=== PATIENT | male | born 1965 | race Caucasian/White ===

== ENCOUNTER 2018-08-02 10:35 | Inpatient (IN) | payer OTHER ==
[~2018-08-02 10:35] MED LIST: ISOVUE-370 76%-LOCM 1 ML ONE
[2018-08-02] MEDS ORDERED: Dexamethasone 10 MG/ML VIAL ONE (10:53)
[2018-08-02 11:02] LABS: #Basophils 0.1 thou/uL (0.0-0.2); #Eosinphils 0.2 thou/uL (0.0-0.7); #Lymphocytes 1.5 thou/uL (1.20-3.40); #Monocytes 0.7 thou/uL (0.11-0.59); #Neutrophils 6.7 thou/uL (1.40-6.50); %Basophils 0.9 % (0.0-1.0); %Eosinophils 2.7 % (0.0-10.0); %Lymphocytes 16.4 % (21.0-51.0); %Monocytes 7.8 % (0.0-10.0); %Neutrophils 72.4 % (42.0-75.0); Hemoglobin 12.6 g/dL (14.0-18.0); Mean Corpuscular HGB CONC 32.2 g/dL (32.0-36.0); Mean Corpuscular Hemoglobin 29.3 pg (27.0-31.0); Mean Corpuscular Volume 91.1 fL (78.0-98.0); Mean Platelet Volume 8.4 fL (7.4-10.4); Platelet Count 222 thou/uL (130-400); RBC Distribution Width 12.6 % (11.5-14.5); Red Blood Cell (RBC) Count 4.31 mill/uL (4.70-6.10); White Blood Cell (WBC) Count 9.2 thou/uL (4.8-10.8)
[2018-08-02 11:22] LABS: ALT (SGPT) 31 U/L (8-55); AST (SGOT) 17 U/L (5-34); Albumin 3.1 g/dL (3.5-5.0); Alkaline Phosphatase 89 U/L (40-150); Anion Gap 9 mmol/L (10-20); BUN (Urea Nitrogen) 18 mg/dL (8.4-25.7); Bilirubin, Total 0.8 mg/dL (0.2-1.2); CK (CPK) 106 U/L (30-200); Calc. Creatinine Clearance 0 mL/min (70-130); Calcium 8.7 mg/dL (7.8-10.44); Carbon Dioxide 30 mmol/L (22-29); Chloride 99 mmol/L (98-107); Estimated GFR-MDRD 51; Globulin 3.4 g/dL (2.4-3.5); Glucose 225 mg/dL (70-105); Potassium 3.7 mmol/L (3.5-5.1); Protein, Total 6.5 g/dL (6.0-8.3); Sodium 134 mmol/L (136-145)
--- NOTE | 2018-08-02 11:24 | RAD ---
CHEST 1 VIEW: HISTORY: Shortness of breath. Dyspnea. COMPARISON: None. FINDINGS: Normal cardiac silhouette. The pulmonary vessels and hilum are normal. Right costophrenic angle is clear. Obscuration of the left hemidiaphragm likely due to pleural and parenchymal changes. No pneu mothorax or osseous abnormalities. IMPRESSION: Pleural and parenchymal changes of the left lung base. POS: H
[2018-08-02 11:27] LABS: CKMB 2.5 ng/mL (0-6.6); Troponin I 0.029 ng/mL (< 0.028)
[2018-08-02] MEDS ORDERED: cloNIDine 0.1 MG TAB ONE (11:55)
--- NOTE | 2018-08-02 14:54 | CT ---
CT ANGIOGRAM OF THE CHEST: HISTORY: Dyspnea. COMPARISON: None. TECHNIQUE: CT angiogram of the chest is performed in the axial plane. Three-dimensional reformatted images are submitted for interpretation. FINDINGS: Moderate bilateral pleural effusions. Patchy ground-glass opacities are likely due to edema. There are linear opacities in both lower lobes represent areas of atelectasis. More focal opacification of the left lower lobe may represent subsegmental atelectasis or infiltrate. Additional patchy opacity is noted in the upper lobes and middle lobe. Trachea and central bronchi are patent. Visualized upper solid organs are unremarkable. There are enlarged mediastinal and hilar lymph nodes. 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 The visualized aorta has a normal caliber. No aneurysm. N o periaortic fat stranding. Heart size is within normal limits. No significant pericardial fluid. Adequate contrast opacification of the pulmonary arterial system to the level of the segmental arteri es. No filling defect to suggest thromboembolism. No lytic or blastic lesion in the osseous structures. IMPRESSION: 1. No evidence of pulmonary artery embolism to the level of the segmental arteries. 2. Bilateral effusions with lung parenchymal changes suggesting edema and volume overload. 3. Enlarged mediastinal and subcarinal lymph nodes which may be reactive secondary to infectious inf lammatory process. The possibility of malignancy cannot be excluded. Clinical correlation is essent ial. POS: DEYSI
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
[2018-08-02] MEDS ORDERED: Furosemide 40 MG/4 ML VIAL ONE (15:33)
[2018-08-02] MEDS ORDERED: Enoxaparin Sodium 40 MG/0.4 ML SYRINGE SC SCH ×2 (15:45→21:00)
[2018-08-02 16:17] LABS: Troponin I 0.027 ng/mL (< 0.028)
[2018-08-02 17:28] VITALS: BMI 41.5
[2018-08-02] MEDS ORDERED: Dextrose 50% Abboject 50 ML SYRINGE SLOW IVP PRN (17:44)
[2018-08-02] MEDS ORDERED: HumaLOG 300 UNITS/3 ML VIAL SC PRN ×3 (17:44→21:11)
[2018-08-02] MEDS ORDERED: Dextrose 5% in Water 1,000 ML IV PRN (17:44)
--- NOTE | 2018-08-02 17:49 | PDOC.EVN ---
Event Note - Event Note Event Note: patient changed code status to full code
[2018-08-02] MEDS ORDERED: Furosemide 40 MG/4 ML VIAL SLOW IVP SCH (18:00)
[2018-08-02] MEDS: metFORMIN 500 MG TAB PO SCH (18:21)
[2018-08-02] MEDS: Carvedilol 25 MG TAB PO SCH (18:21)
[2018-08-02 18:50] LABS: Troponin I 0.016 ng/mL (< 0.028)
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
[2018-08-02] MEDS: Lisinopril 20 MG TAB PO SCH (22:01)
[2018-08-02] MEDS: Atorvastatin Calcium 40 MG TAB PO SCH (22:01)
[2018-08-02] MEDS: Enoxaparin Sodium 40 MG/0.4 ML SYRINGE SC SCH (22:03)
[2018-08-03 04:55] LABS: #Lymphocytes 0.9 thou/uL (1.20-3.40); #Monocytes 0.3 thou/uL (0.11-0.59); #Neutrophils 7.9 thou/uL (1.40-6.50); %Eosinophils 0.2 % (0.0-10.0); %Lymphocytes 9.6 % (21.0-51.0); %Monocytes 3.1 % (0.0-10.0); %Neutrophils 87.1 % (42.0-75.0); Hemoglobin 11.7 g/dL (14.0-18.0); Mean Corpuscular Hemoglobin 29.9 pg (27.0-31.0); Mean Corpuscular Volume 90.7 fL (78.0-98.0); Mean Platelet Volume 8.7 fL (7.4-10.4); Platelet Count 217 thou/uL (130-400); RBC Distribution Width 12.7 % (11.5-14.5); Red Blood Cell (RBC) Count 3.92 mill/uL (4.70-6.10); White Blood Cell (WBC) Count 9.1 thou/uL (4.8-10.8)
[2018-08-03 05:11] LABS: ALT (SGPT) 23 U/L (8-55); AST (SGOT) 10 U/L (5-34); Albumin 2.9 g/dL (3.5-5.0); Alkaline Phosphatase 73 U/L (40-150); Anion Gap 12 mmol/L (10-20); BUN (Urea Nitrogen) 27 mg/dL (8.4-25.7); Bilirubin, Total 0.6 mg/dL (0.2-1.2); Calc. Creatinine Clearance 98 mL/min (70-130); Calcium 8.7 mg/dL (7.8-10.44); Carbon Dioxide 31 mmol/L (22-29); Chloride 99 mmol/L (98-107); Estimated GFR-MDRD 44; Globulin 2.9 g/dL (2.4-3.5); Glucose 285 mg/dL (70-105); Potassium 3.7 mmol/L (3.5-5.1); Protein, Total 5.8 g/dL (6.0-8.3); Sodium 138 mmol/L (136-145)
[2018-08-03] MEDS ORDERED: Acetaminophen 500 MG TAB PO SCH (05:15)
--- NOTE | 2018-08-03 05:53 | PDOC.FM ---
- Subjective Subjective: Pt states throat is very sore this AM. Says he was diagnosed with KELLEY 4 years ago but does not wear it because of discomfort. SOB is improved this AM. States he is concerned that his right side seems to be more swollen than his left (Rt arm and leg). - Objective Vital Signs & Weight: Vital Signs (12 hours) Temp Pulse Resp BP BP Pulse Ox 08/03/18 03:54 97.8 F 68 15 160/72 H 96 08/03/18 00:12 98 08/03/18 00:09 94 L 08/02/18 23:53 97.9 F 66 18 133/63 90 L 08/02/18 22:01 137/62 08/02/18 19:57 98.3 F 62 20 119/56 L 92 L 08/02/18 19:37 94 L 08/02/18 19:34 62 16 94 L Weight Weight 133.764 kg I&O: 08/01/18 08/02/18 08/03/18 06:59 06:59 06:59 Intake Total 360 Output Total 450 Balance -90 Result Diagrams: 08/03/18 04:42 08/03/18 04:42 <Bre Cohen - Last Filed: 08/03/18 07:39> - Objective Vital Signs & Weight: Vital Signs (12 hours) Temp Pulse Resp BP BP BP Pulse Ox 08/03/18 11:57 98.1 F 60 18 135/60 100 08/03/18 09:35 142/67 H 08/03/18 09:34 60 142/67 H 08/03/18 08:19 58 L 16 97 08/03/18 07:54 97.9 F 60 22 H 142/67 H 96 08/03/18 03:54 97.8 F 68 15 160/72 H 96 Weight Weight 133.764 kg I&O: 08/02/18 08/03/18 08/04/18 06:59 06:59 06:59 Intake Total 860 Output Total 450 Balance 410 Result Diagrams: 08/03/18 04:42 08/03/18 04:42 <Leonel Beavers - Last Filed: 08/03/18 13:28> Phys Exam - Physical Examination Constitutional: NAD HEENT: moist MMs Oral pharynx mild erythema Neck: supple +LAD Fine crackles at bases bilaterally, no wheezing Cardiovascular: RRR, no significant murmur Gastrointestinal: soft, no distention, positive bowel sounds Musculoskeletal: pulses present 2+ pitting edema in legs bilat, seems to be improved somewhat from yest Neurological: moves all 4 limbs Psychiatric: normal affect, A&O x 3 <Bre Cohen - Last Filed: 08/03/18 07:39> Dx/Plan (1) Acute exacerbation of CHF (congestive heart failure) Code(s): I50.9 - HEART FAILURE, UNSPECIFIED Status: Acute (2) DM2 (diabetes mellitus, type 2) Status: Chronic (3) HTN (hypertension) Code(s): I10 - ESSENTIAL (PRIMARY) HYPERTENSION Status: Chronic (4) CHF (congestive heart failure) Code(s): I50.9 - HEART FAILURE, UNSPECIFIED Status: Chronic (5) Diverticulitis Code(s): K57.92 - DVTRCLI OF INTEST, PART UNSP, W/O PERF OR ABSCESS W/O BLEED Status: Chronic (6) History of CVA with residual deficit Code(s): I69.30 - UNSPECIFIED SEQUELAE OF CEREBRAL INFARCTION Status: Chronic (7) Asthma Code(s): J45.909 - UNSPECIFIED ASTHMA, UNCOMPLICATED Status: Chronic - Plan Plan: 53 yo M with PMH of CVAx3, HTN, CHF, and asthma presents for CHF exacerbation Acute on Chronic CHF exacerbation -Pt presents with SOB, BNP 263; diminished lung sounds at bases, 2+ pitting edema in BLE -WBC WNL -CXR: pleural and parenchymal changes of Left lung base -EKG shows QT prolongation, non-specific T wave changes -CT Angio chest shows bilateral pleural effusions -CKMB neg, elevated at 0.029, downtrending -In ED, received duonebx2, 10 mg oral decadron, 40 IV lasix, clonidine 0.1 PO -Starting Lasix IV 40 BID, continue coreg -Strict I/Os -Echo pending -Try to obtain records from Dr. Carley Hill, [facility]. -Consult Cardiology, Dr. Perez. Appreciate recommendations -Started on Augmentin Pharyngitis, most likely viral -Throat lozenges for comfort Elevated troponin likely 2/2 demand ischema -continue trending troponins -CKMB neg DM2 -Lantus 40 daily -Mod SSI -Accuchecks, hyperglycemia protocol HTN -Continue home medicines Hyponatremia -slight, Na 134. Continue to monitor Hx CVAx3 with residual deficits -dual platelet therapy, plavix and ASA -slight residual weakness on RUE and RLE, patient walks with cane -Last stroke in Nov 2016 Asthma -duonebs dawit q6 KELLEY -Noncompliant, encourage compliance DVT Ppx: lovenox Diet: CC, HH, fluid restrict to 1800 ml/day Dispo: possible discharge tomorrow Thank you for allowing us to participate in this patient's care. <Bre Cohen - Last Filed: 08/03/18 07:39> (1) Acute exacerbation of CHF (congestive heart failure) Code(s): I50.9 - HEART FAILURE, UNSPECIFIED Status: Acute (2) DM2 (diabetes mellitus, type 2) Status: Chronic (3) HTN (hypertension) Code(s): I10 - ESSENTIAL (PRIMARY) HYPERTENSION Status: Chronic (4) CHF (congestive heart failure) Code(s): I50.9 - HEART FAILURE, UNSPECIFIED Status: Chronic (5) Diverticulitis Code(s): K57.92 - DVTRCLI OF INTEST, PART UNSP, W/O PERF OR ABSCESS W/O BLEED Status: Chronic (6) History of CVA with residual deficit Code(s): I69.30 - UNSPECIFIED SEQUELAE OF CEREBRAL INFARCTION Status: Chronic (7) Asthma Code(s): J45.909 - UNSPECIFIED ASTHMA, UNCOMPLICATED Status: Chronic <Leonel Beavers - Last Filed: 08/03/18 13:28> Attending Addendum - Attending Addendum Date/Time: 08/03/18 1317 I personally evaluated the patient and discussed the management with Dr. Dayan Cohen I agree with the History, Examination, Assessment and Plan documented above with any addition or exceptions noted below. Note history of documented KELLEY for several years with noncompliance with CPAP due to discomfort with mask stressed importance of CPAP given his condition .Lower extremities still with pitting edema. Echocardiogram completed results pending, appreciate Cardiology Recommendation. Recent URTI noted with sore throat now. Rec consider contact prior treating Hand Quilter's office in [place] for further results of previous evaluation. Patient sub optimal historian for PMHX regard specific cardiac conditions. <Leonel Beavers - Last Filed: 08/03/18 13:28>
[2018-08-03] MEDS: Furosemide 40 MG/4 ML VIAL SLOW IVP SCH ×2 (06:14→14:04)
[2018-08-03] MEDS ORDERED: Furosemide 40 MG TAB PO SCH (07:30)
--- NOTE | 2018-08-03 09:23 | PDOC.CTH ---
<Paulina Norton - Last Filed: 08/03/18 09:32> Cardiology Progress Note - Subjective The pt seen and examined. No overnight events. No cardiac complaints. He stated he has been urinating well and breathing better. - Objective Vital Signs Temp Pulse Resp BP BP Pulse Ox 08/03/18 08:19 58 L 16 97 08/03/18 07:54 97.9 F 60 22 H 142/67 H 96 08/03/18 03:54 97.8 F 68 15 160/72 H 96 08/03/18 00:12 98 08/03/18 00:09 94 L 08/02/18 23:53 97.9 F 66 18 133/63 90 L 08/02/18 22:01 137/62 Weight 294 lb 14.4 oz 08/02/18 08/03/18 08/04/18 06:59 06:59 06:59 Intake Total 860 Output Total 450 Balance 410 - Physical Examination General/Neuro: alert & oriented x3 Lungs: CTA Heart: RRR Abdomen: soft Extremities: other: (2+ pitting BLE edema and non-pitting to RUL) - Telemetry Telemetry Rhythm: SR 60-70s - Labs Result Diagrams: 08/03/18 04:42 08/03/18 04:42 Troponin/CKMB CK-MB (CK-2) 2.5 ng/mL (0-6.6) 08/02/18 10:45 Troponin I 0.016 ng/mL (< 0.028) 08/02/18 18:18 - Assessment/Plan 1. Acute on chronic HF - Reps. status is improving with Lasix 40mg IV BID; on BBlocker, FRIEDA, Diuretics. Echo result is pending at this time. 2. HTN - stable with current meds 3. DM type 2 - managed by PCP 4. 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 Asthma - stable 6. sleep Apnea - He had SA study more than 5 years ago. He has not worn Cpap @ HS for more than 4-5 years due to discomfort. Education of the risk and benefit of Sleep Apnea and Cpap @ HS given to the pt. MAR reviewed Review of Systems - Review of Systems Constitutional: reports: no symptoms reported EENTM: reports: no symptoms reported Respiratory: reports: no symptoms reported Cardiac (ROS): reports: no symptoms reported ABD/GI: reports: no symptoms reported : reports: no symptoms reported Musculoskeletal: reports: no symptoms reported Skin: reports: no symptoms reported <Chago Perez - Last Filed: 08/03/18 22:35> Cardiology Progress Note - Objective Vital Signs Temp Pulse Pulse Pulse Resp BP BP 08/03/18 20:36 138/70 08/03/18 20:00 97.4 F L 62 20 08/03/18 19:18 08/03/18 19:17 08/03/18 15:53 97.7 F 62 18 08/03/18 15:24 60 67 141/68 H 08/03/18 14:59 62 18 08/03/18 11:57 98.1 F 60 18 BP BP BP Pulse Ox Pulse Ox Pulse Ox 08/03/18 20:36 08/03/18 20:00 138/70 98 08/03/18 19:18 96 08/03/18 19:17 97 08/03/18 15:53 121/60 99 08/03/18 15:24 147/65 H 95 94 L 08/03/18 14:59 98 08/03/18 11:57 135/60 100 Weight 294 lb 14.4 oz 08/02/18 08/03/18 08/04/18 06:59 06:59 06:59 Intake Total 860 604 Output Total 450 Balance 410 604 - Labs Result Diagrams: 08/03/18 04:42 08/03/18 04:42 Troponin/CKMB CK-MB (CK-2) 2.5 ng/mL (0-6.6) 08/02/18 10:45 Troponin I 0.016 ng/mL (< 0.028) 08/02/18 18:18 - Assessment/Plan Pt. seen and evaluated by me. I agree with the A/P by the ROUGH RIB GRADER. We have discussed the pt. and the plan.Chest clear RRR. EF 35-40%.Dilated LV.
[2018-08-03] MEDS: Amlodipine 10 MG TAB PO SCH (09:34)
[2018-08-03] MEDS: Carvedilol 25 MG TAB PO SCH ×2 (09:34→16:51)
[2018-08-03] MEDS: metFORMIN 500 MG TAB PO SCH ×2 (09:34→16:51)
[2018-08-03] MEDS: Amoxicillin/Potassium Clav 875 MG TAB PO SCH ×2 (09:35→20:36)
[2018-08-03] MEDS: Clopidogrel Bisulfate 75 MG TAB PO SCH (09:35)
[2018-08-03] MEDS: Insulin Glargine 40 UNITS in Pre-Filled Syringe SC SCH (09:35)
[2018-08-03] MEDS: Spironolactone 100 MG TAB PO SCH (09:35)
[2018-08-03] MEDS: Lisinopril 20 MG TAB PO SCH ×2 (09:35→20:36)
[2018-08-03] MEDS: HumaLOG 300 UNITS/3 ML VIAL SC PRN ×2 (11:46→17:03)
[2018-08-03] MEDS: Cepastat Lozenges 1 LOZ PO PRN ×3 (14:04→20:36)
[2018-08-03] MEDS: Enoxaparin Sodium 40 MG/0.4 ML SYRINGE SC SCH (20:37)
[2018-08-03] MEDS: Atorvastatin Calcium 40 MG TAB PO SCH (20:37)
[2018-08-04] MEDS: Metolazone 5 MG TAB PO SCH (04:54)
[2018-08-04 04:57] LABS: #Lymphocytes 2.2 thou/uL (1.20-3.40); #Monocytes 0.8 thou/uL (0.11-0.59); #Neutrophils 8.3 thou/uL (1.40-6.50); %Basophils 0.1 % (0.0-1.0); %Eosinophils 0.3 % (0.0-10.0); %Lymphocytes 19.5 % (21.0-51.0); %Monocytes 7.4 % (0.0-10.0); %Neutrophils 72.6 % (42.0-75.0); Mean Corpuscular HGB CONC 32.2 g/dL (32.0-36.0); Mean Corpuscular Hemoglobin 29.3 pg (27.0-31.0); Mean Corpuscular Volume 90.9 fL (78.0-98.0); Mean Platelet Volume 8.8 fL (7.4-10.4); Platelet Count 218 thou/uL (130-400); RBC Distribution Width 12.8 % (11.5-14.5); Red Blood Cell (RBC) Count 3.77 mill/uL (4.70-6.10); White Blood Cell (WBC) Count 11.4 thou/uL (4.8-10.8)
[2018-08-04 05:11] LABS: ALT (SGPT) 20 U/L (8-55); AST (SGOT) 11 U/L (5-34); Albumin 2.9 g/dL (3.5-5.0); Alkaline Phosphatase 65 U/L (40-150); Anion Gap 11 mmol/L (10-20); BUN (Urea Nitrogen) 31 mg/dL (8.4-25.7); Bilirubin, Total 0.4 mg/dL (0.2-1.2); Calc. Creatinine Clearance 103 mL/min (70-130); Calcium 8.8 mg/dL (7.8-10.44); Carbon Dioxide 31 mmol/L (22-29); Chloride 101 mmol/L (98-107); Estimated GFR-MDRD 46; Globulin 2.8 g/dL (2.4-3.5); Glucose 177 mg/dL (70-105); Potassium 3.6 mmol/L (3.5-5.1); Protein, Total 5.7 g/dL (6.0-8.3); Sodium 139 mmol/L (136-145)
--- NOTE | 2018-08-04 05:55 | PDOC.FM ---
Addendum entered and electronically signed by Ellen Benson MD 08/04/18 09:53 : Will order procal, if neg plan to stop Augmentin Original Note: - Subjective Subjective: Mr Jeffery reports right hand, and LE edema that he feels has not improved. Reports not urinating often although on IV lasix BID. Reports taking a medication this AM in addition to lasix that he feels is helping. Denies SOB. He is no longer requiring O2. Reports sore throat, requests more throat lozenges. - Objective MAR Reviewed: Yes Vital Signs & Weight: Vital Signs (12 hours) Temp Pulse Resp BP BP BP Pulse Ox 08/04/18 04:23 97.9 F 62 19 146/71 H 95 08/04/18 00:00 98.4 F 66 19 128/60 92 L 08/03/18 23:54 96 08/03/18 20:36 138/70 08/03/18 20:00 97.4 F L 62 20 138/70 98 08/03/18 19:18 96 08/03/18 19:17 97 Weight Weight 133.764 kg I&O: 08/02/18 08/03/18 08/04/18 06:59 06:59 06:59 Intake Total 860 604 Output Total 450 Balance 410 604 Result Diagrams: 08/04/18 04:20 08/04/18 04:20 <Ellen Benson - Last Filed: 08/04/18 09:52> - Objective Vital Signs & Weight: Vital Signs (12 hours) Temp Pulse Resp BP BP Pulse Ox 08/04/18 07:51 97.3 F L 56 L 18 147/71 H 95 08/04/18 07:05 93 L 08/04/18 07:02 53 L 12 08/04/18 04:23 97.9 F 62 19 146/71 H 95 08/04/18 00:00 98.4 F 66 19 128/60 92 L 08/03/18 23:54 96 Weight Weight 128.14 kg I&O: 08/03/18 08/04/18 08/05/18 06:59 06:59 06:59 Intake Total 860 964 240 Output Total 869 521 7874 Balance 410 214 -785 Result Diagrams: 08/04/18 04:20 08/04/18 04:20 <PowellSrinath Yuan Rodrigo - Last Filed: 08/04/18 11:51> Phys Exam - Physical Examination Constitutional: NAD Respiratory: no wheezing, clear to auscultation bilateral Cardiovascular: RRR Gastrointestinal: soft, non-tender, positive bowel sounds Musculoskeletal: edema present LE pitting edema to jail up shins, right hand edema Psychiatric: normal affect, A&O x 3 <Ellen Benson - Last Filed: 08/04/18 09:52> Dx/Plan (1) HFrEF (heart failure with reduced ejection fraction) Code(s): I50.20 - UNSPECIFIED SYSTOLIC (CONGESTIVE) HEART FAILURE Status: Acute (2) Acute exacerbation of CHF (congestive heart failure) Code(s): I50.9 - HEART FAILURE, UNSPECIFIED Status: Acute (3) Asthma Code(s): J45.909 - UNSPECIFIED ASTHMA, UNCOMPLICATED Status: Chronic (4) DM2 (diabetes mellitus, type 2) Status: Chronic (5) Diverticulitis Code(s): K57.92 - DVTRCLI OF INTEST, PART UNSP, W/O PERF OR ABSCESS W/O BLEED Status: Chronic (6) HTN (hypertension) Code(s): I10 - ESSENTIAL (PRIMARY) HYPERTENSION Status: Chronic (7) History of CVA with residual deficit Code(s): I69.30 - UNSPECIFIED SEQUELAE OF CEREBRAL INFARCTION Status: Chronic - Plan Plan: 53yo male with pmh HTN, HFrEF, and CVA presents for HRrEF exacerbation Acute on Chronic CHF exacerbation - CXR: pleural & parenchymal changes of Left lung base. CTA: bilateral pleural effusions - EKG: QT prolongation, non-specific T wave changes - In ED, received duonebx2, 10 mg oral decadron, 40 IV lasix, clonidine 0.1 PO - Strict I/O's, daily wts, and fluid restriction - Continuous Improvement Facilitator, Dr. Carley Hill, [facility]- records requested - Cardiology consulted, Dr. Beth, Appreciate recs - Continue Lasix IV 40 BID - Net positive yesterday, Received first dose Metolazone this AM - Continue Augmentin (Azithromycin not started due to prolonged QT) - Continue home coreg, Spironolactone - Echo: 35-40% EF, candidate for AICD placement, will follow Cardiology recs Pharyngitis - Likely viral etiology - Throat lozenges for comfort DM2 - Continue Lantus 40 daily - Continue home Metformin, Januvia - Holding home Jardiance and Novolin - Mod SSI - Accuchecks ACHS - Hypoglycemia protocol HTN -Continue home Amlodipine, Lisinopril, Spironolactone Elevated troponin, resolved - likely 2/2 demand ischema - Initially elevated at 0.029, downtrended - CKMB neg Mild Hyponatremia, resolved Hx CVAx3 with residual deficits - dual platelet therapy, plavix and ASA - slight residual weakness on RUE and RLE, patient walks with cane - Last stroke in Nov 2016 Asthma - Duonebs dawit q6 KELLEY - SA study >5yrs ago - Noncompliant with CPAP - Educated on risk and benefit of HS CPAP Code Status: FULL DVT ppx: lovenox <Ellen Benson - Last Filed: 08/04/18 09:52> Attending Addendum - Attending Addendum Date/Time: 08/04/18 1150 I personally evaluated the patient and discussed the management with Dr. Benson. I agree with the History, Examination, Assessment and Plan documented above with any addition or exceptions noted below. Patient feeling well today. Will continue to work on diuresis with addition of Metolazone to Lasix regimen. He otherwise appears optimally medically managed. Strict I/O. Check PCT as likely does not need Augmentin therapy. Further mgmt per cardiology recs. <Srinath Powell - Last Filed: 08/04/18 11:51>
[2018-08-04] MEDS: HumaLOG 300 UNITS/3 ML VIAL SC PRN (06:04)
[2018-08-04] MEDS: Furosemide 40 MG/4 ML VIAL SLOW IVP SCH ×2 (06:08→13:34)
[2018-08-04] MEDS: metFORMIN 500 MG TAB PO SCH ×2 (08:58→17:21)
[2018-08-04] MEDS: Amoxicillin/Potassium Clav 875 MG TAB PO SCH ×2 (08:58→22:55)
[2018-08-04] MEDS: Carvedilol 25 MG TAB PO SCH ×2 (08:58→17:21)
[2018-08-04] MEDS: Amlodipine 10 MG TAB PO SCH (08:58)
[2018-08-04] MEDS: Clopidogrel Bisulfate 75 MG TAB PO SCH (08:59)
[2018-08-04] MEDS: Lisinopril 20 MG TAB PO SCH ×2 (08:59→22:56)
[2018-08-04] MEDS ORDERED: EMPAGLIFLOZIN 10 MG PO SCH (09:00)
[2018-08-04] MEDS: Spironolactone 100 MG TAB PO SCH (09:00)
[2018-08-04] MEDS: Insulin Glargine 40 UNITS in Pre-Filled Syringe SC SCH (09:44)
--- NOTE | 2018-08-04 10:35 | PDOC.CTH ---
<Paulina Norton - Last Filed: 08/04/18 10:33> Cardiology Progress Note - Subjective The pt seen and examined. No overnight events. No cardiac complaints. He has voided at least 4 times after he received Metolazone this AM. - Objective Vital Signs Temp Pulse Resp BP BP Pulse Ox 08/04/18 07:51 97.3 F L 56 L 18 147/71 H 95 08/04/18 07:05 93 L 08/04/18 07:02 53 L 12 08/04/18 04:23 97.9 F 62 19 146/71 H 95 08/04/18 00:00 98.4 F 66 19 128/60 92 L 08/03/18 23:54 96 Weight 282 lb 8 oz 08/03/18 08/04/18 08/05/18 06:59 06:59 06:59 Intake Total 860 964 240 Output Total 356 872 4824 Balance 410 214 -785 - Physical Examination General/Neuro: alert & oriented x3 Neck: no JVD present Lungs: CTA (diminished at bases) Heart: RRR Abdomen: soft Extremities: other: (2-3+ pitting BLE edema) - Telemetry Telemetry Rhythm: SR - Labs Result Diagrams: 08/04/18 04:20 08/04/18 04:20 Troponin/CKMB CK-MB (CK-2) 2.5 ng/mL (0-6.6) 08/02/18 10:45 Troponin I 0.016 ng/mL (< 0.028) 08/02/18 18:18 - Assessment/Plan 1. Acute on chronic HF - Pt stated he has voided at least 4 times this AM after he received Metolazone. Cont. Lasix 40mg IV BID; on BBlocker, FRIEDA, Diuretics. EF 35-40%.Dilated LV. 2. HTN - stable with current meds 3. DM type 2 - managed by PCP 4. 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 Asthma - stable 6. sleep Apnea - He had SA study more than 5 years ago. He has not worn Cpap @ HS for more than 4-5 years due to discomfort. Education of the risk and benefit of Sleep Apnea and Cpap @ HS given to the pt. MAR reviewed Review of Systems - Review of Systems Constitutional: reports: no symptoms reported EENTM: reports: no symptoms reported Respiratory: reports: shortness of breath Cardiac (ROS): reports: no symptoms reported ABD/GI: reports: no symptoms reported : reports: no symptoms reported <Chago Perez - Last Filed: 08/04/18 18:18> Cardiology Progress Note - Objective Vital Signs Temp Pulse Pulse Pulse Resp BP BP 08/04/18 15:33 97.8 F 59 L 18 08/04/18 14:30 60 12 08/04/18 11:54 98.2 F 56 L 18 08/04/18 10:57 60 61 148/67 H 148/70 H 08/04/18 07:51 97.3 F L 56 L 18 08/04/18 07:05 08/04/18 07:02 53 L 12 BP Pulse Ox Pulse Ox Pulse Ox 08/04/18 15:33 130/61 98 08/04/18 14:30 08/04/18 11:54 122/58 L 94 L 08/04/18 10:57 95 93 L 08/04/18 07:51 147/71 H 95 08/04/18 07:05 93 L 08/04/18 07:02 Weight 282 lb 8 oz 08/03/18 08/04/18 08/05/18 06:59 06:59 06:59 Intake Total 860 964 600 Output Total 518 592 8052 Balance 410 214 -1100 - Labs Result Diagrams: 08/04/18 04:20 08/04/18 04:20 Troponin/CKMB CK-MB (CK-2) 2.5 ng/mL (0-6.6) 08/02/18 10:45 Troponin I 0.016 ng/mL (< 0.028) 08/02/18 18:18 - Assessment/Plan Pt. seen and eval. by me. I agree with the A/P by the MILK ROUTE SUPERVISOR. He is diuresing. I stress to him that he needs to take his medications. Chest clear. RRR. EF: 35-40%.Dilated LV,
[2018-08-04] MEDS: Enoxaparin Sodium 40 MG/0.4 ML SYRINGE SC SCH (22:56)
[2018-08-04] MEDS: Atorvastatin Calcium 40 MG TAB PO SCH (22:56)
[2018-08-05] MEDS: Metolazone 5 MG TAB PO SCH (04:57)
[2018-08-05 05:29] LABS: #Eosinphils 0.2 thou/uL (0.0-0.7); #Lymphocytes 2.5 thou/uL (1.20-3.40); #Monocytes 0.9 thou/uL (0.11-0.59); #Neutrophils 7.3 thou/uL (1.40-6.50); %Basophils 0.3 % (0.0-1.0); %Eosinophils 1.5 % (0.0-10.0); %Lymphocytes 22.8 % (21.0-51.0); %Neutrophils 67.4 % (42.0-75.0); Hemoglobin 11.4 g/dL (14.0-18.0); Mean Corpuscular HGB CONC 31.8 g/dL (32.0-36.0); Mean Corpuscular Hemoglobin 28.9 pg (27.0-31.0); Mean Platelet Volume 8.8 fL (7.4-10.4); Platelet Count 244 thou/uL (130-400); RBC Distribution Width 12.5 % (11.5-14.5); Red Blood Cell (RBC) Count 3.94 mill/uL (4.70-6.10); White Blood Cell (WBC) Count 10.9 thou/uL (4.8-10.8)
[2018-08-05 06:17] LABS: ALT (SGPT) 19 U/L (8-55); AST (SGOT) 16 U/L (5-34); Alkaline Phosphatase 65 U/L (40-150); Anion Gap 11 mmol/L (10-20); BUN (Urea Nitrogen) 26 mg/dL (8.4-25.7); Bilirubin, Total 0.5 mg/dL (0.2-1.2); Calc. Creatinine Clearance 113 mL/min (70-130); Carbon Dioxide 33 mmol/L (22-29); Chloride 98 mmol/L (98-107); Estimated GFR-MDRD 54; Glucose 131 mg/dL (70-105); Potassium 3.1 mmol/L (3.5-5.1); Sodium 139 mmol/L (136-145)
[2018-08-05] MEDS: Furosemide 40 MG/4 ML VIAL SLOW IVP SCH ×2 (06:40→14:58)
--- NOTE | 2018-08-05 06:55 | PDOC.FM ---
- Subjective Subjective: Pt reports feeling well. Denies SOB. Reports good urine output but still has significant edema. No questions or concerns. - Objective MAR Reviewed: Yes Vital Signs & Weight: Vital Signs (12 hours) Temp Pulse Resp BP BP BP Pulse Ox 08/05/18 04:51 97.7 F 61 13 162/77 H 93 L 08/05/18 00:57 66 14 94 L 08/04/18 23:41 98.5 F 58 L 12 150/67 H 95 08/04/18 22:56 131/60 08/04/18 19:26 97.9 F 58 L 18 136/63 98 Weight Weight 127.414 kg I&O: 08/03/18 08/04/18 08/05/18 06:59 06:59 06:59 Intake Total 860 964 840 Output Total 638 090 5462 Balance 410 214 -1060 Result Diagrams: 08/05/18 05:06 08/05/18 05:06 <Ellen Benson - Last Filed: 08/05/18 11:50> - Objective Vital Signs & Weight: Vital Signs (12 hours) Temp Pulse Resp BP BP Pulse Ox 08/05/18 11:20 98.1 F 60 20 129/62 94 L 08/05/18 07:58 51 L 14 96 08/05/18 07:40 97.6 F 51 L 20 141/67 H 92 L 08/05/18 04:51 97.7 F 61 13 162/77 H 93 L 08/05/18 00:57 66 14 94 L Weight Weight 127.414 kg I&O: 08/04/18 08/05/18 08/06/18 06:59 06:59 06:59 Intake Total 964 1560 360 Output Total 750 2850 725 Balance 214 -1290 -365 Result Diagrams: 08/05/18 05:06 08/05/18 05:06 <Srinath Powell - Last Filed: 08/05/18 12:32> Phys Exam - Physical Examination Constitutional: NAD Neck: supple Respiratory: no wheezing, clear to auscultation bilateral Cardiovascular: RRR, no significant murmur Gastrointestinal: soft, non-tender, positive bowel sounds 1+ pitting edema intermediate up shins. Edema of right hand, no erythema Psychiatric: normal affect, A&O x 3 <Ellen Benson - Last Filed: 08/05/18 11:50> Dx/Plan (1) HFrEF (heart failure with reduced ejection fraction) Code(s): I50.20 - UNSPECIFIED SYSTOLIC (CONGESTIVE) HEART FAILURE Status: Acute (2) Acute exacerbation of CHF (congestive heart failure) Code(s): I50.9 - HEART FAILURE, UNSPECIFIED Status: Acute (3) Asthma Code(s): J45.909 - UNSPECIFIED ASTHMA, UNCOMPLICATED Status: Chronic (4) DM2 (diabetes mellitus, type 2) Status: Chronic (5) Diverticulitis Code(s): K57.92 - DVTRCLI OF INTEST, PART UNSP, W/O PERF OR ABSCESS W/O BLEED Status: Chronic (6) HTN (hypertension) Code(s): I10 - ESSENTIAL (PRIMARY) HYPERTENSION Status: Chronic (7) History of CVA with residual deficit Code(s): I69.30 - UNSPECIFIED SEQUELAE OF CEREBRAL INFARCTION Status: Chronic - Plan Plan: 53yo male with pmh HTN, HFrEF, and CVA presents for HRrEF exacerbation Acute on Chronic CHF exacerbation - CXR: pleural & parenchymal changes of Left lung base. CTA: bilateral pleural effusions - Strict I/O's, daily wts, and fluid restriction - [place] Boss, Dr. Carley Hill, [facility]- records requested - Cardiology consulted, Dr. Beth, Appreciate recs - Continue Lasix IV 40 BID, Metolazone qAM 1hr prior to lasix - 1L net neg yesterday, wt is downtrending - Discontinued Augmentin, procal 0.06 - Continue home coreg, Spironolactone - Echo: 35-40% EF, candidate for AICD placement, will follow Cardiology recs Pharyngitis - Likely viral etiology - Throat lozenges for comfort DM2 - Continue Lantus 40 daily - Continue home Metformin, Januvia, Jardiance - Holding home Novolin - Mod SSI - Accuchecks ACHS - Hypoglycemia protocol - Blood sugars likely initially elevated due to dose of decadron in ED HTN -Continue home Amlodipine, Lisinopril, Spironolactone Elevated troponin, resolved - likely 2/2 demand ischema - Initially elevated at 0.029, downtrended - CKMB neg Mild Hyponatremia, resolved Hx CVAx3 with residual deficits - Dual platelet therapy, plavix and ASA - slight residual weakness on RUE and RLE, patient walks with cane - Last stroke in Nov 2016 Asthma - Duonebs dawit q6 KELLEY - SA study >5yrs ago - Noncompliant with CPAP - Educated on risk and benefit of HS CPAP Code Status: FULL DVT ppx: lovenox <Ellen Benson - Last Filed: 08/05/18 11:50> Attending Addendum - Attending Addendum Date/Time: 08/05/18 1231 I personally evaluated the patient and discussed the management with Dr. Benson. I agree with the History, Examination, Assessment and Plan documented above with any addition or exceptions noted below. Patient doing well and overall improved today. Diuresed better yesterday and metolazone continued today. Will continue diuresis and await recs from cardiology. Echo resulted. Replete potassium as needed, renal function improved today. <Srinath Powell - Last Filed: 08/05/18 12:32>
[2018-08-05] MEDS: Amlodipine 10 MG TAB PO SCH (09:22)
[2018-08-05] MEDS: metFORMIN 500 MG TAB PO SCH ×2 (09:22→16:07)
[2018-08-05] MEDS: Potassium Chloride 20 MEQ TAB PO SCH ×2 (09:22→16:07)
[2018-08-05] MEDS: Carvedilol 25 MG TAB PO SCH ×2 (09:22→16:08)
[2018-08-05] MEDS: Clopidogrel Bisulfate 75 MG TAB PO SCH (09:22)
[2018-08-05] MEDS: Spironolactone 100 MG TAB PO SCH (09:23)
[2018-08-05] MEDS: Insulin Glargine 40 UNITS in Pre-Filled Syringe SC SCH (09:23)
[2018-08-05] MEDS: Lisinopril 20 MG TAB PO SCH ×2 (09:23→21:21)
--- NOTE | 2018-08-05 13:26 | PDOC.CTH ---
Cardiology Progress Note - Subjective The pt seen and examined. No overnight events. No cardiac complaints. - Objective Vital Signs Temp Pulse Resp BP BP Pulse Ox 08/05/18 11:20 98.1 F 60 20 129/62 94 L 08/05/18 07:58 51 L 14 96 08/05/18 07:40 97.6 F 51 L 20 141/67 H 92 L 08/05/18 04:51 97.7 F 61 13 162/77 H 93 L Weight 280 lb 14.4 oz 08/04/18 08/05/18 08/06/18 06:59 06:59 06:59 Intake Total 964 1560 600 Output Total 750 2850 725 Balance 214 -1290 -125 - Physical Examination General/Neuro: alert & oriented x3 Neck: no JVD present Lungs: other: (diminished at bases) Heart: RRR Abdomen: soft Extremities: other: (2-3+ pitting BLE edema) - Labs Result Diagrams: 08/05/18 05:06 08/05/18 05:06 Troponin/CKMB CK-MB (CK-2) 2.5 ng/mL (0-6.6) 08/02/18 10:45 Troponin I 0.016 ng/mL (< 0.028) 08/02/18 18:18 - Assessment/Plan 1. Acute on chronic HF - Pt stated he has voided at least 4 times this AM after he received Metolazone. Cont. Lasix 40mg IV BID; on BBlocker, FRIEDA, Diuretics. EF 35-40%.Dilated LV. Lasix will be changed to PO from tomorrow. 2. HTN - stable with current meds 3. DM type 2 - managed by PCP 4. 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 Asthma - stable 6. sleep Apnea - He had SA study more than 5 years ago. He has not worn Cpap @ HS for more than 4-5 years due to discomfort. Education of the risk and benefit of Sleep Apnea and Cpap @ HS given to the pt. MAR reviewed Review of Systems - Review of Systems Constitutional: reports: no symptoms reported EENTM: reports: no symptoms reported Respiratory: reports: no symptoms reported Cardiac (ROS): reports: no symptoms reported ABD/GI: reports: no symptoms reported : reports: no symptoms reported Musculoskeletal: reports: no symptoms reported Skin: reports: no symptoms reported
--- NOTE | 2018-08-05 15:07 | PQF ---
CLINICAL DOCUMENTATION IMPROVEMENT CLARIFICATION FORM: ICD-10 Updated PLEASE DO AN ADDENDUM TO THE PROGRESS NOTE WITH ANY DOCUMENTATION UPDATES OR ADDITIONS AND CARRY THROUGH TO DC SUMMARY. THANK YOU. DATE: 08/05/18 ATTN: Dr. Benson/ Attending Dr. Powell Please exercise your independent, professional judgment in responding to the clarification form. Clinical indicators are provided on the bottom of this form for your review Please check appropriate box(s): [x] Acute Respiratory Failure: [x] with Hypoxia [ ] with Hypercapnia [ ] Acute On Chronic Respiratory Failure: [ ] with Hypoxia [ ] with Hypercapnia [ ] Acute Respiratory Failure due to: [ ] Other diagnosis [ ] Unable to determine In addition, please specify: Present on Admission (POA): [x] Yes [ ] No [ ] Unable to determine For continuity of documentation, please document condition throughout progress notes and discharge summary. Thank You. CLINICAL INDICATORS - SIGNS / SYMPTOMS / LABS ED RECORD 08/02: BP 186/112 PULSE 97 RESP. 17 O2 SAT 71 ON 2L O2 RESP. ASSESSMENT 08/02/18: O2 SAT 94 NASAL CANNULA O2 FLOW RATE 2L/MIN BREATH SOUNDS: RALES DIMINISHED RLL RALES LAB: CARBON DIOXIDE LEVEL 08/05: 33 RISK: H&P: ACUTE ON CHRONIC CHF EXACERBATION. DM 2; HTN; ASTHMA. TREATMENT: H&P: IN ED, RECEIVED DUONEB X2, 10 MG ORAL DECADRON, 40 IV LASIX ORDER 08/02: IV LASIX 40 MG 0600, 1400 ORDER 08/02: RESP: O2 TO KEEP SATS 92% PRN. Thank you, Nichol (This form is maintained as a part of the permanent medical record) 2015 [employer]. All Rights Reserved Nichol Sam RN, BSN [email or web address] Office: [phone] [facility]
--- NOTE | 2018-08-05 15:59 | PQF ---
CLINICAL DOCUMENTATION IMPROVEMENT CLARIFICATION FORM: ICD-10 Updated PLEASE DO AN ADDENDUM TO THE PROGRESS NOTE WITH ANY DOCUMENTATION UPDATES OR ADDITIONS AND CARRY THROUGH TO DC SUMMARY. THANK YOU. DATE: 08/05/18; 08/06/18 ATTN: Dr. Benson/ Attending Dr. Araujo Please exercise your independent, professional judgment in responding to the clarification form. Clinical indicators are provided on the bottom of this form for your review Please check appropriate box(s): [ ] CKD without ARF/ZAHEER please specify Stage of CKD (see below) [ ] Acute on Chronic Renal Failure please specify Stage of CKD (see below) [ ] Acute Renal Failure (ARF) / Acute Kidney Injury (ZAHEER) [ ] Other diagnosis [x] Unable to determine In addition, please specify: Present on Admission (POA): [x] Yes [ ] No [ ] Unable to determine For continuity of documentation, please document condition throughout progress notes and discharge summary. Thank You. CLINICAL INDICATORS - SIGNS / SYMPTOMS/ LABS are present in the medical record: 08/02 08/03 08/04 08/05 LAB: CREATININE 1.46 1.66 1.59 1.38 ESTIMATED GFR 51 44 46 54 H&P: EXTREMITIES: +3 PITTING EDEMA BILATERALLY RISK: H&P: PM Hx: CHF, DM II, CVA X3, ASTHMA. HTN ORDER 08/02: IV LASIX 40 MG 0600, 1400 PN 08/05: REPORTS GOOD URINE OUTPUT BUT STILL HAS SIGNIFICANT EDEMA. TREATMENT: ORDER FOR LAB: CMP 08/02, 08/03, 08/04, 08/05 National [employer] Guidelines for CKD Staging Stage I Kidney damage with normal or increased GFR GFR > 90 Stage II Kidney damage with mildly decreased GFR GFR 60-89 Stage III Kidney damage with moderately decreased GFR GFR 30-59 Stage IV Kidney damage with severely decreased GFR GFR 16-29 Stage V Kidney failure GFR < 15 ESRD End Stage Renal Disease On dialysis Acute Renal Failure/Acute Kidney Failure defined as: Increases in SCr by (>) 0.3 mg/dl within 48 hours OR- Increases in SCr by (>) 1.5 times baseline, known or presumed to have occurred within the prior 7 days OR- Urine volume < 0.5 ml/kg/hour for 6 hours (KDIGO supplement 2012 for RIFLE/ASPEN criteria) Thank you, Nichol (This form is maintained as a part of the permanent medical record) 2014 [employer] All Rights Reserved Nichol Sam RN, BSN [email or web address] Office: [phone] [facility]
[2018-08-05] MEDS: Atorvastatin Calcium 40 MG TAB PO SCH (21:22)
[2018-08-05] MEDS: Enoxaparin Sodium 40 MG/0.4 ML SYRINGE SC SCH (21:22)
[2018-08-06] MEDS: Metolazone 5 MG TAB PO SCH (05:11)
--- NOTE | 2018-08-06 06:24 | PDOC.FM ---
- Subjective Subjective: Reports feeling good, decreased swelling. Feels ready to go home. No other concerns. - Objective MAR Reviewed: Yes Vital Signs & Weight: Vital Signs (12 hours) Temp Pulse Resp BP BP BP Pulse Ox 08/06/18 04:00 97.9 F 65 18 127/93 H 95 08/06/18 00:27 60 18 93 L 08/05/18 21:21 137/64 08/05/18 20:00 97.9 F 54 L 18 137/64 97 08/05/18 19:09 57 L 16 97 Weight Weight 123.831 kg I&O: 08/04/18 08/05/18 08/06/18 06:59 06:59 06:59 Intake Total 964 1560 840 Output Total 750 2850 1725 Balance 214 -8930 -735 Result Diagrams: 08/06/18 05:10 08/06/18 05:10 <Ellen Benson - Last Filed: 08/06/18 08:46> - Objective Vital Signs & Weight: Vital Signs (12 hours) Temp Pulse Resp BP Pulse Ox 08/06/18 07:46 97.8 F 56 L 17 149/70 H 99 08/06/18 07:42 61 16 96 08/06/18 04:00 97.9 F 65 18 127/93 H 95 08/06/18 00:27 60 18 93 L Weight Weight 123.831 kg I&O: 08/05/18 08/06/18 08/07/18 06:59 06:59 06:59 Intake Total 1560 840 Output Total 2850 1725 Balance -1290 -885 Result Diagrams: 08/06/18 05:10 08/06/18 05:10 <Srinath Powell - Last Filed: 08/06/18 11:32> Phys Exam - Physical Examination Constitutional: NAD Neck: supple Respiratory: no wheezing, clear to auscultation bilateral Cardiovascular: RRR, no significant murmur Gastrointestinal: soft, non-tender, positive bowel sounds right hand edema improved, 1+ pitting edema 1/4 way up shins on right side. No edema on left side Psychiatric: normal affect, A&O x 3 <Ellen Benson - Last Filed: 08/06/18 08:46> Dx/Plan (1) HFrEF (heart failure with reduced ejection fraction) Code(s): I50.20 - UNSPECIFIED SYSTOLIC (CONGESTIVE) HEART FAILURE Status: Acute (2) Acute exacerbation of CHF (congestive heart failure) Code(s): I50.9 - HEART FAILURE, UNSPECIFIED Status: Acute (3) Asthma Code(s): J45.909 - UNSPECIFIED ASTHMA, UNCOMPLICATED Status: Chronic (4) DM2 (diabetes mellitus, type 2) Status: Chronic (5) Diverticulitis Code(s): K57.92 - DVTRCLI OF INTEST, PART UNSP, W/O PERF OR ABSCESS W/O BLEED Status: Chronic (6) HTN (hypertension) Code(s): I10 - ESSENTIAL (PRIMARY) HYPERTENSION Status: Chronic (7) History of CVA with residual deficit Code(s): I69.30 - UNSPECIFIED SEQUELAE OF CEREBRAL INFARCTION Status: Chronic - Plan Plan: 53yo male with pmh HTN, HFrEF, and CVA presents for HRrEF exacerbation Acute on Chronic CHF exacerbation - CXR: pleural & parenchymal changes of Left lung base. CTA: bilateral pleural effusions - Strict I/O's, daily wts, and fluid restriction - Advanced Practice Nurse Psychotherapist, Dr. Carley Hill, [facility]- records requested - Cardiology consulted, Dr. Beth, Appreciate recs - Metolazone qAM 1hr prior to lasix - Almost 1L net neg yesterday, wt is downtrending - Continue home coreg, Spironolactone - Echo: 35-40% EF, candidate for AICD placement, will follow Cardiology recs - Transitioned to PO lasix today Pharyngitis - Likely viral etiology - Throat lozenges for comfort DM2 - Continue Lantus 40 daily - Continue home Metformin, Januvia, Jardiance - Holding home Novolin - Mod SSI - Accuchecks ACHS - Hypoglycemia protocol HTN -Continue home Amlodipine, Lisinopril, Spironolactone Elevated troponin, resolved - likely 2/2 demand ischema - Initially elevated at 0.029, downtrended - CKMB neg Mild Hyponatremia, resolved Hx CVAx3 with residual deficits - Dual platelet therapy, plavix and ASA - slight residual weakness on RUE and RLE, patient walks with cane - Last stroke in Nov 2016 Asthma - Duonebs dawit q6h KELLEY - SA study >5yrs ago - Noncompliant with CPAP - Educated on risk and benefit of HS CPAP Code Status: FULL DVT ppx: lovenox <Ellen Benson - Last Filed: 08/06/18 08:46> Attending Addendum - Attending Addendum Date/Time: 08/06/18 1131 I personally evaluated the patient and discussed the management with Dr. Benson. I agree with the History, Examination, Assessment and Plan documented above with any addition or exceptions noted below. Patient doing well today and reports wanting to go home. Will clarify his diuretic regimen with cardiology and likely discharge home this afternoon. Swelling improved and not requiring supplemental O2. <Srinath Powell - Last Filed: 08/06/18 11:32>
[2018-08-06 06:35] LABS: #Basophils 0.1 thou/uL (0.0-0.2); #Eosinphils 0.2 thou/uL (0.0-0.7); #Lymphocytes 1.8 thou/uL (1.20-3.40); #Monocytes 0.9 thou/uL (0.11-0.59); #Neutrophils 8.1 thou/uL (1.40-6.50); %Basophils 0.6 % (0.0-1.0); %Eosinophils 1.7 % (0.0-10.0); %Monocytes 8.4 % (0.0-10.0); %Neutrophils 73.3 % (42.0-75.0); Hemoglobin 12.6 g/dL (14.0-18.0); Mean Corpuscular HGB CONC 32.2 g/dL (32.0-36.0); Mean Corpuscular Hemoglobin 29.1 pg (27.0-31.0); Mean Corpuscular Volume 90.6 fL (78.0-98.0); Platelet Count 246 thou/uL (130-400); RBC Distribution Width 12.7 % (11.5-14.5); Red Blood Cell (RBC) Count 4.31 mill/uL (4.70-6.10); White Blood Cell (WBC) Count 11.1 thou/uL (4.8-10.8)
[2018-08-06 06:44] LABS: ALT (SGPT) 22 U/L (8-55); AST (SGOT) 19 U/L (5-34); Albumin 3.1 g/dL (3.5-5.0); Alkaline Phosphatase 64 U/L (40-150); Anion Gap 11 mmol/L (10-20); BUN (Urea Nitrogen) 23 mg/dL (8.4-25.7); Bilirubin, Total 0.6 mg/dL (0.2-1.2); Calc. Creatinine Clearance 120 mL/min (70-130); Calcium 9.1 mg/dL (7.8-10.44); Carbon Dioxide 31 mmol/L (22-29); Chloride 96 mmol/L (98-107); Estimated GFR-MDRD 60; Globulin 3.1 g/dL (2.4-3.5); Glucose 116 mg/dL (70-105); Potassium 3.5 mmol/L (3.5-5.1); Protein, Total 6.2 g/dL (6.0-8.3); Sodium 134 mmol/L (136-145)
[2018-08-06] MEDS: Lisinopril 20 MG TAB PO SCH (08:57)
[2018-08-06] MEDS: Spironolactone 100 MG TAB PO SCH (08:57)
[2018-08-06] MEDS: metFORMIN 500 MG TAB PO SCH (08:57)
[2018-08-06] MEDS: Potassium Chloride 20 MEQ TAB PO SCH (08:57)
[2018-08-06] MEDS: Clopidogrel Bisulfate 75 MG TAB PO SCH (08:58)
[2018-08-06] MEDS: Carvedilol 25 MG TAB PO SCH (08:58)
[2018-08-06] MEDS: Amlodipine 10 MG TAB PO SCH (08:58)
[2018-08-06] MEDS ORDERED: Furosemide 40 MG TAB PO SCH (09:00)
[2018-08-06] MEDS: Insulin Glargine 40 UNITS in Pre-Filled Syringe SC SCH (11:38)
--- NOTE | 2018-08-06 12:31 | PDOC.CTH ---
Cardiology Progress Note - Subjective The pt seen and examined. No overnight events. No cardiac complaints. He felt weak this AM due to no food intake. After eating some food, he felt better. - Objective Vital Signs Temp Pulse Resp BP Pulse Ox 08/06/18 12:07 65 16 96 08/06/18 07:46 97.8 F 56 L 17 149/70 H 99 08/06/18 07:42 61 16 96 08/06/18 04:00 97.9 F 65 18 127/93 H 95 Weight 273 lb 08/05/18 08/06/18 08/07/18 06:59 06:59 06:59 Intake Total 1560 840 Output Total 2850 1725 Balance -1290 -885 - Physical Examination General/Neuro: alert & oriented x3 Neck: no JVD present Lungs: CTA Heart: RRR Abdomen: soft Extremities: other: (1-2+ pitting BLE edema) - Telemetry Telemetry Rhythm: SB 58 - Labs Result Diagrams: 08/06/18 05:10 08/06/18 05:10 Troponin/CKMB CK-MB (CK-2) 2.5 ng/mL (0-6.6) 08/02/18 10:45 Troponin I 0.016 ng/mL (< 0.028) 08/02/18 18:18 - Assessment/Plan 1. Acute on chronic HF - stable with Lasix 40mg PO BID, BBlocker, and FRIEDA. D/c home with Metolazone 5mg 2-3 times/wk prn for SOB, gain weight and swelling. 2. HTN - stable with current meds 3. DM type 2 - managed by PCP 4. 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 Asthma - stable 6. sleep Apnea - He had SA study more than 5 years ago. He has not worn Cpap @ HS for more than 4-5 years due to discomfort. Education of the risk and benefit of Sleep Apnea and Cpap @ HS given to the pt. MAR reviewed * From Cardiac standpoint, the pt is stable to d/c home with his appt with CHF clinic. D/c home with Metolazone 5mg 2-3 times/wk prn for SOB, gain weight and swelling (will be managed by CHF clinic). The pt will f/u with Dr Perez within 2-4 wks. Review of Systems - Review of Systems Constitutional: reports: no symptoms reported EENTM: reports: no symptoms reported Respiratory: reports: no symptoms reported Cardiac (ROS): reports: no symptoms reported ABD/GI: reports: no symptoms reported : reports: no symptoms reported Musculoskeletal: reports: no symptoms reported
[2018-08-06 14:24] VITALS: BP 135/66; TEMP 97.6
--- NOTE | 2018-08-07 07:51 | DIS-2 ---
DATE OF ADMISSION: 08/04/2018 DATE OF DISCHARGE: 08/06/2018 RESIDENT: Ellen Benson, PGY1. ADMITTING ATTENDING: Leonel Beavers MD DISCHARGE ATTENDING: Srinath Powell MD CONSULS: Cardiology. PROCEDURES: 1. Chest x-ray. Pleural and parenchymal changes of the left lung base. 2. Chest thorax CTA: No evidence of pulmonary artery embolism to the level of the segmental arteries. 3. Pleural effusion. Pleural effusions with lung parenchymal changes suggesting edema and volume overload. Enlarged mediastinal and subcarinal lymph nodes, which may be reactive secondary to infectious inflammatory process. The probability of the malignancy cannot be excluded. Clinical correlation is essential. 4. Echo pending. PRIMARY DIAGNOSIS: Acute on chronic heart failure with reduced ejection fraction exacerbation. SECONDARY DIAGNOSES: 1. Pharyngitis. 2. Type 2 diabetes. 3. Hypertension. 4. Elevated troponin, resolved. 5. Mild hyponatremia, resolved. 6. History of cerebrovascular accident x3 with residual deficits. 7. Asthma. 8. Obstructive sleep apnea. DISCHARGE MEDICATIONS: 1. Amlodipine 10 mg daily. 2. Aspirin 81 mg daily. 3. Atorvastatin 80 mg daily. 4. Coreg 25 mg daily. 5. Clopidogrel 75 mg daily. 6. Jardiance 10 mg daily. 7. Furosemide 40 mg b.i.d. 8. Lisinopril 40 mg b.i.d. 9. DuoNeb 3 mL nebulized q.6 hours p.r.n. 10. Novolin 70/30, 22 units subcu b.i.d. 11. Metformin 1000 mg b.i.d. 12. Metolazone 5 mg p.r.n. 13. Januvia 100 mg daily. 14. Spironolactone 100 mg daily. DISCONTINUED MEDICATIONS: None. HISTORY OF PRESENT ILLNESS AND BRIEF HOSPITAL COURSE: Mr. Jeffery is a 53-year- old male with a past medical history of hypertension, CHF, asthma, insulin- dependent diabetes, presenting with shortness of breath, ultimately found to be in acute on chronic CHF exacerbation. He was started on Lasix 40 mg IV b.i.d. This was ineffective at diuresing patient. Metolazone 5 mg 1 hour prior to Lasix was started and effective diuresis resulted in decreased edema and the patient was weaned off the 3 liters of oxygen. He is not on oxygen at home. The chest x-ray on admission was found to have pleural and parenchymal changes of the left lung base and CTA showed bilateral pleural effusions. His labs were notable for elevated BNP of 263.9. Echocardiogram showing 35% to 40% ejection fraction. He is new to this area and was set up with [facility]. He needs to follow up with cardiology. He does not currently have an AICD placed, but is a candidate for AICD placement based on EF. He was noted to have pharyngitis, sore throat at admission. Rapid flu was negative. This is likely viral in etiology. Symptoms improved with throat lozenges for comfort. His type 2 diabetes is controlled at home with metformin, Januvia, Jardiance, and NovoLog 70/30, 22 units b.i.d. He was started on Lantus 40 units daily and his home oral medications were continued. Blood sugars were stable throughout his hospitalization. Pt not able to afford Lantus outpt therefore Novolog was resumed. He was noted on admission to have elevated troponin. They were initially elevated at 0.029. Second and third troponins were downtrended. CK-MB was negative. This is likely secondary to demand ischemia. He also had a mild hyponatremia. The patient has a history of 3 prior CVAs with residual right upper extremity and left lower extremity weakness. The patient ambulates with a cane. His last stroke was in 11/2016. The patient was continued on home regimen of dual platelet therapy with Plavix and aspirin. As per patient's chronic medical conditions of hypertension and asthma, he was continued on home medications, amlodipine, lisinopril, spironolactone, and scheduled DuoNebs q.6 hours and they were stable throughout his hospital stay. The patient does have obstructive sleep apnea. He had a sleep study done greater than 5 years ago. He has been noncompliant with his CPAP. He was educated on the risks and benefits of not wearing the CPAP. DISPOSITION: Stable. DISCHARGE INSTRUCTIONS: 1. Location: Home. 2. Diet: Heart healthy, consistent carb. 3. Activity: No restrictions. 4. Follow up with PCP within 3 to 7 days. Cardiology within 2 to 3 weeks. Heart Failure Clinic. JEFFREY
== END 2018-08-06 15:03 | disposition home or self-care (01) | DRG 291 ==
LOC: ERS 10:35 → 2SW 15:12 → OBSVTOIN 08-04 08:47 → 2NO 08-05 16:38
PROVIDERS: ADMIT Family Medicine; ATTEND Family Medicine
DX: I11.0 Hypertensive heart disease with heart failure (principal); J96.01 Acute respiratory failure with hypoxia; I24.8 Other forms of acute ischemic heart disease; E87.1 Hypo-osmolality and hyponatremia; I69.351 Hemiplegia and hemiparesis following cerebral infarction affecting right dominant side; I50.23 Acute on chronic systolic (congestive) heart failure; J45.909 Unspecified asthma, uncomplicated; E11.9 Type 2 diabetes mellitus without complications; J02.9 Acute pharyngitis, unspecified; G47.33 Obstructive sleep apnea (adult) (pediatric); Z91.19 Patient's noncompliance with other medical treatment and regimen; Z79.899 Other long term (current) drug therapy; Z79.82 Long term (current) use of aspirin; I42.9 Cardiomyopathy, unspecified; E78.5 Hyperlipidemia, unspecified
CPT/HCPCS: 36415; 36416; 71045; 71275; 80053; 82550; 82553; 83880; 84145; 84484; 85025; 90471; 90686; 90732; 93005; 93306; 93798; 94640; 94760; 96374; G0008; G0009; J1100; J1650; J1940; J7620

== ENCOUNTER 2019-06-18 20:50 | Emergency (ER) | payer OTHER ==
--- NOTE | 2019-06-18 21:26 | RAD ---
Left hip 2 views HISTORY: Left hip pain. FINDINGS: Mild joint space narrowing, osteophytosis, and subchondral sclerosis. Femoral head contour is maintained. No acute fracture, dislocation, or aggressive osseous erosions. IMPRESSION: Mild osteoarthritic changes left hip.
[2019-06-18] MEDS ORDERED: Diazepam 5 MG TAB ONE (23:33)
[2019-06-18] MEDS ORDERED: Morphine 4 MG/ML VIAL ONE (23:33)
--- NOTE | 2019-06-19 08:23 | CT ---
PRELIMINARY REPORT/[facility]/EMERGENCY AFTER HOURS PROCEDURE: EXAM: CT Pelvis Without Contrast, Skeletal EXAM DATE/TIME: 06/19/2019 12:01 AM CLINICAL HISTORY: 54 years old, male; Left hip; Patient HX: 54 y/o m presents to ED C/O L hip pain. PT, who uses a walk ing cane at baseline, states he is unable to ambulate due to his pain. No recent fall or known injury . TECHNIQUE: Imaging protocol: Computed tomography images of the pelvis without contrast. Exam focused on the skel etal structures. COMPARISON: No relevant prior studies available. FINDINGS: Lymph nodes: Bilateral inguinal and iliac chain lymphadenopathy measuring up to 1.3 cm short axis. Bones/joints: No fracture. Soft tissues: Bilateral fat containing inguinal hernias. IMPRESSION: 1. Bilateral inguinal and iliac chain lymphadenopathy measuring up to 1.3 cm short axis. 2. No fracture. Thank you for allowing us to participate in the care of your patient. Dictated and Authenticated by: Luis Camarena MD 06/19/2019 12:36 AM Central Time ([place] & [place]) FINAL REPORT CT PELVIS WITHOUT CONTRAST: I agree with the preliminary report given by Dr. Luis Camarena of [facility]. POS: [facility]
== END 2019-06-19 02:05 | disposition home or self-care (01) ==
LOC: ERS 20:50
DX: M25.552 Pain in left hip (principal); E11.9 Type 2 diabetes mellitus without complications; I11.0 Hypertensive heart disease with heart failure; I50.9 Heart failure, unspecified; J45.909 Unspecified asthma, uncomplicated; Z86.73 Personal history of transient ischemic attack (TIA), and cerebral infarction without residual deficits; Z79.4 Long term (current) use of insulin; Z79.82 Long term (current) use of aspirin; Z79.02 Long term (current) use of antithrombotics/antiplatelets
CPT/HCPCS: 72192; 96372; J2270

== ENCOUNTER 2020-11-06 13:44 | Emergency (ER) | payer MEDICARE ==
[2020-11-06 14:53] LABS: #Basophils 0.1 thou/uL (0.0-0.2); #Eosinphils 0.1 thou/uL (0.0-0.7); #Lymphocytes 1.1 thou/uL (1.20-3.40); #Monocytes 0.5 thou/uL (0.11-0.59); #Neutrophils 7.2 thou/uL (1.40-6.50); %Basophils 0.7 % (0.0-1.0); %Eosinophils 1.5 % (0.0-10.0); %Lymphocytes 11.8 % (21.0-51.0); %Monocytes 5.8 % (0.0-10.0); %Neutrophils 80.3 % (42.0-75.0); Hemoglobin 9.3 g/dL (14.0-18.0); Mean Corpuscular HGB CONC 32.5 g/dL (32.0-36.0); Mean Corpuscular Hemoglobin 30.4 pg (27.0-31.0); Mean Corpuscular Volume 93.3 fL (78.0-98.0); Mean Platelet Volume 8.5 fL (7.4-10.4); Platelet Count 256 thou/uL (130-400); RBC Distribution Width 12.4 % (11.5-14.5); Red Blood Cell (RBC) Count 3.07 mill/uL (4.70-6.10)
--- NOTE | 2020-11-06 15:17 | RAD ---
PORTABLE CHEST: Date: 10-17-2020 PROVIDED CLINICAL HISTORY: Shortness of breath FINDINGS: Comparison 06-20-2020. The cardiac silhouette appears enlarged, which may be based partially on the basis of portable techni que. There is left basilar parenchymal opacity. There is no evidence for pleural fluid or pneumothora x. IMPRESSION: Left basilar parenchymal opacity. Correlate for pneumonia. POS: [facility]
[2020-11-06 15:26] LABS: ALT (SGPT) 16 U/L (8-55); AST (SGOT) 12 U/L (5-34); Albumin 3.4 g/dL (3.5-5.0); Alkaline Phosphatase 108 U/L (40-110); Anion Gap 12 mmol/L (10-20); BUN (Urea Nitrogen) 48 mg/dL (8.4-25.7); Bilirubin, Total 0.5 mg/dL (0.2-1.2); Calc. Creatinine Clearance 0 mL/min (70-130); Carbon Dioxide 29 mmol/L (22-29); Chloride 102 mmol/L (98-107); Globulin 3.8 g/dL (2.4-3.5); Glucose 153 mg/dL (70-105); Protein, Total 7.2 g/dL (6.0-8.3); Sodium 139 mmol/L (136-145)
[2020-11-06 15:47] LABS: CKMB 2.9 ng/mL (0-6.6)
[2020-11-06 23:15] LABS: SARS-CoV-2 PCR by NAA Not Detected (NotDetected)
== END 2020-11-06 16:23 | disposition home or self-care (01) ==
LOC: ERS 13:44
DX: J18.9 Pneumonia, unspecified organism (principal); E11.9 Type 2 diabetes mellitus without complications; I11.0 Hypertensive heart disease with heart failure; I50.9 Heart failure, unspecified; J45.909 Unspecified asthma, uncomplicated; Z79.4 Long term (current) use of insulin; Z86.73 Personal history of transient ischemic attack (TIA), and cerebral infarction without residual deficits; Z20.822 Contact with and (suspected) exposure to COVID-19; Z79.82 Long term (current) use of aspirin; Z79.899 Other long term (current) drug therapy
CPT/HCPCS: 71045; 80053; 82553; 83880; 84484; 85025; 93005; U0003; U0005; 87635

== ENCOUNTER 2020-11-09 15:21 | Inpatient (IN) | payer MEDICARE ==
[2020-11-09 16:29] LABS: #Basophils 0.1 thou/uL (0.0-0.2); #Eosinphils 0.1 thou/uL (0.0-0.7); #Lymphocytes 1.2 thou/uL (1.20-3.40); #Monocytes 0.6 thou/uL (0.11-0.59); #Neutrophils 7.8 thou/uL (1.40-6.50); %Basophils 0.7 % (0.0-1.0); %Eosinophils 1.4 % (0.0-10.0); %Lymphocytes 12.2 % (21.0-51.0); %Monocytes 6.3 % (0.0-10.0); %Neutrophils 79.4 % (42.0-75.0); Hemoglobin 9.1 g/dL (14.0-18.0); Mean Corpuscular HGB CONC 32.4 g/dL (32.0-36.0); Mean Corpuscular Hemoglobin 30.6 pg (27.0-31.0); Mean Corpuscular Volume 94.3 fL (78.0-98.0); Mean Platelet Volume 8.2 fL (7.4-10.4); Platelet Count 248 thou/uL (130-400); RBC Distribution Width 12.6 % (11.5-14.5); Red Blood Cell (RBC) Count 2.98 mill/uL (4.70-6.10); White Blood Cell (WBC) Count 9.9 thou/uL (4.8-10.8)
[2020-11-09 16:54] LABS: ALT (SGPT) 16 U/L (8-55); AST (SGOT) 11 U/L (5-34); Albumin 3.5 g/dL (3.5-5.0); Alkaline Phosphatase 112 U/L (40-110); Anion Gap 12 mmol/L (10-20); BUN (Urea Nitrogen) 50 mg/dL (8.4-25.7); Bilirubin, Total 0.6 mg/dL (0.2-1.2); Calc. Creatinine Clearance 0 mL/min (70-130); Calcium 8.7 mg/dL (7.8-10.44); Carbon Dioxide 31 mmol/L (22-29); Chloride 101 mmol/L (98-107); Globulin 3.4 g/dL (2.4-3.5); Glucose 175 mg/dL (70-105); Potassium 4.1 mmol/L (3.5-5.1); Protein, Total 6.9 g/dL (6.0-8.3); Sodium 140 mmol/L (136-145)
--- NOTE | 2020-11-09 17:04 | RAD ---
PORTABLE CHEST ONE VIEW: 11/09/20 at 4:48 p.m. HISTORY: Shortness of breath. Tested negative for COVID-19 a few days ago. COMPARISON: 11/06/20. FINDINGS/IMPRESSION: The heart size is prominent but stable. Mild left basilar opacity with probable small let pleural eff usion is again seen. No pneumothoraces or lobar consolidation is identified. POS: [facility]
[2020-11-09] MEDS ORDERED: Azithromycin 500 MG VIAL ONE (17:08)
[2020-11-09] MEDS ORDERED: cefTRIAXone\\ROCEPHIN 2 GM VIAL ONE (17:08)
--- NOTE | 2020-11-09 17:51 | PDOC.FPRHP ---
- History of Present Illness Chief Complaint: SOB History of Present Illness: Pt is a 55 y/o M who presents with SOB for one week. He states that he came to the ER 3 days ago with this sxs and a mild intermittent cough as well. He was prescribed doxycycline and tested negative for COVID and was sent home. He says that doxycycline has not helped and has caused him to have diarrhea. His SOB and mild intermittent cough persists. He also is been using his home inhaler about 4 times a day which has not helped. He has been having difficulty laying flat as well. ED Course: lasix hydralyzine rocephin azithro coreg - Allergies/Adverse Reactions Allergies Allergy/AdvReac Type Severity Reaction Status Date / Time No Known Allergies Allergy Verified 08/02/18 18:10 - Home Medications Medication Instructions Recorded Confirmed Type Aspirin [Elle Chewable] 81 mg PO DAILY 11/10/20 11/10/20 History Atorvastatin Calcium 40 mg PO HS 11/10/20 11/10/20 History Carvedilol [Coreg] 12.5 mg PO BID 11/10/20 11/10/20 History Furosemide [Lasix] 40 mg PO BID 11/10/20 11/10/20 History Insulin Glargine,Hum.Rec.Anlog 45 units SQ HS 11/10/20 11/10/20 History [Lantus Solostar] Insulin Lispro [Admelog] 0.12 unit SQ BID 11/10/20 11/10/20 History Isosorbide Dinitrate [Isordil] 10 mg PO BID 11/10/20 11/10/20 History Linagliptin [Tradjenta] 5 mg PO DAILY 11/10/20 11/10/20 History Magnesium 800 mg PO BID 11/10/20 11/10/20 History - History PMHx: -CHF -HTN -DM -CVA x 2 -Diverticulitis PSHx: -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 denies: congestion, exercise intolerance Cardiovascular: denies: chest pain, palpitation, edema, paroxysmal nocturnal dyspnea Gastrointestinal: denies: nausea, vomiting, diarrhea, constipation, abdominal pain Genitourinary: denies: incontinence, dysuria, polyuria, discharge Skin: denies: rashes, lesions, itching Musculoskeletal: reports: swelling. denies: pain, tenderness, stiffness Neurological: denies: weakness Psychological: reports: anxiety - Vital signs BP: 189/60, Pulse: 58, Resp: 25, Pain: 0, O2 sat: 92 on (Room Air), Time: 11/09/2020 17:11. - Physical Exam Constitutional: NAD, awake, alert and oriented, well developed HEENT: normocephalic and atraumatic, grossly normal vision, grossly normal hearing, MMM Neck: supple, other (unable to assess JVD as patient was unable to lie flat with respiratory distress) Heart: RRR, normal S1/S2, no murmurs/rubs/gallops, pulses present Lungs: CTAB, no wheezing, no retractions, other (fine crackles in bilateral bases) Abdomen: soft, non-tender, bowel sounds present, no masses/distention Musculoskeletal: normal structure, normal tone Neurological: no focal deficit, CN II-XII intact, normal sensation Skin: no rash/lesions, good turgor, other (1+ bilateral pitting edema) Heme/Lymphatic: no unusual bruising or bleeding, no purpura, no petechia Psychiatric: normal mood and affect, good judgment and insight, intact recent and remote memory FMR H&P: Results - Labs Result Diagrams: 11/10/20 06:14 11/10/20 06:14 Lab results: WBC 9.9 thou/uL (4.8-10.8) 11/09/20 16:19 Hgb 9.1 g/dL (14.0-18.0) L 11/09/20 16:19 Hct 28.2 % (42.0-52.0) L 11/09/20 16:19 MCV 94.3 fL (78.0-98.0) 11/09/20 16:19 Plt Count 248 thou/uL (130-400) 11/09/20 16:19 Neutrophils % 79.4 % (42.0-75.0) H 11/09/20 16:19 Sodium 140 mmol/L (136-145) 11/09/20 16:19 Potassium 4.1 mmol/L (3.5-5.1) 11/09/20 16:19 Chloride 101 mmol/L (98-107) 11/09/20 16:19 Carbon Dioxide 31 mmol/L (22-29) H 11/09/20 16:19 BUN 50 mg/dL (8.4-25.7) H 11/09/20 16:19 Creatinine 3.90 mg/dL (0.7-1.3) H 11/09/20 16:19 Glucose 175 mg/dL (70-105) H 11/09/20 16:19 Calcium 8.7 mg/dL (7.8-10.44) 11/09/20 16:19 Total Bilirubin 0.6 mg/dL (0.2-1.2) 11/09/20 16:19 AST 11 U/L (5-34) 11/09/20 16:19 ALT 16 U/L (8-55) 11/09/20 16:19 Alkaline Phosphatase 112 U/L (40-110) H 11/09/20 16:19 B-Natriuretic Peptide 547.0 pg/mL (0-100) H 11/09/20 16:19 Serum Total Protein 6.9 g/dL (6.0-8.3) 11/09/20 16:19 Albumin 3.5 g/dL (3.5-5.0) 11/09/20 16:19 - EKG Interpretation EKG: no ST changes QTC 503 - Radiology Interpretation Chest x-ray Status: report reviewed by me (mild left basilar opacity with suspected small L pleural effusion) FMR H&P: A/P - Plan ##Acute Hypoxic Respiratory Failure 2/2 CHF exacerbation vs. 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 Hampton for nephro, will consult in AM -monitor with AM labs ##Normocytic Anemia -Hgb 9.1, MCV 94 -based on chart review, this is chronic -iron studies in 06/2020 show that he is iron deficient -suspect that this is due to his CKD and is probably EPO deficient as well Chronic Conditions ##IDDM ##HTN ##Hx of CVA ##Asthma -continue home medications CODE: DNAR VTE: Heparin PCP: Calvin Dispo: admitted to medical. diuresis initiated. will re-evaluate after 1st dose of IV lasix given before continuing. empiric abx initiated. FMR H&P: Upper Level - Plan Date/Time: 11/09/20 4311 I, Jeremy Culp [email or web address], have evaluated this patient and agree with findings/plan as outlined by customer experience intern resident. Pertinent changes/additions are listed here. 55yo M presents for SOB. he was seen in ED 2 days ago and Dx with CAP and started on doxycycline. He tested negative for covid. Of note he was hospitalized for CHF exacerbation in June and cardiorenal syndrome then. He was diuresed and kidney function worsened and he was transferred to [facility] under the advisement of Dr. Aecvedo. Dr. Hampton is his clinical cytopathologist. On exam he has bilat lung inspiratory crackles, Heart RRR, bilat LE edema (+1 pitting), JVD unobtainable as pt is so uncomfortable leaning back or laying flat. A/P CHF exacerbation A- Stable on RA at rest but clinically in exacerbation and desat to 88% when laying flat. Last ECHO june 2020 25%. Unknown what advanced cardiac care he had in [facility]. Records requested from clinic but not there. Last admission for CHF exacerbation required transfer to this center. P- Furosemide 80mg IV -strict I/Os -will monitor CAP A- Currently on day 3 of ABX, previously on doxycycline. P- switch from doxycycline to rocephin and azithro, renally dosed. ZAHEER on CKD4 A- likely cardiorenal syndrome. P- will diureses and monitor Cr -consider nephro consult in AM elevated QTc A- 503 on EKG P- will avoid qt prolonging meds Anemia A- likely 2/2 CKD4, h/h at baseline from last inpt stay P- will monitor and transfuse as necessary Diarrhea -will get c.diff if diarrhea continues DM -continue home meds, ACHS accuchecks, SSI Hx of CVA x2 -continue ASA, plavix, atorvastatin HTN -home meds CODE: DNAR IVF: KVO Ppx: heparin dispo: inpatient, anticipate more than 2 midnights Addendum - Attending - Attending Attestation Date/Time: 11/10/201951 I personally evaluated the patient and discussed the management with Dr. Costa at time of admission. I agree with the History, Examination, Assessment and Plan documented above with any addition or exceptions noted below.
[2020-11-09] MEDS ORDERED: Carvedilol 6.25 MG TAB PO SCH (18:00)
[2020-11-09] MEDS ORDERED: hydrALAZINE 10 MG TAB PO SCH (18:00)
[2020-11-09] MEDS ORDERED: Furosemide 40 MG TAB ONE (18:01)
[2020-11-09] MEDS ORDERED: Dextrose 50% Abboject 50 ML SYRINGE SLOW IVP PRN (19:13)
[2020-11-09] MEDS ORDERED: Dextrose 5% in Water 1,000 ML IV PRN (19:13)
[2020-11-09] MEDS: Furosemide 40 MG/4 ML VIAL SLOW IVP SCH ×2 (21:15→23:34)
[2020-11-09] MEDS: hydrALAZINE 10 MG TAB PO SCH (22:00)
[2020-11-09] MEDS: Insulin Glargine 45 UNITS in Pre-Filled Syringe 1 EACH SC SCH (22:00)
[2020-11-09] MEDS: Atorvastatin Calcium 40 MG TAB PO SCH (22:00)
[2020-11-09] MEDS: Heparin 5,000 UNITS/ML VIAL SC SCH (22:00)
[2020-11-09] MEDS: Magnesium Oxide 400 MG TAB PO SCH (22:00)
[2020-11-09] MEDS: HumaLOG 300 UNITS/3 ML VIAL SC SCH (22:00)
[2020-11-09] MEDS: Acetaminophen 325 MG TAB PO PRN (23:21)
[2020-11-10 03:25] LABS: SARS-CoV-2 PCR by NAA Not Detected (NotDetected)
[2020-11-10 06:26] LABS: #Eosinphils 0.2 thou/uL (0.0-0.7); #Lymphocytes 1.5 thou/uL (1.20-3.40); #Monocytes 0.7 thou/uL (0.11-0.59); #Neutrophils 6.9 thou/uL (1.40-6.50); %Basophils 0.1 % (0.0-1.0); %Eosinophils 2.1 % (0.0-10.0); %Lymphocytes 16.1 % (21.0-51.0); %Monocytes 7.9 % (0.0-10.0); %Neutrophils 73.8 % (42.0-75.0); Hemoglobin 8.1 g/dL (14.0-18.0); Mean Corpuscular HGB CONC 32.4 g/dL (32.0-36.0); Mean Corpuscular Hemoglobin 30.7 pg (27.0-31.0); Mean Corpuscular Volume 94.7 fL (78.0-98.0); Mean Platelet Volume 8.4 fL (7.4-10.4); Platelet Count 220 thou/uL (130-400); RBC Distribution Width 12.5 % (11.5-14.5); Red Blood Cell (RBC) Count 2.65 mill/uL (4.70-6.10); White Blood Cell (WBC) Count 9.4 thou/uL (4.8-10.8)
[2020-11-10 06:47] LABS: Anion Gap 14 mmol/L (10-20); BUN (Urea Nitrogen) 53 mg/dL (8.4-25.7); Calc. Creatinine Clearance 41 mL/min (70-130); Carbon Dioxide 27 mmol/L (22-29); Chloride 102 mmol/L (98-107); Potassium 3.7 mmol/L (3.5-5.1); Sodium 139 mmol/L (136-145)
[2020-11-10 06:48] LABS: Calcium 8.2 mg/dL (7.8-10.44); Glucose 198 mg/dL (70-105)
--- NOTE | 2020-11-10 06:56 | PDOC.FM ---
- Subjective Subjective: Mr. Jeffery reports he cannot lie flat in bed because he cannot breath. He says the oxygen is helping. He has not noticed any more LE swelling than his normal amount. - Objective Vital Signs & Weight: Vital Signs (12 hours) Temp Pulse Resp BP Pulse Ox 11/10/20 03:00 97.2 F L 65 20 130/71 94 L 11/09/20 23:13 97 F L 53 L 18 153/85 H 99 11/09/20 22:00 53 L 11/09/20 20:38 98.1 F 53 L 16 105/64 92 L 11/09/20 20:00 99 Weight Weight 127.459 kg I&O: 11/08/20 11/09/20 11/10/20 06:59 06:59 06:59 Intake Total 600 Balance 600 Result Diagrams: 11/10/20 06:14 11/10/20 06:14 Additional Labs: Procal 0.12 Phys Exam - Physical Examination Constitutional: NAD HEENT: moist MMs, sclera anicteric Neck: full ROM Respiratory: no wheezing, no rales, no rhonchi, clear to auscultation bilateral Cardiovascular: RRR, no significant murmur Gastrointestinal: soft, non-tender Musculoskeletal: pulses present, edema present Neurological: non-focal, moves all 4 limbs Psychiatric: normal affect, A&O x 3 Skin: no rash Dx/Plan - Plan Plan: Acute Hypoxic Respiratory Failure 2/2 CHF exacerbation -CXR mild left basilar opacity with small L pleural effusion, BNP 547, Trop 0.025 -Last ECHO 06/2020 showed EF of 35-40% -O2 requirement: 2L nc -80IV lasix given on admission, 600mL output noted -Procal 0.12. Rocephin (11/09-11/10), Azithro (11/09-11/10). WBC 9.9, 9.4 -Ordered 40mg IV lasix this AM. Continue strict I/Os. -Mg, Phos pending ZAHEER on CKD 4 -Cr 3.9, 3.7 -Labs from clinic 08/2020 showed BUN/Cr 42/3.07 -anticipated some improvement with diuresis -sees Dr. Hampton for nephro -Kidney function shows improvement this AM. Will continue diuresis and monitor kidney function. Chronic Normocytic Anemia -Hgb 9.1, 8.2. MCV 94 -iron studies in 06/2020 show that he is iron deficient -suspect that this is due to his CKD and is probably EPO deficient as well Chronic Conditions IDDM HTN Hx of CVA Asthma -continue home medications CODE: DNAR VTE: Heparin PCP: Calvin Dispo: Continue diuresis with IV lasix. Discontinue antibiotics as procal is negative. Addendum - Attending - Attending Attestation Date/Time: 11/10/20 1549 I personally evaluated the patient and discussed the management with Dr. [] I agree with the History, Examination, Assessment and Plan documented above with any addition or exceptions noted below. Patient revoked DNR status. now full code. consult nephro to help with diuresis. May need Cards/HF consult if unable to diures without iontropic agents.
[2020-11-10] MEDS: Alogliptin 6.25 MG TAB PO SCH (08:33)
[2020-11-10] MEDS: Aspirin Chewable 81 MG TAB PO SCH (08:33)
[2020-11-10] MEDS: Heparin 5,000 UNITS/ML VIAL SC SCH ×3 (08:33→20:52)
[2020-11-10] MEDS: Magnesium Oxide 400 MG TAB PO SCH ×2 (08:33→20:53)
[2020-11-10] MEDS: Carvedilol 6.25 MG TAB PO SCH ×2 (08:34→16:29)
[2020-11-10] MEDS: Amlodipine 5 MG TAB PO SCH (08:34)
[2020-11-10] MEDS: HumaLOG 300 UNITS/3 ML VIAL SC SCH ×3 (08:36→20:51)
[2020-11-10] MEDS: hydrALAZINE 10 MG TAB PO SCH ×3 (08:41→20:53)
[2020-11-10] MEDS: Isosorbide Dinitrate 5 MG TAB PO SCH ×3 (08:43→20:53)
[2020-11-10] MEDS ORDERED: Azithromycin 250 MG TAB PO SCH (09:00)
[2020-11-10] MEDS ORDERED: Furosemide 40 MG/4 ML VIAL SLOW IVP SCH (09:15)
[2020-11-10 09:51] LABS: Magnesium 2.8 mg/dL (1.6-2.6); Phosphorus 5.2 mg/dL (2.3-4.7)
[2020-11-10] MEDS ORDERED: cefTRIAXone\\ROCEPHIN 1 GM in Sodium Chloride 0.9% 100 ML IVPB SCH (17:00)
--- NOTE | 2020-11-10 18:48 | PDOC.NEPPN ---
- Subjective Encounter Date: 11/10/20 Subjective: 55 y/o male well known to me from the office and prior hospitalizations with CKD 4, CHF and others admitted worsening SOB associated with some cough, exerional dyspnea, and worsening leg swelling. No associated fever. Tested negative to covid. Started on IV lasix and oxygen supplementation with some improvement. - Objective Vital Signs & Weight: Vital Signs (12 hours) Temp Pulse Resp BP BP BP Pulse Ox 11/10/20 15:32 58 L 20 145/65 H 97 11/10/20 12:44 98.1 F 20 122/60 97 11/10/20 10:45 98 11/10/20 10:25 56 L 20 149/69 H 98 11/10/20 08:41 57 L 11/10/20 08:37 97.6 F 57 L 20 144/78 H 93 L 11/10/20 08:34 65 11/10/20 08:00 93 L Weight Weight 281 lb I&O: 11/09/20 11/10/20 11/11/20 06:59 06:59 06:59 Intake Total 600 360 Balance 600 360 Result Diagrams: 11/10/20 06:14 11/10/20 06:14 Additional Labs: Accuchecks 11/10/20 11/10/20 11/09/20 10:50 04:44 22:30 POC Glucose 101 H 151 H 127 H Nephrology ROS - Medication Medications: Active Medications Generic Name Dose Route Start Last Admin Trade Name Freq PRN Reason Stop Dose Admin Acetaminophen 650 mg 11/09/20 19:13 11/09/20 23:21 Acetaminophen 325 Mg Tab PO 650 mg Q4H PRN Administration Headache/Fever/Mild Pain (1-3) Alogliptin Benzoate 6.25 mg 11/10/20 09:00 11/10/20 08:33 Alogliptin 6.25 Mg Tab PO 6.25 mg DAILY VISHNU Administration Amlodipine Besylate 5 mg 11/10/20 09:00 11/10/20 08:34 Amlodipine 5 Mg Tab PO 5 mg DAILY VISHNU Administration Aspirin 81 mg 11/10/20 09:00 11/10/20 08:33 Aspirin Chewable 81 Mg Tab PO 81 mg DAILY VISHNU Administration Atorvastatin Calcium 40 mg 11/09/20 21:00 11/09/20 22:00 Atorvastatin Calcium 40 Mg Tab PO 40 mg HS VISHNU Administration Carvedilol 12.5 mg 11/10/20 08:00 11/10/20 16:29 Carvedilol 6.25 Mg Tab PO Not Given BID-WM VISHNU Heparin Sodium (Porcine) 5,000 units 11/09/20 21:00 11/10/20 15:36 Heparin 5,000 Units/Ml Vial SC 5,000 units TID VISHNU Administration Hydralazine HCl 20 mg 11/09/20 21:00 11/10/20 15:35 Hydralazine 10 Mg Tab PO 20 mg TID VISHNU Administration Insulin Glargine 45 units/ 0.45 mls @ 0 mls/hr 11/09/20 21:00 11/09/20 22:00 Miscellaneous Medication SC Not Given HS VISHNU Magnesium Oxide 400 mg 11/09/20 21:00 11/10/20 08:33 Magnesium Oxide 400 Mg Tab PO 400 mg BID VISHNU Administration - Exam General Appearance: awake alert Eye: anicteric sclera ENT: normocephalic atraumatic, moist mucosa Neck: symmetric Respiratory - other findings: fair air entry bilaterally with transmitted sound. No obvious distress Cardiovascular: RRR Gastrointestinal: soft, non-tender, normal bowel sounds Extremities: 2+ LE edema Neurological: CN's grossly intact, no new deficit PSYCH: A&O x 3 Nephrology Results - Labs Result Diagrams: 11/10/20 06:14 11/10/20 06:14 Lab results: WBC 9.4 thou/uL (4.8-10.8) 11/10/20 06:14 Hgb 8.1 g/dL (14.0-18.0) L 11/10/20 06:14 Hct 25.1 % (42.0-52.0) L 11/10/20 06:14 MCV 94.7 fL (78.0-98.0) 11/10/20 06:14 Plt Count 220 thou/uL (130-400) 11/10/20 06:14 Neutrophils % 73.8 % (42.0-75.0) 11/10/20 06:14 Sodium 139 mmol/L (136-145) 11/10/20 06:14 Potassium 3.7 mmol/L (3.5-5.1) 11/10/20 06:14 Chloride 102 mmol/L (98-107) 11/10/20 06:14 Carbon Dioxide 27 mmol/L (22-29) 11/10/20 06:14 BUN 53 mg/dL (8.4-25.7) H 11/10/20 06:14 Creatinine 3.70 mg/dL (0.7-1.3) H 11/10/20 06:14 Glucose 198 mg/dL (70-105) H 11/10/20 06:14 Calcium 8.2 mg/dL (7.8-10.44) 11/10/20 06:14 Total Bilirubin 0.6 mg/dL (0.2-1.2) 11/09/20 16:19 AST 11 U/L (5-34) 11/09/20 16:19 ALT 16 U/L (8-55) 11/09/20 16:19 Alkaline Phosphatase 112 U/L (40-110) H 11/09/20 16:19 Troponin I 0.025 ng/mL (< 0.028) 11/09/20 16:19 B-Natriuretic Peptide 547.0 pg/mL (0-100) H 11/09/20 16:19 Serum Total Protein 6.9 g/dL (6.0-8.3) 11/09/20 16:19 Albumin 3.5 g/dL (3.5-5.0) 11/09/20 16:19 Sodium 139 mmol/L (136-145) 11/10/20 06:14 Potassium 3.7 mmol/L (3.5-5.1) 11/10/20 06:14 Chloride 102 mmol/L (98-107) 11/10/20 06:14 Carbon Dioxide 27 mmol/L (22-29) 11/10/20 06:14 Anion Gap 14 mmol/L (10-20) 11/10/20 06:14 BUN 53 mg/dL (8.4-25.7) H 11/10/20 06:14 Creatinine 3.70 mg/dL (0.7-1.3) H 11/10/20 06:14 Glucose 198 mg/dL (70-105) H 11/10/20 06:14 Calcium 8.2 mg/dL (7.8-10.44) 11/10/20 06:14 Phosphorus 5.2 mg/dL (2.3-4.7) H 11/10/20 06:30 Magnesium 2.8 mg/dL (1.6-2.6) H 11/10/20 06:30 Albumin 3.5 g/dL (3.5-5.0) 11/09/20 16:19 Nephrology AP PN - Plan ZAHEER: Due to hemodynamic factors related to cardiac decompensation. cardiorenal syndrome. CKD 4. HTN: Control is fair. Acute on chronic CHF. Acute respiratory failure due to CHF exacerbation. PLAN Agree with current IV diuretic therapy. Will monitor responsie with intake and output. Escalation of diuretic therapy and ionotropic therapy considered. Continue antihypertensives. Will re evaluation in the am. Repeat BMP in the am. Avoid nephrotoxic agents. Renal dose all medications.
[2020-11-10] MEDS: Insulin Glargine 45 UNITS in Pre-Filled Syringe 1 EACH SC SCH (20:52)
[2020-11-10] MEDS: Atorvastatin Calcium 40 MG TAB PO SCH (20:52)
--- NOTE | 2020-11-11 06:45 | PDOC.FM ---
- Subjective Subjective: Mr. Jeffery feels his breathing has improved some. He had a nose bleed last night which he thinks was caused by the oxygen. - Objective Vital Signs & Weight: Vital Signs (12 hours) Temp Pulse Resp BP BP Pulse Ox 11/11/20 03:22 97.8 F 55 L 16 163/72 H 96 11/10/20 20:53 54 L 11/10/20 20:00 98 11/10/20 19:18 97.7 F 54 L 16 150/66 H 96 Weight Weight 132.086 kg I&O: 11/09/20 11/10/20 11/11/20 06:59 06:59 06:59 Intake Total 600 360 Balance 600 360 Result Diagrams: 11/10/20 06:14 11/11/20 06:57 EKG Reviewed by me: Yes (tele: 50-60s) Phys Exam - Physical Examination Constitutional: NAD HEENT: moist MMs, sclera anicteric Neck: full ROM Respiratory: no wheezing, no rales, no rhonchi, clear to auscultation bilateral Cardiovascular: RRR, no significant murmur Gastrointestinal: soft, non-tender Musculoskeletal: pulses present, edema present Neurological: moves all 4 limbs Psychiatric: normal affect, A&O x 3 Skin: no rash Dx/Plan - Plan Plan: Acute Hypoxic Respiratory Failure 2/2 CHF exacerbation -CXR mild left basilar opacity with small L pleural effusion, BNP 547, Trop 0.025 -Last ECHO 06/2020 showed EF of 35-40% -O2 requirement: 2L NC -Mg 2.8, Phos 5.2 -Procal 0.12. Rocephin (11/09-11/10), Azithro (11/09-11/10). WBC 9.9, 9.4 -360mL urine output documented following 40mg IV lasix yesterday. Patient reports he has been urinating quite a bit in the toilet and it has not been measured. Will check with nursing to make sure strict I/Os are being documented. ZAHEER on CKD 4 -Cr 3.9, 3.7, 3.85 -Labs from clinic 08/2020 showed BUN/Cr 42/3.07 -Nephrology consult (Obi) -Monitor with AM labs Chronic Normocytic Anemia -Hgb 9.1, 8.2. MCV 94 -iron studies in 06/2020 show that he is iron deficient -suspect that this is due to his CKD and is probably EPO deficient as well Chronic Conditions IDDM HTN Hx of CVA Asthma -continue home medications CODE: Full VTE: Heparin PCP: Calvin Dispo: Continue lasix diuresis vs initiate milrinone. Will discuss options during morning rounds. May be appropriate to consult Dr. Acevedo at this point. Addendum - Attending - Attending Attestation Date/Time: 11/11/20 9304 I personally evaluated the patient and discussed the management with Dr. Woodward. I agree with the History, Examination, Assessment and Plan documented above with any addition or exceptions noted below. Renal function worsened after diuresis. suspect cardiorenal picture. will consu lt cardiology/HF specialist for recommendations. He will need either milrinone or dobutamine to help with diuresis.
[2020-11-11 07:33] LABS: Anion Gap 12 mmol/L (10-20); BUN (Urea Nitrogen) 59 mg/dL (8.4-25.7); Calc. Creatinine Clearance 41 mL/min (70-130); Calcium 8.3 mg/dL (7.8-10.44); Carbon Dioxide 30 mmol/L (22-29); Chloride 102 mmol/L (98-107); Glucose 109 mg/dL (70-105); Potassium 4.1 mmol/L (3.5-5.1); Sodium 140 mmol/L (136-145)
[2020-11-11] MEDS: Amlodipine 5 MG TAB PO SCH (08:24)
[2020-11-11] MEDS: Magnesium Oxide 400 MG TAB PO SCH ×2 (08:24→22:29)
[2020-11-11] MEDS: hydrALAZINE 10 MG TAB PO SCH ×3 (08:24→22:29)
[2020-11-11] MEDS: Isosorbide Dinitrate 5 MG TAB PO SCH (08:24)
[2020-11-11] MEDS: Aspirin Chewable 81 MG TAB PO SCH (08:24)
[2020-11-11] MEDS: Alogliptin 6.25 MG TAB PO SCH (08:24)
[2020-11-11] MEDS: HumaLOG 300 UNITS/3 ML VIAL SC SCH ×2 (08:25→22:29)
[2020-11-11] MEDS: Heparin 5,000 UNITS/ML VIAL SC SCH ×3 (08:25→22:30)
[2020-11-11] MEDS: Carvedilol 6.25 MG TAB PO SCH (09:00)
--- NOTE | 2020-11-11 13:15 | PDOC.NEPPN ---
- Subjective Encounter Date: 11/11/20 Subjective: Seen and examined. No new problem. Still with exertional dyspnea and bilateral leg edema. Remained afebrile - Objective Vital Signs & Weight: Vital Signs (12 hours) Temp Pulse Resp BP BP Pulse Ox 11/11/20 11:48 97.8 F 56 L 20 141/67 H 98 11/11/20 08:24 64 11/11/20 08:00 96.0 F L 64 16 182/87 H 95 11/11/20 03:22 97.8 F 55 L 16 163/72 H 96 Weight Weight 291 lb 3.2 oz I&O: 11/10/20 11/11/20 11/12/20 06:59 06:59 06:59 Intake Total 600 360 Balance 600 360 Result Diagrams: 11/10/20 06:14 11/11/20 06:57 Additional Labs: Accuchecks 11/11/20 11/11/20 11/10/20 11:10 05:09 20:49 POC Glucose 99 87 129 H 11/10/20 16:38 POC Glucose 136 H Nephrology ROS - Medication Medications: Active Medications Generic Name Dose Route Start Last Admin Trade Name Freq PRN Reason Stop Dose Admin Acetaminophen 650 mg 11/09/20 19:13 11/09/20 23:21 Acetaminophen 325 Mg Tab PO 650 mg Q4H PRN Administration Headache/Fever/Mild Pain (1-3) Alogliptin Benzoate 6.25 mg 11/10/20 09:00 11/11/20 08:24 Alogliptin 6.25 Mg Tab PO 6.25 mg DAILY VISHNU Administration Amlodipine Besylate 5 mg 11/10/20 09:00 11/11/20 08:24 Amlodipine 5 Mg Tab PO 5 mg DAILY VISHNU Administration Aspirin 81 mg 11/10/20 09:00 11/11/20 08:24 Aspirin Chewable 81 Mg Tab PO 81 mg DAILY VISHNU Administration Atorvastatin Calcium 40 mg 11/09/20 21:00 11/10/20 20:52 Atorvastatin Calcium 40 Mg Tab PO 40 mg HS VISHNU Administration Heparin Sodium (Porcine) 5,000 units 11/09/20 21:00 11/11/20 08:25 Heparin 5,000 Units/Ml Vial SC 5,000 units TID VISHNU Administration Hydralazine HCl 20 mg 11/09/20 21:00 11/11/20 08:24 Hydralazine 10 Mg Tab PO 20 mg TID VISHNU Administration Insulin Glargine 45 units/ 0.45 mls @ 0 mls/hr 11/09/20 21:00 11/10/20 20:52 Miscellaneous Medication SC 0.45 mls HS VISHNU Administration Insulin Human Lispro 12 units 11/10/20 21:00 11/11/20 08:25 Humalog 300 Units/3 Ml Vial SC 12 unit BID VISHNU Administration Isosorbide Dinitrate 10 mg 11/10/20 21:00 11/11/20 08:24 Isosorbide Dinitrate 5 Mg Tab PO 10 mg BID VISHNU Administration Magnesium Oxide 400 mg 11/09/20 21:00 11/11/20 08:24 Magnesium Oxide 400 Mg Tab PO 400 mg BID VISHNU Administration - Exam General Appearance: awake alert Eye: anicteric sclera ENT: normocephalic atraumatic, moist mucosa Neck: symmetric Respiratory: no wheezes, no ronchi, no tachypnea Respiratory - other findings: decreased air entry both bases. Otherwise fair air entry Cardiovascular: RRR Gastrointestinal: soft, non-tender, non-distended, normal bowel sounds Extremities: 2+ LE edema Neurological: CN's grossly intact, no new deficit PSYCH: A&O x 3 Nephrology Results - Labs Result Diagrams: 11/10/20 06:14 11/11/20 06:57 Lab results: WBC 9.4 thou/uL (4.8-10.8) 11/10/20 06:14 Hgb 8.1 g/dL (14.0-18.0) L 11/10/20 06:14 Hct 25.1 % (42.0-52.0) L 11/10/20 06:14 MCV 94.7 fL (78.0-98.0) 11/10/20 06:14 Plt Count 220 thou/uL (130-400) 11/10/20 06:14 Neutrophils % 73.8 % (42.0-75.0) 11/10/20 06:14 Sodium 140 mmol/L (136-145) 11/11/20 06:57 Potassium 4.1 mmol/L (3.5-5.1) 11/11/20 06:57 Chloride 102 mmol/L (98-107) 11/11/20 06:57 Carbon Dioxide 30 mmol/L (22-29) H 11/11/20 06:57 BUN 59 mg/dL (8.4-25.7) H 11/11/20 06:57 Creatinine 3.85 mg/dL (0.7-1.3) H 11/11/20 06:57 Glucose 109 mg/dL (70-105) H 11/11/20 06:57 Calcium 8.3 mg/dL (7.8-10.44) 11/11/20 06:57 Total Bilirubin 0.6 mg/dL (0.2-1.2) 11/09/20 16:19 AST 11 U/L (5-34) 11/09/20 16:19 ALT 16 U/L (8-55) 11/09/20 16:19 Alkaline Phosphatase 112 U/L (40-110) H 11/09/20 16:19 Troponin I 0.025 ng/mL (< 0.028) 11/09/20 16:19 B-Natriuretic Peptide 547.0 pg/mL (0-100) H 11/09/20 16:19 Serum Total Protein 6.9 g/dL (6.0-8.3) 11/09/20 16:19 Albumin 3.5 g/dL (3.5-5.0) 11/09/20 16:19 Sodium 140 mmol/L (136-145) 11/11/20 06:57 Potassium 4.1 mmol/L (3.5-5.1) 11/11/20 06:57 Chloride 102 mmol/L (98-107) 11/11/20 06:57 Carbon Dioxide 30 mmol/L (22-29) H 11/11/20 06:57 Anion Gap 12 mmol/L (10-20) 11/11/20 06:57 BUN 59 mg/dL (8.4-25.7) H 11/11/20 06:57 Creatinine 3.85 mg/dL (0.7-1.3) H 11/11/20 06:57 Glucose 109 mg/dL (70-105) H 11/11/20 06:57 Calcium 8.3 mg/dL (7.8-10.44) 11/11/20 06:57 Phosphorus 5.2 mg/dL (2.3-4.7) H 11/10/20 06:30 Magnesium 2.8 mg/dL (1.6-2.6) H 11/10/20 06:30 Albumin 3.5 g/dL (3.5-5.0) 11/09/20 16:19 Nephrology AP PN - Plan ZAHEER: Due to hemodynamic factors related to cardiac decompensation. cardiorenal syndrome. CKD 4. HTN: Control is suboptima. Acute on chronic CHF. Acute respiratory failure due to CHF exacerbation. PLAN Incresae isordol to 20 mg tid to get better BP control. Continue IV diuretic therapy. Recommend Heart failure specialist consult for possible ionotropic therapy Repeat BMP in the am. Avoid nephrotoxic agents.
[2020-11-11] MEDS ORDERED: DOBUTamine 500 mg/250 ml 250 ML IVPB SCH (15:15)
[2020-11-11] MEDS ORDERED: hydrALAZINE 20 MG/ML VIAL SLOW IVP PRN (17:19)
[2020-11-11] MEDS ORDERED: Furosemide 100 MG/10 ML VIAL SLOW IVP SCH (18:00)
[2020-11-11] MEDS ORDERED: hydrALAZINE 20 MG/ML VIAL SLOW IVP SCH (18:30)
[2020-11-11] MEDS ORDERED: Isosorbide Dinitrate 20 MG TAB PO SCH (21:00)
[2020-11-11] MEDS ORDERED: Isosorbide Dinitrate 5 MG TAB PO SCH (21:00)
[2020-11-11] MEDS: Isosorbide Dinitrate 20 MG TAB PO SCH (22:29)
[2020-11-11] MEDS: Atorvastatin Calcium 40 MG TAB PO SCH (22:29)
[2020-11-11] MEDS: Insulin Glargine 45 UNITS in Pre-Filled Syringe 1 EACH SC SCH (22:30)
[2020-11-12 05:23] LABS: Anion Gap 14 mmol/L (10-20); BUN (Urea Nitrogen) 57 mg/dL (8.4-25.7); Calc. Creatinine Clearance 43 mL/min (70-130); Calcium 8.3 mg/dL (7.8-10.44); Carbon Dioxide 26 mmol/L (22-29); Chloride 102 mmol/L (98-107); Potassium 3.7 mmol/L (3.5-5.1); Sodium 138 mmol/L (136-145)
[2020-11-12 05:34] LABS: Glucose 58 mg/dL (70-105)
[2020-11-12] MEDS: Furosemide 100 MG/10 ML VIAL SLOW IVP SCH ×2 (06:14→14:16)
--- NOTE | 2020-11-12 06:16 | PDOC.FM ---
- Subjective Subjective: Mr. Jeffery continues to feel short of breath. He was started on a dobutamine drip yesterday but was unable to tolerate it due to elevated blood pressures and feeling like pins and needles and it was discontinued per Dr. Rouse's orders. - Objective Vital Signs & Weight: Vital Signs (12 hours) Temp Pulse Resp BP BP BP Pulse Ox 11/12/20 04:17 97.4 F L 60 21 H 147/68 H 91 L 11/12/20 00:00 138/62 11/11/20 21:40 60 133/61 11/11/20 19:30 65 11/11/20 19:15 97.4 F L 65 18 164/72 H 93 L Weight Weight 132.086 kg I&O: 11/10/20 11/11/20 11/12/20 06:59 06:59 06:59 Intake Total 600 360 720 Output Total 880 Balance 600 360 -160 Result Diagrams: 11/12/20 07:17 11/12/20 03:52 EKG Reviewed by me: Yes (tele: SR 50-70s) Phys Exam - Physical Examination Constitutional: NAD HEENT: moist MMs, sclera anicteric Neck: full ROM Respiratory: no wheezing, no rales, no rhonchi, clear to auscultation bilateral Cardiovascular: RRR, no significant murmur Gastrointestinal: soft, non-tender Musculoskeletal: pulses present, edema present Neurological: non-focal, moves all 4 limbs Lymphatic: no nodes Psychiatric: normal affect, A&O x 3 Skin: no rash Dx/Plan - Plan Plan: Acute Hypoxic Respiratory Failure 2/2 CHF exacerbation -CXR mild left basilar opacity with small L pleural effusion, BNP 547, Trop 0.025 -Last ECHO 06/2020 showed EF of 35-40%. ECHO 12/02: EF 40-45%, dilated cardiomyopathy -O2 requirement: RA -Mg 2.8, Phos 5.2. Procal 0.12. Rocephin (11/09-11/10), Azithro (11/09-11/10). WBC 9.9, 9.4 -Trial of Dobutamine drip yesterday which patient did not tolerate and was discontinued. Started 80mg IV lasix BID which was continued. -1980mL urine output -Cardiology consult (Padma): appreciate recs ZAHEER on CKD 4 -Cr 3.9, 3.7, 3.85, 3.66 -Labs from clinic 08/2020 showed BUN/Cr 42/3.07 -Nephrology consult (Obi) -Monitor with AM labs -Appreciate Cardiology and Nephrology recs for cardiorenal syndrome and recommendations on best way to diurese patient. DMII -Home lantus 14units daily, humalog 12units BID -Will decrease humalog today Chronic Normocytic Anemia -Hgb 9.1, 8.2. MCV 94 -iron studies in 06/2020 show that he is iron deficient -suspect that this is due to his CKD and is probably EPO deficient as well Chronic Conditions HTN Hx of CVA Asthma -continue home medications CODE: Full VTE: Heparin PCP: Calvin Dispo: Appreciate Cardiology and Nephrology recs. Addendum - Attending - Attending Attestation Date/Time: 11/12/20 9276 I personally evaluated the patient and discussed the management with Dr. Woodward. I agree with the History, Examination, Assessment and Plan documented above with any addition or exceptions noted below. Patient reports feeling ok this morning, but had some issues with Dobutamine overnight so it was stopped. Will discuss with cardiology this morning what else we can do about his suspected cardiorenal syndrome. TTE shows dilated cardiomyopathy and slightly depressed EF. Renal function overall stable, unable to adequately diurese given his renal function. Nephro on board. Will back off insulin a little.
[2020-11-12 07:42] LABS: #Basophils 0.1 thou/uL (0.0-0.2); #Eosinphils 0.4 thou/uL (0.0-0.7); #Lymphocytes 1.6 thou/uL (1.20-3.40); #Monocytes 0.9 thou/uL (0.11-0.59); #Neutrophils 9.3 thou/uL (1.40-6.50); %Basophils 0.4 % (0.0-1.0); %Lymphocytes 12.8 % (21.0-51.0); %Monocytes 7.2 % (0.0-10.0); %Neutrophils 76.6 % (42.0-75.0); Hemoglobin 8.3 g/dL (14.0-18.0); Mean Corpuscular HGB CONC 32.5 g/dL (32.0-36.0); Mean Corpuscular Hemoglobin 30.5 pg (27.0-31.0); Mean Corpuscular Volume 93.8 fL (78.0-98.0); Mean Platelet Volume 8.2 fL (7.4-10.4); Platelet Count 285 thou/uL (130-400); RBC Distribution Width 12.6 % (11.5-14.5); Red Blood Cell (RBC) Count 2.72 mill/uL (4.70-6.10); White Blood Cell (WBC) Count 12.1 thou/uL (4.8-10.8)
[2020-11-12] MEDS: Metolazone 5 MG TAB PO SCH (08:08)
[2020-11-12] MEDS: Magnesium Oxide 400 MG TAB PO SCH ×2 (08:08→20:57)
[2020-11-12] MEDS: Amlodipine 5 MG TAB PO SCH (08:08)
[2020-11-12] MEDS: Alogliptin 6.25 MG TAB PO SCH (08:08)
[2020-11-12] MEDS: Aspirin Chewable 81 MG TAB PO SCH (08:08)
[2020-11-12] MEDS: hydrALAZINE 10 MG TAB PO SCH ×3 (08:09→20:57)
[2020-11-12] MEDS: Isosorbide Dinitrate 20 MG TAB PO SCH ×2 (08:09→20:57)
[2020-11-12] MEDS: Heparin 5,000 UNITS/ML VIAL SC SCH ×3 (08:09→20:57)
[2020-11-12] MEDS: HumaLOG 300 UNITS/3 ML VIAL SC SCH ×3 (08:18→20:55)
--- NOTE | 2020-11-12 09:53 | CON ---
DATE OF CONSULTATION: 11/11/2020 REASON FOR CONSULTATION: Heart failure. [employer] COORDINATOR: Coco Perez MD HISTORY OF PRESENT ILLNESS: Mr. Jeffery is a pleasant 55-year-old white gentleman who comes to the hospital for worsening shortness of breath. He has a history of dilated cardiomyopathy, he was diagnosed many years back. However, he was last seen here in the hospital in June 2020. Echocardiogram done in June showed an EF of 35% to 40%. He was diuresed and sent home. He also has renal insufficiency, so heart catheterization has not been done. He was actually sent to [facility] in [place] for consideration of LVAD because LV function was not too bad for an LVAD, so he did get an evaluation. He had a cardiac biopsy that showed no evidence of amyloid. He was also evaluated for possible hypertrophic cardiomyopathy, but this was not the case. It was thought that this is hypertensive. He also apparently had a stress test and had areas of ischemia, but he had not received a heart catheterization, given his poor renal function. Currently, he only complains of shortness of breath when he walks. He denies chest pain, tightness, or pressure, and also worsening lower extremity edema. He states he has chronic edema, but it is just worse than normal. PAST MEDICAL HISTORY: 1. Dilated cardiomyopathy. 2. Heart failure with reduced ejection fraction since 2017, last EF at 35% to 40%, this was in June 2020. 3. History of CVA twice, once in 2012 and second in 2014. 4. Hypertension. 5. Hyperlipidemia. 6. Type-2 diabetes. SOCIAL HISTORY: No alcohol for at least last 2 years. No tobacco. No drug use. FAMILY HISTORY: Noncontributory. OUTPATIENT MEDICATIONS: 1. Isosorbide dinitrate 10 mg p.o. b.i.d. 2. Insulin lispro b.i.d. 3. Aspirin 81 a day. 4. Lantus 45 units subcu every night. 5. Magnesium 100 mg b.i.d. 6. Tradjenta 5 mg a day. 7. Lasix 40 mg b.i.d. 8. Coreg 12.5 mg b.i.d. 9. Atorvastatin 40 mg at bedtime. ALLERGIES: NO KNOWN DRUG ALLERGIES. REVIEW OF SYSTEMS: A 12-point review of systems was done and was all negative unless stated in the history of present illness. PHYSICAL EXAMINATION: VITAL SIGNS: Temperature 97.8, pulse 56, respiratory rate 20, saturating 98% on 1 L nasal cannula, blood pressure 141/67. GENERAL: Awake, alert, oriented x3. No distress. HEENT: Normocephalic, atraumatic. NECK: Supple. Cannot assess JVD secondary to body habitus. LUNGS: Have mild crackles at bases. CARDIOVASCULAR: Grade 2/6 systolic murmur at the right upper sternal border. ABDOMEN: Soft. Positive bowel sounds. EXTREMITIES: 3+ lower extremity edema. SKIN: Warm and dry. LABORATORY AND DIAGNOSTIC DATA: Laboratory work was reviewed. CBC with a white count of 9, hemoglobin of 9, hematocrit of 28, platelet count of 248. Chemistry with a sodium of 140, potassium of 4.1, chloride of 102, carbon dioxide of 30, anion gap of 12, BUN of 59, creatinine of 3.85, GFR of 16, glucose of 109, phosphorus of 5.2, magnesium of 2.8. Troponin was negative x1 at 0.025. BNP was 547. Serology for COVID-19 was not detected. Chest x-ray was reviewed. ASSESSMENT: 1. [id number] systolic heart failure. 2. Chronic kidney disease stage 4. 3. AHA stage C, [employer] class 3B. PLAN: 1. We will start dobutamine for improved diuresis. We will also start IV Lasix at 80 mg IV twice a day. 2. Continue to monitor in's and out's closely. 3. Currently, he has been ruled out for an ME with one negative troponin. We will get a second one just to make sure this is not an ischemic exacerbation. 4. We will monitor daily and we will repeat an echocardiogram to make sure his LV function is unchanged. Thank you for letting us to participate in the care of the patient. We will follow. Job ID: [id number]
--- NOTE | 2020-11-12 10:29 | PDOC.NEPPN ---
- Subjective Encounter Date: 11/12/20 Subjective: Seen and examined. Developed hypertension, paresthesia and right hand swelling with dobutamine yesterday. Urine output however did improved with dobutamine while it lasted. - Objective Vital Signs & Weight: Vital Signs (12 hours) Temp Pulse Resp BP BP BP Pulse Ox 11/12/20 07:18 98.0 F 57 L 18 155/70 H 95 11/12/20 04:17 97.4 F L 60 21 H 147/68 H 91 L 11/12/20 00:00 138/62 Weight Weight 293 lb 2 oz I&O: 11/11/20 11/12/20 11/13/20 06:59 06:59 06:59 Intake Total 360 1262.5 Output Total 1980 Balance 360 -717.5 Result Diagrams: 11/12/20 07:17 11/12/20 03:52 Additional Labs: Accuchecks 11/12/20 11/11/20 11/11/20 05:49 20:48 16:56 POC Glucose 70 165 H 100 11/11/20 11:10 POC Glucose 99 Nephrology ROS - Medication Medications: Active Medications Generic Name Dose Route Start Last Admin Trade Name Freq PRN Reason Stop Dose Admin Acetaminophen 650 mg 11/09/20 19:13 11/09/20 23:21 Acetaminophen 325 Mg Tab PO 650 mg Q4H PRN Administration Headache/Fever/Mild Pain (1-3) Alogliptin Benzoate 6.25 mg 11/10/20 09:00 11/12/20 08:08 Alogliptin 6.25 Mg Tab PO 6.25 mg DAILY VISHNU Administration Amlodipine Besylate 5 mg 11/10/20 09:00 11/12/20 08:08 Amlodipine 5 Mg Tab PO 5 mg DAILY VISHNU Administration Aspirin 81 mg 11/10/20 09:00 11/12/20 08:08 Aspirin Chewable 81 Mg Tab PO 81 mg DAILY VISHNU Administration Atorvastatin Calcium 40 mg 11/09/20 21:00 11/11/20 22:29 Atorvastatin Calcium 40 Mg Tab PO 40 mg HS VISHNU Administration Furosemide 80 mg 11/12/20 06:00 11/12/20 06:14 Furosemide 100 Mg/10 Ml Vial SLOW IVP 80 mg 0600,1400 VISHNU Administration Heparin Sodium (Porcine) 5,000 units 11/09/20 21:00 11/12/20 08:09 Heparin 5,000 Units/Ml Vial SC 5,000 units TID VISHNU Administration Hydralazine HCl 20 mg 11/09/20 21:00 11/12/20 08:09 Hydralazine 10 Mg Tab PO 20 mg TID VISHNU Administration Hydralazine HCl 10 mg 11/11/20 17:19 11/11/20 17:58 Hydralazine 20 Mg/Ml Vial SLOW IVP 10 mg Q4H PRN Administration SBP GREATER THAN 160 Insulin Glargine 45 units/ 0.45 mls @ 0 mls/hr 11/09/20 21:00 11/11/20 22:30 Miscellaneous Medication SC 0.45 mls HS VISHNU Administration Dobutamine HCl/Dextrose 250 mls @ 19.813 mls/hr 11/11/20 15:15 11/11/20 17:05 Dobutamine 500 Mg/250 Ml IVPB 250 mls INF VISHNU Administration Protocol 5 MCG/KG/MIN Insulin Human Lispro 12 units 11/10/20 21:00 11/12/20 08:18 Humalog 300 Units/3 Ml Vial SC Not Given BID VISHNU Isosorbide Dinitrate 20 mg 11/11/20 21:00 11/12/20 08:09 Isosorbide Dinitrate 20 Mg Tab PO 20 mg BID VISHNU Administration Magnesium Oxide 400 mg 11/09/20 21:00 11/12/20 08:08 Magnesium Oxide 400 Mg Tab PO 400 mg BID VISHNU Administration Metolazone 5 mg 11/12/20 08:30 11/12/20 08:08 Metolazone 5 Mg Tab PO 5 mg 0830 VISHNU Administration - Exam General Appearance: awake alert Eye: anicteric sclera ENT: normocephalic atraumatic, moist mucosa Neck: symmetric Respiratory: no wheezes, no ronchi, no tachypnea Respiratory - other findings: fair air entry with bibasal crackles posteriorly Cardiovascular: RRR Gastrointestinal: soft, normal bowel sounds Extremities: 2+ LE edema Neurological: CN's grossly intact, no new deficit PSYCH: A&O x 3 Nephrology Results - Labs Result Diagrams: 11/12/20 07:17 11/12/20 03:52 Lab results: WBC 12.1 thou/uL (4.8-10.8) H 11/12/20 07:17 Hgb 8.3 g/dL (14.0-18.0) L 11/12/20 07:17 Hct 25.5 % (42.0-52.0) L 11/12/20 07:17 MCV 93.8 fL (78.0-98.0) 11/12/20 07:17 Plt Count 285 thou/uL (130-400) 11/12/20 07:17 Neutrophils % 76.6 % (42.0-75.0) H 11/12/20 07:17 Sodium 138 mmol/L (136-145) 11/12/20 03:52 Potassium 3.7 mmol/L (3.5-5.1) 11/12/20 03:52 Chloride 102 mmol/L (98-107) 11/12/20 03:52 Carbon Dioxide 26 mmol/L (22-29) 11/12/20 03:52 BUN 57 mg/dL (8.4-25.7) H 11/12/20 03:52 Creatinine 3.66 mg/dL (0.7-1.3) H 11/12/20 03:52 Glucose 58 mg/dL (70-105) L* 11/12/20 03:52 Calcium 8.3 mg/dL (7.8-10.44) 11/12/20 03:52 Total Bilirubin 0.6 mg/dL (0.2-1.2) 11/09/20 16:19 AST 11 U/L (5-34) 11/09/20 16:19 ALT 16 U/L (8-55) 11/09/20 16:19 Alkaline Phosphatase 112 U/L (40-110) H 11/09/20 16:19 Troponin I 0.025 ng/mL (< 0.028) 11/09/20 16:19 B-Natriuretic Peptide 547.0 pg/mL (0-100) H 11/09/20 16:19 Serum Total Protein 6.9 g/dL (6.0-8.3) 11/09/20 16:19 Albumin 3.5 g/dL (3.5-5.0) 11/09/20 16:19 Sodium 138 mmol/L (136-145) 11/12/20 03:52 Potassium 3.7 mmol/L (3.5-5.1) 11/12/20 03:52 Chloride 102 mmol/L (98-107) 11/12/20 03:52 Carbon Dioxide 26 mmol/L (22-29) 11/12/20 03:52 Anion Gap 14 mmol/L (10-20) 11/12/20 03:52 BUN 57 mg/dL (8.4-25.7) H 11/12/20 03:52 Creatinine 3.66 mg/dL (0.7-1.3) H 11/12/20 03:52 Glucose 58 mg/dL (70-105) L* 11/12/20 03:52 Calcium 8.3 mg/dL (7.8-10.44) 11/12/20 03:52 Phosphorus 5.2 mg/dL (2.3-4.7) H 11/10/20 06:30 Magnesium 2.8 mg/dL (1.6-2.6) H 11/10/20 06:30 Albumin 3.5 g/dL (3.5-5.0) 11/09/20 16:19 Nephrology AP PN - Plan ZAHEER: Due to hemodynamic factors related to cardiac decompensation. cardiorenal syndrome. Creat is marginally better. CKD 4. HTN: Control is better. Acute on chronic combined systolic and diastolic HF Acute respiratory failure due to CHF exacerbation. PLAN Add metolazone to lasix. Continue antihypertensives Ionotropic therapy as per cardiology. Tolerated milrinone well during prior hospitalization. Repeat BMP in the am. Avoid nephrotoxic agents.
[2020-11-12] MEDS ORDERED: HumaLOG 300 UNITS/3 ML VIAL SC SCH (10:45)
[2020-11-12] MEDS ORDERED: Gabapentin 300 MG CAP PO SCH (14:00)
--- NOTE | 2020-11-12 16:05 | PDOC.CPN ---
- Subjective Date: 11/12/20 Time: 16:04 Interval history: He did not tolerate Dobutamine drip as his BP went very high and had to be stopped. Increase diuresis with addition of metolazone. - Review of Systems General: reports: fatigue. denies: fever/chills, weight/appetite/sleep changes, night sweats Respiratory: reports: shortness of breath, exercise intolerance. denies: cough, congestion Cardiovascular: reports: edema. denies: chest pain, palpitation, paroxysmal nocturnal dyspnea, orthopnea Gastrointestinal: denies: nausea, vomiting, diarrhea, constipation, abd pain, GI bleeding Musculoskeletal: denies: pain, tenderness, stiffness, swelling, ar thritis/arthralgias Neurological: denies: numbness, syncope, seizure, weakness - Objective Allergies/Adverse Reactions: Allergies Allergy/AdvReac Type Severity Reaction Status Date / Time dobutamine AdvReac Mild Anaphylaxis Verified 11/12/20 07:24 Visit Medications: Current Medications Acetaminophen (Acetaminophen 325 Mg Tab) 650 mg PO Q4H PRN PRN Reason: Headache/Fever/Mild Pain (1-3) Last Admin: 11/09/20 23:21 Dose: 650 mg Documented by: Alogliptin Benzoate (Alogliptin 6.25 Mg Tab) 6.25 mg PO DAILY [facility] Last Admin: 11/12/20 08:08 Dose: 6.25 mg Documented by: Amlodipine Besylate (Amlodipine 5 Mg Tab) 5 mg PO DAILY [facility] Last Admin: 11/12/20 08:08 Dose: 5 mg Documented by: Aspirin (Aspirin Chewable 81 Mg Tab) 81 mg PO DAILY [facility] Last Admin: 11/12/20 08:08 Dose: 81 mg Documented by: Atorvastatin Calcium (Atorvastatin Calcium 40 Mg Tab) 40 mg PO HS [facility] Last Admin: 11/11/20 22:29 Dose: 40 mg Documented by: Dextrose/Water (Dextrose 50% Abboject 50 Ml Syringe) 25 gm SLOW IVP PRN PRN PRN Reason: Hypoglycemia Furosemide (Furosemide 100 Mg/10 Ml Vial) 80 mg SLOW IVP 0600,1400 [facility] Last Admin: 11/12/20 14:16 Dose: 80 mg Documented by: Glucagon (Glucagon 1 Mg/Ml Vial) 1 mg IM PRN PRN PRN Reason: Hypoglycemia Heparin Sodium (Porcine) (Heparin 5,000 Units/Ml Vial) 5,000 units SC TID [facility] Last Admin: 11/12/20 14:16 Dose: 5,000 units Documented by: Hydralazine HCl (Hydralazine 10 Mg Tab) 20 mg PO TID [facility] Last Admin: 11/12/20 14:16 Dose: 20 mg Documented by: Hydralazine HCl (Hydralazine 20 Mg/Ml Vial) 10 mg SLOW IVP Q4H PRN PRN Reason: SBP GREATER THAN 160 Last Admin: 11/11/20 17:58 Dose: 10 mg Documented by: Dextrose/Water (D5w) 1,000 mls @ 0 mls/hr IV .Q0M PRN PRN Reason: Hypoglycemia Insulin Glargine 45 units/ (Miscellaneous Medication) 0.45 mls @ 0 mls/hr [facility] Last Admin: 11/11/20 22:30 Dose: 0.45 mls Documented by: Dobutamine HCl/Dextrose (Dobutamine 500 Mg/250 Ml) 250 mls @ 19.813 mls/hr IVPB INF [facility]; Protocol Last Admin: 11/11/20 17:05 Dose: 250 mls Documented by: Insulin Human Lispro (Humalog 300 Units/3 Ml Vial) 0 units SC .MILD SLIDING SCALE PRN PRN Reason: Mild Correctional Scale Insulin Human Lispro (Humalog 300 Units/3 Ml Vial) 10 units SC BID [facility] Isosorbide Dinitrate (Isosorbide Dinitrate 20 Mg Tab) 20 mg PO BID [facility] Last Admin: 11/12/20 08:09 Dose: 20 mg Documented by: Magnesium Oxide (Magnesium Oxide 400 Mg Tab) 400 mg PO BID [facility] Last Admin: 11/12/20 08:08 Dose: 400 mg Documented by: Metolazone (Metolazone 5 Mg Tab) 5 mg PO 30 [facility] Last Admin: 11/12/20 08:08 Dose: 5 mg Documented by: Sodium Chloride (Flush - Normal Saline 10 Ml Syringe) 10 ml IVF PRN PRN PRN Reason: Saline Flush Vital Signs & Weight: Vital Signs Temp Pulse Resp BP BP Pulse Ox 11/12/20 15:25 98.0 F 57 L 18 146/68 H 95 11/12/20 11:42 97.9 F 61 17 141/96 H 95 11/12/20 07:18 98.0 F 57 L 18 155/70 H 95 11/12/20 04:17 97.4 F L 60 21 H 147/68 H 91 L Weight 293 lb 2 oz - Physical Exam General: alert & oriented x3 HEENT: mucus membranes moist Neck: supple neck Cardiac: regular rate and rhythm Lungs: clear to auscultation Neuro: grossly intact Abdomen: active bowel sounds Extremities: 2+ LE edema Skin: clear Musculoskeletal: no pain - Labs Result Diagrams: 11/12/20 07:17 11/12/20 03:52 Troponin/CKMB Troponin I 0.025 ng/mL (< 0.028) 11/09/20 16:19 - Telemetry Sinus rhythms and dysrhythmias: sinus rhythm - Assessment/Plan Assessment/Plan: 1. Acute on chronic combined heart failure 2. CKD strage 4 3. Anasarca 4. HTN 5. Systolic dysfunction EF at 40-45% PLAN; - Continue diuresis. - Agree with addition of metolazone. - A large part of his inability to move fluid is renal in nature. - Will increase Amlodipine for better BP control.
[2020-11-12] MEDS ORDERED: Amlodipine 5 MG TAB PO SCH (16:30)
[2020-11-12] MEDS: Atorvastatin Calcium 40 MG TAB PO SCH (20:57)
[2020-11-12] MEDS: Insulin Glargine 45 UNITS in Pre-Filled Syringe 1 EACH SC SCH (20:58)
[2020-11-13] MEDS: Furosemide 100 MG/10 ML VIAL SLOW IVP SCH ×2 (04:59→14:47)
[2020-11-13 06:05] LABS: Anion Gap 14 mmol/L (10-20); BUN (Urea Nitrogen) 57 mg/dL (8.4-25.7); Calc. Creatinine Clearance 41 mL/min (70-130); Calcium 8.2 mg/dL (7.8-10.44); Carbon Dioxide 29 mmol/L (22-29); Chloride 101 mmol/L (98-107); Glucose 71 mg/dL (70-105); Potassium 3.9 mmol/L (3.5-5.1); Sodium 140 mmol/L (136-145)
--- NOTE | 2020-11-13 06:20 | PDOC.FM ---
- Subjective Subjective: Patient is breathing well on RA today. Yesterday he was complaining of a painful pins and needles feeling in his left upper extremity > lower extremity. He says that has also improved. - Objective Vital Signs & Weight: Vital Signs (12 hours) Temp Pulse Resp BP Pulse Ox 11/13/20 04:20 98.1 F 60 18 129/61 92 L 11/12/20 20:02 98.7 F 60 20 136/65 94 L Weight Weight 131.712 kg I&O: 11/11/20 11/12/20 11/13/20 06:59 06:59 06:59 Intake Total 360 1262.5 1343 Output Total 1980 2100 Balance 360 -717.5 -757 Result Diagrams: 11/12/20 07:17 11/13/20 04:40 EKG Reviewed by me: Yes (tele: SR 50-60s) Phys Exam - Physical Examination Constitutional: NAD HEENT: moist MMs, sclera anicteric Neck: full ROM Respiratory: no wheezing, no rales, no rhonchi, clear to auscultation bilateral Cardiovascular: RRR, no significant murmur Gastrointestinal: soft, non-tender Musculoskeletal: pulses present, edema present Neurological: non-focal, moves all 4 limbs Psychiatric: normal affect, A&O x 3 Skin: no rash Dx/Plan - Plan Plan: Acute Hypoxic Respiratory Failure 2/2 CHF exacerbation -CXR mild left basilar opacity with small L pleural effusion, BNP 547, Trop 0.025 -Last ECHO 06/2020 showed EF of 35-40%. ECHO 12/02: EF 40-45%, dilated cardiomyopathy -O2 requirement: RA -Mg 2.8, Phos 5.2. Procal 0.12. Rocephin (11/09-11/10), Azithro (11/09-11/10). WBC 9.9, 9.4 -Failed dobutamine trial -Continue 80mg IV lasix BID. Added metolazone -2650mL urine output -Cardiology consult (Padma): increased amlodipine ZAHEER on CKD 4 -Cr 3.9, 3.7, 3.85, 3.66, 3.88 -Labs from clinic 08/2020 showed BUN/Cr 42/3.07 -Nephrology consult (Obi): added metolazone -Monitor with AM labs -Appreciate Cardiology and Nephrology recs for cardiorenal syndrome and recommendations on best way to diurese patient. DMII -Home lantus 14units daily, humalog 12units BID -Decreased humalog to 10units BID due to low sugars Chronic Normocytic Anemia -Hgb 9.1, 8.2. MCV 94 -iron studies in 06/2020 show that he is iron deficient -suspect that this is due to his CKD and is probably EPO deficient as well Chronic Conditions HTN Hx of CVA Asthma -continue home medications CODE: Full VTE: Heparin PCP: Calvin Dispo: Appreciate Cardiology and Nephrology recs. Addendum - Attending - Attending Attestation Date/Time: 11/13/20 [id number] I personally evaluated the patient and discussed the management with Dr. Woodward. I agree with the History, Examination, Assessment and Plan documented above with any addition or exceptions noted below. Patient feeling similar. We are still unable to diurese adequately given his cardiorenal syndrome. Will discuss with cardiology today the other options for improving his systolic function to help improve renal function and modulate diuretic effect.
[2020-11-13] MEDS: hydrALAZINE 10 MG TAB PO SCH ×2 (08:10→14:47)
[2020-11-13] MEDS: Metolazone 5 MG TAB PO SCH (08:10)
[2020-11-13] MEDS: Aspirin Chewable 81 MG TAB PO SCH (08:11)
[2020-11-13] MEDS: Magnesium Oxide 400 MG TAB PO SCH ×2 (08:11→21:25)
[2020-11-13] MEDS: Amlodipine 5 MG TAB PO SCH (08:11)
[2020-11-13] MEDS: Alogliptin 6.25 MG TAB PO SCH (08:12)
[2020-11-13] MEDS: Heparin 5,000 UNITS/ML VIAL SC SCH ×3 (08:12→21:25)
[2020-11-13] MEDS: HumaLOG 300 UNITS/3 ML VIAL SC SCH ×2 (08:12→21:25)
[2020-11-13] MEDS: Isosorbide Dinitrate 20 MG TAB PO SCH ×2 (08:12→21:25)
--- NOTE | 2020-11-13 15:10 | PDOC.NEPPN ---
- Subjective Encounter Date: 11/13/20 Subjective: Seen and examined. No new problem Marginally better. Still complaining of swelling. Off oxygen. - Objective Vital Signs & Weight: Vital Signs (12 hours) Temp Pulse Resp BP BP BP Pulse Ox 11/13/20 14:47 67 150/68 H 11/13/20 08:11 62 11/13/20 08:10 62 11/13/20 07:48 97.7 F 72 17 171/78 H 98 11/13/20 04:20 98.1 F 60 18 129/61 92 L Weight Weight 290 lb 6 oz I&O: 11/12/20 11/13/20 11/14/20 06:59 06:59 06:59 Intake Total 1262.5 1343 240 Output Total 1980 2650 Balance -717.5 -1307 240 Result Diagrams: 11/12/20 07:17 11/13/20 04:40 Additional Labs: Accuchecks 11/13/20 11/13/20 11/12/20 10:54 05:28 20:35 POC Glucose 123 H 70 208 H 11/12/20 16:47 POC Glucose 136 H Nephrology ROS - Medication Medications: Active Medications Generic Name Dose Route Start Last Admin Trade Name Freq PRN Reason Stop Dose Admin Acetaminophen 650 mg 11/09/20 19:13 11/09/20 23:21 Acetaminophen 325 Mg Tab PO 650 mg Q4H PRN Administration Headache/Fever/Mild Pain (1-3) Alogliptin Benzoate 6.25 mg 11/10/20 09:00 11/13/20 08:12 Alogliptin 6.25 Mg Tab PO 6.25 mg DAILY VISHNU Administration Amlodipine Besylate 10 mg 11/13/20 09:00 11/13/20 08:11 Amlodipine 5 Mg Tab PO 10 mg DAILY VISHNU Administration Aspirin 81 mg 11/10/20 09:00 11/13/20 08:11 Aspirin Chewable 81 Mg Tab PO 81 mg DAILY VISHNU Administration Atorvastatin Calcium 40 mg 11/09/20 21:00 11/12/20 20:57 Atorvastatin Calcium 40 Mg Tab PO 40 mg HS VISHNU Administration Furosemide 80 mg 11/12/20 06:00 11/13/20 14:47 Furosemide 100 Mg/10 Ml Vial SLOW IVP 80 mg 0600,1400 VISHUN Administration Heparin Sodium (Porcine) 5,000 units 11/09/20 21:00 11/13/20 14:46 Heparin 5,000 Units/Ml Vial SC 5,000 units TID VISHNU Administration Hydralazine HCl 20 mg 11/09/20 21:00 11/13/20 14:47 Hydralazine 10 Mg Tab PO 20 mg TID VISHNU Administration Hydralazine HCl 10 mg 11/11/20 17:19 11/11/20 17:58 Hydralazine 20 Mg/Ml Vial SLOW IVP 10 mg Q4H PRN Administration SBP GREATER THAN 160 Insulin Glargine 45 units/ 0.45 mls @ 0 mls/hr 11/09/20 21:00 11/12/20 20:58 Miscellaneous Medication SC 0.45 mls HS VISHNU Administration Insulin Human Lispro 10 units 11/12/20 21:00 11/13/20 08:12 Humalog 300 Units/3 Ml Vial SC 10 unit BID VISHNU Administration Isosorbide Dinitrate 20 mg 11/11/20 21:00 11/13/20 08:12 Isosorbide Dinitrate 20 Mg Tab PO 20 mg BID VISHNU Administration Magnesium Oxide 400 mg 11/09/20 21:00 11/13/20 08:11 Magnesium Oxide 400 Mg Tab PO 400 mg BID VISHNU Administration Metolazone 5 mg 11/12/20 08:30 11/13/20 08:10 Metolazone 5 Mg Tab PO 5 mg 0830 VISHNU Administration Sodium Chloride 10 ml 11/09/20 19:13 11/13/20 08:13 Flush - Normal Saline 10 Ml Syringe IVF 10 ml PRN PRN Administration Saline Flush - Exam General Appearance: awake alert Eye: anicteric sclera ENT: normocephalic atraumatic Neck: symmetric Respiratory: no ronchi, no tachypnea Respiratory - other findings: fair air entry with bibasal crackles Cardiovascular: RRR Gastrointestinal: soft, non-tender, non-distended, normal bowel sounds Extremities: 2+ LE edema Extremities - other findings: mild right upper limb edema also noted Neurological: no new deficit PSYCH: A&O x 3 Nephrology Results - Labs Result Diagrams: 11/12/20 07:17 11/13/20 04:40 Lab results: WBC 12.1 thou/uL (4.8-10.8) H 11/12/20 07:17 Hgb 8.3 g/dL (14.0-18.0) L 11/12/20 07:17 Hct 25.5 % (42.0-52.0) L 11/12/20 07:17 MCV 93.8 fL (78.0-98.0) 11/12/20 07:17 Plt Count 285 thou/uL (130-400) 11/12/20 07:17 Neutrophils % 76.6 % (42.0-75.0) H 11/12/20 07:17 Sodium 140 mmol/L (136-145) 11/13/20 04:40 Potassium 3.9 mmol/L (3.5-5.1) 11/13/20 04:40 Chloride 101 mmol/L (98-107) 11/13/20 04:40 Carbon Dioxide 29 mmol/L (22-29) 11/13/20 04:40 BUN 57 mg/dL (8.4-25.7) H 11/13/20 04:40 Creatinine 3.88 mg/dL (0.7-1.3) H 11/13/20 04:40 Glucose 71 mg/dL (70-105) 11/13/20 04:40 Calcium 8.2 mg/dL (7.8-10.44) 11/13/20 04:40 Total Bilirubin 0.6 mg/dL (0.2-1.2) 11/09/20 16:19 AST 11 U/L (5-34) 11/09/20 16:19 ALT 16 U/L (8-55) 11/09/20 16:19 Alkaline Phosphatase 112 U/L (40-110) H 11/09/20 16:19 Troponin I 0.025 ng/mL (< 0.028) 11/09/20 16:19 B-Natriuretic Peptide 547.0 pg/mL (0-100) H 11/09/20 16:19 Serum Total Protein 6.9 g/dL (6.0-8.3) 11/09/20 16:19 Albumin 3.5 g/dL (3.5-5.0) 11/09/20 16:19 Sodium 140 mmol/L (136-145) 11/13/20 04:40 Potassium 3.9 mmol/L (3.5-5.1) 11/13/20 04:40 Chloride 101 mmol/L (98-107) 11/13/20 04:40 Carbon Dioxide 29 mmol/L (22-29) 11/13/20 04:40 Anion Gap 14 mmol/L (10-20) 11/13/20 04:40 BUN 57 mg/dL (8.4-25.7) H 11/13/20 04:40 Creatinine 3.88 mg/dL (0.7-1.3) H 11/13/20 04:40 Glucose 71 mg/dL (70-105) 11/13/20 04:40 Calcium 8.2 mg/dL (7.8-10.44) 11/13/20 04:40 Phosphorus 5.2 mg/dL (2.3-4.7) H 11/10/20 06:30 Magnesium 2.8 mg/dL (1.6-2.6) H 11/10/20 06:30 Albumin 3.5 g/dL (3.5-5.0) 11/09/20 16:19 Nephrology AP PN - Plan ZAHEER: Due to hemodynamic factors related to cardiac decompensation. cardiorenal syndrome. Creat is up with escalation of diuretic therapy CKD 4. Volume overload:Due to Cardiac decompensation HTN: Control is better. Acute on chronic combined systolic and diastolic HF Acute respiratory failure due to CHF exacerbation. Improved off oxygen PLAN Continue metolazone and lasix. Continue antihypertensives Repeat BMP in the am. Avoid nephrotoxic agents. Ionotropic agent as per cardiology
--- NOTE | 2020-11-13 15:26 | PDOC.CPN ---
- Subjective Date: 11/13/20 Time: 15:25 Interval history: Continues to diurese. No other issues at this time. Breathing at baseline. - Review of Systems General: denies: fever/chills, weight/appetite/sleep changes, night sweats, fatigue Respiratory: denies: cough, congestion, shortness of breath, exercise intolerance Cardiovascular: reports: edema. denies: chest pain, palpitation, paroxysmal nocturnal dyspnea, orthopnea Gastrointestinal: denies: nausea, vomiting, diarrhea, constipation, abd pain, GI bleeding Musculoskeletal: denies: pain, tenderness, stiffness, swelling, arthritis/arthralgias Neurological: denies: numbness, syncope, seizure, weakness - Objective Allergies/Adverse Reactions: Allergies Allergy/AdvReac Type Severity Reaction Status Date / Time dobutamine AdvReac Mild Anaphylaxis Verified 11/12/20 07:24 Visit Medications: Current Medications Acetaminophen (Acetaminophen 325 Mg Tab) 650 mg PO Q4H PRN PRN Reason: Headache/Fever/Mild Pain (1-3) Last Admin: 11/09/20 23:21 Dose: 650 mg Documented by: Alogliptin Benzoate (Alogliptin 6.25 Mg Tab) 6.25 mg PO DAILY [facility] Last Admin: 11/13/20 08:12 Dose: 6.25 mg Documented by: Amlodipine Besylate (Amlodipine 5 Mg Tab) 10 mg PO DAILY [facility] Last Admin: 11/13/20 08:11 Dose: 10 mg Documented by: Aspirin (Aspirin Chewable 81 Mg Tab) 81 mg PO DAILY [facility] Last Admin: 11/13/20 08:11 Dose: 81 mg Documented by: Atorvastatin Calcium (Atorvastatin Calcium 40 Mg Tab) 40 mg PO HS [facility] Last Admin: 11/12/20 20:57 Dose: 40 mg Documented by: Dextrose/Water (Dextrose 50% Abboject 50 Ml Syringe) 25 gm SLOW IVP PRN PRN PRN Reason: Hypoglycemia Furosemide (Furosemide 100 Mg/10 Ml Vial) 80 mg SLOW IVP 0600,1400 [facility] Last Admin: 11/13/20 14:47 Dose: 80 mg Documented by: Glucagon (Glucagon 1 Mg/Ml Vial) 1 mg IM PRN PRN PRN Reason: Hypoglycemia Heparin Sodium (Porcine) (Heparin 5,000 Units/Ml Vial) 5,000 units SC TID [facility] Last Admin: 11/13/20 14:46 Dose: 5,000 units Documented by: Hydralazine HCl (Hydralazine 10 Mg Tab) 20 mg PO TID [facility] Last Admin: 11/13/20 14:47 Dose: 20 mg Documented by: Hydralazine HCl (Hydralazine 20 Mg/Ml Vial) 10 mg SLOW IVP Q4H PRN PRN Reason: SBP GREATER THAN 160 Last Admin: 11/11/20 17:58 Dose: 10 mg Documented by: Dextrose/Water (D5w) 1,000 mls @ 0 mls/hr IV .Q0M PRN PRN Reason: Hypoglycemia Insulin Glargine 45 units/ (Miscellaneous Medication) 0.45 mls @ 0 mls/hr SC [facility] Last Admin: 11/12/20 20:58 Dose: 0.45 mls Documented by: Insulin Human Lispro (Humalog 300 Units/3 Ml Vial) 0 units SC .MILD SLIDING SCALE PRN PRN Reason: Mild Correctional Scale Insulin Human Lispro (Humalog 300 Units/3 Ml Vial) 10 units SC BID [facility] Last Admin: 11/13/20 08:12 Dose: 10 unit Documented by: Isosorbide Dinitrate (Isosorbide Dinitrate 20 Mg Tab) 20 mg PO BID [facility] Last Admin: 11/13/20 08:12 Dose: 20 mg Documented by: Magnesium Oxide (Magnesium Oxide 400 Mg Tab) 400 mg PO BID [facility] Last Admin: 11/13/20 08:11 Dose: 400 mg Documented by: Metolazone (Metolazone 5 Mg Tab) 5 mg PO 0830 [facility] Last Admin: 11/13/20 08:10 Dose: 5 mg Documented by: Sodium Chloride (Flush - Normal Saline 10 Ml Syringe) 10 ml IVF PRN PRN PRN Reason: Saline Flush Last Admin: 11/13/20 08:13 Dose: 10 ml Documented by: Vital Signs & Weight: Vital Signs Temp Pulse Resp BP BP BP Pulse Ox 11/13/20 14:47 67 150/68 H 11/13/20 08:11 62 11/13/20 08:10 62 11/13/20 07:48 97.7 F 72 17 171/78 H 98 11/13/20 04:20 98.1 F 60 18 129/61 92 L Weight 290 lb 6 oz - Physical Exam General: alert & oriented x3 HEENT: mucus membranes moist Neck: supple neck Cardiac: regular rate and rhythm Lungs: clear to auscultation Neuro: grossly intact Abdomen: active bowel sounds Extremities: 2+ LE edema Skin: clear Musculoskeletal: no pain - Labs Result Diagrams: 11/12/20 07:17 11/13/20 04:40 Troponin/CKMB Troponin I 0.025 ng/mL (< 0.028) 11/09/20 16:19 - Telemetry Sinus rhythms and dysrhythmias: sinus rhythm - Assessment/Plan Assessment/Plan: 1. Acute on chronic combined heart failure 2. CKD strage 4 3. Anasarca 4. HTN 5. Systolic dysfunction EF at 40-45% PLAN; - Continue diuresis with current meds. - A large part of his inability to move fluid is renal in nature. - Will increase hydralazine.
[2020-11-13] MEDS ORDERED: hydrALAZINE 25 MG TAB PO SCH (15:45)
[2020-11-13] MEDS ORDERED: hydrALAZINE 10 MG TAB PO SCH (16:15)
[2020-11-13] MEDS: hydrALAZINE 25 MG TAB PO SCH (21:25)
[2020-11-13] MEDS: Insulin Glargine 45 UNITS in Pre-Filled Syringe 1 EACH SC SCH (21:25)
[2020-11-13] MEDS: Atorvastatin Calcium 40 MG TAB PO SCH (21:25)
[2020-11-14 05:05] LABS: Anion Gap 12 mmol/L (10-20); BUN (Urea Nitrogen) 58 mg/dL (8.4-25.7); Calc. Creatinine Clearance 39 mL/min (70-130); Calcium 8.6 mg/dL (7.8-10.44); Carbon Dioxide 31 mmol/L (22-29); Chloride 99 mmol/L (98-107); Glucose 80 mg/dL (70-105); Potassium 3.8 mmol/L (3.5-5.1); Sodium 138 mmol/L (136-145)
[2020-11-14] MEDS: Furosemide 100 MG/10 ML VIAL SLOW IVP SCH ×2 (05:50→13:35)
--- NOTE | 2020-11-14 07:01 | PDOC.FM ---
- Subjective Subjective: Patient complains of being hungry this morning. He says he generally feels the same with no real changes. - Objective Vital Signs & Weight: Vital Signs (12 hours) Temp Pulse Resp BP BP Pulse Ox 11/14/20 04:40 98.1 F 57 L 16 155/69 H 94 L 11/13/20 23:55 75 142/63 H 11/13/20 19:10 98.3 F 64 18 137/67 96 Weight Weight 131.27 kg I&O: 11/13/20 11/14/20 11/15/20 06:59 06:59 06:59 Intake Total 1343 1200 Output Total 2650 2950 Balance -1307 -1750 Result Diagrams: 11/14/20 07:25 11/14/20 03:58 EKG Reviewed by me: Yes (tele: SR 60s) Phys Exam - Physical Examination Constitutional: NAD HEENT: moist MMs, sclera anicteric Neck: full ROM Respiratory: no wheezing, no rales, no rhonchi, clear to auscultation bilateral Cardiovascular: RRR, no significant murmur Gastrointestinal: soft, non-tender Musculoskeletal: no edema, pulses present Neurological: moves all 4 limbs Lymphatic: no nodes Psychiatric: normal affect, A&O x 3 Skin: no rash Dx/Plan - Plan Plan: Acute Hypoxic Respiratory Failure 2/2 CHF exacerbation -CXR mild left basilar opacity with small L pleural effusion, BNP 547, Trop 0.025 -Last ECHO 06/2020 showed EF of 35-40%. ECHO 12/02: EF 40-45%, dilated cardiomyopathy -O2 requirement: RA -Mg 2.8, Phos 5.2. Procal 0.12. Rocephin (11/09-11/10), Azithro (11/09-11/10). WBC 8.9 -Failed dobutamine trial -Continue 80mg IV lasix BID. Added metolazone -negative 1750mL fluid balance -Cardiology consult (Padma): increased hydralazine to 50mg TID ZAHEER on CKD 4 -Cr 3.88, 3.97 -Labs from clinic 08/2020 showed BUN/Cr 42/3.07 -Nephrology consult (Obi): added metolazone -Monitor with AM labs -Appreciate Cardiology and Nephrology recs for cardiorenal syndrome and recommendations on best way to diurese patient. DMII -Home lantus 14units daily -Hold home lantus, mild SSI in place Chronic Normocytic Anemia -Hgb 9.1, 8.2. MCV 94 -iron studies in 06/2020 show that he is iron deficient -suspect that this is due to his CKD and is probably EPO deficient as well Chronic Conditions HTN Hx of CVA Asthma -continue home medications CODE: Full VTE: Heparin PCP: Calvin Dispo: Appreciate Cardiology and Nephrology recs.
[2020-11-14 07:46] LABS: #Basophils 0.1 thou/uL (0.0-0.2); #Eosinphils 0.3 thou/uL (0.0-0.7); #Lymphocytes 1.4 thou/uL (1.20-3.40); #Monocytes 0.9 thou/uL (0.11-0.59); #Neutrophils 5.2 thou/uL (1.40-6.50); %Basophils 0.8 % (0.0-1.0); %Lymphocytes 17.9 % (21.0-51.0); %Monocytes 11.7 % (0.0-10.0); %Neutrophils 65.7 % (42.0-75.0); Hemoglobin 8.9 g/dL (14.0-18.0); Mean Corpuscular HGB CONC 33.4 g/dL (32.0-36.0); Mean Corpuscular Hemoglobin 31.8 pg (27.0-31.0); Mean Corpuscular Volume 95.2 fL (78.0-98.0); Mean Platelet Volume 8.4 fL (7.4-10.4); Platelet Count 237 thou/uL (130-400); RBC Distribution Width 12.5 % (11.5-14.5)
[2020-11-14] MEDS: Amlodipine 5 MG TAB PO SCH (08:29)
[2020-11-14] MEDS: Heparin 5,000 UNITS/ML VIAL SC SCH ×3 (08:29→21:40)
[2020-11-14] MEDS: Metolazone 5 MG TAB PO SCH (08:30)
[2020-11-14] MEDS: Alogliptin 6.25 MG TAB PO SCH (08:30)
[2020-11-14] MEDS: Magnesium Oxide 400 MG TAB PO SCH ×2 (08:30→21:40)
[2020-11-14] MEDS: hydrALAZINE 25 MG TAB PO SCH ×3 (08:30→21:40)
[2020-11-14] MEDS: Aspirin Chewable 81 MG TAB PO SCH (08:30)
[2020-11-14] MEDS: Isosorbide Dinitrate 20 MG TAB PO SCH ×3 (08:30→21:40)
[2020-11-14] MEDS: HumaLOG 300 UNITS/3 ML VIAL SC SCH (08:30)
--- NOTE | 2020-11-14 11:16 | PDOC.NEPPN ---
- Subjective Encounter Date: 11/14/20 Subjective: Feeling better. Still with edema of the limbs. Remained afebrile. - Objective Vital Signs & Weight: Vital Signs (12 hours) Temp Pulse Resp BP BP Pulse Ox 11/14/20 08:58 95 11/14/20 08:30 60 11/14/20 07:54 98.3 F 60 17 141/65 H 95 11/14/20 04:40 98.1 F 57 L 16 155/69 H 94 L 11/13/20 23:55 75 142/63 H Weight Weight 289 lb 6.4 oz I&O: 11/13/20 11/14/20 11/15/20 06:59 06:59 06:59 Intake Total 1343 1200 Output Total 2650 2950 Balance -7307 -5360 Result Diagrams: 11/14/20 07:25 11/14/20 03:58 Additional Labs: Accuchecks 11/14/20 11/14/20 11/14/20 10:32 05:42 04:46 POC Glucose 130 H 93 74 11/13/20 11/13/20 20:51 17:09 POC Glucose 158 H 115 H Nephrology ROS - Medication Medications: Active Medications Generic Name Dose Route Start Last Admin Trade Name Freq PRN Reason Stop Dose Admin Acetaminophen 650 mg 11/09/20 19:13 11/09/20 23:21 Acetaminophen 325 Mg Tab PO 650 mg Q4H PRN Administration Headache/Fever/Mild Pain (1-3) Alogliptin Benzoate 6.25 mg 11/10/20 09:00 11/14/20 08:30 Alogliptin 6.25 Mg Tab PO 6.25 mg DAILY VISHNU Administration Amlodipine Besylate 10 mg 11/13/20 09:00 11/14/20 08:29 Amlodipine 5 Mg Tab PO 10 mg DAILY VISHNU Administration Aspirin 81 mg 11/10/20 09:00 11/14/20 08:30 Aspirin Chewable 81 Mg Tab PO 81 mg DAILY VISHNU Administration Atorvastatin Calcium 40 mg 11/09/20 21:00 11/13/20 21:25 Atorvastatin Calcium 40 Mg Tab PO 40 mg HS VSIHNU Administration Furosemide 80 mg 11/12/20 06:00 11/14/20 05:50 Furosemide 100 Mg/10 Ml Vial SLOW IVP 80 mg 0600,1400 VISHNU Administration Heparin Sodium (Porcine) 5,000 units 11/09/20 21:00 11/14/20 08:29 Heparin 5,000 Units/Ml Vial SC 5,000 units TID VISHNU Administration Hydralazine HCl 10 mg 11/11/20 17:19 11/11/20 17:58 Hydralazine 20 Mg/Ml Vial SLOW IVP 10 mg Q4H PRN Administration SBP GREATER THAN 160 Hydralazine HCl 50 mg 11/13/20 21:00 11/14/20 08:30 Hydralazine 25 Mg Tab PO 50 mg TID VISHNU Administration Insulin Glargine 45 units/ 0.45 mls @ 0 mls/hr 11/09/20 21:00 11/13/20 21:25 Miscellaneous Medication SC 0.45 mls HS VISHNU Administration Isosorbide Dinitrate 20 mg 11/11/20 21:00 11/14/20 08:30 Isosorbide Dinitrate 20 Mg Tab PO 20 mg BID VISHNU Administration Magnesium Oxide 400 mg 11/09/20 21:00 11/14/20 08:30 Magnesium Oxide 400 Mg Tab PO 400 mg BID VISHNU Administration Metolazone 5 mg 11/12/20 08:30 11/14/20 08:30 Metolazone 5 Mg Tab PO 5 mg 0830 VISHNU Administration Sodium Chloride 10 ml 11/09/20 19:13 11/13/20 08:13 Flush - Normal Saline 10 Ml Syringe IVF 10 ml PRN PRN Administration Saline Flush - Exam General Appearance: awake alert General - other findings: obese Eye: anicteric sclera ENT: normocephalic atraumatic Neck: symmetric, no JVD Respiratory - other findings: fair air entry bilaterally with no crackles or rhonchi Cardiovascular: RRR Extremities - other findings: mild to moderate edema of the legs. Mild edema of RUE Neurological: no new deficit PSYCH: A&O x 3 Nephrology Results - Labs Result Diagrams: 11/14/20 07:25 11/14/20 03:58 Lab results: WBC 8.0 thou/uL (4.8-10.8) 11/14/20 07:25 Hgb 8.9 g/dL (14.0-18.0) L 11/14/20 07:25 Hct 26.7 % (42.0-52.0) L 11/14/20 07:25 MCV 95.2 fL (78.0-98.0) 11/14/20 07:25 Plt Count 237 thou/uL (130-400) 11/14/20 07:25 Neutrophils % 65.7 % (42.0-75.0) 11/14/20 07:25 Sodium 138 mmol/L (136-145) 11/14/20 03:58 Potassium 3.8 mmol/L (3.5-5.1) 11/14/20 03:58 Chloride 99 mmol/L (98-107) 11/14/20 03:58 Carbon Dioxide 31 mmol/L (22-29) H 11/14/20 03:58 BUN 58 mg/dL (8.4-25.7) H 11/14/20 03:58 Creatinine 3.97 mg/dL (0.7-1.3) H 11/14/20 03:58 Glucose 80 mg/dL (70-105) 11/14/20 03:58 Calcium 8.6 mg/dL (7.8-10.44) 11/14/20 03:58 Total Bilirubin 0.6 mg/dL (0.2-1.2) 11/09/20 16:19 AST 11 U/L (5-34) 11/09/20 16:19 ALT 16 U/L (8-55) 11/09/20 16:19 Alkaline Phosphatase 112 U/L (40-110) H 11/09/20 16:19 Troponin I 0.025 ng/mL (< 0.028) 11/09/20 16:19 B-Natriuretic Peptide 547.0 pg/mL (0-100) H 11/09/20 16:19 Serum Total Protein 6.9 g/dL (6.0-8.3) 11/09/20 16:19 Albumin 3.5 g/dL (3.5-5.0) 11/09/20 16:19 Sodium 138 mmol/L (136-145) 11/14/20 03:58 Potassium 3.8 mmol/L (3.5-5.1) 11/14/20 03:58 Chloride 99 mmol/L (98-107) 11/14/20 03:58 Carbon Dioxide 31 mmol/L (22-29) H 11/14/20 03:58 Anion Gap 12 mmol/L (10-20) 11/14/20 03:58 BUN 58 mg/dL (8.4-25.7) H 11/14/20 03:58 Creatinine 3.97 mg/dL (0.7-1.3) H 11/14/20 03:58 Glucose 80 mg/dL (70-105) 11/14/20 03:58 Calcium 8.6 mg/dL (7.8-10.44) 11/14/20 03:58 Phosphorus 5.2 mg/dL (2.3-4.7) H 11/10/20 06:30 Magnesium 2.8 mg/dL (1.6-2.6) H 11/10/20 06:30 Albumin 3.5 g/dL (3.5-5.0) 11/09/20 16:19 Nephrology AP PN - Plan ZAHEER: Due to hemodynamic factors related to cardiac decompensation. cardiorenal syndrome. Creat is up with escalation of diuretic therapy CKD 4. Volume overload:Due to Cardiac decompensation. Improving with diuretics. HTN: Control is better but still suboptimal Acute on chronic combined systolic and diastolic HF Acute respiratory failure due to CHF exacerbation. Improved off oxygen PLAN Add spironolactone to metolazone and lasix. Increase isordil to 20 tid. Monitor I/O and renal function.
[2020-11-14] MEDS ORDERED: Spironolactone 25 MG TAB PO SCH (11:30)
[2020-11-14] MEDS ORDERED: Milrinone Lactate/D5W 20 MG in Premix Bag 1 BAG IVPB SCH (14:45)
[2020-11-14] MEDS: Atorvastatin Calcium 40 MG TAB PO SCH (21:40)
[2020-11-14] MEDS: Insulin Glargine 45 UNITS in Pre-Filled Syringe 1 EACH SC SCH (21:40)
[2020-11-14] MEDS: Acetaminophen 325 MG TAB PO PRN (21:40)
[2020-11-15 04:21] LABS: Anion Gap 15 mmol/L (10-20); BUN (Urea Nitrogen) 58 mg/dL (8.4-25.7); Calc. Creatinine Clearance 38 mL/min (70-130); Calcium 8.4 mg/dL (7.8-10.44); Carbon Dioxide 27 mmol/L (22-29); Chloride 99 mmol/L (98-107); Glucose 146 mg/dL (70-105); Potassium 3.7 mmol/L (3.5-5.1); Sodium 137 mmol/L (136-145)
[2020-11-15 04:30] LABS: #Eosinphils 0.4 thou/uL (0.0-0.7); #Lymphocytes 1.5 thou/uL (1.20-3.40); #Monocytes 1.1 thou/uL (0.11-0.59); #Neutrophils 6.8 thou/uL (1.40-6.50); %Basophils 0.2 % (0.0-1.0); %Eosinophils 3.9 % (0.0-10.0); %Lymphocytes 15.4 % (21.0-51.0); %Monocytes 11.4 % (0.0-10.0); %Neutrophils 69.2 % (42.0-75.0); Hemoglobin 8.5 g/dL (14.0-18.0); Mean Corpuscular HGB CONC 32.4 g/dL (32.0-36.0); Mean Corpuscular Volume 95.6 fL (78.0-98.0); Mean Platelet Volume 8.5 fL (7.4-10.4); Platelet Count 222 thou/uL (130-400); RBC Distribution Width 12.6 % (11.5-14.5); Red Blood Cell (RBC) Count 2.74 mill/uL (4.70-6.10); White Blood Cell (WBC) Count 9.8 thou/uL (4.8-10.8)
[2020-11-15] MEDS: Furosemide 100 MG/10 ML VIAL SLOW IVP SCH (06:11)
--- NOTE | 2020-11-15 07:10 | PDOC.FM ---
- Subjective Subjective: Patient reports feeling a bit better than he did yesterday. He is breathing comfortably on room air. - Objective Vital Signs & Weight: Vital Signs (12 hours) Temp Pulse Resp BP BP Pulse Ox 11/15/20 04:10 97.7 F 79 20 149/67 H 93 L 11/15/20 00:51 95 11/15/20 00:00 77 108/55 L 11/14/20 21:40 63 11/14/20 19:30 97.9 F 73 20 130/59 L 93 L Weight Weight 130.589 kg I&O: 11/14/20 11/15/20 11/16/20 06:59 06:59 06:59 Intake Total 1200 840 Output Total 2950 2650 Balance -1750 -1810 Result Diagrams: 11/15/20 03:47 11/15/20 03:47 EKG Reviewed by me: Yes (tele: SR 70s) Phys Exam - Physical Examination Constitutional: NAD HEENT: moist MMs, sclera anicteric Respiratory: no wheezing, no rales, no rhonchi, clear to auscultation bilateral Cardiovascular: RRR, no significant murmur Gastrointestinal: soft, non-tender Musculoskeletal: pulses present, edema present LE edema improved from yesterday Neurological: non-focal, moves all 4 limbs Psychiatric: normal affect, A&O x 3 Skin: no rash Dx/Plan - Plan Plan: Acute Hypoxic Respiratory Failure 2/2 CHF exacerbation -CXR mild left basilar opacity with small L pleural effusion, BNP 547, Trop 0.025 -Last ECHO 06/2020 showed EF of 35-40%. ECHO 12/02: EF 40-45%, dilated cardiomyopathy -Mg 2.8, Phos 5.2. Procal 0.12. Rocephin (11/09-11/10), Azithro (11/09-11/10). WBC 8.9 -Failed dobutamine trial -O2 requirement: RA -Decrease lasix to 60mg IV BID. Continue metolazone -negative 1810mL fluid balance last 24 hours -Cardiology consult (Padma): Continue 50mg TID hydralazine -Dr. Acevedo consult: started milrinone yesterday. ZAHEER on CKD 4 -Cr 3.88, 3.97, 4.08 -Labs from clinic 08/2020 showed BUN/Cr 42/3.07 -Nephrology consult (Obi): Continue metolazone. -Monitor with AM labs -Continue milrinone drip per Dr. Acevedo recs. Decrease lasix from 80 BID to 60 BID today. DMII -Home lantus 14units daily -Hold home lantus, mild SSI in place Chronic Normocytic Anemia -Hgb 9.1, 8.2. MCV 94 -iron studies in 06/2020 show that he is iron deficient -suspect that this is due to his CKD and is probably EPO deficient as well Chronic Conditions HTN Hx of CVA Asthma -continue home medications CODE: Full VTE: Heparin PCP: Calvin Dispo: Appreciate Cardiology and Nephrology recs.
--- NOTE | 2020-11-15 07:49 | CON ---
DATE OF CONSULTATION: 11/14/2020 REASON FOR CONSULT: Management of acute on chronic heart failure. HISTORY OF PRESENT ILLNESS: Mr. Hamlet Jeffery, a 55-year-old gentleman with heart failure and chronic kidney disease, was admitted for acute decompensation of chronic heart failure. He was seen in [facility] for heart failure and chronic kidney disease in June 2020. With thick LV appearance and diastolic dysfunction, it was thought that there was a chance of being amyloidosis. He was transferred to [facility]. There they performed right ventricular biopsy, genetic testing, and pyrophosphate scan. It did not show amyloidosis. They also tested for hypertrophic cardiomyopathy. He did not have that. He was on milrinone for quite a while. Milrinone was used to diurese the patient and maintain the kidney function. At that time, they believed that hypertension and diabetes are main cause of his heart problems. They also believed that eventually he will need to be on dialysis. Eventually, [facility] weaned off the milrinone and returned him to [facility]. He returned to [facility] in July without any problems. He followed up on a consistent basis with Dr. Perez, smash fixer. He also followed up with Dr. Hampton, the library sales consultant. 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 He thought he was doing pretty well. Then in September 2020, he reaccumulated fluid again. He also experienced increased shortness of breath and decreased activity level and also had decreased endurance. He was seen at [facility] on November 06. He was diagnosed with pneumonia, was sent home. However, his shortness of breath did not get any better. He orthopnea worsened such that he had to sit up all night. If he does fall asleep, he will wake up short of breath. Thus he has combination of severe orthopnea and PND every night. Eventually, this became intolerable. He asked his to take him to [facility] again on 09 of November. Since then, he has been hospitalized. Dobutamine was tried to increase cardiac output. According to the patient, dobutamine caused severe pains and pins and needles sensation in his hands and arms. He said that it also caused swelling. His blood pressure shot up to 160s. It was paused for a little while and restarted and then when it was restarted it caused the same syndrome and problem, then it was stopped. Since then, the team had difficulty pulling off fluid. Eventually, a combination of Lasix 80 mg IV along with metolazone 5 mg and plus spironolactone was used. His creatinine has not gotten any better, is sitting about 3.8. Combination of inability to pull off fluid and worsening creatinine caused this consultation. PAST MEDICAL HISTORY: Includes 1. Heart failure at indeterminate range. His ejection fraction is between 40% and 45%. It is better than heart failure with reduced ejection fraction, but not not greater than 50% to make a definite heart failure with preserved ejection fraction. 2. Hypertension. 3. Chronic kidney disease with baseline creatinine about 3, so this is much worse. 4. Hypertension. 5. Type 2 diabetes. 6. Hyperlipidemia. 7. Strokes in 2012 and also stroke in 2014. SOCIAL HISTORY: He denies ever smoking. He denies alcohol use. He denies any illicit drug use. He is , lives with for 11 years. FAMILY HISTORY: His father of brain cancer. His mother from stroke. REVIEW OF SYSTEMS: GENERAL: He is more fatigued, but no fever, chills, or productive cough. HEENT: There is no change in vision, hearing, or swallowing. PULMONARY: Please see HPI. CARDIAC: Please see HPI. GI: There is no nausea, vomiting, diarrhea. : He is able to urinate on his own. MUSCULOSKELETAL: There is no mention of muscle or joint pain. INTEGUMENT: There is no new skin breakdown. NEUROLOGIC: There are no new focal deficits or weakness. Otherwise please see HPI for dobutamine reaction. CURRENT MEDICATIONS: Include 1. Alogliptin 6.25 mg daily. 2. Amlodipine 10 mg daily. 3. Aspirin 81 mg daily. 4. Atorvastatin 40 mg at bedtime. 5. Furosemide 80 mg IV b.i.d. 6. Heparin 5000 units subcutaneous t.i.d. 7. Hydralazine 50 mg t.i.d. 8. Sliding scale insulin. 9. Isosorbide dinitrate 20 mg t.i.d. 10. Magnesium oxide 400 mg b.i.d. 11. Metolazone 5 mg daily. PHYSICAL EXAMINATION: Telemetry is reviewed. He is in sinus rhythm, but relatively slow heart rate at about 60. There is occasional PVC. There is no other concerning arrhythmia. VITAL SIGNS: His latest vitals, heart rate 65, blood pressure 132/62. GENERAL: He is alert and conversational, sitting in chair comfort comfortably. He is slightly out of breath, but otherwise well. HEENT: EOMI. Oropharynx is benign with moist mucosa. NECK: His JVP is elevated about 11 cm with positive hepatojugular reflux. PULMONARY: There is good air movement bilaterally. However, there are slight bibasilar crackles. CARDIAC: Regular rate and rhythm with normal S1, S2. However, there is 2/6 holosystolic murmur at the left upper sternal border and also 2/6 holosystolic murmur at apex with radiation to the left axilla because he has combination of tricuspid regurgitation with mitral regurgitation. ABDOMEN: Soft, nontender, but is distended. There are positive bowel sounds. EXTREMITIES: Lower extremity has about 1 cm pitting edema from feet towards his knees, but nothing beyond that. LABORATORY DATA: White cell count 8, hemoglobin 8.9, hematocrit 26.7, and platelet at 237. His chemistry values show sodium 138, potassium 3.8, bicarb is 31, BUN is 58, and creatinine 3.97. His echocardiogram from November 11, 2020, was briefly reviewed. He has a dilated ventricle. However, his LVEF is about 40% to 45%. He has a grade 2 diastolic dysfunction. He also has a large atrium. This suggests the predominant failure is diastolic dysfunction. ASSESSMENT: 55-year-old gentleman has likely heart failure with preserved ejection fraction. He likely resides in [place] [employer] stage C and [place] Heart Association class 4 heart failure. It is primarily diastolic dysfunction. With relatively slow heart rate, he is not providing enough perfusion to his kidneys. It is not sure why he has such a strong reaction to dobutamine. It could be his PIV was infiltrated. For now, we will try to use milrinone to relax his heart and provide a little bit increase in heart rate, so that would give more cardiac output to the kidneys. It is hoped that this will improve his heart failure status and provide volume relief. However, new PIV needs to be placed. In the meantime, his blood pressure will need to be well controlled. Please see the following for my recommendations. RECOMMENDATIONS: 1. Please replace PIV because the current one maybe infiltrated. 2. Consider to place PICC in case that he needs more chronic infusion. 3. Start milrinone at 0.125 mcg/kg/minute if systolic blood pressure remains above 110 for an hour, then increase to 0.25 mcg/kg/minute. 4. Please keep potassium above 4 and magnesium above 2. 5. I will follow him daily and work with Dr. Hampton for optimizing his diuresis. It has been a pleasure taking care of Mr. Jeffery. If you have any questions, please give me a call. The total visitation time is about 60 minutes. Job ID: [id number] MTDD
[2020-11-15] MEDS: Heparin 5,000 UNITS/ML VIAL SC SCH ×3 (08:31→20:39)
[2020-11-15] MEDS: Amlodipine 5 MG TAB PO SCH (08:31)
[2020-11-15] MEDS: Alogliptin 6.25 MG TAB PO SCH (08:32)
[2020-11-15] MEDS: Metolazone 5 MG TAB PO SCH (08:32)
[2020-11-15] MEDS: hydrALAZINE 25 MG TAB PO SCH ×3 (08:32→20:39)
[2020-11-15] MEDS: Aspirin Chewable 81 MG TAB PO SCH (08:32)
[2020-11-15] MEDS: Magnesium Oxide 400 MG TAB PO SCH ×2 (08:32→20:39)
[2020-11-15] MEDS: Isosorbide Dinitrate 20 MG TAB PO SCH ×3 (08:32→20:39)
[2020-11-15] MEDS: Acetaminophen 325 MG TAB PO PRN (08:35)
[2020-11-15] MEDS ORDERED: Furosemide 100 MG/10 ML VIAL SLOW IVP SCH ×2 (08:45→14:00)
[2020-11-15] MEDS: Milrinone Lactate/D5W 20 MG in Premix Bag 1 BAG IVPB SCH ×2 (09:22→20:37)
--- NOTE | 2020-11-15 09:33 | PDOC.NEPPN ---
- Subjective Encounter Date: 11/15/20 Subjective: Feeling better. Complaining of left wrist and right hip pain. Started on Milrinone. - Objective Vital Signs & Weight: Vital Signs (12 hours) Temp Pulse Resp BP BP Pulse Ox 11/15/20 08:55 94 L 11/15/20 08:00 97.8 F 74 17 131/63 94 L 11/15/20 04:10 97.7 F 79 20 149/67 H 93 L 11/15/20 00:51 95 11/15/20 00:00 77 108/55 L 11/14/20 21:40 63 Weight Weight 287 lb 14.4 oz I&O: 11/14/20 11/15/20 11/16/20 06:59 06:59 06:59 Intake Total 1200 840 Output Total 2950 2650 Balance -1750 -4760 Result Diagrams: 11/15/20 03:47 11/15/20 03:47 Additional Labs: Accuchecks 11/15/20 11/14/20 11/14/20 06:19 16:42 10:32 POC Glucose 102 H 140 H 130 H Nephrology ROS - Medication Medications: Active Medications Generic Name Dose Route Start Last Admin Trade Name Freq PRN Reason Stop Dose Admin Acetaminophen 650 mg 11/09/20 19:13 11/15/20 08:35 Acetaminophen 325 Mg Tab PO 650 mg Q4H PRN Administration Headache/Fever/Mild Pain (1-3) Alogliptin Benzoate 6.25 mg 11/10/20 09:00 11/15/20 08:32 Alogliptin 6.25 Mg Tab PO 6.25 mg DAILY VISHNU Administration Amlodipine Besylate 10 mg 11/13/20 09:00 11/15/20 08:31 Amlodipine 5 Mg Tab PO 10 mg DAILY VISHNU Administration Aspirin 81 mg 11/10/20 09:00 11/15/20 08:32 Aspirin Chewable 81 Mg Tab PO 81 mg DAILY VISHNU Administration Atorvastatin Calcium 40 mg 11/09/20 21:00 11/14/20 21:40 Atorvastatin Calcium 40 Mg Tab PO 40 mg HS VISHNU Administration Heparin Sodium (Porcine) 5,000 units 11/09/20 21:00 11/15/20 08:31 Heparin 5,000 Units/Ml Vial SC 5,000 units TID VISHNU Administration Hydralazine HCl 10 mg 11/11/20 17:19 11/11/20 17:58 Hydralazine 20 Mg/Ml Vial SLOW IVP 10 mg Q4H PRN Administration SBP GREATER THAN 160 Hydralazine HCl 50 mg 11/13/20 21:00 11/15/20 08:32 Hydralazine 25 Mg Tab PO 50 mg TID VISHNU Administration Insulin Glargine 45 units/ 0.45 mls @ 0 mls/hr 11/09/20 21:00 11/14/20 21:40 Miscellaneous Medication SC 0.45 mls HS VISHNU Administration Milrinone Lactate/Dextrose 20 100 mls @ 9.845 mls/hr 11/14/20 17:00 11/15/20 09:22 mg/ Device IVPB 100 mls INF VISHNU Administration 0.25 MCG/KG/MIN Isosorbide Dinitrate 20 mg 11/14/20 15:00 11/15/20 08:32 Isosorbide Dinitrate 20 Mg Tab PO 20 mg TID VISHNU Administration Magnesium Oxide 400 mg 11/09/20 21:00 11/15/20 08:32 Magnesium Oxide 400 Mg Tab PO 400 mg BID VISHNU Administration Metolazone 5 mg 11/12/20 08:30 11/15/20 08:32 Metolazone 5 Mg Tab PO 5 mg 0830 VISHNU Administration Sodium Chloride 10 ml 11/09/20 19:13 11/13/20 08:13 Flush - Normal Saline 10 Ml Syringe IVF 10 ml PRN PRN Administration Saline Flush - Exam General Appearance: awake alert Eye: anicteric sclera ENT: normocephalic atraumatic, moist mucosa Neck: symmetric Respiratory: no tachypnea Respiratory - other findings: fair air entry bilaterally Cardiovascular: RRR Gastrointestinal: soft, non-distended, normal bowel sounds Gastrointestinal - other findings: obese Extremities: 2+ LE edema Neurological: CN's grossly intact, no new deficit PSYCH: A&O x 3 Nephrology Results - Labs Result Diagrams: 11/15/20 03:47 11/15/20 03:47 Lab results: WBC 9.8 thou/uL (4.8-10.8) 11/15/20 03:47 Hgb 8.5 g/dL (14.0-18.0) L 11/15/20 03:47 Hct 26.2 % (42.0-52.0) L 11/15/20 03:47 MCV 95.6 fL (78.0-98.0) 11/15/20 03:47 Plt Count 222 thou/uL (130-400) 11/15/20 03:47 Neutrophils % 69.2 % (42.0-75.0) 11/15/20 03:47 Sodium 137 mmol/L (136-145) 11/15/20 03:47 Potassium 3.7 mmol/L (3.5-5.1) 11/15/20 03:47 Chloride 99 mmol/L (98-107) 11/15/20 03:47 Carbon Dioxide 27 mmol/L (22-29) 11/15/20 03:47 BUN 58 mg/dL (8.4-25.7) H 11/15/20 03:47 Creatinine 4.08 mg/dL (0.7-1.3) H 11/15/20 03:47 Glucose 146 mg/dL (70-105) H 11/15/20 03:47 Calcium 8.4 mg/dL (7.8-10.44) 11/15/20 03:47 Total Bilirubin 0.6 mg/dL (0.2-1.2) 11/09/20 16:19 AST 11 U/L (5-34) 11/09/20 16:19 ALT 16 U/L (8-55) 11/09/20 16:19 Alkaline Phosphatase 112 U/L (40-110) H 11/09/20 16:19 Troponin I 0.025 ng/mL (< 0.028) 11/09/20 16:19 B-Natriuretic Peptide 547.0 pg/mL (0-100) H 11/09/20 16:19 Serum Total Protein 6.9 g/dL (6.0-8.3) 11/09/20 16:19 Albumin 3.5 g/dL (3.5-5.0) 11/09/20 16:19 Sodium 137 mmol/L (136-145) 11/15/20 03:47 Potassium 3.7 mmol/L (3.5-5.1) 11/15/20 03:47 Chloride 99 mmol/L (98-107) 11/15/20 03:47 Carbon Dioxide 27 mmol/L (22-29) 11/15/20 03:47 Anion Gap 15 mmol/L (10-20) 11/15/20 03:47 BUN 58 mg/dL (8.4-25.7) H 11/15/20 03:47 Creatinine 4.08 mg/dL (0.7-1.3) H 11/15/20 03:47 Glucose 146 mg/dL (70-105) H 11/15/20 03:47 Calcium 8.4 mg/dL (7.8-10.44) 11/15/20 03:47 Phosphorus 5.2 mg/dL (2.3-4.7) H 11/10/20 06:30 Magnesium 2.8 mg/dL (1.6-2.6) H 11/10/20 06:30 Albumin 3.5 g/dL (3.5-5.0) 11/09/20 16:19 Nephrology AP PN - Plan ZAHEER: Due to hemodynamic factors related to cardiac decompensation. cardiorenal syndrome. Creat is still trending up with diuretic therapy CKD 4. Volume overload:Due to Cardiac decompensation. Improving with diuretics. HTN: Control is better Acute on chronic combined systolic and diastolic HF. Now on milrinone Acute respiratory failure due to CHF exacerbation. Improved off oxygen PLAN Hold diuretics. Continue other treatments Recheck renal function inj the am.
--- NOTE | 2020-11-15 11:19 | PRG ---
DATE OF SERVICE: 11/15/2020 SUBJECTIVE: Mr. Jeffery had a good day from a heart perspective. He is breathing easier. He said he had a large amount of urine output. He was able to walk about 400 [address] down the [place]. Milrinone was started without any side effects. I think he is breathing easier. However, he woke up with severe right hip pain this morning, it is causing quite a bit of distress, cannot lie down. He could barely sit. REVIEW OF SYSTEMS: GENERAL: There is no fever, chills, or productive cough. HEENT: There is no change in vision, hearing, or swallowing. PULMONARY: Please see HPI. CARDIAC: There is no chest pain, palpitations, or syncope. GI: There is no nausea, vomiting, or diarrhea. : He is urinating well. MUSCULOSKELETAL: Please see HPI. INTEGUMENT: There is no skin breakdown. NEUROLOGIC: There are no focal deficits or weaknesses. CURRENT MEDICATIONS: Include; 1. Alogliptin 6.25 mg daily. 2. Amlodipine 10 mg daily. 3. Aspirin 81 mg daily. 4. Atorvastatin 40 mg at bedtime. 5. Furosemide 80 mg IV twice a day at 6:00 and 2:00. 6. Heparin 5000 units three times a day. 7. Hydralazine 50 mg t.i.d. 8. Insulin glargine 40 units daily. 9. Lispro insulin. 10. Isosorbide dinitrate 20 mg t.i.d. 11. Metolazone 5 mg daily at 8:30. 12. Milrinone currently at 0.25 mcg/kg per minute. The telemetry was reviewed. He is in sinus rhythm. There is occasional PVC. Other than that, there is no concerning arrhythmia. PHYSICAL EXAMINATION: VITAL SIGNS: His heart rate is about 74, blood pressure is 131/63. GENERAL: He is alert and conversational, but discomfort due to right hip pain. HEENT: Showed EOMI. Oropharynx benign with moist mucosa. NECK: His JVP is elevated about 11 cm. PULMONARY: He has better air movement today. It is clear to auscultation almost completely bilaterally. There are slight left basilar crackles and that is it. This is improvement from yesterday. CARDIAC: regular rate and rhythm, normal S1/S2, there is 2/6 holosystolic murmur at apex with radiation to left axilla ABDOMEN: Soft, nontender. Positive bowel sounds. MUSCULOSKELETAL: Right hip; there is a tender spot at the right upper hip at the bone, not in the pelvic region, but at the bone, at the right upper bone region. EXTREMITIES: He has 1.5 cm pitting edema from feet about detention toward knee, this is improvement from yesterday. LABORATORY DATA: His current laboratory values are white cell count 9.1, hemoglobin 8.5, platelets 222. His chemistry values are sodium 137, potassium 3.7, BUN 58, creatinine is 4.08, so BUN is same as yesterday, but the creatinine has increased somewhat from 3.97. ASSESSMENT: 55-year-old gentleman resides in [place] Heart Association stage C, [place] Heart Association class IIIb heart failure with preserved ejection fraction. It is predominant diastolic dysfunction. Milrinone seems to stabilize his renal condition with increased cardiac output and he was able to maintain 2.6 L of urine output with net negative of 1.8 L. However, his renal function worsened small amount with small increase in creatinine. His BUN stayed at same. At this point, consider decreasing amount of diuretics, perhaps hold it for 24 hours to allow his renal function to recover. With the increase cardiac output, he should have sufficient amount perfusion to his kidneys for at least a day. His right hip pain needs to be investigated. This could be avascular necrosis or arthritis. Septic arthritis is less likely. His right hip pain is probably causing rise in blood pressure. RECOMMENDATIONS: 1. We will keep milrinone on 0.25 mcg/kg per minute to support recovery of renal function and effective diuresis. After that, it can be titrated off. Please see following recommendations. 2. Maintain milrinone at 0.25 mcg/kg per minute. 3. Consider holding diuretic this afternoon and then reassess tomorrow or per audit clerk's directions. 4. Please consider doing a noncontrast MRI of right hip. This is recommended by Orthopedics to look for potential avascular necrosis or hip joint deformity due to the heavy weight. 5. We will not make any changes to other blood pressure medications at this time, his high blood pressure is due to his current pain. 6. Please provide morphine 4 mg IV q.6 hours p.r.n. for severe pain. It has been a pleasure taking care of Mr. Jeffery. If you have any questions, please give me a call. The total visitation time today is 35 minutes. Job ID: [id number] MTDD
[2020-11-15] MEDS: Morphine 4 MG/ML VIAL SLOW IVP PRN ×3 (11:31→22:57)
--- NOTE | 2020-11-15 16:33 | MRI ---
MRI OF PELVIS WITHOUT CONTRAST: 11/15/20 HISTORY: Pain. COMPARISON: Reference made to a CT of the pelvis 06/19/19. FINDINGS: BONES: There is no acute fracture or malalignment. No avascular necrosis. No SI joint widening. No SI joint edema. No stress changes. MUSCLES: Muscle signal and bulk is normal. No high grade atrophy of the visualized right sided musculature. INTRAPELVIC SOFT TISSUES: No free fluid in the pelvis. TENDONS: The right iliopsoas tendon is intact. No significant iliopsoas bursitis. The visualized rectus femoris tendon is intact. The gluteus medius and minimus tendons are without high grade tear. Quadratus femoris muscle is intact with minimal narrowing of the ischiofemoral space. LABRUM: Labral evaluation is severely limited due to the motion artifact. There is also relatively poor signa l on this exam. IMPRESSION: 1. Motion limited exam. 2. No fracture, malalignment, nor avascular necrosis. No stress changes. 3. Low grade narrowing of the right ischiofemoral space. 4. No findings to explain the patient's symptoms. POS: OFF
[2020-11-15] MEDS: Insulin Glargine 45 UNITS in Pre-Filled Syringe 1 EACH SC SCH (20:38)
[2020-11-15] MEDS: Atorvastatin Calcium 40 MG TAB PO SCH (20:38)
[2020-11-16] MEDS ORDERED: Furosemide 100 MG/10 ML VIAL SLOW IVP SCH (06:00)
[2020-11-16 07:23] LABS: Albumin 3.2 g/dL (3.5-5.0); Anion Gap 13 mmol/L (10-20); BUN (Urea Nitrogen) 53 mg/dL (8.4-25.7); BUN/Creatinine Ratio 12.13; Calc. Creatinine Clearance 36 mL/min (70-130); Calcium 8.8 mg/dL (7.8-10.44); Carbon Dioxide 31 mmol/L (22-29); Chloride 98 mmol/L (98-107); Glucose 143 mg/dL (70-105); Phosphorus 5.2 mg/dL (2.3-4.7); Potassium 4.2 mmol/L (3.5-5.1); Sodium 138 mmol/L (136-145)
[2020-11-16] MEDS: Milrinone Lactate/D5W 20 MG in Premix Bag 1 BAG IVPB SCH ×2 (07:52→17:59)
[2020-11-16] MEDS: Amlodipine 5 MG TAB PO SCH (08:08)
[2020-11-16] MEDS: Aspirin Chewable 81 MG TAB PO SCH (08:08)
[2020-11-16] MEDS: hydrALAZINE 25 MG TAB PO SCH ×3 (08:09→20:26)
[2020-11-16] MEDS: Metolazone 5 MG TAB PO SCH (08:10)
[2020-11-16] MEDS: Magnesium Oxide 400 MG TAB PO SCH ×2 (08:10→20:25)
[2020-11-16] MEDS: Alogliptin 6.25 MG TAB PO SCH (08:10)
[2020-11-16] MEDS: Isosorbide Dinitrate 20 MG TAB PO SCH ×3 (08:10→20:25)
[2020-11-16] MEDS: Morphine 4 MG/ML VIAL SLOW IVP PRN (08:10)
[2020-11-16] MEDS: Heparin 5,000 UNITS/ML VIAL SC SCH ×3 (08:11→20:27)
--- NOTE | 2020-11-16 08:20 | PDOC.FM ---
- Subjective Subjective: Patient had an episode of vomiting 15 minutes following the morphine he received for his right hip pain. He is still complaining of feeling quite nauseous. - Objective Vital Signs & Weight: Vital Signs (12 hours) Temp Pulse Resp BP Pulse Ox 11/16/20 07:34 93 L 11/16/20 04:32 97.2 F L 85 20 163/69 H 93 L 11/15/20 23:02 82 18 129/60 11/15/20 20:39 82 Weight Weight 129.047 kg I&O: 11/15/20 11/16/20 11/17/20 06:59 06:59 06:59 Intake Total 840 1200 Output Total 2650 2320 Balance -1810 -1120 Result Diagrams: 11/15/20 03:47 11/16/20 03:30 EKG Reviewed by me: Yes (tele: SR 70-80s) Radiology Reviewed by me: Yes Radiology: Pelvis MRI: no fracture, malalignment, nor avascular necrosis. No stress changes. Low grade narrowing of the right ischiofemoral space. Phys Exam - Physical Examination HEENT: moist MMs Neck: full ROM Respiratory: no wheezing, no rales, no rhonchi, clear to auscultation bilateral Cardiovascular: RRR, no significant murmur Gastrointestinal: soft, non-tender Musculoskeletal: no edema, pulses present Neurological: moves all 4 limbs Psychiatric: normal affect, A&O x 3 Dx/Plan - Plan Plan: Acute Hypoxic Respiratory Failure 2/2 CHF exacerbation -CXR mild left basilar opacity with small L pleural effusion, BNP 547, Trop 0.025 -Last ECHO 06/2020 showed EF of 35-40%. ECHO 12/02: EF 40-45%, dilated cardiomyopathy -Mg 3.0, Phos 5.2. Procal 0.12. Rocephin (11/09-11/10), Azithro (11/09-11/10). WBC 8.9 -Failed dobutamine trial -O2 requirement: RA -Cardiology consult (Padma): Continue 50mg TID hydralazine -Dr. Acevedo consult: Continue milrinone drip. Increase isosorbide nitrate today. Discontinue IV lasix for the day. ZAHEER on CKD 4 -Cr 3.88, 3.97, 4.08 -Labs from clinic 08/2020 showed BUN/Cr 42/3.07 -Nephrology consult (Obi): Continue metolazone. -Monitor with AM labs -Continue milrinone drip per Dr. Acevedo recs. Decrease lasix from 80 BID to 60 BID today. Right Hip Pain -MRI negative for avascular necrosis -morphine prn for pain DMII -Home lantus 14units daily -Hold home lantus, mild SSI in place Chronic Normocytic Anemia -Hgb 9.1, 8.2. MCV 94 -iron studies in 06/2020 show that he is iron deficient -suspect that this is due to his CKD and is probably EPO deficient as well Chronic Conditions HTN Hx of CVA Asthma -continue home medications CODE: Full VTE: Heparin PCP: Calvin Dispo: Appreciate Cardiology and Nephrology recs.
--- NOTE | 2020-11-16 10:55 | PRG ---
DATE OF SERVICE: 11/16/2020 SUBJECTIVE: Mr. Jeffery had a good day from a heart perspective. He is breathing easier. He has increased energy level. He is able to ambulate for over 300 feet twice. He also believed that his edema is decreasing around the abdomen and also around the legs; however, he still has the right hip pain. This morning after taking his medicines, he had a bout of nausea and vomiting. He is feeling fine right now. REVIEW OF SYSTEMS: GENERAL: There is no fever, chills, productive cough. HEENT: There is no change in vision, hearing, or swallowing. PULMONARY: Please see HPI. CARDIAC: Please see HPI. There is no chest pain, palpitations, syncope. GI: Please see HPI. : He is able to urinate without difficulty. MUSCULOSKELETAL: There is no muscle or joint pains. INTEGUMENT: There are no new skin breakdowns. NEUROLOGIC: There are no focal deficits or weaknesses. PHYSICAL EXAMINATION: VITAL SIGNS: Telemetry was reviewed. He is in sinus rhythm, rate about 82. There is a very very rare occasional PVC. Otherwise, there are no concerning arrhythmias. His latest vital signs are heart rate 85, blood pressure 147/67. GENERAL: He is alert and conversational, sitting comfortably in bed. HEENT: Show EOMI. Oropharynx is benign with moist mucosa. NECK: His JVP is about 10 cm, slightly lower than yesterday. PULMONARY: There is good air movement bilaterally. Clear to auscultation bilaterally. CARDIAC: Regular rate and rhythm with normal S1/S2. There is 2/6 holosystolic murmur at the apex with radiation to the left axilla. ABDOMEN: Soft, nontender. Positive bowel sounds. He has about 0.5 cm pitting edema from his feet senior care toward his knees, so this is a less edema than yesterday. His legs too look with a small diameter. His inputs and outputs from yesterday are 1200 in and 2320 out, so he has a negative 1.1 L. LABORATORY VALUES: White cell count 9.1, hemoglobin 8.5, and platelet at 222. Chemistry: Sodium 138, potassium 4.2, bicarb at 31, BUN 53, that is now actually an improvement from 58 yesterday; however, his creatinine slightly worsened from 4.08 to 4.37. An MRI was done to examine his right hip. There was no avascular necrosis. There was no fracture to explain the patient's symptoms. ASSESSMENT: 55-year-old gentleman is improving from a cardiac and volume status perspective. He is breathing easier, has increasing exertion tolerance and decreasing edema. He resides in most likely [place] Heart Association stage C, [place] Heart Class 3B heart failure with preserved ejection fraction with predominant diastolic dysfunction; however, this volume removal came at the expense of renal dysfunction. His creatinine is slightly worse than yesterday. Thus, one day of no diuretics might help him. He has relatively low heart rate for his condition. He is still hypertensive, so this could be due to pain and this can be adjusted. His nausea and vomiting could be due to medications. It also could be a side effect of morphine. For now, continues with the milrinone, but please consider holding diuretics for one day, and please provide some relief to his nausea and vomiting. Therefore, our plan is once his kidneys improve, then we can restart diuresis by finding an oral regimen that can work for him as outpatient. RECOMMENDATIONS: 1. Continue milrinone at 0.25 mcg/kg/minute. We will continue this until his creatinine improves and a workable oral diuretic regimen is established. 2. Increase isosorbide dinitrate to 30 mg p.o. q.8 hours. 3. If needed, please work with Orthopedics to find a solution for the right hip pain. 4. Please hold all diuretics for one complete 24 hours. It has been a pleasure taking care of Mr. Jeffery. If any question, please give me a call. The total visitation time today is 35 minutes. Job ID: [id number] [facility]
[2020-11-16] MEDS: HumaLOG 300 UNITS/3 ML VIAL SC PRN (12:19)
--- NOTE | 2020-11-16 15:23 | PDOC.NEPPN ---
- Subjective Encounter Date: 11/16/20 Subjective: No new problem. Right hip pain has subsided. Remained afebrile and in no distress. - Objective Vital Signs & Weight: Vital Signs (12 hours) Temp Pulse Resp BP BP BP Pulse Ox 11/16/20 14:16 89 11/16/20 11:20 98.1 F 89 16 135/60 92 L 11/16/20 08:09 85 147/67 H 11/16/20 08:08 82 147/67 H 11/16/20 07:34 93 L 11/16/20 07:30 93 L 11/16/20 07:22 98.1 F 82 15 147/67 H 93 L 11/16/20 04:32 97.2 F L 85 20 163/69 H 93 L Weight Weight 284 lb 8 oz I&O: 11/15/20 11/16/20 11/17/20 06:59 06:59 06:59 Intake Total 840 1200 477 Output Total 2650 2320 800 Balance -1810 -1120 -323 Result Diagrams: 11/15/20 03:47 11/16/20 03:30 Additional Labs: Accuchecks 11/16/20 11/16/20 11/15/20 10:54 05:46 20:21 POC Glucose 159 H 121 H 187 H 11/15/20 16:34 POC Glucose 168 H Nephrology ROS - Medication Medications: Active Medications Generic Name Dose Route Start Last Admin Trade Name Freq PRN Reason Stop Dose Admin Acetaminophen 650 mg 11/09/20 19:13 11/15/20 08:35 Acetaminophen 325 Mg Tab PO 650 mg Q4H PRN Administration Headache/Fever/Mild Pain (1-3) Alogliptin Benzoate 6.25 mg 11/10/20 09:00 11/16/20 08:10 Alogliptin 6.25 Mg Tab PO 6.25 mg DAILY VISHNU Administration Amlodipine Besylate 10 mg 11/13/20 09:00 11/16/20 08:08 Amlodipine 5 Mg Tab PO 10 mg DAILY VISHNU Administration Aspirin 81 mg 11/10/20 09:00 11/16/20 08:08 Aspirin Chewable 81 Mg Tab PO 81 mg DAILY VISHNU Administration Atorvastatin Calcium 40 mg 11/09/20 21:00 11/15/20 20:38 Atorvastatin Calcium 40 Mg Tab PO 40 mg HS VISHNU Administration Heparin Sodium (Porcine) 5,000 units 11/09/20 21:00 11/16/20 14:15 Heparin 5,000 Units/Ml Vial SC 5,000 units TID VISHNU Administration Hydralazine HCl 10 mg 11/11/20 17:19 11/11/20 17:58 Hydralazine 20 Mg/Ml Vial SLOW IVP 10 mg Q4H PRN Administration SBP GREATER THAN 160 Hydralazine HCl 50 mg 11/13/20 21:00 11/16/20 14:16 Hydralazine 25 Mg Tab PO 50 mg TID VISHNU Administration Insulin Glargine 45 units/ 0.45 mls @ 0 mls/hr 11/09/20 21:00 11/15/20 20:38 Miscellaneous Medication SC 0.45 mls HS VISHNU Administration Milrinone Lactate/Dextrose 20 100 mls @ 9.845 mls/hr 11/14/20 17:00 11/16/20 07:52 mg/ Device IVPB 100 mls INF VISHNU Administration 0.25 MCG/KG/MIN Insulin Human Lispro 0 units 11/09/20 19:13 11/16/20 12:19 Humalog 300 Units/3 Ml Vial SC 2 unit .MILD SLIDING SCALE PRN Administration Mild Correctional Scale Isosorbide Dinitrate 30 mg 11/16/20 15:00 11/16/20 14:16 Isosorbide Dinitrate 20 Mg Tab PO 30 mg TID VISHNU Administration Magnesium Oxide 400 mg 11/09/20 21:00 11/16/20 08:10 Magnesium Oxide 400 Mg Tab PO 400 mg BID VISHNU Administration Morphine Sulfate 4 mg 11/15/20 09:23 11/16/20 08:10 Morphine 4 Mg/Ml Vial SLOW IVP 4 mg Q6H PRN Administration Moderate to Severe Pain (6-10) Sodium Chloride 10 ml 11/09/20 19:13 11/13/20 08:13 Flush - Normal Saline 10 Ml Syringe IVF 10 ml PRN PRN Administration Saline Flush - Exam General Appearance: awake alert Eye: anicteric sclera ENT: normocephalic atraumatic Neck: supple, symmetric Respiratory: no wheezes, no rales, no ronchi, normal chest expansion, no tachypnea Cardiovascular: irregular Gastrointestinal - other findings: obese Extremities - other findings: mild left and moderate right leg and feet noted Neurological: no new deficit Musculoskeletal: generalized weakness PSYCH: oriented to person, oriented to place, oriented to time Nephrology Results - Labs Result Diagrams: 11/15/20 03:47 11/16/20 03:30 Lab results: WBC 9.8 thou/uL (4.8-10.8) 11/15/20 03:47 Hgb 8.5 g/dL (14.0-18.0) L 11/15/20 03:47 Hct 26.2 % (42.0-52.0) L 11/15/20 03:47 MCV 95.6 fL (78.0-98.0) 11/15/20 03:47 Plt Count 222 thou/uL (130-400) 11/15/20 03:47 Neutrophils % 69.2 % (42.0-75.0) 11/15/20 03:47 Sodium 138 mmol/L (136-145) 11/16/20 03:30 Potassium 4.2 mmol/L (3.5-5.1) 11/16/20 03:30 Chloride 98 mmol/L (98-107) 11/16/20 03:30 Carbon Dioxide 31 mmol/L (22-29) H 11/16/20 03:30 BUN 53 mg/dL (8.4-25.7) H 11/16/20 03:30 Creatinine 4.37 mg/dL (0.7-1.3) H 11/16/20 03:30 Glucose 143 mg/dL (70-105) H 11/16/20 03:30 Calcium 8.8 mg/dL (7.8-10.44) 11/16/20 03:30 Total Bilirubin 0.6 mg/dL (0.2-1.2) 11/09/20 16:19 AST 11 U/L (5-34) 11/09/20 16:19 ALT 16 U/L (8-55) 11/09/20 16:19 Alkaline Phosphatase 112 U/L (40-110) H 11/09/20 16:19 Troponin I 0.025 ng/mL (< 0.028) 11/09/20 16:19 B-Natriuretic Peptide 547.0 pg/mL (0-100) H 11/09/20 16:19 Serum Total Protein 6.9 g/dL (6.0-8.3) 11/09/20 16:19 Albumin 3.2 g/dL (3.5-5.0) L 11/16/20 03:30 Sodium 138 mmol/L (136-145) 11/16/20 03:30 Potassium 4.2 mmol/L (3.5-5.1) 11/16/20 03:30 Chloride 98 mmol/L (98-107) 11/16/20 03:30 Carbon Dioxide 31 mmol/L (22-29) H 11/16/20 03:30 Anion Gap 13 mmol/L (10-20) 11/16/20 03:30 BUN 53 mg/dL (8.4-25.7) H 11/16/20 03:30 Creatinine 4.37 mg/dL (0.7-1.3) H 11/16/20 03:30 Glucose 143 mg/dL (70-105) H 11/16/20 03:30 Calcium 8.8 mg/dL (7.8-10.44) 11/16/20 03:30 Phosphorus 5.2 mg/dL (2.3-4.7) H 11/16/20 03:30 Magnesium 3.0 mg/dL (1.6-2.6) H 11/16/20 03:30 Albumin 3.2 g/dL (3.5-5.0) L 11/16/20 03:30 Nephrology AP PN - Plan ZAHEER: Due to hemodynamic factors related to cardiac decompensation. cardiorenal syndrome. Creat is still trending up. Got a dose of lasix earlier today. Lasix was supposed to be held since yesterday. CKD 4. Volume overload:Due to Cardiac decompensation. Improving with diuretics. HTN: Control is better but still suboptimal. Acute on chronic combined systolic and diastolic HF. Now on milrinone Acute respiratory failure due to CHF exacerbation. Improved off oxygen PLAN Agree with increasing the dose of isodil. DC diuretics. Continue milrinone and other treatments Recheck renal function in the am.
[2020-11-16] MEDS: Ondansetron PF 4 MG/2 ML Vial IVP PRN ×2 (17:32→22:54)
[2020-11-16] MEDS: Atorvastatin Calcium 40 MG TAB PO SCH (20:25)
[2020-11-16] MEDS: Insulin Glargine 45 UNITS in Pre-Filled Syringe 1 EACH SC SCH (20:27)
[2020-11-17] MEDS: Milrinone Lactate/D5W 20 MG in Premix Bag 1 BAG IVPB SCH ×2 (04:06→17:35)
[2020-11-17 04:35] LABS: Hemoglobin 8.9 g/dL (14.0-18.0)
[2020-11-17 04:45] LABS: Albumin 3.4 g/dL (3.5-5.0); Anion Gap 18 mmol/L (10-20); BUN (Urea Nitrogen) 56 mg/dL (8.4-25.7); BUN/Creatinine Ratio 12.28; Calc. Creatinine Clearance 34 mL/min (70-130); Calcium 9.1 mg/dL (7.8-10.44); Carbon Dioxide 29 mmol/L (22-29); Chloride 94 mmol/L (98-107); Glucose 168 mg/dL (70-105); Phosphorus 4.7 mg/dL (2.3-4.7); Potassium 4.5 mmol/L (3.5-5.1); Sodium 136 mmol/L (136-145)
[2020-11-17 04:46] LABS: Iron 56 ug/dL (65-175); Iron Binding Capacity, Total 275 mcg/dL (261-462)
[2020-11-17] MEDS ORDERED: Iron, Sodium Ferric Gluconate 250 MG in Sodium Chloride 0.9% 100 ML IVPB SCH (07:15)
[2020-11-17] MEDS ORDERED: Epoetin (ESRD) 10,000 UNITS/ML VIAL SC SCH (07:15)
[2020-11-17] MEDS ORDERED: EPOETIN ALFA-EPBX (ESRD) 10,000 UNIT/ML VIAL SC SCH (07:30)
--- NOTE | 2020-11-17 07:31 | PDOC.FM ---
- Subjective Subjective: Patient is feeling weak this AM following episodes of nausea and vomiting yesterday. It seems they may be due to receiving morphine yesterday morning. Patient reports his hip pain is improving and not bothering him as much today. - Objective Vital Signs & Weight: Vital Signs (12 hours) Temp Pulse Resp BP Pulse Ox 11/17/20 04:37 91 L 11/17/20 03:32 98.7 F 98 18 149/65 H 91 L 11/16/20 23:15 97.8 F 86 18 137/66 90 L Weight Weight 128.593 kg I&O: 11/16/20 11/17/20 11/18/20 06:59 06:59 06:59 Intake Total 1200 997 Output Total 2320 1325 Balance -1120 -328 Result Diagrams: 11/17/20 03:57 11/17/20 03:57 EKG Reviewed by me: Yes (tele: SR 80s) Phys Exam - Physical Examination Constitutional: NAD HEENT: moist MMs, sclera anicteric Neck: no nodes Respiratory: no wheezing, no rales, no rhonchi, clear to auscultation bilateral Cardiovascular: RRR, no significant murmur Gastrointestinal: soft, non-tender Musculoskeletal: pulses present, edema present Neurological: non-focal, moves all 4 limbs Lymphatic: no nodes Psychiatric: A&O x 3 Deviation from normal: depressed mood Skin: no rash Dx/Plan - Plan Plan: Acute Hypoxic Respiratory Failure 2/2 CHF exacerbation -CXR mild left basilar opacity with small L pleural effusion, BNP 547, Trop 0.025 -Last ECHO 06/2020 showed EF of 35-40%. ECHO 12/02: EF 40-45%, dilated cardiomyopathy -Mg 3.0, Phos 5.2. Procal 0.12. Rocephin (11/09-11/10), Azithro (11/09-11/10). WBC 8.9 -Failed dobutamine trial -O2 requirement: RA -Cardiology consult (Padma): Continue 50mg TID hydralazine -Dr. Acevedo consult: Continue milrinone drip. Continue 30mg isosorbide nitrate daily. Hold on diuretics. ZAHEER on CKD 4 -Cr 3.88, 3.97, 4.08 -Labs from clinic 08/2020 showed BUN/Cr 42/3.07 -Nephrology consult (Obi): appreciate recs -Continue milrinone drip per Dr. Acevedo recs. Patient may need dialysis. Nausea/Vomiting -zofran prn -KUB pending -most likely due to morphine he received yesterday morning -Will add bowel regime. Patient has not had bowel movement in 2 days Right Hip Pain, improving -MRI negative for avascular necrosis -morphine prn for pain DMII -Home lantus 14units daily -Hold home lantus, mild SSI in place Chronic Normocytic Anemia -Hgb 9.1, 8.2. MCV 94 -iron studies in 06/2020 show that he is iron deficient -suspect that this is due to his CKD and is probably EPO deficient as well Chronic Conditions HTN Hx of CVA Asthma -continue home medications CODE: Full VTE: Heparin PCP: Calvin Dispo: Appreciate Cardiology and Nephrology recs.
[2020-11-17] MEDS: Magnesium Oxide 400 MG TAB PO SCH ×2 (09:08→22:06)
[2020-11-17] MEDS: Heparin 5,000 UNITS/ML VIAL SC SCH ×2 (09:11→22:06)
[2020-11-17] MEDS: Ondansetron PF 4 MG/2 ML Vial IVP PRN (09:39)
[2020-11-17] MEDS: Amlodipine 5 MG TAB PO SCH (09:50)
[2020-11-17] MEDS: Isosorbide Dinitrate 20 MG TAB PO SCH ×3 (09:51→22:07)
[2020-11-17] MEDS: Aspirin Chewable 81 MG TAB PO SCH (09:51)
[2020-11-17] MEDS: hydrALAZINE 25 MG TAB PO SCH ×3 (09:51→22:07)
[2020-11-17] MEDS: Alogliptin 6.25 MG TAB PO SCH (09:51)
[2020-11-17] MEDS ORDERED: Bisacodyl 10 MG SUPP PR SCH (10:30)
--- NOTE | 2020-11-17 10:44 | PDOC.NEPPN ---
- Subjective Encounter Date: 11/17/20 Subjective: Had at least 3 episodes of non bloody emesis yesterday.Complaining of ge neralized weakness. - Objective Vital Signs & Weight: Vital Signs (12 hours) Temp Pulse Resp BP BP BP Pulse Ox 11/17/20 09:51 98 114/54 L 11/17/20 09:50 98 114/54 L 11/17/20 07:42 98.8 F 98 15 114/54 L 93 L 11/17/20 04:37 91 L 11/17/20 03:32 98.7 F 98 18 149/65 H 91 L 11/16/20 23:15 97.8 F 86 18 137/66 90 L Weight Weight 283 lb 8 oz I&O: 11/16/20 11/17/20 11/18/20 06:59 06:59 06:59 Intake Total 1200 997 Output Total 5803 1325 Balance -1120 -920 Result Diagrams: 11/17/20 03:57 11/17/20 03:57 Additional Labs: Accuchecks 11/17/20 11/17/20 11/16/20 09:19 05:33 20:25 POC Glucose 152 H 142 H 173 H 11/16/20 11/16/20 16:46 10:54 POC Glucose 166 H 159 H Nephrology ROS - Medication Medications: Active Medications Generic Name Dose Route Start Last Admin Trade Name Freq PRN Reason Stop Dose Admin Acetaminophen 650 mg 11/09/20 19:13 11/15/20 08:35 Acetaminophen 325 Mg Tab PO 650 mg Q4H PRN Administration Headache/Fever/Mild Pain (1-3) Alogliptin Benzoate 6.25 mg 11/10/20 09:00 11/17/20 09:51 Alogliptin 6.25 Mg Tab PO 6.25 mg DAILY VISHNU Administration Amlodipine Besylate 10 mg 11/13/20 09:00 11/17/20 09:50 Amlodipine 5 Mg Tab PO 10 mg DAILY VISHNU Administration Aspirin 81 mg 11/10/20 09:00 11/17/20 09:51 Aspirin Chewable 81 Mg Tab PO 81 mg DAILY VISHNU Administration Atorvastatin Calcium 40 mg 11/09/20 21:00 11/16/20 20:25 Atorvastatin Calcium 40 Mg Tab PO 40 mg HS VISHNU Administration Epoetin Chung-epbx 10,000 unit 11/17/20 07:30 11/17/20 09:21 Epoetin Chung-Epbx (Esrd) 10,000 Unit/Ml Vial SC 11/17/20 21:00 10,000 unit NOW VISHNU Administration Hydralazine HCl 10 mg 11/11/20 17:19 11/11/20 17:58 Hydralazine 20 Mg/Ml Vial SLOW IVP 10 mg Q4H PRN Administration SBP GREATER THAN 160 Hydralazine HCl 50 mg 11/13/20 21:00 11/17/20 09:51 Hydralazine 25 Mg Tab PO Not Given TID VISHNU Insulin Glargine 45 units/ 0.45 mls @ 0 mls/hr 11/09/20 21:00 11/16/20 20:27 Miscellaneous Medication SC 0.45 mls HS VISHNU Administration Milrinone Lactate/Dextrose 20 100 mls @ 9.845 mls/hr 11/14/20 17:00 11/17/20 04:06 mg/ Device IVPB 100 mls INF VISHNU Administration 0.25 MCG/KG/MIN Ferric Sodium Gluconate 120 mls @ 60 mls/hr 11/17/20 07:15 11/17/20 09:19 Complex 250 mg/ Sodium IVPB 11/17/20 12:00 120 mls Chloride NOW [facility] Administration Insulin Human Lispro 0 units 11/09/20 19:13 11/16/20 12:19 Humalog 300 Units/3 Ml Vial SC 2 unit .MILD SLIDING SCALE PRN Administration Mild Correctional Scale Isosorbide Dinitrate 30 mg 11/16/20 15:00 11/17/20 09:51 Isosorbide Dinitrate 20 Mg Tab PO 30 mg TID VISHNU Administration Magnesium Oxide 400 mg 11/09/20 21:00 11/17/20 09:08 Magnesium Oxide 400 Mg Tab PO 400 mg BID VISHNU Administration Morphine Sulfate 4 mg 11/15/20 09:23 11/16/20 08:10 Morphine 4 Mg/Ml Vial SLOW IVP 4 mg Q6H PRN Administration Moderate to Severe Pain (6-10) Ondansetron HCl 4 mg 11/16/20 16:14 11/17/20 09:39 Ondansetron Pf 4 Mg/2 Ml Vial IVP 4 mg Q6H PRN Administration Nausea/Vomiting Sodium Chloride 10 ml 11/09/20 19:13 01/31/21 08:13 Flush - Normal Saline 10 Ml Syringe IVF 10 ml PRN PRN Administration Saline Flush - Exam General Appearance: awake alert Eye: anicteric sclera ENT: normocephalic atraumatic, moist mucosa Neck: symmetric Respiratory: no wheezes, no ronchi, no tachypnea Cardiovascular: RRR Gastrointestinal: soft, non-distended, normal bowel sounds Gastrointestinal - other findings: oese Extremities: 2+ LE edema Neurological: CN's grossly intact, no new deficit PSYCH: A&O x 3 Nephrology Results - Labs Result Diagrams: 11/17/20 03:57 11/17/20 03:57 Lab results: WBC 9.8 thou/uL (4.8-10.8) 11/15/20 03:47 Hgb 8.9 g/dL (14.0-18.0) L 11/17/20 03:57 Hct 27.1 % (42.0-52.0) L 11/17/20 03:57 MCV 95.6 fL (78.0-98.0) 11/15/20 03:47 Plt Count 222 thou/uL (130-400) 11/15/20 03:47 Neutrophils % 69.2 % (42.0-75.0) 11/15/20 03:47 Sodium 136 mmol/L (136-145) 11/17/20 03:57 Potassium 4.5 mmol/L (3.5-5.1) 11/17/20 03:57 Chloride 94 mmol/L (98-107) L 11/17/20 03:57 Carbon Dioxide 29 mmol/L (22-29) 11/17/20 03:57 BUN 56 mg/dL (8.4-25.7) H 11/17/20 03:57 Creatinine 4.56 mg/dL (0.7-1.3) H 11/17/20 03:57 Glucose 168 mg/dL (70-105) H 11/17/20 03:57 Calcium 9.1 mg/dL (7.8-10.44) 11/17/20 03:57 Total Bilirubin 0.6 mg/dL (0.2-1.2) 11/09/20 16:19 AST 11 U/L (5-34) 11/09/20 16:19 ALT 16 U/L (8-55) 11/09/20 16:19 Alkaline Phosphatase 112 U/L (40-110) H 11/09/20 16:19 Troponin I 0.025 ng/mL (< 0.028) 11/09/20 16:19 B-Natriuretic Peptide 547.0 pg/mL (0-100) H 11/09/20 16:19 Serum Total Protein 6.9 g/dL (6.0-8.3) 11/09/20 16:19 Albumin 3.4 g/dL (3.5-5.0) L 11/17/20 03:57 Sodium 136 mmol/L (136-145) 11/17/20 03:57 Potassium 4.5 mmol/L (3.5-5.1) 11/17/20 03:57 Chloride 94 mmol/L (98-107) L 11/17/20 03:57 Carbon Dioxide 29 mmol/L (22-29) 11/17/20 03:57 Anion Gap 18 mmol/L (10-20) 11/17/20 03:57 BUN 56 mg/dL (8.4-25.7) H 11/17/20 03:57 Creatinine 4.56 mg/dL (0.7-1.3) H 11/17/20 03:57 Glucose 168 mg/dL (70-105) H 11/17/20 03:57 Calcium 9.1 mg/dL (7.8-10.44) 11/17/20 03:57 Phosphorus 4.7 mg/dL (2.3-4.7) 11/17/20 03:57 Magnesium 3.0 mg/dL (1.6-2.6) H 11/16/20 03:30 Albumin 3.4 g/dL (3.5-5.0) L 11/17/20 03:57 Nephrology AP PN - Plan ZAHEER: Due to hemodynamic factors related to cardiac decompensation. cardiorenal syndrome. Creat is still trending up despite holding of lasix. Last dose of lasix was 11/16/20 am. CKD 4. Volume overload:Due to Cardiac decompensation. Improving with diuretics. Nausea and vomiting. Etiology unclear. ? constipation +/- medication ( morphine) +/- uremia Anemia in CKD HTN: Control is better Acute on chronic combined systolic and diastolic HF. Now on milrinone Acute respiratory failure due to CHF exacerbation. Improved off oxygen PLAN Start JARRED. Give a dose of IV iron. Dulcolax suppository x 1. Continue milrinone and other treatments Recheck renal function in the am.
--- NOTE | 2020-11-17 11:04 | PRG ---
DATE OF SERVICE: 11/17/2020 SERVICE: Advanced Heart Failure Transplant Cardiology Consult Service SUBJECTIVE: Mr. Hamlet Jeffery had a poor day. He developed nausea and vomiting during the day. Apparently, he did not receive Zofran. He was not able to the eat. Afterwards, he felt weak. This started sometime after receiving IV morphine yesterday. He is quite upset over the entire process. He was also given metolazone and IV Lasix in the morning. He says he did not get a day of break without diuretics neither. REVIEW OF SYSTEMS: GENERAL: No fever, chills, or productive cough, but he feels generally ill from nausea. HEENT: There is no change in vision, hearing, or swallowing. PULMONARY: There is no shortness of breath. CARDIAC: There is no palpitation, chest pain, or syncope. GI: Please see HPI. : He is able to urinate on his own. MUSCULOSKELETAL: There is no complaint of muscle or joint pains today. INTEGUMENT: There is no new skin breakdown. NEUROLOGIC: There are no focal deficits or weaknesses. MEDICATIONS: His active medications include: 1. Alogliptin 6.25 mg daily. 2. Amlodipine 10 mg daily. 3. Aspirin 81 mg daily. 4. Atorvastatin 40 mg at bedtime. 5. Epoiten at 10,000 units once per week. 6. Heparin 5000 units t.i.d. 7. Hydralazine 50 mg t.i.d. 8. Glargine 45 units daily. 9. Insulin lispro. 10. Sliding scale. 11. Isosorbide dinitrate 30 mg t.i.d. 12. Magnesium oxide 400 mg b.i.d. 13. Milrinone currently at 0.25 mcg/kg/minute. 14. Ondansetron 4 mg IV q.6 hours p.r.n. Telemetry is reviewed. He is in sinus rhythm. OBJECTIVE: VITAL SIGNS: His latest vitals are blood pressure 114/54. His input and output were input 997 mL and output 1325 mL. So, he was still net negative. GENERAL: He is sitting in a chair, looking a bit weary and despondent today; however, he is not short of breath. HEENT: Show EOMI. Oropharynx is benign with moist mucosa. NECK: Large diameter. His JVP is approximately 10 or 11 cm. PULMONARY: There is good air movement bilaterally. Clear to auscultation bilaterally. CARDIAC: Regular rate and rhythm with normal S1, S2. There is 2/6 holosystolic murmur at the apex. ABDOMEN: Distended. There are hypoactive bowel sounds. EXTREMITIES: His lower extremity has 1 cm pitting edema from feet to about care home towards the knee. It is about the same as of yesterday. LABORATORY DATA: His chemistry shows sodium 134, potassium 4.4, chloride 99, BUN has started to rise into 56 and creatinine has risen to 4.56. ASSESSMENT: 55-year-old gentleman resides in [place] Heart Association stage C, [place] Heart Association class III heart failure with preserved ejection fraction. However, his most concerning problem is worsening renal function. He did not get a diuretic break yesterday. Thus, his BUN and creatinine continues to climb. His nausea and vomiting could be due to morphine or it could be due to his worsening renal function. With hypoactive bowel sounds and no bowel movement in 3 days. This could be an ileus also, so this needs to be investigated. Please see the following for my recommendations. RECOMMENDATIONS: 1. Please do KUB and abdominal view to make sure that he does not have ileus or bowel obstruction. 2. Please consider providing a bowel regimen so he can be relieved. 3. Please provide Zofran at the time of meal so that he can eat. 4. 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 He may be approaching dialysis due to uremia. It has been a pleasure taking care of Mr. Jeffery. If you have any questions, please give me a call. The total visitation time is 40 minutes. Job ID: [id number] MTDD
[2020-11-17] MEDS ORDERED: Senokot S 8.6-50 MG TAB PO SCH (12:30)
[2020-11-17] MEDS: HumaLOG 300 UNITS/3 ML VIAL SC PRN (12:43)
--- NOTE | 2020-11-17 14:36 | RAD ---
KUB: 11/17/20 HISTORY: Abdominal pain and distention. The bowel gas pattern is nonobstructed with a moderate amount of stool in the right and transverse co conrad. No renal calculi are appreciated. Mild arthritic changes of the spine are seen. IMPRESSION: No acute changes. POS: ONEIL
[2020-11-17] MEDS: Insulin Glargine 45 UNITS in Pre-Filled Syringe 1 EACH SC SCH (22:07)
[2020-11-17] MEDS: Atorvastatin Calcium 40 MG TAB PO SCH (22:07)
[2020-11-17] MEDS: Senokot S 8.6-50 MG TAB PO SCH (22:12)
[2020-11-18] MEDS: Milrinone Lactate/D5W 20 MG in Premix Bag 1 BAG IVPB SCH ×3 (03:35→20:27)
--- NOTE | 2020-11-18 06:57 | PDOC.FM ---
- Subjective Subjective: Mr. Jeffery reports he is feeling much better today. He tolerated PO intake well. - Objective Vital Signs & Weight: Vital Signs (12 hours) Temp Pulse Resp BP BP Pulse Ox 11/18/20 04:40 98 F 87 20 115/54 L 92 L 11/18/20 03:49 94 L 11/18/20 01:42 88 130/58 L 11/17/20 19:17 98 F 81 20 118/57 L 94 L Weight Admit Weight 128.593 kg Weight 129.784 kg I&O: 11/16/20 11/17/20 11/18/20 06:59 06:59 06:59 Intake Total 1200 997 695 Output Total 2320 1325 600 Balance -1120 -328 95 Result Diagrams: 11/18/20 07:01 11/18/20 07:11 EKG Reviewed by me: Yes (tele: SR 80s) Radiology Reviewed by me: Yes Radiology: KUB: negative Phys Exam - Physical Examination Constitutional: NAD HEENT: moist MMs, sclera anicteric Neck: no nodes Respiratory: no wheezing, no rales, no rhonchi, clear to auscultation bilateral Cardiovascular: RRR, no significant murmur Gastrointestinal: soft, non-tender Musculoskeletal: pulses present, edema present Neurological: non-focal Psychiatric: normal affect, A&O x 3 Skin: no rash Dx/Plan - Plan Plan: Acute Hypoxic Respiratory Failure 2/2 CHF exacerbation -CXR mild left basilar opacity with small L pleural effusion, BNP 547, Trop 0.025 -Last ECHO 06/2020 showed EF of 35-40%. ECHO 12/02: EF 40-45%, dilated cardiomyopathy -Mg 3.0, Phos 5.2. Procal 0.12. Rocephin (11/09-11/10), Azithro (11/09-11/10). WBC 8.9 -Failed dobutamine trial -O2 requirement: RA -Cardiology consult (Padma): Continue 50mg TID hydralazine -Dr. Acevedo consult: Continue milrinone drip. Continue 30mg isosorbide nitrate daily. Hold on diuretics. ZAHEER on CKD 4 -Cr 3.88, 3.97, 4.08, 5.13 -Labs from clinic 08/2020 showed BUN/Cr 42/3.07 -Nephrology consult (Obi): appreciate recs -Continue milrinone drip per Dr. Acevedo recs. Patient will likely need dialysis. Nausea/Vomiting -zofran prn -KUB negative -most likely due to morphine he received for hip pain -Continue bowel regime Right Hip Pain, resolved -MRI negative for avascular necrosis -morphine prn for pain DMII -Home lantus 14units daily -Hold home lantus, mild SSI in place Chronic Normocytic Anemia -Hgb 9.1, 8.2. MCV 94 -iron studies in 06/2020 show that he is iron deficient -suspect that this is due to his CKD and is probably EPO deficient as well Chronic Conditions HTN Hx of CVA Asthma -continue home medications CODE: Full VTE: Heparin PCP: Calvin Dispo: Appreciate Cardiology and Nephrology recs.
[2020-11-18 07:15] LABS: #Basophils 0.1 thou/uL (0.0-0.2); #Eosinphils 0.3 thou/uL (0.0-0.7); #Lymphocytes 1.7 thou/uL (1.20-3.40); #Monocytes 1.1 thou/uL (0.11-0.59); #Neutrophils 7.5 thou/uL (1.40-6.50); %Basophils 0.7 % (0.0-1.0); %Eosinophils 3.1 % (0.0-10.0); %Lymphocytes 16.2 % (21.0-51.0); %Monocytes 9.8 % (0.0-10.0); %Neutrophils 70.2 % (42.0-75.0); Hemoglobin 8.4 g/dL (14.0-18.0); Mean Corpuscular Hemoglobin 30.4 pg (27.0-31.0); Mean Corpuscular Volume 94.9 fL (78.0-98.0); Mean Platelet Volume 7.9 fL (7.4-10.4); Platelet Count 258 thou/uL (130-400); RBC Distribution Width 12.9 % (11.5-14.5); Red Blood Cell (RBC) Count 2.76 mill/uL (4.70-6.10); White Blood Cell (WBC) Count 10.7 thou/uL (4.8-10.8)
[2020-11-18 07:34] LABS: Albumin 3.3 g/dL (3.5-5.0); Anion Gap 15 mmol/L (10-20); BUN (Urea Nitrogen) 57 mg/dL (8.4-25.7); BUN/Creatinine Ratio 11.11; Calc. Creatinine Clearance 30 mL/min (70-130); Calcium 8.9 mg/dL (7.8-10.44); Carbon Dioxide 31 mmol/L (22-29); Chloride 95 mmol/L (98-107); Glucose 97 mg/dL (70-105); Phosphorus 4.7 mg/dL (2.3-4.7); Potassium 4.6 mmol/L (3.5-5.1); Sodium 136 mmol/L (136-145)
[2020-11-18] MEDS: Amlodipine 5 MG TAB PO SCH (08:04)
[2020-11-18] MEDS: Alogliptin 6.25 MG TAB PO SCH (08:04)
[2020-11-18] MEDS: Aspirin Chewable 81 MG TAB PO SCH (08:05)
[2020-11-18] MEDS: Isosorbide Dinitrate 20 MG TAB PO SCH ×3 (08:06→22:30)
[2020-11-18] MEDS: hydrALAZINE 25 MG TAB PO SCH ×3 (08:06→22:31)
[2020-11-18] MEDS: Magnesium Oxide 400 MG TAB PO SCH ×2 (08:07→22:31)
[2020-11-18] MEDS: Heparin 5,000 UNITS/ML VIAL SC SCH ×2 (08:08→22:30)
[2020-11-18] MEDS: Polyethylene Glycol 3350 17 GM Packet PO SCH (08:08)
[2020-11-18] MEDS: Senokot S 8.6-50 MG TAB PO SCH ×2 (08:09→22:30)
[2020-11-18] MEDS ORDERED: Albumin 25% 25 GM/100 ML BOT IVPB SCH (10:47)
--- NOTE | 2020-11-18 11:19 | PDOC.NEPPN ---
- Subjective Encounter Date: 11/18/20 Subjective: Seen and examined. Complains of generalized weakness - Objective Vital Signs & Weight: Vital Signs (12 hours) Temp Pulse Resp BP BP BP Pulse Ox 11/18/20 11:08 97.7 F 91 18 131/59 L 92 L 11/18/20 08:06 79 139/60 11/18/20 08:04 79 139/60 11/18/20 08:00 93 L 11/18/20 07:54 97.9 F 79 16 139/60 93 L 11/18/20 04:40 98 F 87 20 115/54 L 92 L 11/18/20 03:49 94 L 11/18/20 01:42 88 130/58 L Weight Admit Weight 283 lb 8 oz Weight 286 lb 2 oz I&O: 11/17/20 11/18/20 11/19/20 06:59 06:59 06:59 Intake Total 997 695 Output Total 1325 600 Balance -328 95 Result Diagrams: 11/18/20 07:01 11/18/20 07:11 Additional Labs: Accuchecks 11/18/20 11/18/20 11/17/20 11:01 05:42 20:33 POC Glucose 156 H 103 H 158 H 11/17/20 11/17/20 16:37 12:28 POC Glucose 127 H 227 H Nephrology ROS - Medication Medications: Active Medications Generic Name Dose Route Start Last Admin Trade Name Freq PRN Reason Stop Dose Admin Acetaminophen 650 mg 11/09/20 19:13 11/15/20 08:35 Acetaminophen 325 Mg Tab PO 650 mg Q4H PRN Administration Headache/Fever/Mild Pain (1-3) Alogliptin Benzoate 6.25 mg 11/10/20 09:00 11/18/20 08:04 Alogliptin 6.25 Mg Tab PO 6.25 mg DAILY VISHNU Administration Amlodipine Besylate 10 mg 11/13/20 09:00 11/18/20 08:04 Amlodipine 5 Mg Tab PO 10 mg DAILY VISHNU Administration Aspirin 81 mg 11/10/20 09:00 11/18/20 08:05 Aspirin Chewable 81 Mg Tab PO 81 mg DAILY VISHNU Administration Atorvastatin Calcium 40 mg 11/09/20 21:00 11/17/20 22:07 Atorvastatin Calcium 40 Mg Tab PO 40 mg HS VISHNU Administration Heparin Sodium (Porcine) 5,000 units 02/04/21 21:00 11/18/20 08:08 Heparin 5,000 Units/Ml Vial SC 5,000 units BID VISHNU Administration Hydralazine HCl 10 mg 11/11/20 17:19 11/11/20 17:58 Hydralazine 20 Mg/Ml Vial SLOW IVP 10 mg Q4H PRN Administration SBP GREATER THAN 160 Hydralazine HCl 50 mg 11/13/20 21:00 11/18/20 08:06 Hydralazine 25 Mg Tab PO 50 mg TID VISHNU Administration Insulin Glargine 45 units/ 0.45 mls @ 0 mls/hr 11/09/20 21:00 11/17/20 22:07 Miscellaneous Medication SC 0.45 mls HS VISHNU Administration Milrinone Lactate/Dextrose 20 100 mls @ 12.602 mls/hr 11/14/20 17:00 11/18/20 03:35 mg/ Device IVPB 100 mls INF VISHNU Administration 0.32 MCG/KG/MIN Insulin Human Lispro 0 units 11/09/20 19:13 11/17/20 12:43 Humalog 300 Units/3 Ml Vial SC 3 unit .MILD SLIDING SCALE PRN Administration Mild Correctional Scale Isosorbide Dinitrate 30 mg 11/16/20 15:00 11/18/20 08:06 Isosorbide Dinitrate 20 Mg Tab PO 30 mg TID [facility] Administration Magnesium Oxide 400 mg 11/09/20 21:00 11/18/20 08:07 Magnesium Oxide 400 Mg Tab PO 400 mg BID [facility] Administration Morphine Sulfate 4 mg 11/15/20 09:23 11/16/20 08:10 Morphine 4 Mg/Ml Vial SLOW IVP 4 mg Q6H PRN Administration Moderate to Severe Pain (6-10) Ondansetron HCl 4 mg 11/16/20 16:14 11/17/20 09:39 Ondansetron Pf 4 Mg/2 Ml Vial IVP 4 mg Q6H PRN Administration Nausea/Vomiting Polyethylene Glycol 17 gm 11/18/20 09:00 11/18/20 08:08 Polyethylene Glycol 3350 17 Gm Packet PO Not Given DAILY [facility] Senna/Docusate Sodium 1 tab 11/17/20 21:00 11/18/20 08:09 Senokot S 8.6-50 Mg Tab PO Not Given BID VISHNU Sodium Chloride 10 ml 11/09/20 19:13 11/13/20 08:13 Flush - Normal Saline 10 Ml Syringe IVF 10 ml PRN PRN Administration Saline Flush - Exam General Appearance: awake alert Eye: anicteric sclera ENT: normocephalic atraumatic, moist mucosa Neck: no JVD Respiratory - other findings: fair air entry Cardiovascular: RRR Gastrointestinal: soft, normal bowel sounds Gastrointestinal - other findings: obese Extremities: 1+ LE edema Neurological: CN's grossly intact, no new deficit Musculoskeletal: generalized weakness PSYCH: A&O x 3 Nephrology Results - Labs Result Diagrams: 11/18/20 07:01 11/18/20 07:11 Lab results: WBC 10.7 thou/uL (4.8-10.8) 11/18/20 07:01 Hgb 8.4 g/dL (14.0-18.0) L 11/18/20 07:01 Hct 26.2 % (42.0-52.0) L 11/18/20 07:01 MCV 94.9 fL (78.0-98.0) 11/18/20 07:01 Plt Count 258 thou/uL (130-400) 11/18/20 07:01 Neutrophils % 70.2 % (42.0-75.0) 11/18/20 07:01 Sodium 136 mmol/L (136-145) 11/18/20 07:11 Potassium 4.6 mmol/L (3.5-5.1) 11/18/20 07:11 Chloride 95 mmol/L (98-107) L 11/18/20 07:11 Carbon Dioxide 31 mmol/L (22-29) H 11/18/20 07:11 BUN 57 mg/dL (8.4-25.7) H 11/18/20 07:11 Creatinine 5.13 mg/dL (0.7-1.3) H 11/18/20 07:11 Glucose 97 mg/dL (70-105) 11/18/20 07:11 Calcium 8.9 mg/dL (7.8-10.44) 11/18/20 07:11 Total Bilirubin 0.6 mg/dL (0.2-1.2) 11/09/20 16:19 AST 11 U/L (5-34) 11/09/20 16:19 ALT 16 U/L (8-55) 11/09/20 16:19 Alkaline Phosphatase 112 U/L (40-110) H 11/09/20 16:19 Troponin I 0.025 ng/mL (< 0.028) 11/09/20 16:19 B-Natriuretic Peptide 547.0 pg/mL (0-100) H 11/09/20 16:19 Serum Total Protein 6.9 g/dL (6.0-8.3) 11/09/20 16:19 Albumin 3.3 g/dL (3.5-5.0) L 11/18/20 07:11 Sodium 136 mmol/L (136-145) 11/18/20 07:11 Potassium 4.6 mmol/L (3.5-5.1) 11/18/20 07:11 Chloride 95 mmol/L (98-107) L 11/18/20 07:11 Carbon Dioxide 31 mmol/L (22-29) H 11/18/20 07:11 Anion Gap 15 mmol/L (10-20) 11/18/20 07:11 BUN 57 mg/dL (8.4-25.7) H 11/18/20 07:11 Creatinine 5.13 mg/dL (0.7-1.3) H 11/18/20 07:11 Glucose 97 mg/dL (70-105) 11/18/20 07:11 Calcium 8.9 mg/dL (7.8-10.44) 11/18/20 07:11 Phosphorus 4.7 mg/dL (2.3-4.7) 11/18/20 07:11 Magnesium 3.0 mg/dL (1.6-2.6) H 11/16/20 03:30 Albumin 3.3 g/dL (3.5-5.0) L 11/18/20 07:11 Nephrology AP PN - Plan ZAHEER: Due to hemodynamic factors related to cardiac decompensation initially but later due to volume contraction. Creat continues to trend up. CKD 4. Volume overload:Due to Cardiac decompensation. Improved with diuretics. Nausea and vomiting. Etiology unclear. ? constipation +/- medication ( morphine) +/- uremia Anemia in CKD HTN: Control is better Acute on chronic combined systolic and diastolic HF. Now on milrinone Acute respiratory failure due to CHF exacerbation. Improved off oxygen PLAN Give 50 grams of albumin. Get Urinalysis with urine electrolytes No more diuretic Continue milrinone and other treatments Recheck renal function in the am.
--- NOTE | 2020-11-18 11:31 | PRG ---
DATE OF SERVICE: 11/18/2020 SUBJECTIVE: Mr. Jeffery had a better day. His nausea and vomiting have gone away. He was able to eat breakfast this morning. He was quite happy with that. However, since he had nausea and vomiting, he did not want to walk yesterday. He also complains of not getting enough fluid. REVIEW OF SYSTEMS: GENERAL: There is no fever, chills, or productive cough. HEENT: There is no change in vision, hearing, or swallowing. PULMONARY: There is no shortness of breath this morning. CARDIAC: There is no complaint of palpitation, chest pain, or syncope. GI: Please see HPI. : He is able to urinate on his own. MUSCULOSKELETAL: There are no muscle or joint pains. INTEGUMENT: There is no skin breakdown. NEUROLOGIC: There are no focal deficits or weaknesses. MEDICATIONS: Include; 1. Alogliptin 6.25 mg daily. 2. Amlodipine 10 mg daily. 3. Aspirin 81 mg daily. 4. Atorvastatin 40 mg daily. 5. Hydralazine 50 mg t.i.d. 6. Glargine insulin 45 units daily. 7. Sliding scale insulin. 8. Isosorbide dinitrate 30 mg t.i.d. 9. Magnesium oxide 400 mg b.i.d. 10. Milrinone at 0.25 mcg/kg per minute. 11. Senokot-S one tablet b.i.d. His telemetry was reviewed. He is in sinus rhythm. There is no concerning arrhythmia. PHYSICAL EXAMINATION: VITAL SIGNS: His systolic blood pressure ranged between 115 to 139, diastolic blood pressure ranged between 54 and 60. GENERAL: He is alert and conversational, sitting comfortably in a recliner. He is not short of breath today and is looking better than yesterday. HEENT: Showed EOMI. Oropharynx is benign with moist mucosa. NECK: JVP is about 10 or 11 cm. PULMONARY: There is good air movement bilaterally. There are no crackles. CARDIAC: Regular rate and rhythm with normal S1 and S2. However, there is 2/6 holosystolic murmur at the apex, which corresponds to mitral regurgitation. ABDOMEN: Large, soft, nontender. Decreased bowel sounds. EXTREMITIES: Lower extremities, he has greater than 1 cm pitting edema from feet to about detention towards knee. This is about the same as yesterday. His inputs and output from last 24 hours are 695 in and 600 mL out, so he essentially is net even. LABORATORY VALUES: From this morning are white cell count 10.7, hemoglobin 8.4, and platelets of 250. His chemistry shows sodium 136, potassium 4.6, chloride 95, bicarb is 31, BUN 57, creatinine 5.13, so his creatinine has increased again. His albumin is 3.3 this morning. ASSESSMENT: 55-year-old gentleman has worsening renal dysfunction, albeit slightly. This is despite an attempt at increasing cardiac output. He also has most likely [place] Heart Association stage C and [place] heart Association class III heart failure with preserved ejection fraction with predominantly diastolic dysfunction. Milrinone at 0.25 is usually not a strong enough dose, but this dose is used because of his severe renal dysfunction. At this point, we will need to work with pharmacist to find the maximal tolerable dose at his renal function, that way we can actually augment his heart well enough to provide greater amount of blood flow to the kidneys. He is receiving very little fluid. I will recommend to consider to provide a small bolus of IV fluid as attempt to recover kidneys. In terms of volume status kern, he is much better than 1 week ago, so he can tolerate a small dose of IV fluids. Please see the following for my recommendations. RECOMMENDATIONS: 1. Increase milrinone to 0.32 mcg/kg per minute. 2. Please consider small IV fluid bolus of 500 mL. 3. We will continue the higher dose of milrinone for at least 2 days. It will take this time to see the full effects. 4. Please continue to maintain potassium above 4 and magnesium above 2. 5. Please help the patient with achieving a bowel movement. It has been a pleasure taking care of Mr. Jeffery. If you have any questions, please give me a call. The total visitation time today is about 35 minutes. Job ID: [id number] MTDD
--- NOTE | 2020-11-18 12:38 | PDOC.CPN ---
- Subjective Date: 11/18/20 Time: 12:15 Interval history: No overnight events, he is sitting up in his chair, he states he has had no nausea or vomiting today and he is feeling good. He denies any chest pain or SOB today. - Review of Systems General: denies: fever/chills, weight/appetite/sleep changes, night sweats, fatigue Respiratory: denies: cough, congestion, shortness of breath, exercise intolerance Cardiovascular: denies: chest pain, palpitation, edema, paroxysmal nocturnal dyspnea, orthopnea Gastrointestinal: denies: nausea, vomiting, diarrhea, constipation, abd pain, GI bleeding Musculoskeletal: denies: pain, tenderness, stiffness, swelling, arthritis/arthralgias Neurological: denies: numbness, syncope, seizure, weakness - Objective Allergies/Adverse Reactions: Allergies Allergy/AdvReac Type Severity Reaction Status Date / Time dobutamine AdvReac Mild Anaphylaxis Verified 11/12/20 07:24 Visit Medications: Current Medications Acetaminophen (Acetaminophen 325 Mg Tab) 650 mg PO Q4H PRN PRN Reason: Headache/Fever/Mild Pain (1-3) Last Admin: 11/15/20 08:35 Dose: 650 mg Documented by: Albumin Human (Albumin 25% 25 Gm/100 Ml Bot) 50 gm IVPB NOW [facility] Stop: 11/18/20 13:00 Last Admin: 11/18/20 11:20 Dose: 50 gm Documented by: Alogliptin Benzoate (Alogliptin 6.25 Mg Tab) 6.25 mg PO DAILY [facility] Last Admin: 11/18/20 08:04 Dose: 6.25 mg Documented by: Amlodipine Besylate (Amlodipine 5 Mg Tab) 10 mg PO DAILY [facility] Last Admin: 11/18/20 08:04 Dose: 10 mg Documented by: Aspirin (Aspirin Chewable 81 Mg Tab) 81 mg PO DAILY [facility] Last Admin: 11/18/20 08:05 Dose: 81 mg Documented by: Atorvastatin Calcium (Atorvastatin Calcium 40 Mg Tab) 40 mg PO [facility] Last Admin: 11/17/20 22:07 Dose: 40 mg Documented by: Dextrose/Water (Dextrose 50% Abboject 50 Ml Syringe) 25 gm SLOW IVP PRN PRN PRN Reason: Hypoglycemia Glucagon (Glucagon 1 Mg/Ml Vial) 1 mg IM PRN PRN PRN Reason: Hypoglycemia Heparin Sodium (Porcine) (Heparin 5,000 Units/Ml Vial) 5,000 units SC BID [facility] Last Admin: 11/18/20 08:08 Dose: 5,000 units Documented by: Hydralazine HCl (Hydralazine 20 Mg/Ml Vial) 10 mg SLOW IVP Q4H PRN PRN Reason: SBP GREATER THAN 160 Last Admin: 11/11/20 17:58 Dose: 10 mg Documented by: Hydralazine HCl (Hydralazine 25 Mg Tab) 50 mg PO TID [facility] Last Admin: 11/18/20 08:06 Dose: 50 mg Documented by: Dextrose/Water (D5w) 1,000 mls @ 0 mls/hr IV .Q0M PRN PRN Reason: Hypoglycemia Insulin Glargine 45 units/ (Miscellaneous Medication) 0.45 mls @ 0 mls/hr SC [facility] Last Admin: 11/17/20 22:07 Dose: 0.45 mls Documented by: Milrinone Lactate/Dextrose 20 (mg/ Device) 100 mls @ 12.602 mls/hr IVPB INF [facility] Last Admin: 11/18/20 03:35 Dose: 100 mls Documented by: Insulin Human Lispro (Humalog 300 Units/3 Ml Vial) 0 units SC .MILD SLIDING SCALE PRN PRN Reason: Mild Correctional Scale Last Admin: 11/17/20 12:43 Dose: 3 unit Documented by: Isosorbide Dinitrate (Isosorbide Dinitrate 20 Mg Tab) 30 mg PO TID [facility] Last Admin: 11/18/20 08:06 Dose: 30 mg Documented by: Magnesium Oxide (Magnesium Oxide 400 Mg Tab) 400 mg PO BID [facility] Last Admin: 11/18/20 08:07 Dose: 400 mg Documented by: Morphine Sulfate (Morphine 4 Mg/Ml Vial) 4 mg SLOW IVP Q6H PRN PRN Reason: Moderate to Severe Pain (6-10) Last Admin: 11/16/20 08:10 Dose: 4 mg Documented by: Ondansetron HCl (Ondansetron Pf 4 Mg/2 Ml Vial) 4 mg IVP Q6H PRN PRN Reason: Nausea/Vomiting Last Admin: 11/17/20 09:39 Dose: 4 mg Documented by: Polyethylene Glycol (Polyethylene Glycol 3350 17 Gm Packet) 17 gm PO DAILY [facility] Last Admin: 11/18/20 08:08 Dose: Not Given Documented by: Senna/Docusate Sodium (Senokot S 8.6-50 Mg Tab) 1 tab PO BID [facility] Last Admin: 11/18/20 08:09 Dose: Not Given Documented by: Sodium Chloride (Flush - Normal Saline 10 Ml Syringe) 10 ml IVF PRN PRN PRN Reason: Saline Flush Last Admin: 11/13/20 08:13 Dose: 10 ml Documented by: Vital Signs & Weight: Vital Signs Temp Pulse Resp BP BP BP Pulse Ox 11/18/20 11:08 97.7 F 91 18 131/59 L 92 L 11/18/20 08:06 79 139/60 11/18/20 08:04 79 139/60 11/18/20 08:00 93 L 11/18/20 07:54 97.9 F 79 16 139/60 93 L 11/18/20 04:40 98 F 87 20 115/54 L 92 L 11/18/20 03:49 94 L 11/18/20 01:42 88 130/58 L Admit Weight 283 lb 8 oz Weight 286 lb 2 oz - Quality Measures Condition: Heart Failure CV meds: FRIEDA/ARB: No, Statin: Yes, ASA: Yes - Medication Contraindications No FRIEDA/ARB reason: Medical contraindication - Physical Exam General: alert & oriented x3, appears well, no apparent distress HEENT: mucus membranes moist, normocephaly Neck: midline trachea, no JVD/HJR, no masses, no bruit Cardiac: regular rate and rhythm, no murmur, S1/S2 Lungs: clear to auscultation, no wheeze, rales, rhonchi Neuro: grossly intact Abdomen: active bowel sounds, soft, non-tender, no masses Extremities: no cyanosis, no clubbing, no edema, 2+ Posterior Tibial, 2+ Dorsalis Pedus Skin: clear Musculoskeletal: no pain, no fluid collection - Labs Result Diagrams: 11/18/20 07:01 11/18/20 07:11 Troponin/CKMB Troponin I 0.025 ng/mL (< 0.028) 11/09/20 16:19 - EKG Interpretation EKG Method: Telemetry EKG: sinus rhythm (SR HR 80-100's) - Assessment/Plan Assessment/Plan: 1. CHF exacerbation: patient states he feels as if he is breathing better each day, he denies any SOB or KUMARI, he was able to diuresis about 330 mL of fluid. He continues on the Milrinone drip. 2. ZAHEER on CKD: managed by primary care services, his creatinine today is 5.13, he is not a candidate for Entresto or FRIEDA/ARB therapy due to this. 3. Hypertension: his BP is under resonable control at this time, we will continue with Amlodipine and Isosorbide Dinitrate at this time 4. Hyperlipidemia: will continue his Atorvastatin 40 mg at this time We will continue to follow this patient and continue symptomatic care at this time Pt. seen and eval. by me. I agree with the A/P by the [employer]. Chest clear. RRR. mild LE edema. Continue present treatment. Renal function is worsening. [email or web address]
[2020-11-18 16:52] LABS: Bacteria/HPF None Seen HPF (None Seen); Bilirubin Negative (Negative); Blood, Urine Negative (Negative); Clarity Clear (Clear); Glucose, Urine (Dipstick) 100 mg/dL (Negative); Ketone, Urine Negative (Negative); Leukocyte Negative Leu/uL (Negative); Nitrite Negative (Negative); Protein, Urine (Dipstick) 300 mg/dL (Neg-Trace); RBC/HPF 0-3 HPF (0-3); Specific Gravity, Urine 1.014 (1.002-1.036); Squamous Epithelial None Seen HPF (0-3); Urobilinogen Normal mg/dL (Less than 2); WBC/HPF 0-3 HPF (0-3)
[2020-11-18 16:53] LABS: Urine Culture Reflex No No
[2020-11-18 17:23] LABS: Creatinine, Urine 115.91 mg/dL (63-166)
[2020-11-18] MEDS: Insulin Glargine 45 UNITS in Pre-Filled Syringe 1 EACH SC SCH (22:31)
[2020-11-18] MEDS: Atorvastatin Calcium 40 MG TAB PO SCH (22:31)
[2020-11-19] MEDS: Milrinone Lactate/D5W 20 MG in Premix Bag 1 BAG IVPB SCH ×3 (04:22→20:07)
[2020-11-19 04:29] LABS: #Eosinphils 0.4 thou/uL (0.0-0.7); #Lymphocytes 1.7 thou/uL (1.20-3.40); #Monocytes 1.1 thou/uL (0.11-0.59); #Neutrophils 9.2 thou/uL (1.40-6.50); %Basophils 0.3 % (0.0-1.0); %Eosinophils 3.3 % (0.0-10.0); %Lymphocytes 13.7 % (21.0-51.0); %Monocytes 8.7 % (0.0-10.0); Hemoglobin 8.6 g/dL (14.0-18.0); Mean Corpuscular HGB CONC 32.4 g/dL (32.0-36.0); Mean Corpuscular Hemoglobin 30.6 pg (27.0-31.0); Mean Corpuscular Volume 94.4 fL (78.0-98.0); Mean Platelet Volume 8.1 fL (7.4-10.4); Platelet Count 265 thou/uL (130-400); RBC Distribution Width 12.7 % (11.5-14.5); Red Blood Cell (RBC) Count 2.81 mill/uL (4.70-6.10); White Blood Cell (WBC) Count 12.4 thou/uL (4.8-10.8)
[2020-11-19 04:48] LABS: Phosphorus 5.1 mg/dL (2.3-4.7)
[2020-11-19 04:49] LABS: Albumin 3.7 g/dL (3.5-5.0); Anion Gap 19 mmol/L (10-20); BUN (Urea Nitrogen) 62 mg/dL (8.4-25.7); BUN/Creatinine Ratio 11.44; Calc. Creatinine Clearance 29 mL/min (70-130); Calcium 9.4 mg/dL (7.8-10.44); Carbon Dioxide 28 mmol/L (22-29); Chloride 94 mmol/L (98-107); Glucose 156 mg/dL (70-105); Magnesium 3.8 mg/dL (1.6-2.6); Phosphorus 5.1 mg/dL (2.3-4.7); Potassium 4.6 mmol/L (3.5-5.1); Sodium 136 mmol/L (136-145)
[2020-11-19 08:59] LABS: Troponin I 0.094 ng/mL (< 0.028)
[2020-11-19] MEDS: Senokot S 8.6-50 MG TAB PO SCH ×2 (09:57→20:08)
[2020-11-19] MEDS: Alogliptin 6.25 MG TAB PO SCH (09:57)
[2020-11-19] MEDS: Isosorbide Dinitrate 20 MG TAB PO SCH ×3 (09:57→20:09)
[2020-11-19] MEDS: Amlodipine 5 MG TAB PO SCH (09:57)
[2020-11-19] MEDS: Aspirin Chewable 81 MG TAB PO SCH (09:57)
[2020-11-19] MEDS: Polyethylene Glycol 3350 17 GM Packet PO SCH ×2 (09:58→10:05)
[2020-11-19] MEDS: hydrALAZINE 25 MG TAB PO SCH ×3 (09:58→20:09)
[2020-11-19] MEDS: Heparin 5,000 UNITS/ML VIAL SC SCH ×2 (09:58→20:07)
--- NOTE | 2020-11-19 10:30 | PDOC.FM ---
- Subjective Subjective: Patient threatened to leave AMA last night per nurse and nursing note. Patient calmer this AM but is frustrated that he is not feeling better and actually is feeling more fatigued. He endorses sharp, bilateral chest pain that has been going on since last night. The pain is nonradiating and is constant, nothing has made it better or worse. He denies SOB, N/V. - Objective MAR Reviewed: Yes Vital Signs & Weight: Vital Signs (12 hours) Temp Pulse Resp BP BP Pulse Ox 11/19/20 08:06 98.2 F 93 18 132/62 90 L 11/19/20 04:00 97.3 F L 92 17 151/72 H 92 L 11/19/20 00:40 98 154/69 H Weight Admit Weight 128.593 kg Weight 128.877 kg I&O: 11/18/20 11/19/20 11/20/20 06:59 06:59 06:59 Intake Total 695 1411 Output Total 600 1250 Balance 95 161 Result Diagrams: 11/19/20 04:11 11/19/20 04:11 Phys Exam - Physical Examination Constitutional: NAD Respiratory: no wheezing, no rales, no rhonchi Cardiovascular: RRR, no significant murmur, no rub CP nonreproducible Gastrointestinal: soft, non-tender, no distention, positive bowel sounds Musculoskeletal: no edema, pulses present Neurological: non-focal Dx/Plan - Plan Plan: Acute Chest Pain -Trop and EKG -Trop 0.094 increased from admission of 0.025 -Likely 2/2 NSTEMI Type II/demand ischemia -will trend troponin Acute Hypoxic Respiratory Failure 2/2 CHF exacerbation -CXR mild left basilar opacity with small L pleural effusion, BNP 547, Trop 0.025 -Last ECHO 06/2020 showed EF of 35-40%. ECHO 12/02: EF 40-45%, dilated cardiomyopathy -Mg 3.0, Phos 5.2. Procal 0.12. Rocephin (11/09-11/10), Azithro (11/09-11/10). WBC 8.9 -Failed dobutamine trial -O2 requirement: RA -Cardiology consult (Padma): Continue 50mg TID hydralazine -Dr. Acevedo consult: Continue milrinone drip. Continue 30mg isosorbide nitrate daily. Hold on diuretics. ZAHEER on CKD 4 -Cr 3.88, 3.97, 4.08, 5.13 -Labs from clinic 08/2020 showed BUN/Cr 42/3.07 -Nephrology consult (Obi): appreciate recs -Continue milrinone drip per Dr. Acevedo recs. Patient will likely need dialysis. Nausea/Vomiting -zofran prn -KUB negative -most likely due to morphine he received for hip pain -Continue bowel regime Right Hip Pain, resolved -MRI negative for avascular necrosis -morphine prn for pain DMII -Home lantus 14units daily -Hold home lantus, mild SSI in place Chronic Normocytic Anemia -Hgb 9.1, 8.2. MCV 94 -iron studies in 06/2020 show that he is iron deficient -suspect that this is due to his CKD and is probably EPO deficient as well Chronic Conditions HTN Hx of CVA Asthma -continue home medications CODE: Full VTE: Heparin PCP: Calvin Dispo: Appreciate Cardiology and Nephrology recs. Addendum - Attending - Attending Attestation Date/Time: 11/19/20 1123 I personally evaluated the patient and discussed the management with the team. I agree with the History, Examination, Assessment and Plan documented above with any addition or exceptions noted below.
[2020-11-19] MEDS ORDERED: Carvedilol 6.25 MG TAB PO SCH (12:00)
[2020-11-19 12:19] LABS: Troponin I 0.113 ng/mL (< 0.028)
--- NOTE | 2020-11-19 13:08 | PRG ---
DATE OF SERVICE: 11/19/2020 SERVICE: Advanced Heart Failure Transplant Cardiology Consult Service. SUBJECTIVE: Mr. Hamlet Jeffery is upset. He said that he did not get any breakfast and there is no one bringing the lunch. He is starved. He is tired. He is also weak everyday from not eating, and he also said he is only being allowed small sips of water and this is not tolerable. He also had nonspecific chest pains last night, but the EKG was nonrevealing. This morning, he does not have any symptoms except for being hungry and feeling weak from being hungry. REVIEW OF SYSTEMS: GENERAL: There is no fever, chills, or productive cough. HEENT: There is no change in vision, hearing, or swallowing. PULMONARY: There is no shortness of breath. CARDIAC: Please see HPI. GI: Please see HPI. MUSCULOSKELETAL: There is no complaint of pains today. INTEGUMENT: There is no new skin breakdown. NEUROLOGIC: There are no focal deficits or weaknesses. CURRENT MEDICATIONS: 1. Alogliptin at 6.25 mg daily. 2. Amlodipine at 10 mg daily. 3. Aspirin 81 mg daily. 4. Atorvastatin 40 mg at bedtime. 5. Hydralazine 50 mg three times a day. 6. Glargine insulin 45 units daily. 7. Isosorbide dinitrate, should have been 20 mg three times a day, but is still labeled as 30. 8. Lactulose 20 g p.o. as needed. 9. Milrinone currently at 0.32 mcg/kg per minute. 10. MiraLAX 17 g daily. 11. Docusate one tablet b.i.d. OBJECTIVE: VITAL SIGNS: Heart rate 93, blood pressure 132/62. GENERAL: He is alert and conversational, apparently upset, his is on the phone too. HEENT: Show EOMI. Oropharynx is benign with moist mucosa NECK: JVP about 10 cm. PULMONARY: There is good air movement bilaterally. Clear to auscultation bilaterally. CARDIAC Regular rate and rhythm with normal S1, S2. There is 2/6 holosystolic murmur at the apex. ABDOMEN: Large, soft, nontender. Positive bowel sounds. EXTREMITIES: Lower extremity has about 1 cm pitting edema from his feet to about intermediate towards his knee. This is not changed from yesterday. LABORATORY VALUE: Shows a white cell count 12.4, hemoglobin 8.6, and platelet count of 265. His chemistry showed sodium of 136, potassium 4.6, chloride 94, bicarb 28, BUN is slightly increased from yesterday to 62 and creatinine is increased from yesterday to today at 5.42. He has a mild elevation of troponin at 0.094. There is likely due to his renal failure. ASSESSMENT: 55-year-old gentleman has slight worsening of his renal dysfunction. He also has increased urine output. He had a urine output of 1250 mL. This occur without the use of diuretics. Essentially, this is equivalent of receiving 80 mg of IV Lasix along with metolazone, so this suggests that he has some return of renal function and increased blood flow due to milrinone is helping. At this point, careful IV fluid fluids may help; however, his overall fatigue could be due to worsening renal function and perhaps he is nearing the point of needing dialysis. Please see the following for my recommendations: RECOMMENDATIONS: 1. Please add carvedilol at 6.25 mg p.o. q.12 hours. 2. Decrease isosorbide dinitrate to 20 mg 3 times a day. 3. Continue with milrinone at 0.32 mcg/kg per minute. 4. Please do give 1 liter of IV fluids. This may help the patient to feel better. 5. I will talk to the nurse and nursing staff about helping the patient to make sure he gets his breakfast, lunch and dinner. It has been a pleasure taking care of Mr. Jeffery. If you have any questions, please give me a call. The total visitation time including family conference is 40 minutes. Job ID: [id number] [facility]
[2020-11-19] MEDS ORDERED: Sodium Chloride 0.9% 1,000 ML IV SCH (14:00)
--- NOTE | 2020-11-19 14:00 | PDOC.NEPPN ---
- Subjective Encounter Date: 11/19/20 Subjective: Seen and examined. Complaining of generalized weakness. Denied nausea or vomiting. - Objective Vital Signs & Weight: Vital Signs (12 hours) Temp Pulse Resp BP BP BP Pulse Ox 11/19/20 11:40 98.4 F 88 18 135/60 90 L 11/19/20 08:06 98.2 F 93 18 132/62 90 L 11/19/20 04:00 97.3 F L 92 17 151/72 H 92 L Weight Admit Weight 283 lb 8 oz Weight 284 lb 2 oz I&O: 11/18/20 11/19/20 11/20/20 06:59 06:59 06:59 Intake Total 695 1411 Output Total 600 1250 Balance 95 161 Result Diagrams: 11/19/20 04:11 11/19/20 04:11 Additional Labs: Accuchecks 11/19/20 11/19/20 11/18/20 10:59 05:40 20:31 POC Glucose 157 H 156 H 172 H 11/18/20 17:01 POC Glucose 168 H Nephrology ROS - Medication Medications: Active Medications Generic Name Dose Route Start Last Admin Trade Name Freq PRN Reason Stop Dose Admin Acetaminophen 650 mg 11/09/20 19:13 11/15/20 08:35 Acetaminophen 325 Mg Tab PO 650 mg Q4H PRN Administration Headache/Fever/Mild Pain (1-3) Alogliptin Benzoate 6.25 mg 11/10/20 09:00 11/19/20 09:57 Alogliptin 6.25 Mg Tab PO 6.25 mg DAILY [facility] Administration Amlodipine Besylate 10 mg 11/13/20 09:00 11/19/20 09:57 Amlodipine 5 Mg Tab PO 10 mg DAILY [facility] Administration Aspirin 81 mg 11/10/20 09:00 11/19/20 09:57 Aspirin Chewable 81 Mg Tab PO 81 mg DAILY [facility] Administration Atorvastatin Calcium 40 mg 11/09/20 21:00 11/18/20 22:31 Atorvastatin Calcium 40 Mg Tab PO 40 mg HS [facility] Administration Carvedilol 6.25 mg 11/19/20 12:00 11/19/20 12:04 Carvedilol 6.25 Mg Tab PO 11/19/20 14:00 6.25 mg NOW [facility] Administration Heparin Sodium (Porcine) 5,000 units 11/17/20 21:00 11/19/20 09:58 Heparin 5,000 Units/Ml Vial SC 5,000 units BID [facility] Administration Hydralazine HCl 10 mg 11/11/20 17:19 11/11/20 17:58 Hydralazine 20 Mg/Ml Vial SLOW IVP 10 mg Q4H PRN Administration SBP GREATER THAN 160 Hydralazine HCl 50 mg 11/13/20 21:00 11/19/20 09:58 Hydralazine 25 Mg Tab PO 50 mg TID [facility] Administration Insulin Glargine 45 units/ 0.45 mls @ 0 mls/hr 11/09/20 21:00 11/18/20 22:31 Miscellaneous Medication SC 0.45 mls HS [facility] Administration Milrinone Lactate/Dextrose 20 100 mls @ 12.602 mls/hr 11/14/20 17:00 11/19/20 12:15 mg/ Device IVPB 100 mls INF [facility] Administration 0.32 MCG/KG/MIN Insulin Human Lispro 0 units 11/09/20 19:13 11/17/20 12:43 Humalog 300 Units/3 Ml Vial SC 3 unit .MILD SLIDING SCALE PRN Administration Mild Correctional Scale Morphine Sulfate 4 mg 11/15/20 09:23 11/16/20 08:10 Morphine 4 Mg/Ml Vial SLOW IVP 4 mg Q6H PRN Administration Moderate to Severe Pain (6-10) Ondansetron HCl 4 mg 11/16/20 16:14 11/17/20 09:39 Ondansetron Pf 4 Mg/2 Ml Vial IVP 4 mg Q6H PRN Administration Nausea/Vomiting Polyethylene Glycol 17 gm 11/18/20 09:00 11/19/20 10:05 Polyethylene Glycol 3350 17 Gm Packet PO Not Given DAILY [facility] Senna/Docusate Sodium 1 tab 11/17/20 21:00 11/19/20 09:57 Senokot S 8.6-50 Mg Tab PO 1 tab BID [facility] Administration Sodium Chloride 10 ml 11/09/20 19:13 11/13/20 08:13 Flush - Normal Saline 10 Ml Syringe IVF 10 ml PRN PRN Administration Saline Flush - Exam General Appearance: awake alert Eye: anicteric sclera ENT: normocephalic atraumatic, moist mucosa Neck: supple Respiratory: no tachypnea Respiratory - other findings: fair air entry bilaterally Cardiovascular: RRR Gastrointestinal: soft, non-tender, non-distended, normal bowel sounds Extremities: no cyanosis, 2+ LE edema Neurological: CN's grossly intact, no new deficit Musculoskeletal: generalized weakness PSYCH: A&O x 3 Nephrology Results - Labs Result Diagrams: 11/19/20 04:11 11/19/20 04:11 Lab results: WBC 12.4 thou/uL (4.8-10.8) H 11/19/20 04:11 Hgb 8.6 g/dL (14.0-18.0) L 11/19/20 04:11 Hct 26.5 % (42.0-52.0) L 11/19/20 04:11 MCV 94.4 fL (78.0-98.0) 11/19/20 04:11 Plt Count 265 thou/uL (130-400) 11/19/20 04:11 Neutrophils % 74.0 % (42.0-75.0) 11/19/20 04:11 Sodium 136 mmol/L (136-145) 11/19/20 04:11 Potassium 4.6 mmol/L (3.5-5.1) 11/19/20 04:11 Chloride 94 mmol/L (98-107) L 11/19/20 04:11 Carbon Dioxide 28 mmol/L (22-29) 11/19/20 04:11 BUN 62 mg/dL (8.4-25.7) H 11/19/20 04:11 Creatinine 5.42 mg/dL (0.7-1.3) H 11/19/20 04:11 Glucose 156 mg/dL (70-105) H 11/19/20 04:11 Calcium 9.4 mg/dL (7.8-10.44) 11/19/20 04:11 Total Bilirubin 0.6 mg/dL (0.2-1.2) 11/09/20 16:19 AST 11 U/L (5-34) 11/09/20 16:19 ALT 16 U/L (8-55) 11/09/20 16:19 Alkaline Phosphatase 112 U/L (40-110) H 11/09/20 16:19 Troponin I 0.113 ng/mL (< 0.028) H 11/19/20 11:44 B-Natriuretic Peptide 547.0 pg/mL (0-100) H 11/09/20 16:19 Serum Total Protein 6.9 g/dL (6.0-8.3) 11/09/20 16:19 Albumin 3.7 g/dL (3.5-5.0) 11/19/20 04:11 Urine Ketones Negative mg/dL (Negative) 11/18/20 16:35 Urine Blood Negative (Negative) 11/18/20 16:35 Urine Nitrite Negative (Negative) 11/18/20 16:35 Ur Leukocyte Esterase Negative Samir/uL (Negative) 11/18/20 16:35 Urine RBC 0-3 HPF (0-3) 11/18/20 16:35 Urine WBC 0-3 HPF (0-3) 11/18/20 16:35 Ur Squamous Epith Cells None Seen HPF (0-3) 11/18/20 16:35 Urine Bacteria None Seen HPF (None Seen) 11/18/20 16:35 Sodium 136 mmol/L (136-145) 11/19/20 04:11 Potassium 4.6 mmol/L (3.5-5.1) 11/19/20 04:11 Chloride 94 mmol/L (98-107) L 11/19/20 04:11 Carbon Dioxide 28 mmol/L (22-29) 11/19/20 04:11 Anion Gap 19 mmol/L (10-20) 11/19/20 04:11 BUN 62 mg/dL (8.4-25.7) H 11/19/20 04:11 Creatinine 5.42 mg/dL (0.7-1.3) H 11/19/20 04:11 Glucose 156 mg/dL (70-105) H 11/19/20 04:11 Calcium 9.4 mg/dL (7.8-10.44) 11/19/20 04:11 Phosphorus 5.1 mg/dL (2.3-4.7) H 11/19/20 04:11 Phosphorus 5.1 mg/dL (2.3-4.7) H 11/19/20 04:11 Magnesium 3.8 mg/dL (1.6-2.6) H 11/19/20 04:11 Albumin 3.7 g/dL (3.5-5.0) 11/19/20 04:11 Nephrology AP PN - Plan ZAHEER: Due to hemodynamic factors related to cardiac decompensation initially but later due to volume contraction. ?ATN as creat continues to trend up. CKD 4. Urine output increase with increase in milrinone dose despite discontinuation of diuretic. ? intravascular contraction Volume overload: Due to Cardiac decompensation. Improved with diuretics. Anemia in CKD HTN: Control is better Acute on chronic combined systolic and diastolic HF. Now on milrinone Acute respiratory failure due to CHF exacerbation. Improved off oxygen Discussed with patient and spouse. They are distraught that things are not getting better. They are of the opinion that we should start dialysis if that will make things better. I told them that improvement of urine output with increase in milrinone is suggestive of renal recovery potential. we discussed NS 1 liter therapy for possible intravascular contraction. However, if no improvememt in renal function tomorrow, we will proceed with dialytic therapy PLAN Give 1000 NS at 100 cc/hr Continue milrinone and other treatments Recheck renal function in the am.
[2020-11-19 15:05] LABS: Troponin I 0.107 ng/mL (< 0.028)
[2020-11-19] MEDS: HumaLOG 300 UNITS/3 ML VIAL SC PRN (17:47)
[2020-11-19] MEDS: Carvedilol 6.25 MG TAB PO SCH (20:09)
[2020-11-19] MEDS: Atorvastatin Calcium 40 MG TAB PO SCH (20:09)
[2020-11-19] MEDS: Insulin Glargine 45 UNITS in Pre-Filled Syringe 1 EACH SC SCH (20:10)
[2020-11-20] MEDS: Milrinone Lactate/D5W 20 MG in Premix Bag 1 BAG IVPB SCH (03:23)
[2020-11-20 04:47] LABS: Albumin 3.5 g/dL (3.5-5.0); Anion Gap 14 mmol/L (10-20); BUN (Urea Nitrogen) 62 mg/dL (8.4-25.7); BUN/Creatinine Ratio 11.46; Calc. Creatinine Clearance 28 mL/min (70-130); Calcium 8.9 mg/dL (7.8-10.44); Carbon Dioxide 30 mmol/L (22-29); Chloride 96 mmol/L (98-107); Glucose 125 mg/dL (70-105); Magnesium 3.9 mg/dL (1.6-2.6); Phosphorus 4.4 mg/dL (2.3-4.7); Potassium 4.6 mmol/L (3.5-5.1); Sodium 135 mmol/L (136-145)
[2020-11-20] MEDS: Amlodipine 5 MG TAB PO SCH (08:45)
[2020-11-20] MEDS: hydrALAZINE 25 MG TAB PO SCH ×3 (08:45→22:26)
[2020-11-20] MEDS: Isosorbide Dinitrate 20 MG TAB PO SCH ×3 (08:46→22:26)
[2020-11-20] MEDS: Carvedilol 6.25 MG TAB PO SCH (08:46)
--- NOTE | 2020-11-20 09:10 | PDOC.FM ---
- Subjective Subjective: Patient with no acute concerns this AM, NAEO. Patient denies CP, SOB, N/V. - Objective MAR Reviewed: Yes Vital Signs & Weight: Vital Signs (12 hours) Temp Pulse Resp BP BP Pulse Ox 11/20/20 07:55 98.9 F 95 20 141/61 H 89 L 11/20/20 05:27 96 11/20/20 04:00 98.1 F 90 14 147/67 H 96 11/20/20 00:00 81 139/63 Weight Admit Weight 128.593 kg Weight 84.822 kg I&O: 11/19/20 11/20/20 11/21/20 06:59 06:59 06:59 Intake Total 1411 1891 Output Total 1250 1250 Balance 161 641 Result Diagrams: 11/19/20 04:11 11/20/20 04:13 Phys Exam - Physical Examination Constitutional: NAD Respiratory: no wheezing, no rales, no rhonchi, clear to auscultation bilateral Cardiovascular: RRR, no significant murmur, no rub Gastrointestinal: soft, non-tender, no distention Psychiatric: normal affect, A&O x 3 Dx/Plan - Plan Plan: Acute Chest Pain-resolved -Likely 2/2 NSTEMI Type II/demand ischemia Acute Hypoxic Respiratory Failure 2/2 CHF exacerbation -CXR mild left basilar opacity with small L pleural effusion, BNP 547, Trop 0.025 -Last ECHO 06/2020 showed EF of 35-40%. ECHO 12/02: EF 40-45%, dilated cardiomyopathy -Mg 3.0, Phos 5.2. Procal 0.12. Rocephin (11/09-11/10), Azithro (11/09-11/10). WBC 8.9 -Failed dobutamine trial -O2 requirement: RA -Cardiology consult (Padma): Continue 50mg TID hydralazine -Dr. Acevedo consult: Continue milrinone drip. Continue 30mg isosorbide nitrate daily. Hold on diuretics. ZAHEER on CKD 4 -Cr 3.88, 3.97, 4.08, 5.13 -Labs from clinic 08/2020 showed BUN/Cr 42/3.07 -Nephrology consult (Obi): appreciate recs -Continue milrinone drip per Dr. Acevedo recs. Patient will likely need dialysis. Nausea/Vomiting -zofran prn -KUB negative -most likely due to morphine he received for hip pain -Continue bowel regime Right Hip Pain, resolved -MRI negative for avascular necrosis -morphine prn for pain DMII -Home lantus 14units daily -Hold home lantus, mild SSI in place Chronic Normocytic Anemia -Hgb 9.1, 8.2. MCV 94 -iron studies in 06/2020 show that he is iron deficient -suspect that this is due to his CKD and is probably EPO deficient as well Chronic Conditions HTN Hx of CVA Asthma -continue home medications CODE: Full VTE: Heparin PCP: Calvin Dispo: Appreciate Cardiology and Nephrology recs. DC pending renal function and cardiac function. Addendum - Attending - Attending Attestation Date/Time: 11/20/20 1041 I personally evaluated the patient and discussed the management with the team. I agree with the History, Examination, Assessment and Plan documented above with any addition or exceptions noted below.
[2020-11-20] MEDS: Alogliptin 6.25 MG TAB PO SCH (10:09)
[2020-11-20] MEDS: Aspirin Chewable 81 MG TAB PO SCH (10:09)
[2020-11-20] MEDS: Senokot S 8.6-50 MG TAB PO SCH ×2 (10:09→22:26)
[2020-11-20] MEDS: Heparin 5,000 UNITS/ML VIAL SC SCH ×2 (10:09→22:26)
[2020-11-20] MEDS: Polyethylene Glycol 3350 17 GM Packet PO SCH (10:10)
[2020-11-20] MEDS ORDERED: Bisacodyl 10 MG SUPP PR SCH (10:30)
--- NOTE | 2020-11-20 11:04 | PDOC.NEPPN ---
- Subjective Encounter Date: 11/20/20 Subjective: Seen and examined. Developed ill feeling and worsening SOB this morning since around 7 am. No associated chest pain or palpitation. Also shivering and feeling cold. No BM in at least 4 days. - Objective Vital Signs & Weight: Vital Signs (12 hours) Temp Pulse Resp BP BP Pulse Ox 11/20/20 10:05 91 L 11/20/20 07:55 98.9 F 95 20 141/61 H 89 L 11/20/20 07:35 75 L 11/20/20 05:27 96 11/20/20 04:00 98.1 F 90 14 147/67 H 96 11/20/20 00:00 81 139/63 Weight Admit Weight 283 lb 8 oz Weight 187 lb I&O: 11/19/20 11/20/20 11/21/20 06:59 06:59 06:59 Intake Total 1411 1891 Output Total 1250 1250 Balance 161 641 Result Diagrams: 11/19/20 04:11 11/20/20 04:13 Additional Labs: Accuchecks 11/20/20 11/19/20 11/19/20 06:23 20:01 17:06 POC Glucose 133 H 165 H 258 H 11/19/20 10:59 POC Glucose 157 H Nephrology ROS - Medication Medications: Active Medications Generic Name Dose Route Start Last Admin Trade Name Freq PRN Reason Stop Dose Admin Acetaminophen 650 mg 11/09/20 19:13 11/15/20 08:35 Acetaminophen 325 Mg Tab PO 650 mg Q4H PRN Administration Headache/Fever/Mild Pain (1-3) Alogliptin Benzoate 6.25 mg 11/10/20 09:00 11/20/20 10:09 Alogliptin 6.25 Mg Tab PO 6.25 mg DAILY VISHNU Administration Amlodipine Besylate 10 mg 11/13/20 09:00 11/20/20 08:45 Amlodipine 5 Mg Tab PO 10 mg DAILY VISHNU Administration Aspirin 81 mg 11/10/20 09:00 11/20/20 10:09 Aspirin Chewable 81 Mg Tab PO 81 mg DAILY VISHNU Administration Atorvastatin Calcium 40 mg 11/09/20 21:00 11/19/20 20:09 Atorvastatin Calcium 40 Mg Tab PO 40 mg HS VISHNU Administration Carvedilol 6.25 mg 11/19/20 21:00 11/20/20 08:46 Carvedilol 6.25 Mg Tab PO 6.25 mg Q12HR VISHNU Administration Heparin Sodium (Porcine) 5,000 units 11/17/20 21:00 11/20/20 10:09 Heparin 5,000 Units/Ml Vial SC 5,000 units BID VISHNU Administration Hydralazine HCl 10 mg 11/11/20 17:19 11/11/20 17:58 Hydralazine 20 Mg/Ml Vial SLOW IVP 10 mg Q4H PRN Administration SBP GREATER THAN 160 Hydralazine HCl 50 mg 11/13/20 21:00 11/20/20 08:45 Hydralazine 25 Mg Tab PO 50 mg TID VISHNU Administration Insulin Glargine 45 units/ 0.45 mls @ 0 mls/hr 11/09/20 21:00 11/19/20 20:10 Miscellaneous Medication SC 0.45 mls HS VISHNU Administration Milrinone Lactate/Dextrose 20 100 mls @ 12.602 mls/hr 11/14/20 17:00 11/20/20 03:23 mg/ Device IVPB 100 mls INF VISHNU Administration 0.32 MCG/KG/MIN Insulin Human Lispro 0 units 11/09/20 19:13 11/19/20 17:47 Humalog 300 Units/3 Ml Vial SC 4 unit .MILD SLIDING SCALE PRN Administration Mild Correctional Scale Isosorbide Dinitrate 20 mg 11/19/20 15:00 11/20/20 08:46 Isosorbide Dinitrate 20 Mg Tab PO 20 mg TID VISHNU Administration Morphine Sulfate 4 mg 11/15/20 09:23 11/16/20 08:10 Morphine 4 Mg/Ml Vial SLOW IVP 4 mg Q6H PRN Administration Moderate to Severe Pain (6-10) Ondansetron HCl 4 mg 11/16/20 16:14 11/17/20 09:39 Ondansetron Pf 4 Mg/2 Ml Vial IVP 4 mg Q6H PRN Administration Nausea/Vomiting Polyethylene Glycol 17 gm 11/18/20 09:00 11/20/20 10:10 Polyethylene Glycol 3350 17 Gm Packet PO 17 gm DAILY VISHNU Administration Senna/Docusate Sodium 1 tab 11/17/20 21:00 11/20/20 10:09 Senokot S 8.6-50 Mg Tab PO 1 tab BID VISHNU Administration Sodium Chloride 10 ml 11/09/20 19:13 11/13/20 08:13 Flush - Normal Saline 10 Ml Syringe IVF 10 ml PRN PRN Administration Saline Flush - Exam General Appearance: awake alert General - other findings: obese Eye: anicteric sclera ENT: normocephalic atraumatic, moist mucosa Neck: symmetric Respiratory - other findings: Air entry is decreased at the bases. no rhonchi or distress Cardiovascular: RRR Gastrointestinal: soft, normal bowel sounds Gastrointestinal - other findings: obese Extremities - other findings: mild to moderate bilateral leg edema Neurological: CN's grossly intact, no new deficit Musculoskeletal: generalized weakness PSYCH: A&O x 3 Nephrology Results - Labs Result Diagrams: 11/19/20 04:11 11/20/20 04:13 Lab results: WBC 12.4 thou/uL (4.8-10.8) H 11/19/20 04:11 Hgb 8.6 g/dL (14.0-18.0) L 11/19/20 04:11 Hct 26.5 % (42.0-52.0) L 11/19/20 04:11 MCV 94.4 fL (78.0-98.0) 11/19/20 04:11 Plt Count 265 thou/uL (130-400) 11/19/20 04:11 Neutrophils % 74.0 % (42.0-75.0) 11/19/20 04:11 Sodium 135 mmol/L (136-145) L 11/20/20 04:13 Potassium 4.6 mmol/L (3.5-5.1) 11/20/20 04:13 Chloride 96 mmol/L (98-107) L 11/20/20 04:13 Carbon Dioxide 30 mmol/L (22-29) H 11/20/20 04:13 BUN 62 mg/dL (8.4-25.7) H 11/20/20 04:13 Creatinine 5.41 mg/dL (0.7-1.3) H 11/20/20 04:13 Glucose 125 mg/dL (70-105) H 11/20/20 04:13 Calcium 8.9 mg/dL (7.8-10.44) 11/20/20 04:13 Total Bilirubin 0.6 mg/dL (0.2-1.2) 11/09/20 16:19 AST 11 U/L (5-34) 11/09/20 16:19 ALT 16 U/L (8-55) 11/09/20 16:19 Alkaline Phosphatase 112 U/L (40-110) H 11/09/20 16:19 Troponin I 0.107 ng/mL (< 0.028) H 11/19/20 14:29 B-Natriuretic Peptide 547.0 pg/mL (0-100) H 11/09/20 16:19 Serum Total Protein 6.9 g/dL (6.0-8.3) 11/09/20 16:19 Albumin 3.5 g/dL (3.5-5.0) 11/20/20 04:13 Urine Ketones Negative mg/dL (Negative) 11/18/20 16:35 Urine Blood Negative (Negative) 11/18/20 16:35 Urine Nitrite Negative (Negative) 11/18/20 16:35 Ur Leukocyte Esterase Negative Samir/uL (Negative) 11/18/20 16:35 Urine RBC 0-3 HPF (0-3) 11/18/20 16:35 Urine WBC 0-3 HPF (0-3) 11/18/20 16:35 Ur Squamous Epith Cells None Seen HPF (0-3) 11/18/20 16:35 Urine Bacteria None Seen HPF (None Seen) 11/18/20 16:35 Sodium 135 mmol/L (136-145) L 11/20/20 04:13 Potassium 4.6 mmol/L (3.5-5.1) 11/20/20 04:13 Chloride 96 mmol/L (98-107) L 11/20/20 04:13 Carbon Dioxide 30 mmol/L (22-29) H 11/20/20 04:13 Anion Gap 14 mmol/L (10-20) 11/20/20 04:13 BUN 62 mg/dL (8.4-25.7) H 11/20/20 04:13 Creatinine 5.41 mg/dL (0.7-1.3) H 11/20/20 04:13 Glucose 125 mg/dL (70-105) H 11/20/20 04:13 Calcium 8.9 mg/dL (7.8-10.44) 11/20/20 04:13 Phosphorus 4.4 mg/dL (2.3-4.7) 11/20/20 04:13 Magnesium 3.9 mg/dL (1.6-2.6) H 11/20/20 04:13 Albumin 3.5 g/dL (3.5-5.0) 11/20/20 04:13 Nephrology AP PN - Plan ZAHEER: Due to hemodynamic factors related to cardiac decompensation initially but later due to volume contraction. ?ATN. BUN snd creat have plateued. CKD 4. Urine output increase with increase in milrinone dose despite discontinuation of diuretic. ? intravascular contraction Volume overload: Due to Cardiac decompensation. Improved with diuretics. Anemia in CKD HTN: Acute on chronic combined systolic and diastolic HF. Now on milrinone Acute respiratory failure due to CHF exacerbation. Improved and was off oxygen till earlier this morning when he was restarted on oxygen due to worsening SOB PLAN Given no further increase in creat/BUN and improved urine out suggestiing some renal recovery, I am inclined to continue watchful waiting and recheck renal function in the am. However, acute worsening of SOB is concerning for worsening volume overload given 1000 NS infusion at 100 cc/hr yesterday. We discussed about hemodialysis which will be mainly for volume management. I explained to patient that we will have to get a temporary dialysis catheter to do dialysis today and will cetainly also get a TDC to facilitate discharge. We also can wait till tomorro to get TDC. He elected to wait till sanchez for re accessment and TDC placement if indicated. Hold milrinone as requested by patient. Get repeat cxr. give a dose of dulcolax suppository
[2020-11-20] MEDS ORDERED: Albuterol Sulfate 2.5 mg/3 ml Neb NEB PRN (11:24)
[2020-11-20] MEDS ORDERED: Metolazone 5 MG TAB PO SCH (12:00)
[2020-11-20 12:23] LABS: #Eosinphils 0.2 thou/uL (0.0-0.7); #Monocytes 1.3 thou/uL (0.11-0.59); #Neutrophils 9.4 thou/uL (1.40-6.50); %Basophils 0.2 % (0.0-1.0); %Eosinophils 1.4 % (0.0-10.0); %Lymphocytes 8.6 % (21.0-51.0); %Monocytes 11.2 % (0.0-10.0); %Neutrophils 78.6 % (42.0-75.0); Hemoglobin 7.8 g/dL (14.0-18.0); Mean Corpuscular HGB CONC 32.5 g/dL (32.0-36.0); Mean Corpuscular Hemoglobin 30.7 pg (27.0-31.0); Mean Corpuscular Volume 94.5 fL (78.0-98.0); Mean Platelet Volume 8.3 fL (7.4-10.4); Platelet Count 216 thou/uL (130-400); Red Blood Cell (RBC) Count 2.55 mill/uL (4.70-6.10)
--- NOTE | 2020-11-20 12:46 | PRG ---
DATE OF SERVICE: 11/20/2020 SERVICE: Advanced Heart Failure Transplant Cardiology. SUBJECTIVE: Mr. Jeffery did not have a good day and night. At first, he was doing well. Overnight, he developed shortness of breath. It was reported that his oxygen saturation decreased down to 75%. He needed 3 L of oxygen by nasal cannula to bring him back up. He feels terrible with that. He said he still feels weaker and generally feeling ill today. He demanded the milrinone to be stopped and milrinone was stopped. He believed there was more abdominal swelling. He has not been able to do much. He also has not been able to eat food. He does not feel like it. He has been nauseated too. Hemodialysis was discussed at this time. He was scheduled to have a permanent catheter placed tomorrow morning and dialysis will be initiated tomorrow. REVIEW OF SYSTEMS: GENERAL: There is no fever or chills. However, he has more fatigue. HEENT: There is no change in vision, hearing or swallowing. PULMONARY: He is much more short of breath this morning. CARDIAC: There is no palpitation or chest pains this morning. GI: He is a bit nauseated and does not want to eat. : He is able to urinate. MUSCULOSKELETAL: He just seems to have diffuse muscle aches painful to touch. NEUROLOGIC: There is no new focal deficits or weaknesses. INTEGUMENT: There are no new skin breakdown. CURRENT MEDICATIONS: Include, 1. Alogliptin 6.25 mg daily. 2. Amlodipine 10 mg daily. 3. Aspirin 81 mg daily. 4. Atorvastatin 40 mg at bedtime. 5. Dulcolax 10 mg. 6. Carvedilol 6.25 q.12 hours. 7. Heparin 5000 units subcutaneous b.i.d. 8. Hydralazine 50 mg t.i.d. 9. Glargine insulin 45 units. 10. Sliding scale lispro insulin. 11. Isosorbide dinitrate 20 mg t.i.d. 12. Milrinone 0.32 mcg/kg per minute, but then has been stopped. 13. MiraLAX 17 g daily. 14. Senokot-S 1 tab b.i.d. PHYSICAL EXAMINATION: VITAL SIGNS: He is on 3 L oxygen only setting at 91%. His blood pressure is 141/61, heart rate about 95. GENERAL: He is alert, but he is short of breath with a rapid breathing and cannot sustain long sentences while wearing 3 L of nasal cannula oxygen. HEENT: Show EOMI. Oropharynx benign. NECK: His JVP is more elevated, today it is 12 cm instead of 10. PULMONARY: There is decreased breath sounds. There are slight crackles at the right base. There seemed to be a pulmonary component to this. ABDOMEN: Large, soft, nontender. Positive bowel sounds. EXTREMITIES: Lower extremities, his legs are sensitive when I tried to push down to do test edema. He said it is painful to touch as he is much more sensitive today. He has about a centimeter pitting edema from his feet about 2/3 towards his knees, but his abdomen seemed to be bigger. DIAGNOSTIC STUDIES: His chemistry from this morning, his sodium 135, potassium 4.6, BUN 62, creatinine 5.41. EKG was done and reviewed, it shows sinus rhythm, left axis. There is nonspecific lateral T-wave inversions and ST-T abnormality, there is no significant change prior to EKG. There is no ST elevation. There is no concerning arrhythmia. A stat portable chest x-ray was also done. It was reviewed at bedside and also confirmed with radiologist. There is diffuse bilateral infiltrate and nodular pattern consistent with pneumonitis process. This is consistent with coronavirus. However, he has SOVALDI test that did not detect any coronavirus as of November 09. ASSESSMENT: A 55-year-old gentleman has rapid onset of shortness of breath and oxygen desaturation of unclear origin. This could be more volume overload from 1 L fluid that he received yesterday without IV Lasix. However, he did put out 1250 mL, so it was only net positive about 700 mL. It is concerning that his chest x-ray show bilateral pneumonitis pattern. This pattern was confirmed with radiologist that resembles COVID-19 pneumonia. Also that he was tested before, we missed to look at this again. He could have any typical infection independent of COVID-19. With such lung picture, a small amount of increase in volume can tip somebody into severe shortness of breath. So, we will need to attempt to pull fluid off. He resides [place] [employer] stage C, [place] Heart Association class 3B heart failure with preserved ejection fraction with predominant diastolic dysfunction. However, due to his lung problems, I will stop the carvedilol. Milrinone could have help, but per patient insistent, Milrinone will be stopped. We will attempt to control blood pressure and remove volume as much as we can. Please see the following for my recommendations: 1. Stop Milrinone per patient wishes. 2. Discontinue his carvedilol. 3. Please swab for coronavirus PCR. 4. Please also do IgG test for coronavirus antibodies. 5. Please provide albuterol inhaler q.6 hours and p.r.n. 6. Please start dexamethasone 6 mg daily. This should help. 7. Please do sputum culture. 8. Please do urine culture. 9. Please provide metolazone 5 mg p.o. one dose. 10. Please provide Lasix 100 mg IV at about 30 minutes to 60 minutes after the dose metolazone. This will provide volume relief. It has been a pleasure taking care of Mr. Jeffery. If you have any questions, please give me a call. This visitation took about 70 minutes, this consider performing history and physical, reading EKG, reading chest x-rays, coronary care and also radiologist. Job ID: [id number]
--- NOTE | 2020-11-20 12:51 | RAD ---
PORTALBE CHEST 1 VIEW: Date: 11/20/2020 Time: 1022 hours HISTORY: Severe shortness of breath. COMPARISON: 11/09/2020. FINDINGS: The heart size is prominent but stable. The lungs are well expanded with patchy bilateral multifocal opacities. No pneumothoraces or pleural effusions are seen. There are degenerative changes in the spi ne. IMPRESSION: Findings are consistent with pneumonia. POS: OFF
[2020-11-20] MEDS ORDERED: Furosemide 100 MG/10 ML VIAL SLOW IVP SCH (13:00)
[2020-11-20 19:57] LABS: SARS-CoV-2 PCR by NAA Not Detected (NotDetected)
[2020-11-20] MEDS: Mometasone 200 MCG/Formoterol 5 MCG 120 PUFF INHALER INH SCH (21:17)
[2020-11-20] MEDS: Atorvastatin Calcium 40 MG TAB PO SCH (22:26)
[2020-11-20] MEDS: Insulin Glargine 45 UNITS in Pre-Filled Syringe 1 EACH SC SCH (22:27)
--- NOTE | 2020-11-20 22:40 | ULT ---
ULTRASOUND VENOUS MAPPING UPPER EXTREMITIES BILATERAL: DATE: 11/20/2020 HISTORY: 55-year-old male with End-stage renal disease. Surgical planning study for creation of arteriovenous fistula for hemodialysis. FINDINGS: RIGHT: Brachial artery:5 mm Radial artery:2 mm Ulnar artery:2 mm Cephalic vein: Proximal arm: 4 mm Mid arm: 5 mm Distal arm: 4 mm Antecubital: 5 mm Proximal forearm: 4 mm Mid forearm: 4 mm Distal forearm: 4 mm Basilic vein: Proximal arm: 6 mm Mid arm: 5 mm Distal arm: 5 mm Antecubital: 5 mm Proximal forearm: 5 mm Mid forearm: 4 mm Distal forearm: 4 mm LEFT: Brachial artery:6 mm Radial artery:2 mm Ulnar artery:2 mm Cephalic vein: Proximal arm: 4 mm Mid arm: 4 mm Distal arm: 5 mm. Clotted. No flow detected. Antecubital: 4 mm. Old partial clot. Not occluded. Proximal forearm: 5 mm Mid forearm: 4 mm Distal forearm: 4 mm Basilic vein: Proximal arm: 6 mm Mid arm: 5 mm Distal arm: 5 mm Antecubital: 4 mm Proximal forearm: 4 mm Mid forearm: 4 mm Distal forearm: 3 mm IMPRESSION: 1) bilateral cephalic and basilic veins in the arms and forearms are consistently 3 mm or larger in c aliber. 2) thrombosis of left cephalic vein in the distal arm, just proximal to the elbow. 3) the bilateral basilic veins are consistently largest in caliber
[2020-11-21 05:58] LABS: INR-International Normal Ratio 1.1
--- NOTE | 2020-11-21 06:40 | PDOC.FM ---
- Subjective Subjective: Pt states his breathing and KUMARI have not changed since admission. Says he gets very short of breath with moving from bed to bedside chair. He is not able to ambulate around room due to SOB. Denies CP, N/V. - Objective Vital Signs & Weight: Vital Signs (12 hours) Temp Pulse Resp BP Pulse Ox 11/21/20 04:00 99.1 F 82 21 H 137/62 92 L 11/20/20 22:26 82 11/20/20 22:20 90 L 11/20/20 21:18 94 L 11/20/20 21:17 18 93 L Weight Admit Weight 128.593 kg Weight 130.226 kg I&O: 11/19/20 11/20/20 11/21/20 06:59 06:59 06:59 Intake Total 1411 1891 1085 Output Total 1250 1250 1680 Balance 161 641 -595 Result Diagrams: 11/21/20 07:33 11/21/20 07:33 Phys Exam - Physical Examination Constitutional: NAD Neck: supple, full ROM Respiratory: no wheezing, clear to auscultation bilateral Cardiovascular: RRR, no significant murmur Gastrointestinal: soft, non-tender mild b/l pitting edema of LE up to mid ospina Neurological: non-focal, moves all 4 limbs Psychiatric: normal affect, A&O x 3 Dx/Plan - Plan Plan: Acute Hypoxic Respiratory Failure 2/2 CHF exacerbation vs PNA -CXR mild left basilar opacity with small L pleural effusion, BNP 547, Trop 0.025 -Last ECHO 06/2020 showed EF of 35-40%. ECHO 12/02: EF 40-45%, dilated cardiomyopathy -Mg 3.0, Phos 5.2. Procal 0.12. Rocephin (11/09-11/10), Azithro (11/09-11/10). WBC 8.9 -Failed dobutamine trial -O2 requirement: 3L -Cardiology consult (Padma): Continue 50mg TID hydralazine -Dr. Acevedo consult: discontinue milrinone due to pt not tolerating, dc carvedilol, start decadron, pending sputum and UCx -repeat CXR: b/l multifocal opacities concerning for pna -repeat COVID negative, pending CT chest for further eval of pna ZAHEER on CKD 4 -Cr 3.88, 3.97, 4.08, 5.13, 4.55 -Labs from clinic 08/2020 showed BUN/Cr 42/3.07 -Nephrology consult (Obi): pending dialysis catheter placement today Acute Chest Pain-resolved -Likely 2/2 NSTEMI Type II/demand ischemia Nausea/Vomiting -zofran prn -KUB negative -most likely due to morphine he received for hip pain -Continue bowel regime Right Hip Pain, resolved -MRI negative for avascular necrosis -morphine prn for pain DMII -Home lantus 14units daily -Hold home lantus, mild SSI in place Chronic Normocytic Anemia -Hgb 9.1, 8.2. MCV 94 -iron studies in 06/2020 show that he is iron deficient -suspect that this is due to his CKD and is probably EPO deficient as well Chronic Conditions HTN Hx of CVA Asthma -continue home medications CODE: Full VTE: Heparin PCP: Calvin Dispo: Appreciate Cardiology and Nephrology recs. Pending dialysis cath placement today. Addendum - Attending - Attending Attestation Date/Time: 11/21/20 [id number] I personally evaluated the patient and discussed the management with Dr. Jaramillo. I agree with the History, Examination, Assessment and Plan documented above with any addition or exceptions noted below.
[2020-11-21] MEDS: Mometasone 200 MCG/Formoterol 5 MCG 120 PUFF INHALER INH SCH ×2 (07:18→19:07)
[2020-11-21 07:41] LABS: Hemoglobin 7.8 g/dL (14.0-18.0); Mean Corpuscular HGB CONC 32.6 g/dL (32.0-36.0); Mean Corpuscular Hemoglobin 31.4 pg (27.0-31.0); Mean Corpuscular Volume 96.2 fL (78.0-98.0); Mean Platelet Volume 7.8 fL (7.4-10.4); Platelet Count 217 thou/uL (130-400); RBC Distribution Width 13.1 % (11.5-14.5); Red Blood Cell (RBC) Count 2.47 mill/uL (4.70-6.10); White Blood Cell (WBC) Count 10.2 thou/uL (4.8-10.8)
[2020-11-21 07:56] LABS: Albumin 3.2 g/dL (3.5-5.0); Anion Gap 18 mmol/L (10-20); BUN (Urea Nitrogen) 57 mg/dL (8.4-25.7); BUN/Creatinine Ratio 10.44; Calc. Creatinine Clearance 28 mL/min (70-130); Calcium 8.6 mg/dL (7.8-10.44); Carbon Dioxide 23 mmol/L (22-29); Chloride 97 mmol/L (98-107); Glucose 102 mg/dL (70-105); Phosphorus 4.8 mg/dL (2.3-4.7); Potassium 4.8 mmol/L (3.5-5.1); Sodium 133 mmol/L (136-145)
[2020-11-21] MEDS ORDERED: Heparin 10,000 UNITS/ 10 ML VIAL ONE ×2 (09:41→12:59)
[2020-11-21] MEDS ORDERED: PROPOFOL 200 MG/20 ML VIAL ONE (10:30)
[2020-11-21] MEDS ORDERED: CEFAZOLIN 2 GM in Premix Bag 1 BAG IVPB SCH ×2 (10:45→13:30)
[2020-11-21] MEDS: Senokot S 8.6-50 MG TAB PO SCH ×2 (11:05→22:20)
[2020-11-21] MEDS: Isosorbide Dinitrate 20 MG TAB PO SCH ×3 (11:05→22:20)
[2020-11-21] MEDS: Alogliptin 6.25 MG TAB PO SCH (11:05)
[2020-11-21] MEDS: hydrALAZINE 25 MG TAB PO SCH ×3 (11:05→22:19)
[2020-11-21] MEDS: Amlodipine 5 MG TAB PO SCH (11:05)
[2020-11-21] MEDS: Heparin 5,000 UNITS/ML VIAL SC SCH ×2 (11:06→22:19)
[2020-11-21] MEDS: Dexamethasone 4 MG TAB PO SCH (11:06)
[2020-11-21] MEDS: Aspirin Chewable 81 MG TAB PO SCH (11:06)
[2020-11-21] MEDS: Polyethylene Glycol 3350 17 GM Packet PO SCH (11:06)
--- NOTE | 2020-11-21 12:46 | CT ---
CT Chest WO Con History: Pneumonia Comparison: None. Findings: Bilateral gynecomastia. Large right and moderate left layering pleural effusions. Moderate interstitial and alveolar pulmonary edema. Heart size is enlarged. Normal volume pericardial fluid. Small right pericardiophrenic lymph node. Reactive small mediastinal lymph nodes. No inflammatory process within the upper abdomen. Thoracic spine is intact. Sternum and manubrium are intact. No pneumothorax. Small volume consolidation within the right upper lobe. Impression: 1. Small volume consolidation in the right upper lobe concerning for infection/aspiration. 2. Moderate decompensated congestive heart failure with cardiomegaly, large right and moderate left l ayering pleural effusion and background mild pulmonary edema.
--- NOTE | 2020-11-21 12:47 | PDOC.NEPPN ---
- Subjective Encounter Date: 11/21/20 Subjective: Seen and examined. Feeling slightly better. Off oxygen supplementation. Still weak generally. NPO for planned TDC +/- AVF creation. - Objective Vital Signs & Weight: Vital Signs (12 hours) Temp Pulse Resp BP BP Pulse Ox 11/21/20 11:41 98.2 F 78 18 145/65 H 96 11/21/20 07:53 98.1 F 81 18 129/60 91 L 11/21/20 04:00 99.1 F 82 21 H 137/62 92 L Weight Admit Weight 283 lb 8 oz Weight 287 lb 1.6 oz I&O: 11/20/20 11/21/20 11/22/20 06:59 06:59 06:59 Intake Total 1891 1085 Output Total 1250 1680 Balance 641 -595 Result Diagrams: 11/21/20 07:33 11/21/20 07:33 Additional Labs: Accuchecks 11/21/20 11/21/20 11/20/20 10:25 06:07 21:09 POC Glucose 94 98 126 H 11/20/20 18:23 POC Glucose 113 H Nephrology ROS - Medication Medications: Active Medications Generic Name Dose Route Start Last Admin Trade Name Freq PRN Reason Stop Dose Admin Acetaminophen 650 mg 11/09/20 19:13 11/15/20 08:35 Acetaminophen 325 Mg Tab PO 650 mg Q4H PRN Administration Headache/Fever/Mild Pain (1-3) Alogliptin Benzoate 6.25 mg 11/10/20 09:00 11/21/20 11:05 Alogliptin 6.25 Mg Tab PO 6.25 mg DAILY VISHNU Administration Amlodipine Besylate 10 mg 11/13/20 09:00 11/21/20 11:05 Amlodipine 5 Mg Tab PO 10 mg DAILY VISHNU Administration Aspirin 81 mg 11/10/20 09:00 11/21/20 11:06 Aspirin Chewable 81 Mg Tab PO 81 mg DAILY VISHNU Administration Atorvastatin Calcium 40 mg 11/09/20 21:00 11/20/20 22:26 Atorvastatin Calcium 40 Mg Tab PO 40 mg HS VISHNU Administration Dexamethasone 6 mg 11/21/20 09:00 11/21/20 11:06 Dexamethasone 4 Mg Tab PO 6 mg DAILY VISHNU Administration Heparin Sodium (Porcine) 5,000 units 11/17/20 21:00 11/21/20 11:06 Heparin 5,000 Units/Ml Vial SC Not Given BID VISHNU Hydralazine HCl 10 mg 11/11/20 17:19 11/11/20 17:58 Hydralazine 20 Mg/Ml Vial SLOW IVP 10 mg Q4H PRN Administration SBP GREATER THAN 160 Hydralazine HCl 50 mg 11/13/20 21:00 11/21/20 11:05 Hydralazine 25 Mg Tab PO 50 mg TID VISHNU Administration Insulin Glargine 45 units/ 0.45 mls @ 0 mls/hr 11/09/20 21:00 11/20/20 22:27 Miscellaneous Medication SC Not Given [facility] Insulin Human Lispro 0 units 11/09/20 19:13 11/19/20 17:47 Humalog 300 Units/3 Ml Vial SC 4 unit .MILD SLIDING SCALE PRN Administration Mild Correctional Scale Isosorbide Dinitrate 20 mg 11/19/20 15:00 11/21/20 11:05 Isosorbide Dinitrate 20 Mg Tab PO 20 mg TID VISHNU Administration Mometasone Furoate/Formoterol Fumar 2 puff 11/20/20 18:30 11/21/20 07:18 Mometasone 200 Mcg/Formoterol 5 Mcg 120 Puff Inhaler INH 2 puff BID-RT VISHNU Administration Morphine Sulfate 4 mg 11/15/20 09:23 11/16/20 08:10 Morphine 4 Mg/Ml Vial SLOW IVP 4 mg Q6H PRN Administration Moderate to Severe Pain (6-10) Ondansetron HCl 4 mg 11/16/20 16:14 11/17/20 09:39 Ondansetron Pf 4 Mg/2 Ml Vial IVP 4 mg Q6H PRN Administration Nausea/Vomiting Polyethylene Glycol 17 gm 11/18/20 09:00 11/21/20 11:06 Polyethylene Glycol 3350 17 Gm Packet PO Not Given DAILY VISHNU Senna/Docusate Sodium 1 tab 11/17/20 21:00 11/21/20 11:05 Senokot S 8.6-50 Mg Tab PO 1 tab BID VISHNU Administration Sodium Chloride 10 ml 11/09/20 19:13 11/13/20 08:13 Flush - Normal Saline 10 Ml Syringe IVF 10 ml PRN PRN Administration Saline Flush - Exam General Appearance: awake alert Eye: anicteric sclera ENT: normocephalic atraumatic, moist mucosa Neck: supple, symmetric Respiratory - other findings: fair air entry bilaterally. no obvious crackles appreciated. Cardiovascular: RRR Gastrointestinal: soft, normal bowel sounds Gastrointestinal - other findings: Obese Extremities: 1+ LE edema Neurological: CN's grossly intact, no new deficit PSYCH: A&O x 3 Nephrology Results - Labs Result Diagrams: 11/21/20 07:33 11/21/20 07:33 Lab results: WBC 10.2 thou/uL (4.8-10.8) 11/21/20 07:33 Hgb 7.8 g/dL (14.0-18.0) L 11/21/20 07:33 Hct 23.8 % (42.0-52.0) L 11/21/20 07:33 MCV 96.2 fL (78.0-98.0) 11/21/20 07:33 Plt Count 217 thou/uL (130-400) 11/21/20 07:33 Neutrophils % 78.6 % (42.0-75.0) H 11/20/20 11:40 Sodium 133 mmol/L (136-145) L 11/21/20 07:33 Potassium 4.8 mmol/L (3.5-5.1) 11/21/20 07:33 Chloride 97 mmol/L (98-107) L 11/21/20 07:33 Carbon Dioxide 23 mmol/L (22-29) 11/21/20 07:33 BUN 57 mg/dL (8.4-25.7) H 11/21/20 07:33 Creatinine 5.46 mg/dL (0.7-1.3) H 11/21/20 07:33 Glucose 102 mg/dL (70-105) 11/21/20 07:33 Calcium 8.6 mg/dL (7.8-10.44) 11/21/20 07:33 Total Bilirubin 0.6 mg/dL (0.2-1.2) 11/09/20 16:19 AST 11 U/L (5-34) 11/09/20 16:19 ALT 16 U/L (8-55) 11/09/20 16:19 Alkaline Phosphatase 112 U/L (40-110) H 11/09/20 16:19 Troponin I 0.107 ng/mL (< 0.028) H 11/19/20 14:29 B-Natriuretic Peptide 547.0 pg/mL (0-100) H 11/09/20 16:19 Serum Total Protein 6.9 g/dL (6.0-8.3) 11/09/20 16:19 Albumin 3.2 g/dL (3.5-5.0) L 11/21/20 07:33 Urine Ketones Negative mg/dL (Negative) 11/18/20 16:35 Urine Blood Negative (Negative) 11/18/20 16:35 Urine Nitrite Negative (Negative) 11/18/20 16:35 Ur Leukocyte Esterase Negative Samir/uL (Negative) 11/18/20 16:35 Urine RBC 0-3 HPF (0-3) 11/18/20 16:35 Urine WBC 0-3 HPF (0-3) 11/18/20 16:35 Ur Squamous Epith Cells None Seen HPF (0-3) 11/18/20 16:35 Urine Bacteria None Seen HPF (None Seen) 11/18/20 16:35 Sodium 133 mmol/L (136-145) L 11/21/20 07:33 Potassium 4.8 mmol/L (3.5-5.1) 11/21/20 07:33 Chloride 97 mmol/L (98-107) L 11/21/20 07:33 Carbon Dioxide 23 mmol/L (22-29) 11/21/20 07:33 Anion Gap 18 mmol/L (10-20) 11/21/20 07:33 BUN 57 mg/dL (8.4-25.7) H 11/21/20 07:33 Creatinine 5.46 mg/dL (0.7-1.3) H 11/21/20 07:33 Glucose 102 mg/dL (70-105) 11/21/20 07:33 Calcium 8.6 mg/dL (7.8-10.44) 11/21/20 07:33 Phosphorus 4.8 mg/dL (2.3-4.7) H 11/21/20 07:33 Magnesium 3.6 mg/dL (1.6-2.6) H 11/21/20 05:45 Albumin 3.2 g/dL (3.5-5.0) L 11/21/20 07:33 Nephrology AP PN - Plan ZAHEER on CKD4: Due to hemodynamic factors related to cardiac decompensation. BUN and creat is going up with diuretic despite milrinone associated with ill feeling concerning for uremia, will initiate HD to help achieve euvolemia. Now deem ESRD. For TDC and AVF creation today. CKD 4. Volume overload: Due to Cardiac decompensation. Improved with diuretics. Anemia in CKD HTN: Acute on chronic combined systolic and diastolic HF. Now off milrinone Acute respiratory failure due to CHF exacerbation. Improved PLAN For HD after TDC placement Continue diuretics Continue other supportive care
--- NOTE | 2020-11-21 12:53 | CON ---
DATE OF CONSULTATION: HISTORY OF PRESENT ILLNESS: Hamlet Jeffery is a 55-year-old male patient admitted to Hospitalist, seen by Dr. Hampton for his end-stage renal disease. I have been asked to see him regarding placement of hemodialysis catheter and access. He has had multiple IVs and blood draws from the antecubital area. Ultrasound vein mapping revealed thrombosed veins left arm. The patient is right-handed, although he has had a stroke and has right arm weakness and leg weakness. He is ambulatory with a cane until just before this hospitalization, where he has become weak and not able to walk as well. Plan is for hemodialysis catheter, central line to protect his veins and right arm fistula. He has good vein mapping suggesting maybe but have a wrist Pamela fistula. ALLERGIES: . SOCIAL HISTORY: Tobacco and alcohol, none. MEDICATIONS: At home, 1. Isordil 10 b.i.d. 2. Insulin b.i.d. 3. Aspirin 81 mg a day. 4. Insulin glargine 45 units at bedtime. 5. Magnesium 800 mg b.i.d. 6. Tradjenta 5 mg daily. 7. Lasix 40 mg b.i.d. 8. Carvedilol 12.5 mg b.i.d. 9. Atorvastatin 40 mg at bedtime. PAST SURGICAL HISTORY: Left index finger surgery, sigmoid resection 10 or 15 years ago for diverticulitis. PAST MEDICAL HISTORY: Two strokes in the past, leaving weak on the right side. He is weaker now since admission. Diabetes mellitus, hypertension, chronic kidney disease, end-stage renal disease. FAMILY HISTORY: Noncontributory. REVIEW OF SYSTEMS: Noncontributory otherwise. PHYSICAL EXAMINATION: VITAL SIGNS: 5 feet 10 inches, 287 pounds, 41 BMI, 98.2 degrees, 78, 145/65. LUNGS: Clear to auscultation. CARDIAC: Regular rate and rhythm without murmur or gallop. ABDOMEN: Soft, nontender, obese. EXTREMITIES: No ankle edema. Palpable pedal pulses. Palpable radial pulses. Palpable ulnar pulses. LABORATORY DATA: Hemoglobin 7.8, white count 10.2. Sodium 133, potassium 4.8, carbon dioxide 23, BUN and creatinine 57 and 5.46, GFR 11. ASSESSMENT: End-stage renal disease. PLAN: 1. Placement of right arm fistula, hemodialysis catheter, and central line. He understands the risks and benefits, consents. 2. Echocardiogram, 11/11/2020, 40% to 45% EF, grade 2 to 3 diastolic dysfunction, dilated LV, IVC dilated. Cardiology has seen him, Dr. Rouse, for his diastolic dysfunction and heart failure. Cardiac catheterization not been done due to his chronic kidney disease. He replied need of this in the future. He was considered in [place] for LVAD. LV function was not bad enough for that. There is no amyloid on cardiac biopsy. The patient felt to have a hypertrophic cardiomyopathy, but apparently this was not the case on further evaluation. Stress test has been negative for ischemia. He will probably need a catheterization once he starts dialysis. 3. Dr. Hampton, Nephrology. 4. Diabetes mellitus. 5. Hypertension. Job ID: [id number]
[2020-11-21] MEDS ORDERED: Heparin 5,000 UNITS/ML VIAL ONE (12:59)
[2020-11-21] MEDS ORDERED: Sodium Chloride 0.9% 20 ML ONE (12:59)
[2020-11-21] MEDS ORDERED: Bupivacaine PF 0.5% 30 ML VIAL ONE (12:59)
[2020-11-21] MEDS ORDERED: Protamine Sulfate 50 MG/5 ML VIAL ONE (12:59)
[2020-11-21] MEDS ORDERED: XYLOCAINE 2%-EPI 1:100,000 20 ML VIAL ONE (12:59)
[2020-11-21] MEDS ORDERED: Fentanyl 100 MCG/2 ML VIAL ONE (13:02)
[2020-11-21] MEDS ORDERED: Ampicillin/Sulbactam 3 GM in Sodium Chloride 0.9% 100 ML IVPB SCH (13:45)
--- NOTE | 2020-11-21 14:47 | RAD ---
PORTABLE CHEST: HISTORY: Followup. Post central line placement. COMPARISON: 11/20/2020. FINDINGS: A central line has been placed right jugular. The tip overlies the SVC. A smaller caliber central l ine from the left jugular also overlies the SVC. Hazy infiltrate in the right mid and lower lung again noted. Left lung appears clear. No acute inte rval change. POS: AGW
--- NOTE | 2020-11-21 14:56 | OP ---
DATE OF PROCEDURE: 11/21/2020 PREOPERATIVE DIAGNOSES: End-stage renal disease, congestive failure. POSTOPERATIVE DIAGNOSES: End-stage renal disease, congestive failure. PROCEDURES PERFORMED: Right IJ cuffed tunneled dialysis catheter, AngioDynamics pre-curved. Left IJ central line. ANESTHESIA: 0.5% Marcaine with epinephrine. DESCRIPTION OF PROCEDURE: The patient was taken to the operating room, where under intravenous sedation, neck and chest prepared with ChloraPrep and draped in routine fashion. Local anesthetic was infiltrated in the skin and subcutaneous tissue about the operative site. Ultrasound used to cannulate both right and left internal jugular veins. J-wire was threaded, trocar catheter removed. Skin incision site enlarged sharply. Stab incision made over the right chest. Using a tunneling device, pre-curved AngioDynamics cuffed tunneled hemodialysis catheter tunneled between the two incisions, placed the fabric cuff beneath the skin exit site and catheter secured with 2 interrupted suture of 3-0 nylon. Seldinger technique used to place a triple-lumen catheter on the left. Small and medium size dilators placed over the J-wire on the right, removing it from the internal jugular vein sheath placed over the J-wire into the superior vena cava. Dilator and J-wire removed. Catheter placed with Peel-Away sheath. Peel-Away sheath removed. Platysma was approximated with 4-0 Monocryl, skin with subdermal 4-0 Monocryl and Yermo glue applied. All the ports were aspirated of blood, flushed with saline solution and then the hemodialysis catheter flushed with heparinized saline solution with 1000 units of heparin per mL, indicating volume of the port. Sterile dressings applied. Final fluoroscopic images revealed good line placement. Job ID: [id number]
[2020-11-21] MEDS: Acetaminophen 325 MG TAB PO PRN (15:24)
[2020-11-21 15:47] LABS: HBSAB Concentration Less than 8.00 mIU/mL; Hep B Core Total Ab Non-Reactive (NonReactive); Hep B Core Total Index 0.07 S/CO (0-0.79); Hep B Surf AB Non-Reactive (NonReactive); Hep B Surf Ag Non-Reactive S/CO (NonReactive); Hep C IgG Ab Non-Reactive (NonReactive); Hep C Index 0.19 S/CO (0-0.79)
--- NOTE | 2020-11-21 16:35 | PDOC.CPN ---
- Subjective Date: 11/21/20 Time: 15:00 Interval history: Patient sitting up at side of bed, he is back from getting his dialysis catheter placed. He is c/o hunger and asking for food. He states his shortness of breath has remained the same. denies chest pain, no new complaints today. - Review of Systems General: denies: fever/chills, weight/appetite/sleep changes, night sweats, fatigue Respiratory: reports: shortness of breath Cardiovascular: denies: chest pain, palpitation, edema, paroxysmal nocturnal dyspnea, orthopnea Gastrointestinal: denies: nausea, vomiting, diarrhea, constipation, abd pain, GI bleeding Musculoskeletal: denies: pain, tenderness, stiffness, swelling, arthritis/arthralgias Neurological: denies: numbness, syncope, seizure, weakness - Objective Allergies/Adverse Reactions: Allergies Allergy/AdvReac Type Severity Reaction Status Date / Time dobutamine AdvReac Mild Anaphylaxis Verified 11/12/20 07:24 Visit Medications: Current Medications Acetaminophen (Acetaminophen 325 Mg Tab) 650 mg PO Q4H PRN PRN Reason: Headache/Fever/Mild Pain (1-3) Last Admin: 11/21/20 15:24 Dose: 650 mg Documented by: Albuterol Sulfate (Albuterol Sulfate 2.5 Mg/3 Ml Neb) 2.5 mg NEB Q4H PRN PRN Reason: SOB &/or Wheezing Alogliptin Benzoate (Alogliptin 6.25 Mg Tab) 6.25 mg PO DAILY [facility] Last Admin: 11/21/20 11:05 Dose: 6.25 mg Documented by: Amlodipine Besylate (Amlodipine 5 Mg Tab) 10 mg PO DAILY [facility] Last Admin: 11/21/20 11:05 Dose: 10 mg Documented by: Aspirin (Aspirin Chewable 81 Mg Tab) 81 mg PO DAILY [facility] Last Admin: 11/21/20 11:06 Dose: 81 mg Documented by: Atorvastatin Calcium (Atorvastatin Calcium 40 Mg Tab) 40 mg PO HS [facility] Last Admin: 11/20/20 22:26 Dose: 40 mg Documented by: Dexamethasone (Dexamethasone 4 Mg Tab) 6 mg PO DAILY [facility] Last Admin: 11/21/20 11:06 Dose: 6 mg Documented by: Dextrose/Water (Dextrose 50% Abboject 50 Ml Syringe) 25 gm SLOW IVP PRN PRN PRN Reason: Hypoglycemia Glucagon (Glucagon 1 Mg/Ml Vial) 1 mg IM PRN PRN PRN Reason: Hypoglycemia Heparin Sodium (Porcine) (Heparin 5,000 Units/Ml Vial) 5,000 units SC BID [facility] Last Admin: 11/21/20 11:06 Dose: Not Given Documented by: Hydralazine HCl (Hydralazine 20 Mg/Ml Vial) 10 mg SLOW IVP Q4H PRN PRN Reason: SBP GREATER THAN 160 Last Admin: 11/11/20 17:58 Dose: 10 mg Documented by: Hydralazine HCl (Hydralazine 25 Mg Tab) 50 mg PO TID [facility] Last Admin: 11/21/20 15:23 Dose: 50 mg Documented by: Dextrose/Water (D5w) 1,000 mls @ 0 mls/hr IV .Q0M PRN PRN Reason: Hypoglycemia Insulin Glargine 45 units/ (Miscellaneous Medication) 0.45 mls @ 0 mls/hr SC HS [facility] Last Admin: 11/20/20 22:27 Dose: Not Given Documented by: Cefazolin Sodium/Dextrose 2 gm (/ Device) 50 mls @ 100 mls/hr IVPB ONCALL-OR VISHNU Cefazolin Sodium/Dextrose 2 gm (/ Device) 50 mls @ 100 mls/hr IVPB ONCALL-OR VISHNU Stop: 11/21/20 23:59 Ampicillin Sodium/Sulbactam (Sodium 3 gm/ Sodium Chloride) 100 mls @ 200 mls/hr IVPB ONCALL-OR VISHNU Stop: 11/21/20 23:59 Insulin Human Lispro (Humalog 300 Units/3 Ml Vial) 0 units SC .MILD SLIDING SCALE PRN PRN Reason: Mild Correctional Scale Last Admin: 11/19/20 17:47 Dose: 4 unit Documented by: Isosorbide Dinitrate (Isosorbide Dinitrate 20 Mg Tab) 20 mg PO TID [facility] Last Admin: 11/21/20 15:24 Dose: 20 mg Documented by: Lactulose (Lactulose 20 Gm/30 Ml Udcup) 20 gm PO DAILYPRN PRN PRN Reason: Constipation Mometasone Furoate/Formoterol Fumar (Mometasone 200 Mcg/Formoterol 5 Mcg 120 Puff Inhaler) 2 puff INH BID-RT [facility] Last Admin: 11/21/20 07:18 Dose: 2 puff Documented by: Morphine Sulfate (Morphine 4 Mg/Ml Vial) 4 mg SLOW IVP Q6H PRN PRN Reason: Moderate to Severe Pain (6-10) Last Admin: 11/16/20 08:10 Dose: 4 mg Documented by: Ondansetron HCl (Ondansetron Pf 4 Mg/2 Ml Vial) 4 mg IVP Q6H PRN PRN Reason: Nausea/Vomiting Last Admin: 11/17/20 09:39 Dose: 4 mg Documented by: Polyethylene Glycol (Polyethylene Glycol 3350 17 Gm Packet) 17 gm PO DAILY [facility] Last Admin: 11/21/20 11:06 Dose: Not Given Documented by: Senna/Docusate Sodium (Senokot S 8.6-50 Mg Tab) 1 tab PO BID [facility] Last Admin: 11/21/20 11:05 Dose: 1 tab Documented by: Sodium Chloride (Flush - Normal Saline 10 Ml Syringe) 10 ml IVF PRN PRN PRN Reason: Saline Flush Last Admin: 11/13/20 08:13 Dose: 10 ml Documented by: Vital Signs & Weight: Vital Signs Temp Pulse Resp BP BP Pulse Ox 11/21/20 16:00 98.2 F 79 20 136/63 93 L 11/21/20 11:41 98.2 F 78 18 145/65 H 96 11/21/20 07:53 98.1 F 81 18 129/60 91 L Admit Weight 283 lb 8 oz Weight 287 lb 1.6 oz - Quality Measures Condition: Heart Failure CV meds: FRIEDA/ARB: No, Statin: Yes, ASA: Yes - Medication Contraindications No FRIEDA/ARB reason: Medical contraindication - Physical Exam General: alert & oriented x3, no apparent distress HEENT: mucus membranes moist Neck: no bruit Cardiac: regular rate and rhythm, no murmur Lungs: clear to auscultation, no wheeze, rales, rhonchi Neuro: grossly intact Abdomen: soft, non-tender, distended Extremities: no edema, other: (edema to bilateral feet, remains unchanged since admission) Skin: clear, other (Right IJ dialysis catheter, dressing intact, left IJ central line, dressing intact) Musculoskeletal: no pain - Labs Result Diagrams: 11/21/20 07:33 11/21/20 07:33 Troponin/CKMB Troponin I 0.107 ng/mL (< 0.028) H 11/19/20 14:29 - EKG Interpretation EKG Method: Telemetry EKG: sinus rhythm (HR 80's) - Assessment/Plan Assessment/Plan: 1. CHF exacerbation: patient states his shortness of breath remains the same. The Milrinone drip has been stopped as he has refused this. He was able to diureis 595 mL of fluid. 2. ESRD: his creatinine was 5.46 today, he had a right IJ dialysis catheter placed today and will begin dialysis he is not a candidate for Entresto or FREIDA/ARB therapy due to this. 3. Hypertension: his BP is under resonable control at this time, we will continue with Amlodipine, Coreg, Hydralazine, and Isosorbide Dinitrate at this time 4. Hyperlipidemia: will continue his Atorvastatin 40 mg at this time We will continue to follow this patient and continue symptomatic care at this time . pt. seen and eval. by me. I agree with the A/P by the NUTRITIONAL SERVICES DIRECTOR. Chest clear. RRR, mild edema. Continue present therapy. Dialysis tomorrow? [email or web address]
[2020-11-21] MEDS: HumaLOG 300 UNITS/3 ML VIAL SC PRN (17:28)
[2020-11-21] MEDS: Morphine 4 MG/ML VIAL SLOW IVP PRN (17:45)
[2020-11-21] MEDS: Atorvastatin Calcium 40 MG TAB PO SCH (22:20)
[2020-11-21] MEDS: Insulin Glargine 45 UNITS in Pre-Filled Syringe 1 EACH SC SCH (22:20)
[2020-11-22] MEDS ORDERED: Epoetin (ESRD) 20,000 UNITS/ML SC SCH (05:15)
[2020-11-22 05:27] LABS: Albumin 3.2 g/dL (3.5-5.0); Anion Gap 17 mmol/L (10-20); BUN (Urea Nitrogen) 57 mg/dL (8.4-25.7); BUN/Creatinine Ratio 11.47; Calc. Creatinine Clearance 31 mL/min (70-130); Calcium 8.5 mg/dL (7.8-10.44); Carbon Dioxide 26 mmol/L (22-29); Chloride 95 mmol/L (98-107); Glucose 299 mg/dL (70-105); Magnesium 3.4 mg/dL (1.6-2.6); Potassium 5.1 mmol/L (3.5-5.1); Sodium 133 mmol/L (136-145)
--- NOTE | 2020-11-22 07:11 | PDOC.FM ---
- Subjective Subjective: Pt is day 1 s/p tunneled dialysis catheter and central line placement. He had dialysis yesterday and says he feels much better. Reports his breathing is greatly improved. He was sitting up in the bedside chair and says he has been able to get up to go to the bathroom and his LE swelling is improved. - Objective Vital Signs & Weight: Vital Signs (12 hours) Pulse BP 11/21/20 22:19 72 140/63 Weight Admit Weight 128.593 kg Weight 130.226 kg I&O: 11/21/20 11/22/20 11/23/20 06:59 06:59 06:59 Intake Total 1085 480 Output Total 1680 500 Balance -595 -20 Result Diagrams: 11/21/20 07:33 11/22/20 04:10 Phys Exam - Physical Examination Constitutional: NAD R tunneled cath, L IJ central line Neck: supple, full ROM Respiratory: no wheezing, clear to auscultation bilateral Cardiovascular: RRR, no significant murmur Gastrointestinal: soft, non-tender mild LE edema b/l Neurological: non-focal, moves all 4 limbs Psychiatric: normal affect, A&O x 3 Dx/Plan - Plan Plan: Acute Hypoxic Respiratory Failure 2/2 CHF exacerbation vs PNA -CXR mild left basilar opacity with small L pleural effusion, BNP 547, Trop 0.025 -Last ECHO 06/2020 showed EF of 35-40%. ECHO 12/02: EF 40-45%, dilated cardiomyopathy -Mg 3.0, Phos 5.2. Procal 0.12. Rocephin (11/09-11/10), Azithro (11/09-11/10). WBC 8.9 -Failed dobutamine trial -O2 requirement, now on RA post dialysis -Cardiology consult (Padma): Continue 50mg TID hydralazine -Dr. Acevedo consult: discontinue milrinone due to pt not tolerating, dc carvedilol, start decadron, pending sputum and UCx -repeat CXR: b/l multifocal opacities concerning for pna -repeat COVID negative -Chest CT: small R lobe consolidation concerning for aspiration. Large R pleural effusion w/ background pulm edema -pulm edema and pleural effusion likely to improve with dialysis. Can f/u as outpatient with repeat CXR if warranted CKD5 -tunneled cath placed yesterday and started HD -plan if for AVF placement today -Nephrology consult (Obi) recs: will be dialyzed again today -CM: arranged outpatient dialysis chair Acute Chest Pain-resolved -Likely 2/2 NSTEMI Type II/demand ischemia Nausea/Vomiting -zofran prn -KUB negative -most likely due to morphine he received for hip pain -Continue bowel regime Right Hip Pain, resolved -MRI negative for avascular necrosis -morphine prn for pain DMII -Home lantus 14units daily -Hold home lantus, mild SSI in place Chronic Normocytic Anemia -Hgb 9.1, 8.2. MCV 94 -iron studies in 06/2020 show that he is iron deficient -suspect that this is due to his CKD and is probably EPO deficient as well Chronic Conditions HTN Hx of CVA Asthma -continue home medications CODE: Full VTE: Heparin PCP: Calvin Dispo: Appreciate Cardiology and Nephrology recs. Pending dialysis and AVF surgery today. CM is working on outpatient dialysis chair. Addendum - Attending - Attending Attestation Date/Time: 11/22/20 [id number] I personally evaluated the patient and discussed the management with Dr. Jaramillo. I agree with the History, Examination, Assessment and Plan documented above with any addition or exceptions noted below.
[2020-11-22] MEDS: Iron, Sodium Ferric Gluconate 125 MG in Sodium Chloride 0.9% 100 ML IVPB SCH (08:05)
--- NOTE | 2020-11-22 08:28 | PDOC.NEPPN ---
- Subjective Encounter Date: 11/22/20 Subjective: Seen and examined. Feeling better. No new complaints.Could not have AVF creation yesterday due to orthopnea. - Objective Vital Signs & Weight: Vital Signs (12 hours) Temp Pulse Resp BP BP Pulse Ox 11/22/20 05:12 98.4 F 78 17 157/70 H 95 11/21/20 22:19 72 140/63 11/21/20 22:06 97.9 F 72 16 140/63 95 Weight Admit Weight 283 lb 8 oz Weight 283 lb 4.704 oz I&O: 11/21/20 11/22/20 11/23/20 06:59 06:59 06:59 Intake Total 1085 700 Output Total 1680 1360 Balance -595 -660 Result Diagrams: 11/21/20 07:33 11/22/20 04:10 Additional Labs: Accuchecks 11/22/20 11/21/20 11/21/20 05:41 22:14 17:05 POC Glucose 236 H 232 H 207 H 11/21/20 10:25 POC Glucose 94 Nephrology ROS - Medication Medications: Active Medications Generic Name Dose Route Start Last Admin Trade Name Freq PRN Reason Stop Dose Admin Acetaminophen 650 mg 11/09/20 19:13 11/21/20 15:24 Acetaminophen 325 Mg Tab PO 650 mg Q4H PRN Administration Headache/Fever/Mild Pain (1-3) Alogliptin Benzoate 6.25 mg 11/10/20 09:00 11/21/20 11:05 Alogliptin 6.25 Mg Tab PO 6.25 mg DAILY VISHNU Administration Amlodipine Besylate 10 mg 11/13/20 09:00 11/21/20 11:05 Amlodipine 5 Mg Tab PO 10 mg DAILY VISHNU Administration Aspirin 81 mg 11/10/20 09:00 11/21/20 11:06 Aspirin Chewable 81 Mg Tab PO 81 mg DAILY VISHNU Administration Atorvastatin Calcium 40 mg 11/09/20 21:00 11/21/20 22:20 Atorvastatin Calcium 40 Mg Tab PO 40 mg HS VISHNU Administration Dexamethasone 6 mg 11/21/20 09:00 11/21/20 11:06 Dexamethasone 4 Mg Tab PO 6 mg DAILY VISHNU Administration Heparin Sodium (Porcine) 5,000 units 11/17/20 21:00 11/21/20 22:19 Heparin 5,000 Units/Ml Vial SC 5,000 units BID VISHNU Administration Hydralazine HCl 10 mg 11/11/20 17:19 11/11/20 17:58 Hydralazine 20 Mg/Ml Vial SLOW IVP 10 mg Q4H PRN Administration SBP GREATER THAN 160 Hydralazine HCl 50 mg 11/13/20 21:00 11/21/20 22:19 Hydralazine 25 Mg Tab PO 50 mg TID VISHNU Administration Insulin Glargine 45 units/ 0.45 mls @ 0 mls/hr 11/09/20 21:00 11/21/20 22:20 Miscellaneous Medication SC 0.45 mls HS VISHNU Administration Ferric Sodium Gluconate 110 mls @ 110 mls/hr 11/22/20 09:00 11/22/20 08:05 Complex 125 mg/ Sodium IVPB 11/24/20 09:59 110 mls Chloride DAILY VISHNU Administration Insulin Human Lispro 0 units 11/09/20 19:13 11/21/20 17:28 Humalog 300 Units/3 Ml Vial SC 3 unit .MILD SLIDING SCALE PRN Administration Mild Correctional Scale Isosorbide Dinitrate 20 mg 11/19/20 15:00 11/21/20 22:20 Isosorbide Dinitrate 20 Mg Tab PO 20 mg TID VISHNU Administration Mometasone Furoate/Formoterol Fumar 2 puff 11/20/20 18:30 11/21/20 19:07 Mometasone 200 Mcg/Formoterol 5 Mcg 120 Puff Inhaler INH 2 puff BID-RT VISHNU Administration Morphine Sulfate 4 mg 11/15/20 09:23 11/21/20 17:45 Morphine 4 Mg/Ml Vial SLOW IVP 4 mg Q6H PRN Administration Moderate to Severe Pain (6-10) Ondansetron HCl 4 mg 11/16/20 16:14 11/17/20 09:39 Ondansetron Pf 4 Mg/2 Ml Vial IVP 4 mg Q6H PRN Administration Nausea/Vomiting Polyethylene Glycol 17 gm 11/18/20 09:00 11/21/20 11:06 Polyethylene Glycol 3350 17 Gm Packet PO Not Given DAILY VISHNU Senna/Docusate Sodium 1 tab 11/17/20 21:00 11/21/20 22:20 Senokot S 8.6-50 Mg Tab PO 1 tab BID VISHNU Administration Sodium Chloride 10 ml 11/09/20 19:13 11/13/20 08:13 Flush - Normal Saline 10 Ml Syringe IVF 10 ml PRN PRN Administration Saline Flush - Exam General Appearance: awake alert Eye: anicteric sclera ENT: normocephalic atraumatic Neck: supple, symmetric Respiratory: no wheezes, no ronchi, normal chest expansion, no tachypnea Respiratory - other findings: fair air entry bilaterally. Cardiovascular: RRR Gastrointestinal: soft, non-tender, normal bowel sounds Extremities: 1+ LE edema Neurological: CN's grossly intact, no new deficit PSYCH: A&O x 3 Nephrology Results - Labs Result Diagrams: 11/21/20 07:33 11/22/20 04:10 Lab results: WBC 10.2 thou/uL (4.8-10.8) 11/21/20 07:33 Hgb 7.8 g/dL (14.0-18.0) L 11/21/20 07:33 Hct 23.8 % (42.0-52.0) L 11/21/20 07:33 MCV 96.2 fL (78.0-98.0) 11/21/20 07:33 Plt Count 217 thou/uL (130-400) 11/21/20 07:33 Neutrophils % 78.6 % (42.0-75.0) H 11/20/20 11:40 Sodium 133 mmol/L (136-145) L 11/22/20 04:10 Potassium 5.1 mmol/L (3.5-5.1) 11/22/20 04:10 Chloride 95 mmol/L (98-107) L 11/22/20 04:10 Carbon Dioxide 26 mmol/L (22-29) 11/22/20 04:10 BUN 57 mg/dL (8.4-25.7) H 11/22/20 04:10 Creatinine 4.97 mg/dL (0.7-1.3) H 11/22/20 04:10 Glucose 299 mg/dL (70-105) H 11/22/20 04:10 Calcium 8.5 mg/dL (7.8-10.44) 11/22/20 04:10 Total Bilirubin 0.6 mg/dL (0.2-1.2) 11/09/20 16:19 AST 11 U/L (5-34) 11/09/20 16:19 ALT 16 U/L (8-55) 11/09/20 16:19 Alkaline Phosphatase 112 U/L (40-110) H 11/09/20 16:19 Troponin I 0.107 ng/mL (< 0.028) H 11/19/20 14:29 B-Natriuretic Peptide 547.0 pg/mL (0-100) H 11/09/20 16:19 Serum Total Protein 6.9 g/dL (6.0-8.3) 11/09/20 16:19 Albumin 3.2 g/dL (3.5-5.0) L 11/22/20 04:10 Urine Ketones Negative mg/dL (Negative) 11/18/20 16:35 Urine Blood Negative (Negative) 11/18/20 16:35 Urine Nitrite Negative (Negative) 11/18/20 16:35 Ur Leukocyte Esterase Negative Samir/uL (Negative) 11/18/20 16:35 Urine RBC 0-3 HPF (0-3) 11/18/20 16:35 Urine WBC 0-3 HPF (0-3) 11/18/20 16:35 Ur Squamous Epith Cells None Seen HPF (0-3) 11/18/20 16:35 Urine Bacteria None Seen HPF (None Seen) 11/18/20 16:35 Sodium 133 mmol/L (136-145) L 11/22/20 04:10 Potassium 5.1 mmol/L (3.5-5.1) 11/22/20 04:10 Chloride 95 mmol/L (98-107) L 11/22/20 04:10 Carbon Dioxide 26 mmol/L (22-29) 11/22/20 04:10 Anion Gap 17 mmol/L (10-20) 11/22/20 04:10 BUN 57 mg/dL (8.4-25.7) H 11/22/20 04:10 Creatinine 4.97 mg/dL (0.7-1.3) H 11/22/20 04:10 Glucose 299 mg/dL (70-105) H 11/22/20 04:10 Calcium 8.5 mg/dL (7.8-10.44) 11/22/20 04:10 Phosphorus 5.0 mg/dL (2.3-4.7) H 11/22/20 04:10 Magnesium 3.4 mg/dL (1.6-2.6) H 11/22/20 04:10 Albumin 3.2 g/dL (3.5-5.0) L 11/22/20 04:10 Nephrology AP PN - Plan ZAHEER on CKD4: Now ESRD. Initiated on HD on 11/21/20. Volume overload: Due to Cardiac decompensation. Improved following HD with UF yesterday Anemia in CKD HTN: Control is acceptable Acute on chronic combined systolic and diastolic HF. Now off milrinone. Volume management with HD Acute respiratory failure due to CHF exacerbation. Improved PLAN Start IV iron and JARRED. For HD today for 3 hours with UF as tolerated. For AVF creation today Continue other supportive care.
[2020-11-22] MEDS: Mometasone 200 MCG/Formoterol 5 MCG 120 PUFF INHALER INH SCH ×2 (08:33→19:01)
[2020-11-22] MEDS ORDERED: Iron Sucrose Complex 100 MG in Sodium Chloride 0.9% 100 ML IVPB SCH (09:00)
[2020-11-22] MEDS ORDERED: Heparin 10,000 UNITS/ 10 ML VIAL ONE (09:46)
[2020-11-22] MEDS ORDERED: Ondansetron PF 4 MG/2 ML Vial ONE (11:15)
[2020-11-22] MEDS ORDERED: Glycopyrrolate 0.2 MG/ML 5 ML SYRINGE ONE (11:15)
[2020-11-22] MEDS ORDERED: Bupivacaine HCl 0.5%/Epinephrine 1:200,000/PF 30 ml Vial ONE (11:15)
[2020-11-22] MEDS ORDERED: Fentanyl 100 MCG/2 ML VIAL ONE ×3 (13:42→14:00)
[2020-11-22] MEDS ORDERED: Heparin 5,000 UNITS/ML VIAL ONE (13:49)
[2020-11-22] MEDS ORDERED: Protamine Sulfate 50 MG/5 ML VIAL ONE (13:49)
[2020-11-22] MEDS ORDERED: XYLOCAINE 2%-EPI 1:100,000 20 ML VIAL ONE (13:49)
[2020-11-22] MEDS ORDERED: Bupivacaine PF 0.5% 30 ML VIAL ONE (13:49)
[2020-11-22] MEDS ORDERED: Heparin 1,000 UNITS/ML VIAL ONE ×2 (14:08→14:22)
[2020-11-22] MEDS ORDERED: Ketamine 50 MG/ML (10ML VIAL) ONE (14:38)
[2020-11-22] MEDS ORDERED: Midazolam HCl 2 mg/2 ml Vial ONE (14:38)
[2020-11-22] MEDS: Insulin Glargine 14 UNITS in Pre-Filled Syringe 1 EACH SC SCH (16:12)
[2020-11-22] MEDS: Amlodipine 5 MG TAB PO SCH (16:13)
[2020-11-22] MEDS: Alogliptin 6.25 MG TAB PO SCH (16:13)
[2020-11-22] MEDS: Dexamethasone 4 MG TAB PO SCH (16:14)
[2020-11-22] MEDS: Aspirin Chewable 81 MG TAB PO SCH (16:14)
[2020-11-22] MEDS: Heparin 5,000 UNITS/ML VIAL SC SCH ×2 (16:16→21:17)
[2020-11-22] MEDS: hydrALAZINE 25 MG TAB PO SCH ×3 (16:16→21:17)
[2020-11-22] MEDS: Polyethylene Glycol 3350 17 GM Packet PO SCH (16:17)
[2020-11-22] MEDS: Isosorbide Dinitrate 20 MG TAB PO SCH ×3 (16:17→21:17)
[2020-11-22] MEDS: Senokot S 8.6-50 MG TAB PO SCH ×2 (16:17→21:18)
--- NOTE | 2020-11-22 16:45 | PDOC.CPN ---
- Subjective Date: 11/22/20 Time: 16:43 Interval history: Patient is sitting up at the edge of his bed eating, he has a visitor today. He just got back to his room, he had dialysis this morning and then had his AV fistula on his right arm placed by Dr. Gupta today. He has no complaints today, he states he is feeling well. He denies any chest pain or shortness of breath. - Review of Systems General: denies: fever/chills, weight/appetite/sleep changes, night sweats, fatigue Respiratory: denies: cough, congestion, shortness of breath, exercise intolerance Cardiovascular: denies: chest pain, palpitation, edema, paroxysmal nocturnal dyspnea, orthopnea Gastrointestinal: denies: nausea, vomiting, diarrhea, constipation, abd pain, GI bleeding Musculoskeletal: denies: pain, tenderness, stiffness, swelling, arthritis/arthralgias Neurological: denies: numbness, syncope, seizure, weakness - Objective Allergies/Adverse Reactions: Allergies Allergy/AdvReac Type Severity Reaction Status Date / Time dobutamine AdvReac Mild Anaphylaxis Verified 11/12/20 07:24 Visit Medications: Current Medications Acetaminophen (Acetaminophen 325 Mg Tab) 650 mg PO Q4H PRN PRN Reason: Headache/Fever/Mild Pain (1-3) Last Admin: 11/21/20 15:24 Dose: 650 mg Documented by: Albuterol Sulfate (Albuterol Sulfate 2.5 Mg/3 Ml Neb) 2.5 mg NEB Q4H PRN PRN Reason: SOB &/or Wheezing Alogliptin Benzoate (Alogliptin 6.25 Mg Tab) 6.25 mg PO DAILY [facility] Last Admin: 11/22/20 16:13 Dose: 6.25 mg Documented by: Amlodipine Besylate (Amlodipine 5 Mg Tab) 10 mg PO DAILY [facility] Last Admin: 11/22/20 16:13 Dose: 10 mg Documented by: Aspirin (Aspirin Chewable 81 Mg Tab) 81 mg PO DAILY [facility] Last Admin: 11/22/20 16:14 Dose: 81 mg Documented by: Atorvastatin Calcium (Atorvastatin Calcium 40 Mg Tab) 40 mg PO HS [facility] Last Admin: 11/21/20 22:20 Dose: 40 mg Documented by: Dexamethasone (Dexamethasone 4 Mg Tab) 6 mg PO DAILY [facility] Last Admin: 11/22/20 16:14 Dose: 6 mg Documented by: Dextrose/Water (Dextrose 50% Abboject 50 Ml Syringe) 25 gm SLOW IVP PRN PRN PRN Reason: Hypoglycemia Epoetin Chung-epbx (Epoetin Chung-Epbx (Esrd) 2,000 Unit/Ml Vial) 2,000 unit SC [facility] Epoetin Chung-epbx (Epoetin Chung-Epbx (Esrd) 3,000 Unit/Ml Vial) 3,000 unit SC [facility] Glucagon (Glucagon 1 Mg/Ml Vial) 1 mg IM PRN PRN PRN Reason: Hypoglycemia Heparin Sodium (Porcine) (Heparin 5,000 Units/Ml Vial) 5,000 units SC BID [facility] Last Admin: 11/22/20 16:16 Dose: Not Given Documented by: Hydralazine HCl (Hydralazine 20 Mg/Ml Vial) 10 mg SLOW IVP Q4H PRN PRN Reason: SBP GREATER THAN 160 Last Admin: 11/11/20 17:58 Dose: 10 mg Documented by: Hydralazine HCl (Hydralazine 25 Mg Tab) 50 mg PO TID [facility] Last Admin: 11/22/20 16:16 Dose: 50 mg Documented by: Dextrose/Water (D5w) 1,000 mls @ 0 mls/hr IV .Q0M PRN PRN Reason: Hypoglycemia Insulin Glargine 45 units/ (Miscellaneous Medication) 0.45 mls @ 0 mls/hr SC [facility] Last Admin: 11/21/20 22:20 Dose: 0.45 mls Documented by: Cefazolin Sodium/Dextrose 2 gm (/ Device) 50 mls @ 100 mls/hr IVPB ONCALL-OR [facility] Ferric Sodium Gluconate Complex 125 mg/ Sodium Chloride 110 mls @ 110 mls/hr IVPB DAILY [facility] Stop: 11/24/20 09:59 Last Admin: 11/22/20 08:05 Dose: 110 mls Documented by: Insulin Glargine 14 units/ (Miscellaneous Medication) 0.14 mls @ 0 mls/hr SC QAM [facility] Last Admin: 11/22/20 16:12 Dose: Not Given Documented by: Insulin Human Lispro (Humalog 300 Units/3 Ml Vial) 0 units SC .MILD SLIDING SCALE PRN PRN Reason: Mild Correctional Scale Last Admin: 11/21/20 17:28 Dose: 3 unit Documented by: Isosorbide Dinitrate (Isosorbide Dinitrate 20 Mg Tab) 20 mg PO TID [facility] Last Admin: 11/22/20 16:17 Dose: 20 mg Documented by: Lactulose (Lactulose 20 Gm/30 Ml Udcup) 20 gm PO DAILYPRN PRN PRN Reason: Constipation Mometasone Furoate/Formoterol Fumar (Mometasone 200 Mcg/Formoterol 5 Mcg 120 Puff Inhaler) 2 puff INH BID-RT [facility] Last Admin: 11/22/20 08:33 Dose: 2 puff Documented by: Morphine Sulfate (Morphine 4 Mg/Ml Vial) 4 mg SLOW IVP Q6H PRN PRN Reason: Moderate to Severe Pain (6-10) Last Admin: 11/21/20 17:45 Dose: 4 mg Documented by: Ondansetron HCl (Ondansetron Pf 4 Mg/2 Ml Vial) 4 mg IVP Q6H PRN PRN Reason: Nausea/Vomiting Last Admin: 11/17/20 09:39 Dose: 4 mg Documented by: Polyethylene Glycol (Polyethylene Glycol 3350 17 Gm Packet) 17 gm PO DAILY [facility] Last Admin: 11/22/20 16:17 Dose: Not Given Documented by: Senna/Docusate Sodium (Senokot S 8.6-50 Mg Tab) 1 tab PO BID [facility] Last Admin: 11/22/20 16:17 Dose: Not Given Documented by: Sodium Chloride (Flush - Normal Saline 10 Ml Syringe) 10 ml IVF PRN PRN PRN Reason: Saline Flush Last Admin: 11/13/20 08:13 Dose: 10 ml Documented by: Vital Signs & Weight: Vital Signs Temp Pulse Resp BP Pulse Ox 11/22/20 16:16 73 11/22/20 16:13 73 11/22/20 08:00 97.9 F 73 16 124/53 L 95 11/22/20 05:12 98.4 F 78 17 157/70 H 95 Admit Weight 283 lb 8 oz Weight 283 lb 4.704 oz - Quality Measures Condition: Heart Failure CV meds: FRIEDA/ARB: No, Statin: Yes, ASA: Yes - Medication Contraindications No FRIEDA/ARB reason: Medical contraindication - Physical Exam General: alert & oriented x3, appears well, no apparent distress HEENT: mucus membranes moist Neck: no JVD/HJR, no bruit Cardiac: regular rate and rhythm, no murmur, S1/S2 Lungs: clear to auscultation, normal breath sounds, no wheeze, rales, rhonchi Neuro: grossly intact, motor function intact, sensory function intact Abdomen: active bowel sounds, distended Extremities: other: (edema to bilateral feet, remains unchanged Numbness to right arm from recent procedure and nerve block today) Skin: clear Musculoskeletal: no pain - Labs Result Diagrams: 11/21/20 07:33 11/22/20 04:10 Troponin/CKMB Troponin I 0.107 ng/mL (< 0.028) H 11/19/20 14:29 - EKG Interpretation EKG Method: Telemetry EKG: sinus rhythm - Assessment/Plan Assessment/Plan: 1. CHF exacerbation: he denies shortness of breath today. He did go to dialysis this morning, he states he is feeling good today. 2. ESRD: his creatinine was 4.97 today, he had dialysis this morning and an AV fistula placed today to his right arm under anesthesia. He is scheduled for dialysis tomorrow morning as well. 3. Hypertension: his BP is under resonable control at this time, we will continue with Amlodipine, Coreg, Hydralazine, and Isosorbide Dinitrate at this time 4. Hyperlipidemia: will continue his Atorvastatin 40 mg at this time We will continue to follow this patient and continue symptomatic care at this time . Pt. seen and eval. by me. I agree with the A/P by the [employer]. He is eating this PM and has no c/o. Chest clear , RRR. Continue present treatment,. eduardo
--- NOTE | 2020-11-22 17:43 | OP ---
DATE OF PROCEDURE: 11/22/2020 PREOPERATIVE DIAGNOSES: End-stage renal disease. POSTOPERATIVE DIAGNOSIS: End-stage renal disease. PROCEDURE PERFORMED: Right [place] fistula, regional. ANESTHESIA: TIVA, local 0.5% Marcaine 30 mL mixed with 1% Xylocaine with epinephrine 20 mL. DESCRIPTION OF PROCEDURE: The patient was taken to the operating room, where under regional anesthesia, right upper extremity was prepared with ChloraPrep and draped in routine fashion. Incision made between the cephalic vein and radial artery, dissecting both free, given the patient 6000 units of heparin intravenously. Cephalic vein ligated on the hand side with a 3-0 silk suture, divided, spatulated, interrogated with coronary dilators from 2 mm to 3.5 mm coronary dilator without obstruction or restriction. It was flushed with heparinized saline solution. Radial artery dissected free, clamped proximally and distally, longitudinal arteriotomy made sharply, elongated with Ac scissors. The cephalic vein spatulated, and end vein to side radial artery anastomosis 3 cm completed with continuous suture of 6-0 Prolene, releasing the clamps, noting good flow evident by Doppler interrogation. Good hemostasis noted. The patient was given 25 mg of protamine intravenously. Subcutaneous tissue was approximated with 3-0 Monocryl, skin with subdermal 4-0 Monocryl and Crozet glue applied. The patient tolerated the procedure well. Job ID: [id number]
[2020-11-22] MEDS: EPOETIN ALFA-EPBX (ESRD) 3,000 UNIT/ML VIAL SC SCH (18:41)
[2020-11-22] MEDS: EPOETIN ALFA-EPBX (ESRD) 2,000 UNIT/ML VIAL SC SCH (18:42)
[2020-11-22] MEDS ORDERED: traMADol HCl 50 MG TAB PO PRN (19:31)
[2020-11-22] MEDS ORDERED: Acetaminophen 500 MG TAB PO PRN (19:31)
[2020-11-22] MEDS: Insulin Glargine 45 UNITS in Pre-Filled Syringe 1 EACH SC SCH (21:17)
[2020-11-22] MEDS: Atorvastatin Calcium 40 MG TAB PO SCH (21:18)
[2020-11-23 03:56] LABS: Hemoglobin 8.6 g/dL (14.0-18.0)
[2020-11-23 04:12] LABS: Albumin 3.4 g/dL (3.5-5.0); Anion Gap 17 mmol/L (10-20); BUN (Urea Nitrogen) 48 mg/dL (8.4-25.7); BUN/Creatinine Ratio 11.76; Calc. Creatinine Clearance 37 mL/min (70-130); Calcium 8.9 mg/dL (7.8-10.44); Carbon Dioxide 23 mmol/L (22-29); Chloride 97 mmol/L (98-107); Glucose 183 mg/dL (70-105); Phosphorus 5.8 mg/dL (2.3-4.7); Potassium 5.1 mmol/L (3.5-5.1); Sodium 132 mmol/L (136-145)
[2020-11-23] MEDS: HumaLOG 300 UNITS/3 ML VIAL SC PRN ×2 (06:05→17:10)
--- NOTE | 2020-11-23 06:52 | PDOC.FM ---
- Subjective Subjective: Pt resting comfortably in bed, awake and alert. States surgery went well and he is having minimal pain. Able to move right hand. Has gotten out of bed. SOB improved. - Objective Vital Signs & Weight: Vital Signs (12 hours) Temp Pulse Resp BP BP Pulse Ox 11/23/20 04:00 97.8 F 77 16 136/65 95 11/22/20 21:17 70 11/22/20 20:00 95 11/22/20 19:45 96.9 F L 70 20 147/65 H 95 11/22/20 19:01 92 L Weight Admit Weight 128.593 kg Weight 127.913 kg I&O: 11/21/20 11/22/20 11/23/20 06:59 06:59 06:59 Intake Total 1085 700 530 Output Total 1680 1360 850 Balance -595 -660 -320 Result Diagrams: 11/23/20 03:32 11/23/20 03:32 Phys Exam - Physical Examination Constitutional: NAD HEENT: sclera anicteric Neck: supple, full ROM Respiratory: no wheezing, clear to auscultation bilateral Cardiovascular: RRR, no significant murmur Gastrointestinal: soft, non-tender Musculoskeletal: pulses present Neurological: non-focal Psychiatric: normal affect, A&O x 3 Deviation from normal: surgical wound on R wrist clean, dry, well approximated Dx/Plan - Plan Plan: Acute Hypoxic Respiratory Failure 2/2 CHF exacerbation vs PNA -CXR mild left basilar opacity with small L pleural effusion, BNP 547, Trop 0.025 -Last ECHO 06/2020 showed EF of 35-40%. ECHO 12/02: EF 40-45%, dilated cardiomyopathy -Mg 3.0, Phos 5.2. Procal 0.12. Rocephin (11/09-11/10), Azithro (11/09-11/10). WBC 8.9 -Failed dobutamine trial -O2 requirement, now on RA post dialysis -Cardiology consult (Padma): Continue 50mg TID hydralazine -Dr. Acevedo consult: discontinue milrinone due to pt not tolerating, dc carv edilol, start decadron, pending sputum and UCx -repeat CXR: b/l multifocal opacities concerning for pna -repeat COVID negative -Chest CT: small R lobe consolidation concerning for aspiration. Large R pleural effusion w/ background pulm edema -pulm edema and pleural effusion likely to improve with dialysis. Can f/u as outpatient with repeat CXR if warranted CKD5 -tunneled cath placed 11/21 and started HD -postop day 1 R AVF placement (11/22) -Nephrology consult (Obi) recs: dialyzed yesterday and pt states he is going for dialysis today -CM: arranged outpatient dialysis chair Acute Chest Pain-resolved -Likely 2/2 NSTEMI Type II/demand ischemia Nausea/Vomiting -resolved -zofran prn -KUB negative -most likely due to morphine he received for hip pain -Continue bowel regimen Right Hip Pain, resolved -MRI negative for avascular necrosis -morphine prn for pain DMII -Home lantus 14units daily -Hold home lantus, mild SSI in place Chronic Normocytic Anemia -Hgb 9.1, 8.2. MCV 94 -iron studies in 06/2020 show that he is iron deficient -suspect that this is due to his CKD and is probably EPO deficient as well Chronic Conditions HTN Hx of CVA Asthma -continue home medications CODE: Full VTE: Heparin PCP: Calvin Dispo: Stable, clinical picture improved. CM is working on outpatient dialysis chair. Likely to discharge soon, pending nephro recs. Addendum - Attending - Attending Attestation Date/Time: 11/23/20 [id number] I personally evaluated the patient and discussed the management with Dr. Jaramillo. I agree with the History, Examination, Assessment and Plan documented above with any addition or exceptions noted below.
[2020-11-23] MEDS: Mometasone 200 MCG/Formoterol 5 MCG 120 PUFF INHALER INH SCH ×2 (07:36→18:45)
[2020-11-23] MEDS ORDERED: Heparin 10,000 UNITS/ 10 ML VIAL ONE (10:10)
[2020-11-23] MEDS ORDERED: Ergocalciferol 1.25 MG(50,000 UNITS) CAP PO SCH (11:30)
--- NOTE | 2020-11-23 11:37 | PDOC.NEPPN ---
- Subjective Encounter Date: 11/23/20 Subjective: Seen during HD. Feeling better.Had Right wrist AVF creation yesterday. - Objective Vital Signs & Weight: Vital Signs (12 hours) Temp Pulse Resp BP BP Pulse Ox 11/23/20 07:36 92 L 11/23/20 07:27 98.2 F 79 19 143/79 H 95 11/23/20 04:00 97.8 F 77 16 136/65 95 Weight Admit Weight 283 lb 8 oz Weight 282 lb I&O: 11/22/20 11/23/20 11/24/20 06:59 06:59 06:59 Intake Total 700 530 Output Total 1360 850 Balance -660 -320 Result Diagrams: 11/23/20 03:32 11/23/20 03:32 Additional Labs: Accuchecks 11/23/20 11/23/20 11/22/20 11:00 05:52 21:14 POC Glucose 141 H 180 H 211 H 11/22/20 11/22/20 16:42 13:31 POC Glucose 156 H 158 H Nephrology ROS - Medication Medications: Active Medications Generic Name Dose Route Start Last Admin Trade Name Freq PRN Reason Stop Dose Admin Alogliptin Benzoate 6.25 mg 11/10/20 09:00 11/22/20 16:13 Alogliptin 6.25 Mg Tab PO 6.25 mg DAILY VISHNU Administration Amlodipine Besylate 10 mg 11/13/20 09:00 11/22/20 16:13 Amlodipine 5 Mg Tab PO 10 mg DAILY VISHNU Administration Aspirin 81 mg 11/10/20 09:00 11/22/20 16:14 Aspirin Chewable 81 Mg Tab PO 81 mg DAILY VISHNU Administration Atorvastatin Calcium 40 mg 11/09/20 21:00 11/22/20 21:18 Atorvastatin Calcium 40 Mg Tab PO 40 mg HS VISHNU Administration Epoetin Chung-epbx 2,000 unit 11/22/20 09:00 11/22/20 18:42 Epoetin Chung-Epbx (Esrd) 2,000 Unit/Ml Vial SC 2,000 unit TuTa [facility] Administration Epoetin Chung-epbx 3,000 unit 11/22/20 09:00 11/22/20 18:41 Epoetin Chung-Epbx (Esrd) 3,000 Unit/Ml Vial SC 3,000 unit TuTa [facility] Administration Heparin Sodium (Porcine) 5,000 units 11/17/20 21:00 11/22/20 21:17 Heparin 5,000 Units/Ml Vial SC 5,000 units BID VISHNU Administration Hydralazine HCl 10 mg 11/11/20 17:19 11/11/20 17:58 Hydralazine 20 Mg/Ml Vial SLOW IVP 10 mg Q4H PRN Administration SBP GREATER THAN 160 Hydralazine HCl 50 mg 11/13/20 21:00 11/22/20 21:17 Hydralazine 25 Mg Tab PO 50 mg TID VISHNU Administration Insulin Glargine 45 units/ 0.45 mls @ 0 mls/hr 11/09/20 21:00 11/22/20 21:17 Miscellaneous Medication SC 0.45 mls HS VISHNU Administration Ferric Sodium Gluconate 110 mls @ 110 mls/hr 11/22/20 09:00 11/22/20 08:05 Complex 125 mg/ Sodium IVPB 11/24/20 09:59 110 mls Chloride DAILY VISHNU Administration Insulin Glargine 14 units/ 0.14 mls @ 0 mls/hr 11/22/20 09:00 11/22/20 16:12 Miscellaneous Medication SC Not Given [facility] Insulin Human Lispro 0 units 11/09/20 19:13 11/23/20 06:05 Humalog 300 Units/3 Ml Vial SC 2 unit .MILD SLIDING SCALE PRN Administration Mild Correctional Scale Isosorbide Dinitrate 20 mg 11/19/20 15:00 11/22/20 21:17 Isosorbide Dinitrate 20 Mg Tab PO 20 mg TID [facility] Administration Mometasone Furoate/Formoterol Fumar 2 puff 11/20/20 18:30 11/23/20 07:36 Mometasone 200 Mcg/Formoterol 5 Mcg 120 Puff Inhaler INH 2 puff BID-RT VISHNU Administration Morphine Sulfate 4 mg 11/15/20 09:23 11/21/20 17:45 Morphine 4 Mg/Ml Vial SLOW IVP 4 mg Q6H PRN Administration Moderate to Severe Pain (6-10) Ondansetron HCl 4 mg 11/16/20 16:14 11/17/20 09:39 Ondansetron Pf 4 Mg/2 Ml Vial IVP 4 mg Q6H PRN Administration Nausea/Vomiting Polyethylene Glycol 17 gm 11/18/20 09:00 11/22/20 16:17 Polyethylene Glycol 3350 17 Gm Packet PO Not Given DAILY VISHNU Senna/Docusate Sodium 1 tab 11/17/20 21:00 11/22/20 21:18 Senokot S 8.6-50 Mg Tab PO 1 tab BID VISHNU Administration Sodium Chloride 10 ml 11/09/20 19:13 11/13/20 08:13 Flush - Normal Saline 10 Ml Syringe IVF 10 ml PRN PRN Administration Saline Flush - Exam General Appearance: awake alert Eye: anicteric sclera ENT: normocephalic atraumatic Neck: supple, symmetric Respiratory: no wheezes, no rales, no ronchi, normal chest expansion Cardiovascular: RRR Gastrointestinal: soft, non-tender, normal bowel sounds Gastrointestinal - other findings: obese Extremities: 1+ LE edema Neurological: CN's grossly intact, no new deficit PSYCH: A&O x 3 Nephrology Results - Labs Result Diagrams: 11/23/20 03:32 11/23/20 03:32 Lab results: WBC 10.2 thou/uL (4.8-10.8) 11/21/20 07:33 Hgb 8.6 g/dL (14.0-18.0) L 11/23/20 03:32 Hct 25.6 % (42.0-52.0) L 11/23/20 03:32 MCV 96.2 fL (78.0-98.0) 11/21/20 07:33 Plt Count 217 thou/uL (130-400) 11/21/20 07:33 Neutrophils % 78.6 % (42.0-75.0) H 11/20/20 11:40 Sodium 132 mmol/L (136-145) L 11/23/20 03:32 Potassium 5.1 mmol/L (3.5-5.1) 11/23/20 03:32 Chloride 97 mmol/L (98-107) L 11/23/20 03:32 Carbon Dioxide 23 mmol/L (22-29) 11/23/20 03:32 BUN 48 mg/dL (8.4-25.7) H 11/23/20 03:32 Creatinine 4.08 mg/dL (0.7-1.3) H 11/23/20 03:32 Glucose 183 mg/dL (70-105) H 11/23/20 03:32 Calcium 8.9 mg/dL (7.8-10.44) 11/23/20 03:32 Total Bilirubin 0.6 mg/dL (0.2-1.2) 11/09/20 16:19 AST 11 U/L (5-34) 11/09/20 16:19 ALT 16 U/L (8-55) 11/09/20 16:19 Alkaline Phosphatase 112 U/L (40-110) H 11/09/20 16:19 Troponin I 0.107 ng/mL (< 0.028) H 11/19/20 14:29 B-Natriuretic Peptide 547.0 pg/mL (0-100) H 11/09/20 16:19 Serum Total Protein 6.9 g/dL (6.0-8.3) 11/09/20 16:19 Albumin 3.4 g/dL (3.5-5.0) L 11/23/20 03:32 Urine Ketones Negative mg/dL (Negative) 11/18/20 16:35 Urine Blood Negative (Negative) 11/18/20 16:35 Urine Nitrite Negative (Negative) 11/18/20 16:35 Ur Leukocyte Esterase Negative Samir/uL (Negative) 11/18/20 16:35 Urine RBC 0-3 HPF (0-3) 11/18/20 16:35 Urine WBC 0-3 HPF (0-3) 11/18/20 16:35 Ur Squamous Epith Cells None Seen HPF (0-3) 11/18/20 16:35 Urine Bacteria None Seen HPF (None Seen) 11/18/20 16:35 Sodium 132 mmol/L (136-145) L 11/23/20 03:32 Potassium 5.1 mmol/L (3.5-5.1) 11/23/20 03:32 Chloride 97 mmol/L (98-107) L 11/23/20 03:32 Carbon Dioxide 23 mmol/L (22-29) 11/23/20 03:32 Anion Gap 17 mmol/L (10-20) 11/23/20 03:32 BUN 48 mg/dL (8.4-25.7) H 11/23/20 03:32 Creatinine 4.08 mg/dL (0.7-1.3) H 11/23/20 03:32 Glucose 183 mg/dL (70-105) H 11/23/20 03:32 Calcium 8.9 mg/dL (7.8-10.44) 11/23/20 03:32 Phosphorus 5.8 mg/dL (2.3-4.7) H 11/23/20 03:32 Magnesium 3.4 mg/dL (1.6-2.6) H 11/22/20 04:10 Albumin 3.4 g/dL (3.5-5.0) L 11/23/20 03:32 Nephrology AP PN - Plan ZAHEER on CKD4: Now ESRD. Initiated on HD on 11/21/20. S/p TDC placement 11/21/20 and AVF 11/22/20 Volume overload: Due to Cardiac decompensation. Improved Anemia in CKD HTN: Control is acceptable Acute on chronic combined systolic and diastolic HF. Now off milrinone. Volume management with HD Acute respiratory failure due to CHF exacerbation. Improved Vitamin D deficiency PLAN Start ergocalciferol supplementation Continue IV iron and JARRED. HD today for 4 hours with UF as tolerated. Continue other supportive care. Can be discharged once outpatient HD arrangement is conluded
[2020-11-23] MEDS ORDERED: Tuberculin PPD 0.1 ML VIAL I-DERMAL SCH ×2 (12:30)
[2020-11-23] MEDS: Amlodipine 5 MG TAB PO SCH (13:02)
[2020-11-23] MEDS: Alogliptin 6.25 MG TAB PO SCH (13:02)
[2020-11-23] MEDS: Heparin 5,000 UNITS/ML VIAL SC SCH ×2 (13:03→21:22)
[2020-11-23] MEDS: Aspirin Chewable 81 MG TAB PO SCH (13:03)
[2020-11-23] MEDS: Iron, Sodium Ferric Gluconate 125 MG in Sodium Chloride 0.9% 100 ML IVPB SCH (13:04)
[2020-11-23] MEDS: Insulin Glargine 14 UNITS in Pre-Filled Syringe 1 EACH SC SCH (13:04)
--- NOTE | 2020-11-23 13:25 | PDOC.CPN ---
- Subjective Date: 11/23/20 Time: 13:00 Interval history: No overnight events, he had dialysis again this morning. He states he is feeling better. He denies any chest pain or shortness of breath. He has no complaints today - Review of Systems General: denies: fever/chills, weight/appetite/sleep changes, night sweats, fatigue Respiratory: denies: cough, congestion, shortness of breath, exercise intolerance Cardiovascular: denies: chest pain, palpitation, edema, paroxysmal nocturnal dyspnea, orthopnea Gastrointestinal: denies: nausea, vomiting, diarrhea, constipation, abd pain, GI bleeding Musculoskeletal: denies: pain, tenderness, stiffness, swelling, arthritis/arthralgias Neurological: denies: numbness, syncope, seizure, weakness - Objective Allergies/Adverse Reactions: Allergies Allergy/AdvReac Type Severity Reaction Status Date / Time dobutamine AdvReac Mild Anaphylaxis Verified 11/12/20 07:24 Visit Medications: Current Medications Acetaminophen (Acetaminophen 500 Mg Tab) 1,000 mg PO Q6H PRN PRN Reason: Moderate to Severe Pain (6-10) Albuterol Sulfate (Albuterol Sulfate 2.5 Mg/3 Ml Neb) 2.5 mg NEB Q4H PRN PRN Reason: SOB &/or Wheezing Alogliptin Benzoate (Alogliptin 6.25 Mg Tab) 6.25 mg PO DAILY [facility] Last Admin: 11/23/20 13:02 Dose: 6.25 mg Documented by: Amlodipine Besylate (Amlodipine 5 Mg Tab) 10 mg PO DAILY [facility] Last Admin: 11/23/20 13:02 Dose: 10 mg Documented by: Aspirin (Aspirin Chewable 81 Mg Tab) 81 mg PO DAILY [facility] Last Admin: 11/23/20 13:03 Dose: 81 mg Documented by: Atorvastatin Calcium (Atorvastatin Calcium 40 Mg Tab) 40 mg PO HS [facility] Last Admin: 11/22/20 21:18 Dose: 40 mg Documented by: Dextrose/Water (Dextrose 50% Abboject 50 Ml Syringe) 25 gm SLOW IVP PRN PRN PRN Reason: Hypoglycemia Epoetin Chung-epbx (Epoetin Chung-Epbx (Esrd) 2,000 Unit/Ml Vial) 2,000 unit SC TuThSa [facility] Last Admin: 11/22/20 18:42 Dose: 2,000 unit Documented by: Epoetin Chung-epbx (Epoetin Hcung-Epbx (Esrd) 3,000 Unit/Ml Vial) 3,000 unit SC TuThSa [facility] Last Admin: 11/22/20 18:41 Dose: 3,000 unit Documented by: Ergocalciferol (Ergocalciferol 1.25 Mg(50,000 Units) Cap) 1.25 mg PO NOW [facility] Stop: 11/23/20 13:30 Last Admin: 11/23/20 13:02 Dose: 1.25 mg Documented by: Ergocalciferol (Ergocalciferol 1.25 Mg(50,000 Units) Cap) 1.25 mg PO Q7DAYS [facility] Glucagon (Glucagon 1 Mg/Ml Vial) 1 mg IM PRN PRN PRN Reason: Hypoglycemia Heparin Sodium (Porcine) (Heparin 5,000 Units/Ml Vial) 5,000 units SC BID [facility] Last Admin: 11/23/20 13:03 Dose: 5,000 units Documented by: Hydralazine HCl (Hydralazine 20 Mg/Ml Vial) 10 mg SLOW IVP Q4H PRN PRN Reason: SBP GREATER THAN 160 Last Admin: 11/11/20 17:58 Dose: 10 mg Documented by: Hydralazine HCl (Hydralazine 25 Mg Tab) 50 mg PO TID [facility] Last Admin: 11/22/20 21:17 Dose: 50 mg Documented by: Dextrose/Water (D5w) 1,000 mls @ 0 mls/hr IV .Q0M PRN PRN Reason: Hypoglycemia Insulin Glargine 45 units/ (Miscellaneous Medication) 0.45 mls @ 0 mls/hr SC HS [facility] Last Admin: 11/22/20 21:17 Dose: 0.45 mls Documented by: Cefazolin Sodium/Dextrose 2 gm (/ Device) 50 mls @ 100 mls/hr IVPB ONCALL-OR [facility] Ferric Sodium Gluconate Complex 125 mg/ Sodium Chloride 110 mls @ 110 mls/hr IVPB DAILY [facility] Stop: 11/24/20 09:59 Last Admin: 11/23/20 13:04 Dose: 110 mls Documented by: Insulin Glargine 14 units/ (Miscellaneous Medication) 0.14 mls @ 0 mls/hr SC QAM [facility] Last Admin: 11/23/20 13:04 Dose: 0.14 mls Documented by: Insulin Human Lispro (Humalog 300 Units/3 Ml Vial) 0 units SC .MILD SLIDING SCALE PRN PRN Reason: Mild Correctional Scale Last Admin: 11/23/20 06:05 Dose: 2 unit Documented by: Isosorbide Dinitrate (Isosorbide Dinitrate 20 Mg Tab) 20 mg PO TID [facility] Last Admin: 11/22/20 21:17 Dose: 20 mg Documented by: Lactulose (Lactulose 20 Gm/30 Ml Udcup) 20 gm PO DAILYPRN PRN PRN Reason: Constipation Mometasone Furoate/Formoterol Fumar (Mometasone 200 Mcg/Formoterol 5 Mcg 120 Puff Inhaler) 2 puff INH BID-RT [facility] Last Admin: 11/23/20 07:36 Dose: 2 puff Documented by: Morphine Sulfate (Morphine 4 Mg/Ml Vial) 4 mg SLOW IVP Q6H PRN PRN Reason: Moderate to Severe Pain (6-10) Last Admin: 11/21/20 17:45 Dose: 4 mg Documented by: Read Ppd Test Site 0 each PO ONE [facility] Stop: 11/25/20 09:01 Ondansetron HCl (Ondansetron Pf 4 Mg/2 Ml Vial) 4 mg IVP Q6H PRN PRN Reason: Nausea/Vomiting Last Admin: 11/17/20 09:39 Dose: 4 mg Documented by: Polyethylene Glycol (Polyethylene Glycol 3350 17 Gm Packet) 17 gm PO DAILY [facility] Last Admin: 11/22/20 16:17 Dose: Not Given Documented by: Senna/Docusate Sodium (Senokot S 8.6-50 Mg Tab) 1 tab PO BID [facility] Last Admin: 11/22/20 21:18 Dose: 1 tab Documented by: Sodium Chloride (Flush - Normal Saline 10 Ml Syringe) 10 ml IVF PRN PRN PRN Reason: Saline Flush Last Admin: 11/13/20 08:13 Dose: 10 ml Documented by: Tramadol HCl (Tramadol Hcl 50 Mg Tab) 50 mg PO Q4H PRN PRN Reason: Pain Tuberculin PPD (Tuberculin Ppd 0.1 Ml Vial) 0.1 ml I-DERMAL NOW [facility] Stop: 11/23/20 14:30 Vital Signs & Weight: Vital Signs Temp Pulse Resp BP BP BP Pulse Ox 11/23/20 13:02 79 159/73 H 11/23/20 07:36 92 L 11/23/20 07:27 98.2 F 79 19 143/79 H 95 11/23/20 04:00 97.8 F 77 16 136/65 95 Admit Weight 283 lb 8 oz Weight 282 lb - Quality Measures Condition: Heart Failure CV meds: FRIEDA/ARB: No, Statin: Yes, ASA: Yes - Medication Contraindications No FRIEDA/ARB reason: Medical contraindication - Physical Exam General: alert & oriented x3, appears well, no apparent distress HEENT: normocephaly Neck: no JVD/HJR, no bruit Cardiac: regular rate and rhythm, no murmur, S1/S2 Lungs: clear to auscultation, normal breath sounds, no wheeze, rales, rhonchi Neuro: grossly intact, motor function intact Abdomen: active bowel sounds, soft, distended Extremities: no cyanosis, no clubbing, no edema Skin: clear Musculoskeletal: normal range of motion, no pain - Labs Result Diagrams: 11/23/20 03:32 11/23/20 03:32 Troponin/CKMB Troponin I 0.107 ng/mL (< 0.028) H 11/19/20 14:29 - EKG Interpretation EKG Method: Telemetry EKG: sinus rhythm - Assessment/Plan Assessment/Plan: 1. CHF exacerbation: he denies shortness of breath today. He did go to dialysis this morning, he states he is feeling better today. 2. ESRD: his creatinine was 4.08 today, he had dialysis this morning. 3. Hypertension: his BP is under resonable control at this time, we will continue with Amlodipine, Coreg, Hydralazine, and Isosorbide Dinitrate at this time 4. Hyperlipidemia: will continue his Atorvastatin 40 mg at this time Continue current treatment. Stable for discharge from Cardiac stanpoint, follow-up as outpatient with cardiology in 2-4 weeks. Pt. seen and eval. by me. I agree with the A/P by three [employer]. Chest clear. RRR. minimal edema. He is doing well with dialysis and is becoming more euvolemic. He feels better overall. Cardiac status is stable. Okay from a cardiac standpoint to d/c. I will follow him in the office. I will sign off.gjm
--- NOTE | 2020-11-23 13:37 | PRG ---
DATE OF SERVICE: 11/23/2020 [place] Jeffery is doing well today. He dialyzed this morning. His right hand is functioning well. He has a good thrill and bruit over his Pamela fistula. His dialysis catheter seems to be working well. At this point, he is doing well. I will see him as needed. He should exercise the right arm. He has been provided with exercise ball. There are no restrictions to right arm use. At this point, I will see him as needed in this hospitalization. He should follow up in my office in 3 to 4 weeks. Job ID: [id number]
[2020-11-23] MEDS: hydrALAZINE 25 MG TAB PO SCH ×3 (13:41→21:23)
[2020-11-23] MEDS: Isosorbide Dinitrate 20 MG TAB PO SCH ×3 (13:41→21:23)
[2020-11-23] MEDS: Polyethylene Glycol 3350 17 GM Packet PO SCH (13:41)
[2020-11-23] MEDS: Senokot S 8.6-50 MG TAB PO SCH ×2 (13:41→21:23)
[2020-11-23] MEDS: Dexamethasone 4 MG TAB PO SCH (16:45)
[2020-11-23] MEDS: Atorvastatin Calcium 40 MG TAB PO SCH (21:22)
[2020-11-23] MEDS: Insulin Glargine 45 UNITS in Pre-Filled Syringe 1 EACH SC SCH (21:22)
[2020-11-24] MEDS: Mometasone 200 MCG/Formoterol 5 MCG 120 PUFF INHALER INH SCH ×2 (06:47→18:46)
--- NOTE | 2020-11-24 06:47 | PDOC.FM ---
- Subjective Subjective: Pt sitting up in bedside chair this morning. He reports that his blood sugar was low this morning on accucheck but he was asymptomatic. Nurse gave him orange juice. Overall he says he is feeling much better. Ambulating well, tolerating diet, minimal pain in RUE post surgery and LE edema improved. - Objective Vital Signs & Weight: Vital Signs (12 hours) Temp Pulse Resp BP Pulse Ox 11/24/20 03:42 98.9 F 66 20 135/65 98 11/23/20 21:23 63 11/23/20 20:00 99.0 F 70 16 132/78 97 Weight Admit Weight 128.593 kg Weight 122.8 kg I&O: 11/22/20 11/23/20 11/24/20 06:59 06:59 06:59 Intake Total 546 899 0403 Output Total 0122 017 6248 Balance -660 -320 420 Result Diagrams: 11/23/20 03:32 11/23/20 03:32 Phys Exam - Physical Examination Constitutional: NAD HEENT: sclera anicteric Neck: supple, full ROM R tunneled cath and L central line in place Respiratory: no wheezing, clear to auscultation bilateral Cardiovascular: RRR, no significant murmur Gastrointestinal: soft, non-tender minimal LE edema Neurological: non-focal Psychiatric: normal affect, A&O x 3 Deviation from normal: R wrist surgical incision healing well Dx/Plan - Plan Plan: Acute Hypoxic Respiratory Failure 2/2 CHF exacerbation vs PNA -CXR mild left basilar opacity with small L pleural effusion, BNP 547, Trop 0.025 -Last ECHO 06/2020 showed EF of 35-40%. ECHO 12/02: EF 40-45%, dilated cardiomyopathy -Mg 3.0, Phos 5.2. Procal 0.12. Rocephin (11/09-11/10), Azithro (11/09-11/10). WBC 8.9 -Failed dobutamine trial -O2 requirement, now on RA post dialysis -Cardiology consult (Padma): Continue 50mg TID hydralazine -Dr. Acevedo consult: discontinue milrinone due to pt not tolerating, dc carvedilol, start decadron, pending sputum and UCx -repeat CXR: b/l multifocal opacities concerning for pna -repeat COVID negative -Chest CT: small R lobe consolidation concerning for aspiration. Large R pleural effusion w/ background pulm edema -pulm edema and pleural effusion likely to improve with dialysis. Can f/u as outpatient with repeat CXR if warranted CKD5 -tunneled cath placed 11/21 and started HD -postop day 2 R AVF placement (11/22) -Nephrology consult (Obi) recs: dialyzed yesterday, stable for discharge -CM: pending insurance approval of outpatient dialysis chair and PPD results Acute Chest Pain-resolved -Likely 2/2 NSTEMI Type II/demand ischemia Nausea/Vomiting -resolved -zofran prn -KUB negative -most likely due to morphine he received for hip pain -Continue bowel regimen Right Hip Pain, resolved -MRI negative for avascular necrosis -morphine prn for pain DMII -Home lantus 14units daily -Hold home lantus, mild SSI in place Chronic Normocytic Anemia -Hgb 9.1, 8.2. MCV 94 -iron studies in 06/2020 show that he is iron deficient -suspect that this is due to his CKD and is probably EPO deficient as well Chronic Conditions HTN Hx of CVA Asthma -continue home medications CODE: Full VTE: Heparin PCP: Calvin Dispo: Stable for discharge. CM is working on outpatient dialysis chair, pending insurance approval and PPD test results Addendum - Attending - Attending Attestation Date/Time: 11/25/20 [id number] I personally evaluated the patient and discussed the management with Dr. Jaramillo yesterday. I agree with the History, Examination, Assessment and Plan documented above with any addition or exceptions noted below.
[2020-11-24] MEDS: Insulin Glargine 14 UNITS in Pre-Filled Syringe 1 EACH SC SCH (10:01)
[2020-11-24] MEDS: Heparin 5,000 UNITS/ML VIAL SC SCH (10:02)
[2020-11-24] MEDS: Polyethylene Glycol 3350 17 GM Packet PO SCH (10:03)
[2020-11-24] MEDS: Isosorbide Dinitrate 20 MG TAB PO SCH ×2 (10:03→17:19)
[2020-11-24] MEDS: Senokot S 8.6-50 MG TAB PO SCH (10:03)
[2020-11-24] MEDS: hydrALAZINE 25 MG TAB PO SCH ×2 (10:03→17:18)
[2020-11-24] MEDS: Aspirin Chewable 81 MG TAB PO SCH (10:03)
[2020-11-24] MEDS: Amlodipine 5 MG TAB PO SCH (10:04)
[2020-11-24] MEDS: Alogliptin 6.25 MG TAB PO SCH (10:04)
[2020-11-24] MEDS: Iron, Sodium Ferric Gluconate 125 MG in Sodium Chloride 0.9% 100 ML IVPB SCH (10:04)
--- NOTE | 2020-11-24 13:03 | PDOC.NEPPN ---
- Subjective Encounter Date: 11/24/20 Subjective: no new problem. Feeling better. - Objective Vital Signs & Weight: Vital Signs (12 hours) Temp Pulse Resp BP BP Pulse Ox 11/24/20 08:05 97.6 F 59 L 16 137/61 99 11/24/20 03:42 98.9 F 66 20 135/65 98 Weight Admit Weight 283 lb 8 oz Weight 270 lb 11.642 oz I&O: 11/23/20 11/24/20 11/25/20 06:59 06:59 06:59 Intake Total 530 1420 Output Total 850 1000 425 Balance -320 420 -425 Result Diagrams: 11/23/20 03:32 11/23/20 03:32 Additional Labs: Accuchecks 11/24/20 11/24/20 11/23/20 10:44 06:25 20:08 POC Glucose 82 81 162 H 11/23/20 16:49 POC Glucose 178 H Nephrology ROS - Medication Medications: Active Medications Generic Name Dose Route Start Last Admin Trade Name Freq PRN Reason Stop Dose Admin Alogliptin Benzoate 6.25 mg 11/10/20 09:00 11/24/20 10:04 Alogliptin 6.25 Mg Tab PO 6.25 mg DAILY VISHNU Administration Amlodipine Besylate 10 mg 11/13/20 09:00 11/24/20 10:04 Amlodipine 5 Mg Tab PO 10 mg DAILY VISHNU Administration Aspirin 81 mg 11/10/20 09:00 11/24/20 10:03 Aspirin Chewable 81 Mg Tab PO 81 mg DAILY VISHNU Administration Atorvastatin Calcium 40 mg 11/09/20 21:00 11/23/20 21:22 Atorvastatin Calcium 40 Mg Tab PO 40 mg HS VISHNU Administration Epoetin Chung-epbx 2,000 unit 11/22/20 09:00 11/22/20 18:42 Epoetin Chung-Epbx (Esrd) 2,000 Unit/Ml Vial SC 2,000 unit TuTa [facility] Administration Epoetin Chung-epbx 3,000 unit 11/22/20 09:00 11/22/20 18:41 Epoetin Chung-Epbx (Esrd) 3,000 Unit/Ml Vial SC 3,000 unit TuThSa [facility] Administration Heparin Sodium (Porcine) 5,000 units 11/17/20 21:00 11/24/20 10:02 Heparin 5,000 Units/Ml Vial SC 5,000 units BID VISHNU Administration Hydralazine HCl 10 mg 11/11/20 17:19 11/11/20 17:58 Hydralazine 20 Mg/Ml Vial SLOW IVP 10 mg Q4H PRN Administration SBP GREATER THAN 160 Hydralazine HCl 50 mg 11/13/20 21:00 11/24/20 10:03 Hydralazine 25 Mg Tab PO 50 mg TID VISHNU Administration Insulin Glargine 45 units/ 0.45 mls @ 0 mls/hr 11/09/20 21:00 11/23/20 21:22 Miscellaneous Medication SC 0.45 mls HS VISHNU Administration Insulin Glargine 14 units/ 0.14 mls @ 0 mls/hr 11/22/20 09:00 11/24/20 10:01 Miscellaneous Medication SC 0.14 mls QAM VISHNU Administration Insulin Human Lispro 0 units 11/09/20 19:13 11/23/20 17:10 Humalog 300 Units/3 Ml Vial SC 2 unit .MILD SLIDING SCALE PRN Administration Mild Correctional Scale Isosorbide Dinitrate 20 mg 11/19/20 15:00 11/24/20 10:03 Isosorbide Dinitrate 20 Mg Tab PO 20 mg TID VISHNU Administration Mometasone Furoate/Formoterol Fumar 2 puff 11/20/20 18:30 11/24/20 06:47 Mometasone 200 Mcg/Formoterol 5 Mcg 120 Puff Inhaler INH 2 puff BID-RT VISHNU Administration Ondansetron HCl 4 mg 11/16/20 16:14 11/17/20 09:39 Ondansetron Pf 4 Mg/2 Ml Vial IVP 4 mg Q6H PRN Administration Nausea/Vomiting Polyethylene Glycol 17 gm 11/18/20 09:00 11/24/20 10:03 Polyethylene Glycol 3350 17 Gm Packet PO Not Given DAILY VISHNU Senna/Docusate Sodium 1 tab 11/17/20 21:00 11/24/20 10:03 Senokot S 8.6-50 Mg Tab PO Not Given BID VISHNU Sodium Chloride 10 ml 11/09/20 19:13 11/23/20 21:22 Flush - Normal Saline 10 Ml Syringe IVF 10 ml PRN PRN Administration Saline Flush - Exam General Appearance: awake alert Eye: anicteric sclera ENT: normocephalic atraumatic, moist mucosa Neck: symmetric, no JVD Respiratory: CTAB, no wheezes, no ronchi, normal chest expansion, no tachypnea Cardiovascular: RRR Gastrointestinal: soft, non-distended, normal bowel sounds Extremities - other findings: Trace to mild feet edema Neurological: CN's grossly intact, no new deficit PSYCH: A&O x 3 Nephrology Results - Labs Result Diagrams: 11/23/20 03:32 11/23/20 03:32 Lab results: WBC 10.2 thou/uL (4.8-10.8) 11/21/20 07:33 Hgb 8.6 g/dL (14.0-18.0) L 11/23/20 03:32 Hct 25.6 % (42.0-52.0) L 11/23/20 03:32 MCV 96.2 fL (78.0-98.0) 11/21/20 07:33 Plt Count 217 thou/uL (130-400) 11/21/20 07:33 Neutrophils % 78.6 % (42.0-75.0) H 11/20/20 11:40 Sodium 132 mmol/L (136-145) L 11/23/20 03:32 Potassium 5.1 mmol/L (3.5-5.1) 11/23/20 03:32 Chloride 97 mmol/L (98-107) L 11/23/20 03:32 Carbon Dioxide 23 mmol/L (22-29) 11/23/20 03:32 BUN 48 mg/dL (8.4-25.7) H 11/23/20 03:32 Creatinine 4.08 mg/dL (0.7-1.3) H 11/23/20 03:32 Glucose 183 mg/dL (70-105) H 11/23/20 03:32 Calcium 8.9 mg/dL (7.8-10.44) 11/23/20 03:32 Total Bilirubin 0.6 mg/dL (0.2-1.2) 11/09/20 16:19 AST 11 U/L (5-34) 11/09/20 16:19 ALT 16 U/L (8-55) 11/09/20 16:19 Alkaline Phosphatase 112 U/L (40-110) H 11/09/20 16:19 Troponin I 0.107 ng/mL (< 0.028) H 11/19/20 14:29 B-Natriuretic Peptide 547.0 pg/mL (0-100) H 11/09/20 16:19 Serum Total Protein 6.9 g/dL (6.0-8.3) 11/09/20 16:19 Albumin 3.4 g/dL (3.5-5.0) L 11/23/20 03:32 Urine Ketones Negative mg/dL (Negative) 11/18/20 16:35 Urine Blood Negative (Negative) 11/18/20 16:35 Urine Nitrite Negative (Negative) 11/18/20 16:35 Ur Leukocyte Esterase Negative Samir/uL (Negative) 11/18/20 16:35 Urine RBC 0-3 HPF (0-3) 11/18/20 16:35 Urine WBC 0-3 HPF (0-3) 11/18/20 16:35 Ur Squamous Epith Cells None Seen HPF (0-3) 11/18/20 16:35 Urine Bacteria None Seen HPF (None Seen) 11/18/20 16:35 Sodium 132 mmol/L (136-145) L 11/23/20 03:32 Potassium 5.1 mmol/L (3.5-5.1) 11/23/20 03:32 Chloride 97 mmol/L (98-107) L 11/23/20 03:32 Carbon Dioxide 23 mmol/L (22-29) 11/23/20 03:32 Anion Gap 17 mmol/L (10-20) 11/23/20 03:32 BUN 48 mg/dL (8.4-25.7) H 11/23/20 03:32 Creatinine 4.08 mg/dL (0.7-1.3) H 11/23/20 03:32 Glucose 183 mg/dL (70-105) H 11/23/20 03:32 Calcium 8.9 mg/dL (7.8-10.44) 11/23/20 03:32 Phosphorus 5.8 mg/dL (2.3-4.7) H 11/23/20 03:32 Magnesium 3.4 mg/dL (1.6-2.6) H 11/22/20 04:10 Albumin 3.4 g/dL (3.5-5.0) L 11/23/20 03:32 Nephrology AP PN - Plan ZAHEER on CKD4: Now ESRD. Initiated on HD on 11/21/20. S/p TDC placement 11/21/20 and AVF 11/22/20. Last HD on 11/23/20 Volume overload: Due to Cardiac decompensation. Improved Anemia in CKD HTN: Control is acceptable Acute on chronic combined systolic and diastolic HF. Now off milrinone. Volume management with HD Acute respiratory failure due to CHF exacerbation. Improved Vitamin D deficiency PLAN get CXR to rule out TB and facilitate HD placement. Continue IV iron and JARRED. No HD today Continue other supportive care. Can be discharged once outpatient HD arrangement is concluded
--- NOTE | 2020-11-24 14:30 | RAD ---
EXAM: Chest 2 views: HISTORY: Evaluate for tuberculosis COMPARISON: 11/21/2020 FINDINGS: There is a normal-sized cardiomediastinal silhouette. The dialysis catheter and central venous gita ter are unchanged in position. There has been improvement in the hazy opacities in the right lung compared to the prior exam. There is a small right pleural effusion. No pneumothorax. No acute osseo us abnormality. IMPRESSION: Small right pleural effusion
[2020-11-24 15:42] VITALS: TEMP 98.3
[2020-11-24 16:39] VITALS: BMI 38.8
[2020-11-24 16:44] VITALS: BP 142/64
[2020-11-24] MEDS: EPOETIN ALFA-EPBX (ESRD) 2,000 UNIT/ML VIAL SC SCH (17:19)
[2020-11-24] MEDS: EPOETIN ALFA-EPBX (ESRD) 3,000 UNIT/ML VIAL SC SCH (17:19)
[2020-11-25] MEDS ORDERED: READ PPD TEST SITE PO SCH (09:00)
--- NOTE | 2020-11-25 13:55 | EKG ---
Test Reason : Blood Pressure : / mmHG Vent. Rate : 085 BPM Atrial Rate : 085 BPM P-R Int : 172 ms QRS Dur : 102 ms QT Int : 380 ms P-R-T Axes : 065 -21 175 degrees QTc Int : 452 ms Normal sinus rhythm Abnormal ECG Confirmed by DR. Marin BARLOW ([id number]) on 11/25/2020 1:55:12 PM Referred By: KELSEY Confirmed By:DR. Marin BARLOW
--- NOTE | 2020-11-25 13:56 | EKG ---
Test Reason : Blood Pressure : / mmHG Vent. Rate : 080 BPM Atrial Rate : 080 BPM P-R Int : 168 ms QRS Dur : 096 ms QT Int : 408 ms P-R-T Axes : 049 -15 183 degrees QTc Int : 470 ms Normal sinus rhythm Abnormal ECG When compared with ECG of 09-NOV-2020 15:41, (Unconfirmed) Inverted T waves have replaced nonspecific T wave abnormality in Lateral leads Confirmed by DR. Marin BARLOW ([id number]) on 11/25/2020 1:56:04 PM Referred By: LIA Confirmed By:DR. Marin BARLOW
--- NOTE | 2020-11-26 01:22 | DIS ---
DATE OF ADMISSION: 11/09/2020 DATE OF DISCHARGE: 11/24/2020 RESIDENT: Yi Jaramillo MD, PGY-1 ADMITTING ATTENDING: Ronny Art MD DISCHARGE ATTENDING: Ronny Art MD CONSULTS: Nephrology, Viet Ramos obi, MD; General Surgery, Kevin Gupta MD; med spa manager, Jorge Acevedo MD; cardiology, Jaylen Rouse MD PROCEDURES: 1. Echocardiogram on 11/11/2020; results, EF 40% to 45%, grade 2/3 diastolic dysfunction, dilated left ventricle, mild to moderate mitral regurg, mild tricuspid and pulmonic regurg. 2. Operative note, 11/21/2020: Right IJ cuffed tunneled dialysis catheter, left IJ central line. 3. 11/22/2020, right Pamela fistula. PRIMARY DIAGNOSES: Acute hypoxic respiratory failure secondary to congestive heart failure exacerbation versus pneumonia. SECONDARY DIAGNOSIS: 1. CKD5 2. Normocytic anemia. 3. Insulin-dependent diabetes mellitus. 4. Hypertension. 5. History of cerebrovascular accident. 6. Asthma. DISCHARGE MEDICATIONS: 1. Amlodipine 10 mg daily. 2. Aspirin 81 mg daily. 3. Atorvastatin 40 mg daily. 4. Retacrit 2000 units subcu Saturday, , and Saturday. 5. Ergocalciferol 1.25 mg p.o. q.7 days. 6. Hydralazine 50 mg t.i.d. 7. Lantus 45 units subcu at bedtime. 8. Regular insulin if needed with meals. 9. Isosorbide dinitrate 20 mg p.o. t.i.d. 10. Linagliptin 5 mg daily. HISTORY OF PRESENT ILLNESS: The patient is a 55-year-old male, who presented to the ED with shortness of breath for one week. He had been seen in the ED and treated with antibiotics and saw no improvement in his symptoms. He also reported orthopnea and increasing use of his home inhaler. In the ED, labs were drawn and he was noted to have a white count 9.9, hemoglobin 9.1, and platelet 248. Sodium 140, potassium 4.1, BUN 50, and creatinine 3.9 and BNP 547. He was given Lasix and started on Rocephin and Zithromax in the ED. He was noted to have low oxygen saturation and was requiring 4 L nasal cannula to maintain O2 saturations greater than 90%. The patient was known to have chronic kidney disease stage 4 from previous clinic records, but seemed to have worsening kidney function on presentation. Dr. 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 Throughout the stay, Dr. Hampton followed him and noted that his kidney function did not improve, which eventually led to his diagnosis of CKD 5, requiring hemodialysis. Dr. Acevedo, med spa manager, was consulted. He states the patient has heart failure, AHA stage C, [place] Heart Association class 4, with diastolic dysfunction. The patient had been trialed on dobutamine, but failed that treatment. The patient was then trialed on Milrinone. The patient did not tolerate Milrinone and asked that to be stopped. He felt that the patient had cardiorenal syndrome. After diuresis, the patient was able to be weaned off oxygen. His biggest improvement came after he was started on dialysis. Tunneled catheter and AV fistula procedures as above. The patient tolerated this well. Case Management was able to arrange for the patient to get outpatient dialysis chair and he was stable for discharge home. DISPOSITION: Stable. DISCHARGE INSTRUCTIONS: LOCATION: Home. DIET: Heart healthy and diabetic diet. ACTIVITY: As tolerated. FOLLOWUP: Follow up with Dr. Gupta in 3 to 4 weeks, with Dr. Perez in 2 to 3 weeks, with Dr. Hampton, per dialysis schedule, and with primary care at [facility] in 7 days. Job ID: [id number] MTDD
[2020-11-30] MEDS ORDERED: Ergocalciferol 1.25 MG(50,000 UNITS) CAP PO SCH (09:00)
== END 2020-11-24 18:57 | disposition home or self-care (01) | DRG 264 ==
LOC: ERS 15:21 → T4-A 17:24 → 2NO 11-10 10:45
PROVIDERS: ADMIT Family Medicine; ATTEND Family Medicine
PROC: 0JH63XZ Insertion of Tunneled Vascular Access Device into Chest Subcutaneous Tissue and Fascia, Percutaneous Approach (ICD-10-PCS; 2020-11-21)
PROC: 02HV33Z Insertion of Infusion Device into Superior Vena Cava, Percutaneous Approach (ICD-10-PCS; 2020-11-21)
PROC: 5A1D70Z Performance of Urinary Filtration, Intermittent, Less than 6 Hours Per Day (ICD-10-PCS; 2020-11-21)
PROC: 031B0ZF Bypass Right Radial Artery to Lower Arm Vein, Open Approach (ICD-10-PCS; principal; 2020-11-22)
DX: I13.2 Hypertensive heart and chronic kidney disease with heart failure and with stage 5 chronic kidney disease, or end stage renal disease (principal); I50.43 Acute on chronic combined systolic (congestive) and diastolic (congestive) heart failure; I21.A1 Myocardial infarction type 2; J18.9 Pneumonia, unspecified organism; J96.01 Acute respiratory failure with hypoxia; N18.6 End stage renal disease; N17.9 Acute kidney failure, unspecified; I42.0 Dilated cardiomyopathy; Z20.822 Contact with and (suspected) exposure to COVID-19; M25.551 Pain in right hip; D63.1 Anemia in chronic kidney disease; E11.22 Type 2 diabetes mellitus with diabetic chronic kidney disease; J45.909 Unspecified asthma, uncomplicated; R19.7 Diarrhea, unspecified; E78.5 Hyperlipidemia, unspecified; Z86.73 Personal history of transient ischemic attack (TIA), and cerebral infarction without residual deficits; Z79.4 Long term (current) use of insulin; Z79.82 Long term (current) use of aspirin; Z79.899 Other long term (current) drug therapy; Z88.8 Allergy status to other drugs, medicaments and biological substances
CPT/HCPCS: 36415; 36416; 71045; 71046; 71250; 72195; 74018; 80048; 80053; 80069; 81001; 82306; 82553; 82570; 82607; 82728; 82746; 83540; 83550; 83735; 83880; 83970; 84100; 84145; 84156; 84300; 84484; 84540; 85014; 85018; 85025; 85027; 85610; 86580; 86704; 86706; 86803; 87086; 87340; 87635; 90935; 93005; 93010; 93306; 93970; 94664; 96365; 96375; C1752; G0257; J0360; J0456; J0690; J0696; J1250; J1644; J1815; J1940; J2250; J2260; J2270; J2405; J2704; J2720; J2916; J3010; J3490; J8540; P9047; Q5105; S0020; U0003; U0005

== ENCOUNTER 2021-01-01 11:37 | Inpatient (IN) | payer MEDICARE ==
[~2021-01-01 11:37] MED LIST changes: -ISOVUE-370 76%-LOCM 1 ML ONE; +Iopamidol-370 76% 500 ML 1 ML ONE
[2021-01-01] MEDS ORDERED: Ondansetron PF 4 MG/2 ML Vial ONE (12:44)
[2021-01-01] MEDS ORDERED: Morphine 4 MG/ML VIAL ONE ×2 (12:44→15:29)
[2021-01-01 12:47] LABS: #Basophils 0.1 thou/uL (0.0-0.2); #Eosinphils 0.3 thou/uL (0.0-0.7); #Lymphocytes 2.1 thou/uL (1.20-3.40); #Monocytes 0.7 thou/uL (0.11-0.59); #Neutrophils 5.9 thou/uL (1.40-6.50); %Basophils 0.8 % (0.0-1.0); %Eosinophils 3.6 % (0.0-10.0); %Lymphocytes 23.1 % (21.0-51.0); %Monocytes 7.7 % (0.0-10.0); %Neutrophils 64.8 % (42.0-75.0); Hemoglobin 10.4 g/dL (14.0-18.0); Mean Corpuscular HGB CONC 34.7 g/dL (32.0-36.0); Mean Corpuscular Hemoglobin 32.5 pg (27.0-31.0); Mean Corpuscular Volume 93.8 fL (78.0-98.0); Mean Platelet Volume 8.3 fL (7.4-10.4); Platelet Count 211 thou/uL (130-400); RBC Distribution Width 13.9 % (11.5-14.5); Red Blood Cell (RBC) Count 3.18 mill/uL (4.70-6.10); White Blood Cell (WBC) Count 9.1 thou/uL (4.8-10.8)
[2021-01-01 12:52] LABS: INR-International Normal Ratio 0.9; Prothrombin Time 12.7 sec (12.0-14.7)
[2021-01-01 12:58] LABS: ALT (SGPT) 23 U/L (8-55); AST (SGOT) 14 U/L (5-34); Albumin 3.5 g/dL (3.5-5.0); Alkaline Phosphatase 107 U/L (40-110); Anion Gap 15 mmol/L (10-20); BUN (Urea Nitrogen) 39 mg/dL (8.4-25.7); Bilirubin, Total 0.5 mg/dL (0.2-1.2); Calc. Creatinine Clearance 0 mL/min (70-130); Carbon Dioxide 30 mmol/L (22-29); Chloride 95 mmol/L (98-107); Globulin 3.6 g/dL (2.4-3.5); Glucose 264 mg/dL (70-105); Potassium 4.5 mmol/L (3.5-5.1); Protein, Total 7.1 g/dL (6.0-8.3); Sodium 135 mmol/L (136-145)
[2021-01-01] MEDS ORDERED: Aspirin Chewable 81 MG TAB ONE (14:57)
[2021-01-01] MEDS ORDERED: hydrALAZINE 20 MG/ML VIAL SLOW IVP PRN (15:13)
[2021-01-01] MEDS ORDERED: Ondansetron ODT 4 MG TAB PO PRN (15:13)
[2021-01-01] MEDS ORDERED: Acetaminophen 650 MG Suppository PR PRN (15:13)
[2021-01-01] MEDS ORDERED: Ondansetron PF 4 MG/2 ML Vial IVP PRN (15:13)
[2021-01-01] MEDS ORDERED: Dextrose 50% Abboject 50 ML SYRINGE SLOW IVP PRN (15:25)
[2021-01-01] MEDS ORDERED: Dextrose 5% in Water 1,000 ML IV PRN (15:25)
[2021-01-01] MEDS ORDERED: Clopidogrel Bisulfate 75 MG TAB PO SCH (15:30)
[2021-01-01 16:40] LABS: Hemoglobin A1c 6.5 % (4.0-6.0)
[2021-01-01 17:50] VITALS: BMI 38.6
[2021-01-01] MEDS: Atorvastatin Calcium 40 MG TAB PO SCH (20:09)
[2021-01-01] MEDS: Acetaminophen 325 MG TAB PO PRN (20:10)
[2021-01-01] MEDS: Gabapentin 300 MG CAP PO SCH (20:10)
[2021-01-01] MEDS: AcetaZOLAMIDE 250 MG TAB PO SCH (20:11)
[2021-01-01] MEDS: Magnesium Oxide 400 MG TAB PO SCH (20:11)
[2021-01-01] MEDS: Lantus 1000 UNITS/10 ML VIAL SC SCH (21:00)
[2021-01-01 23:43] LABS: SARS-CoV-2 PCR by NAA Not Detected (NotDetected)
[2021-01-02 05:08] LABS: #Basophils 0.1 thou/uL (0.0-0.2); #Eosinphils 0.3 thou/uL (0.0-0.7); #Lymphocytes 2.5 thou/uL (1.20-3.40); #Monocytes 0.7 thou/uL (0.11-0.59); #Neutrophils 4.9 thou/uL (1.40-6.50); %Basophils 0.7 % (0.0-1.0); %Lymphocytes 29.2 % (21.0-51.0); %Monocytes 8.3 % (0.0-10.0); %Neutrophils 57.7 % (42.0-75.0); Hemoglobin 9.6 g/dL (14.0-18.0); Mean Corpuscular HGB CONC 33.3 g/dL (32.0-36.0); Mean Corpuscular Hemoglobin 31.6 pg (27.0-31.0); Mean Corpuscular Volume 94.9 fL (78.0-98.0); Mean Platelet Volume 8.5 fL (7.4-10.4); Platelet Count 211 thou/uL (130-400); RBC Distribution Width 13.8 % (11.5-14.5); Red Blood Cell (RBC) Count 3.05 mill/uL (4.70-6.10); White Blood Cell (WBC) Count 8.4 thou/uL (4.8-10.8)
[2021-01-02 05:30] LABS: Anion Gap 11 mmol/L (10-20); BUN (Urea Nitrogen) 44 mg/dL (8.4-25.7); Calc. Creatinine Clearance 39 mL/min (70-130); Calcium 8.9 mg/dL (7.8-10.44); Carbon Dioxide 31 mmol/L (22-29); Cardiac Risk 5.2 (Less than 4.5); Chloride 99 mmol/L (98-107); Cholesterol 125 mg/dl (< 200 Desired); Glucose 135 mg/dL (70-105); HDL Cholesterol 24 mg/dL (>60 Neg Risk); LDL Cholesterol, Calculated 43 mg/dL; Potassium 4.3 mmol/L (3.5-5.1); Sodium 137 mmol/L (136-145); Triglycerides 291 mg/dL (Less than 150)
[2021-01-02] MEDS: Acetaminophen 325 MG TAB PO PRN (05:50)
[2021-01-02] MEDS ORDERED: Heparin 10,000 UNITS/ 10 ML VIAL ONE (08:40)
[2021-01-02] MEDS: Cyclobenzaprine 10 MG TAB PO PRN ×2 (08:40→18:14)
[2021-01-02] MEDS: Gabapentin 300 MG CAP PO SCH ×3 (08:40→20:30)
[2021-01-02] MEDS ORDERED: Alogliptin 25 MG TAB PO SCH (09:00)
[2021-01-02] MEDS ORDERED: Amlodipine 5 MG TAB PO SCH (09:00)
[2021-01-02] MEDS ORDERED: Aspirin Chewable 81 MG TAB PO SCH (09:00)
[2021-01-02] MEDS ORDERED: traMADol HCl 50 MG TAB PO SCH ×2 (09:15→14:45)
[2021-01-02] MEDS: hydrALAZINE 25 MG TAB PO SCH ×3 (14:27→20:29)
[2021-01-02] MEDS: Magnesium Oxide 400 MG TAB PO SCH ×2 (14:27→20:29)
[2021-01-02] MEDS: Isosorbide Dinitrate 20 MG TAB PO SCH ×3 (14:27→20:29)
[2021-01-02] MEDS: AcetaZOLAMIDE 250 MG TAB PO SCH ×2 (14:28→20:29)
[2021-01-02] MEDS: Clopidogrel Bisulfate 75 MG TAB PO SCH (14:28)
[2021-01-02] MEDS: Aspirin 325 mg Enteric Coated Tablet PO SCH (14:28)
[2021-01-02] MEDS: Ergocalciferol 1.25 MG(50,000 UNITS) CAP PO SCH (14:40)
[2021-01-02] MEDS ORDERED: Acetaminophen 325 MG TAB PO SCH (19:00)
[2021-01-02] MEDS: Atorvastatin Calcium 40 MG TAB PO SCH (20:29)
[2021-01-02] MEDS: Lantus 1000 UNITS/10 ML VIAL SC SCH (20:37)
[2021-01-03] MEDS ORDERED: traMADol HCl 50 MG TAB PO SCH (02:30)
[2021-01-03] MEDS: Magnesium Oxide 400 MG TAB PO SCH ×2 (08:34→20:46)
[2021-01-03] MEDS: Aspirin 325 mg Enteric Coated Tablet PO SCH (08:34)
[2021-01-03] MEDS: AcetaZOLAMIDE 250 MG TAB PO SCH ×2 (08:34→20:44)
[2021-01-03] MEDS: Amlodipine 10 MG TAB PO SCH (08:35)
[2021-01-03] MEDS: Clopidogrel Bisulfate 75 MG TAB PO SCH (08:35)
[2021-01-03] MEDS: hydrALAZINE 25 MG TAB PO SCH ×3 (08:35→20:48)
[2021-01-03] MEDS: Isosorbide Dinitrate 20 MG TAB PO SCH ×3 (08:36→20:46)
[2021-01-03] MEDS: Gabapentin 300 MG CAP PO SCH (08:36)
[2021-01-03] MEDS: Alogliptin 6.25 MG TAB PO SCH (08:37)
[2021-01-03] MEDS: Gabapentin 100 MG CAP PO SCH ×3 (08:39→20:45)
[2021-01-03] MEDS: Diclofenac 1% 100 GM GEL TP SCH ×3 (12:31→20:44)
[2021-01-03] MEDS: Meclizine HCl 12.5 MG TAB PO PRN (18:07)
[2021-01-03] MEDS: Atorvastatin Calcium 40 MG TAB PO SCH (20:44)
[2021-01-03] MEDS: traMADol HCl 50 MG TAB PO SCH (20:47)
[2021-01-03] MEDS: Lantus 1000 UNITS/10 ML VIAL SC SCH (22:08)
[2021-01-04 06:39] LABS: Anion Gap 14 mmol/L (10-20); BUN (Urea Nitrogen) 37 mg/dL (8.4-25.7); Calc. Creatinine Clearance 38 mL/min (70-130); Calcium 8.6 mg/dL (7.8-10.44); Carbon Dioxide 28 mmol/L (22-29); Chloride 99 mmol/L (98-107); Glucose 132 mg/dL (70-105); Potassium 4.1 mmol/L (3.5-5.1); Sodium 137 mmol/L (136-145)
[2021-01-04] MEDS ORDERED: Heparin 10,000 UNITS/ 10 ML VIAL ONE (08:41)
[2021-01-04] MEDS: Gabapentin 100 MG CAP PO SCH ×3 (08:47→21:57)
[2021-01-04] MEDS: Magnesium Oxide 400 MG TAB PO SCH ×2 (08:47→21:56)
[2021-01-04] MEDS: traMADol HCl 50 MG TAB PO SCH ×2 (08:48→21:57)
[2021-01-04] MEDS: Amlodipine 10 MG TAB PO SCH (08:49)
[2021-01-04] MEDS: Clopidogrel Bisulfate 75 MG TAB PO SCH (08:49)
[2021-01-04] MEDS: Aspirin 325 mg Enteric Coated Tablet PO SCH (08:49)
[2021-01-04] MEDS: AcetaZOLAMIDE 250 MG TAB PO SCH (08:49)
[2021-01-04] MEDS: Meclizine HCl 12.5 MG TAB PO PRN (08:49)
[2021-01-04] MEDS: Alogliptin 6.25 MG TAB PO SCH (08:49)
[2021-01-04] MEDS: hydrALAZINE 25 MG TAB PO SCH ×3 (08:49→21:57)
[2021-01-04] MEDS: Isosorbide Dinitrate 20 MG TAB PO SCH ×3 (08:50→21:57)
[2021-01-04] MEDS ORDERED: Bisacodyl 10 MG SUPP PR SCH (09:00)
[2021-01-04] MEDS: HumaLOG 300 UNITS/3 ML VIAL SC PRN (11:21)
[2021-01-04] MEDS: Diclofenac 1% 100 GM GEL TP SCH ×3 (11:23→21:56)
[2021-01-04] MEDS: Lantus 1000 UNITS/10 ML VIAL SC SCH (21:56)
[2021-01-04] MEDS: Atorvastatin Calcium 40 MG TAB PO SCH (21:56)
[2021-01-05] MEDS: Clopidogrel Bisulfate 75 MG TAB PO SCH (08:41)
[2021-01-05] MEDS: Alogliptin 6.25 MG TAB PO SCH (08:41)
[2021-01-05] MEDS: Aspirin 325 mg Enteric Coated Tablet PO SCH (08:41)
[2021-01-05] MEDS: Gabapentin 100 MG CAP PO SCH ×3 (08:41→21:19)
[2021-01-05] MEDS: Amlodipine 10 MG TAB PO SCH (08:41)
[2021-01-05] MEDS: Isosorbide Dinitrate 20 MG TAB PO SCH ×3 (08:42→21:18)
[2021-01-05] MEDS: Magnesium Oxide 400 MG TAB PO SCH ×2 (08:42→21:18)
[2021-01-05] MEDS: hydrALAZINE 25 MG TAB PO SCH ×3 (08:42→21:20)
[2021-01-05] MEDS: traMADol HCl 50 MG TAB PO SCH ×2 (08:42→21:21)
[2021-01-05] MEDS: Diclofenac 1% 100 GM GEL TP SCH ×4 (08:43→21:23)
[2021-01-05] MEDS: Atorvastatin Calcium 40 MG TAB PO SCH (21:18)
[2021-01-05] MEDS: Lantus 1000 UNITS/10 ML VIAL SC SCH (22:53)
[2021-01-06] MEDS: Alogliptin 6.25 MG TAB PO SCH (09:54)
[2021-01-06] MEDS: Gabapentin 100 MG CAP PO SCH ×3 (09:54→21:02)
[2021-01-06] MEDS: Diclofenac 1% 100 GM GEL TP SCH ×4 (09:55→20:57)
[2021-01-06] MEDS: Magnesium Oxide 400 MG TAB PO SCH ×2 (09:56→21:02)
[2021-01-06] MEDS: Aspirin 325 mg Enteric Coated Tablet PO SCH ×2 (09:56→18:38)
[2021-01-06] MEDS: Amlodipine 10 MG TAB PO SCH (09:56)
[2021-01-06] MEDS: traMADol HCl 50 MG TAB PO SCH ×2 (09:57→21:03)
[2021-01-06] MEDS: Clopidogrel Bisulfate 75 MG TAB PO SCH ×2 (09:57→18:38)
[2021-01-06] MEDS: hydrALAZINE 25 MG TAB PO SCH ×3 (09:58→21:04)
[2021-01-06] MEDS: Isosorbide Dinitrate 20 MG TAB PO SCH ×3 (09:58→21:03)
[2021-01-06] MEDS ORDERED: Heparin 10,000 UNITS/ 10 ML VIAL ONE (13:41)
[2021-01-06] MEDS: Atorvastatin Calcium 40 MG TAB PO SCH (21:02)
[2021-01-06] MEDS ORDERED: Calcium Carbonate 500 MG ChewTAB PO PRN (21:14)
[2021-01-06] MEDS ORDERED: Lantus 1000 UNITS/10 ML VIAL SC SCH (21:30)
[2021-01-06] MEDS: Lantus 1000 UNITS/10 ML VIAL SC SCH (21:47)
[2021-01-07] MEDS: Diclofenac 1% 100 GM GEL TP SCH ×4 (09:37→20:28)
[2021-01-07] MEDS: Alogliptin 6.25 MG TAB PO SCH (09:46)
[2021-01-07] MEDS: Aspirin 325 mg Enteric Coated Tablet PO SCH (09:47)
[2021-01-07] MEDS: hydrALAZINE 25 MG TAB PO SCH ×3 (09:47→20:15)
[2021-01-07] MEDS: Gabapentin 100 MG CAP PO SCH ×3 (09:47→20:15)
[2021-01-07] MEDS: Clopidogrel Bisulfate 75 MG TAB PO SCH (09:47)
[2021-01-07] MEDS: Isosorbide Dinitrate 20 MG TAB PO SCH ×3 (09:47→20:15)
[2021-01-07] MEDS: traMADol HCl 50 MG TAB PO SCH ×2 (09:47→20:30)
[2021-01-07] MEDS: Magnesium Oxide 400 MG TAB PO SCH ×2 (09:47→20:14)
[2021-01-07] MEDS: Amlodipine 10 MG TAB PO SCH (09:47)
[2021-01-07] MEDS: HumaLOG 300 UNITS/3 ML VIAL SC PRN (11:25)
[2021-01-07 16:01] LABS: Hemoglobin 10.1 g/dL (14.0-18.0); Mean Corpuscular HGB CONC 33.7 g/dL (32.0-36.0); Mean Corpuscular Hemoglobin 32.1 pg (27.0-31.0); Mean Corpuscular Volume 95.2 fL (78.0-98.0); Platelet Count 220 thou/uL (130-400); RBC Distribution Width 14.2 % (11.5-14.5); Red Blood Cell (RBC) Count 3.15 mill/uL (4.70-6.10); White Blood Cell (WBC) Count 7.2 thou/uL (4.8-10.8)
[2021-01-07 16:21] LABS: Albumin 3.3 g/dL (3.5-5.0); Anion Gap 14 mmol/L (10-20); BUN (Urea Nitrogen) 29 mg/dL (8.4-25.7); BUN/Creatinine Ratio 8.66; Calc. Creatinine Clearance 44 mL/min (70-130); Calcium 8.7 mg/dL (7.8-10.44); Carbon Dioxide 27 mmol/L (22-29); Chloride 99 mmol/L (98-107); Glucose 136 mg/dL (70-105); Phosphorus 4.8 mg/dL (2.3-4.7); Sodium 136 mmol/L (136-145)
[2021-01-07] MEDS: Atorvastatin Calcium 40 MG TAB PO SCH (20:14)
[2021-01-07] MEDS ORDERED: Lantus 1000 UNITS/10 ML VIAL SC SCH (21:00)
[2021-01-08] MEDS: Aspirin 325 mg Enteric Coated Tablet PO SCH (08:10)
[2021-01-08] MEDS: Amlodipine 10 MG TAB PO SCH (08:10)
[2021-01-08] MEDS: Clopidogrel Bisulfate 75 MG TAB PO SCH (08:10)
[2021-01-08] MEDS: Gabapentin 100 MG CAP PO SCH ×3 (08:10→20:21)
[2021-01-08] MEDS: Alogliptin 6.25 MG TAB PO SCH (08:10)
[2021-01-08] MEDS: traMADol HCl 50 MG TAB PO SCH ×2 (08:11→20:22)
[2021-01-08] MEDS: Magnesium Oxide 400 MG TAB PO SCH ×2 (08:11→20:21)
[2021-01-08] MEDS: Diclofenac 1% 100 GM GEL TP SCH ×4 (08:11→21:26)
[2021-01-08] MEDS: Isosorbide Dinitrate 20 MG TAB PO SCH ×3 (08:11→20:22)
[2021-01-08] MEDS: hydrALAZINE 25 MG TAB PO SCH ×3 (08:11→20:22)
[2021-01-08 09:13] LABS: Hemoglobin 9.6 g/dL (14.0-18.0); Mean Corpuscular HGB CONC 32.8 g/dL (32.0-36.0); Mean Corpuscular Hemoglobin 31.4 pg (27.0-31.0); Mean Corpuscular Volume 95.8 fL (78.0-98.0); Mean Platelet Volume 8.2 fL (7.4-10.4); Platelet Count 239 thou/uL (130-400); RBC Distribution Width 13.8 % (11.5-14.5); Red Blood Cell (RBC) Count 3.05 mill/uL (4.70-6.10)
[2021-01-08 09:30] LABS: Anion Gap 14 mmol/L (10-20); BUN (Urea Nitrogen) 34 mg/dL (8.4-25.7); Calc. Creatinine Clearance 39 mL/min (70-130); Calcium 8.8 mg/dL (7.8-10.44); Carbon Dioxide 27 mmol/L (22-29); Chloride 101 mmol/L (98-107); Glucose 113 mg/dL (70-105); Potassium 3.8 mmol/L (3.5-5.1); Sodium 138 mmol/L (136-145)
[2021-01-08] MEDS: Ferrous Sulfate 325 MG TAB PO SCH (17:04)
[2021-01-08] MEDS: Atorvastatin Calcium 40 MG TAB PO SCH (20:20)
[2021-01-08] MEDS: Lantus 1000 UNITS/10 ML VIAL SC SCH (20:23)
[2021-01-09] MEDS ORDERED: Polyethylene Glycol 3350 17 GM Packet PO PRN (05:29)
[2021-01-09] MEDS ORDERED: Heparin 10,000 UNITS/ 10 ML VIAL ONE (09:02)
[2021-01-09] MEDS: Diclofenac 1% 100 GM GEL TP SCH ×4 (11:15→20:24)
[2021-01-09] MEDS: Alogliptin 6.25 MG TAB PO SCH (11:18)
[2021-01-09] MEDS: Ergocalciferol 1.25 MG(50,000 UNITS) CAP PO SCH (11:18)
[2021-01-09] MEDS: Magnesium Oxide 400 MG TAB PO SCH ×2 (11:18→20:28)
[2021-01-09] MEDS: Aspirin 325 mg Enteric Coated Tablet PO SCH (11:19)
[2021-01-09] MEDS: hydrALAZINE 25 MG TAB PO SCH ×3 (11:19→20:28)
[2021-01-09] MEDS: Amlodipine 10 MG TAB PO SCH (11:19)
[2021-01-09] MEDS: Isosorbide Dinitrate 20 MG TAB PO SCH ×3 (11:19→20:28)
[2021-01-09] MEDS: Ferrous Sulfate 325 MG TAB PO SCH ×2 (11:19→18:53)
[2021-01-09] MEDS: Clopidogrel Bisulfate 75 MG TAB PO SCH (11:19)
[2021-01-09] MEDS: Gabapentin 100 MG CAP PO SCH ×3 (11:20→20:27)
[2021-01-09] MEDS: EPOETIN ALFA-EPBX (NON-ESRD) 3,000 UNIT/ML VIAL SC SCH (18:52)
[2021-01-09] MEDS: traMADol HCl 50 MG TAB PO PRN (20:26)
[2021-01-09] MEDS: Atorvastatin Calcium 40 MG TAB PO SCH (20:28)
[2021-01-09] MEDS: Lantus 1000 UNITS/10 ML VIAL SC SCH (20:29)
[2021-01-10] MEDS: Ferrous Sulfate 325 MG TAB PO SCH ×2 (09:19→16:45)
[2021-01-10] MEDS: Aspirin 81 mg Enteric Coated Tablet PO SCH (09:19)
[2021-01-10] MEDS: Alogliptin 6.25 MG TAB PO SCH (09:19)
[2021-01-10] MEDS: Amlodipine 10 MG TAB PO SCH (09:19)
[2021-01-10] MEDS: hydrALAZINE 25 MG TAB PO SCH ×3 (09:20→20:09)
[2021-01-10] MEDS: Clopidogrel Bisulfate 75 MG TAB PO SCH (09:20)
[2021-01-10] MEDS: Gabapentin 100 MG CAP PO SCH ×3 (09:20→20:10)
[2021-01-10] MEDS: Magnesium Oxide 400 MG TAB PO SCH ×2 (09:20→20:10)
[2021-01-10] MEDS: Isosorbide Dinitrate 20 MG TAB PO SCH ×3 (09:20→20:10)
[2021-01-10] MEDS ORDERED: Carvedilol 3.125 MG TAB PO SCH ×3 (09:21→17:00)
[2021-01-10] MEDS: Diclofenac 1% 100 GM GEL TP SCH ×4 (09:26→20:11)
[2021-01-10] MEDS: Carvedilol 3.125 MG TAB PO SCH (16:44)
[2021-01-10] MEDS: Lantus 1000 UNITS/10 ML VIAL SC SCH (20:08)
[2021-01-10] MEDS: traMADol HCl 50 MG TAB PO PRN (20:08)
[2021-01-10] MEDS: Atorvastatin Calcium 40 MG TAB PO SCH (20:09)
[2021-01-11] MEDS: Diclofenac 1% 100 GM GEL TP SCH ×4 (10:05→20:18)
[2021-01-11] MEDS: Magnesium Oxide 400 MG TAB PO SCH ×2 (10:05→20:20)
[2021-01-11] MEDS: Clopidogrel Bisulfate 75 MG TAB PO SCH (10:07)
[2021-01-11] MEDS: Carvedilol 3.125 MG TAB PO SCH ×2 (10:07→18:50)
[2021-01-11] MEDS: Aspirin 81 mg Enteric Coated Tablet PO SCH (10:08)
[2021-01-11] MEDS: Ferrous Sulfate 325 MG TAB PO SCH ×2 (10:08→18:50)
[2021-01-11] MEDS: Amlodipine 10 MG TAB PO SCH (10:08)
[2021-01-11] MEDS: hydrALAZINE 25 MG TAB PO SCH ×3 (10:09→22:46)
[2021-01-11] MEDS: Gabapentin 100 MG CAP PO SCH ×3 (10:10→20:20)
[2021-01-11] MEDS: Isosorbide Dinitrate 20 MG TAB PO SCH ×3 (10:11→20:20)
[2021-01-11] MEDS: Alogliptin 6.25 MG TAB PO SCH (12:40)
[2021-01-11] MEDS ORDERED: Heparin 10,000 UNITS/ 10 ML VIAL ONE (14:22)
[2021-01-11] MEDS: EPOETIN ALFA-EPBX (NON-ESRD) 3,000 UNIT/ML VIAL SC SCH (14:28)
[2021-01-11] MEDS: Meclizine HCl 12.5 MG TAB PO PRN (20:18)
[2021-01-11] MEDS: Atorvastatin Calcium 40 MG TAB PO SCH (20:20)
[2021-01-11] MEDS: Lantus 1000 UNITS/10 ML VIAL SC SCH (20:22)
[2021-01-12] MEDS: Magnesium Oxide 400 MG TAB PO SCH ×2 (07:58→20:20)
[2021-01-12] MEDS: Isosorbide Dinitrate 20 MG TAB PO SCH ×3 (07:58→20:22)
[2021-01-12] MEDS: Carvedilol 3.125 MG TAB PO SCH ×2 (07:59→15:47)
[2021-01-12] MEDS: Amlodipine 10 MG TAB PO SCH (07:59)
[2021-01-12] MEDS: Ferrous Sulfate 325 MG TAB PO SCH ×2 (07:59→15:47)
[2021-01-12] MEDS: Clopidogrel Bisulfate 75 MG TAB PO SCH (07:59)
[2021-01-12] MEDS: hydrALAZINE 25 MG TAB PO SCH ×3 (08:00→20:21)
[2021-01-12] MEDS: Gabapentin 100 MG CAP PO SCH ×3 (08:00→20:20)
[2021-01-12] MEDS: Aspirin 81 mg Enteric Coated Tablet PO SCH (08:00)
[2021-01-12] MEDS: Diclofenac 1% 100 GM GEL TP SCH ×4 (08:01→20:21)
[2021-01-12] MEDS: Alogliptin 6.25 MG TAB PO SCH (09:40)
[2021-01-12] MEDS: Atorvastatin Calcium 40 MG TAB PO SCH (20:20)
[2021-01-12] MEDS: Lantus 1000 UNITS/10 ML VIAL SC SCH (20:29)
[2021-01-13] MEDS: Gabapentin 100 MG CAP PO SCH ×2 (08:26→15:46)
[2021-01-13] MEDS: Magnesium Oxide 400 MG TAB PO SCH ×2 (08:27→20:29)
[2021-01-13] MEDS: Ferrous Sulfate 325 MG TAB PO SCH ×2 (08:27→16:11)
[2021-01-13] MEDS: Aspirin 81 mg Enteric Coated Tablet PO SCH (08:27)
[2021-01-13] MEDS: Clopidogrel Bisulfate 75 MG TAB PO SCH (08:27)
[2021-01-13] MEDS: Carvedilol 3.125 MG TAB PO SCH ×2 (08:28→16:10)
[2021-01-13] MEDS: hydrALAZINE 25 MG TAB PO SCH ×3 (08:28→20:30)
[2021-01-13] MEDS: Amlodipine 10 MG TAB PO SCH (08:29)
[2021-01-13] MEDS: Diclofenac 1% 100 GM GEL TP SCH ×4 (08:30→20:30)
[2021-01-13] MEDS: Alogliptin 6.25 MG TAB PO SCH (08:30)
[2021-01-13] MEDS: Isosorbide Dinitrate 20 MG TAB PO SCH ×3 (08:30→20:30)
[2021-01-13 08:41] LABS: Albumin 3.7 g/dL (3.5-5.0); Anion Gap 16 mmol/L (10-20); BUN (Urea Nitrogen) 34 mg/dL (8.4-25.7); BUN/Creatinine Ratio 8.85; Calc. Creatinine Clearance 38 mL/min (70-130); Calcium 9.1 mg/dL (7.8-10.44); Carbon Dioxide 20 mmol/L (22-29); Chloride 104 mmol/L (98-107); Glucose 105 mg/dL (70-105); Phosphorus 4.6 mg/dL (2.3-4.7); Potassium 4.7 mmol/L (3.5-5.1); Sodium 135 mmol/L (136-145)
[2021-01-13 08:42] LABS: Hemoglobin 10.8 g/dL (14.0-18.0); Mean Corpuscular HGB CONC 31.1 g/dL (32.0-36.0); Mean Corpuscular Hemoglobin 30.2 pg (27.0-31.0); Mean Corpuscular Volume 97.2 fL (78.0-98.0); Mean Platelet Volume 8.4 fL (7.4-10.4); Platelet Count 259 thou/uL (130-400); RBC Distribution Width 13.9 % (11.5-14.5); Red Blood Cell (RBC) Count 3.58 mill/uL (4.70-6.10); White Blood Cell (WBC) Count 9.2 thou/uL (4.8-10.8)
[2021-01-13] MEDS: EPOETIN ALFA-EPBX (NON-ESRD) 3,000 UNIT/ML VIAL SC SCH (10:52)
[2021-01-13] MEDS ORDERED: Heparin 10,000 UNITS/ 10 ML VIAL ONE (13:35)
[2021-01-13 14:47] LABS: HBSAg Index 0.23 S/CO (0-0.99); Hep B Surf Ag Non-Reactive S/CO (NonReactive)
[2021-01-13] MEDS: traMADol HCl 50 MG TAB PO PRN (15:45)
[2021-01-13] MEDS: Acetaminophen 325 MG TAB PO PRN (15:45)
[2021-01-13] MEDS: Gabapentin 300 MG CAP PO SCH (20:29)
[2021-01-13] MEDS: Atorvastatin Calcium 40 MG TAB PO SCH (20:30)
[2021-01-13] MEDS: Lantus 1000 UNITS/10 ML VIAL SC SCH (20:42)
[2021-01-14] MEDS: Aspirin 81 mg Enteric Coated Tablet PO SCH (08:35)
[2021-01-14] MEDS: Magnesium Oxide 400 MG TAB PO SCH (08:35)
[2021-01-14] MEDS: Isosorbide Dinitrate 20 MG TAB PO SCH ×2 (08:36→14:33)
[2021-01-14] MEDS: Carvedilol 3.125 MG TAB PO SCH ×2 (08:36→16:59)
[2021-01-14] MEDS: Amlodipine 10 MG TAB PO SCH (08:36)
[2021-01-14] MEDS: Clopidogrel Bisulfate 75 MG TAB PO SCH (08:36)
[2021-01-14] MEDS: Alogliptin 6.25 MG TAB PO SCH (08:37)
[2021-01-14] MEDS: Gabapentin 300 MG CAP PO SCH ×2 (08:37→14:31)
[2021-01-14] MEDS: Ferrous Sulfate 325 MG TAB PO SCH ×2 (08:38→16:59)
[2021-01-14] MEDS: hydrALAZINE 25 MG TAB PO SCH ×2 (08:38→14:32)
[2021-01-14] MEDS: Diclofenac 1% 100 GM GEL TP SCH ×3 (08:39→17:00)
[2021-01-14] MEDS: traMADol HCl 50 MG TAB PO PRN (10:46)
[2021-01-14 12:47] VITALS: TEMP 97.9
[2021-01-14 14:34] VITALS: BP 143/67
== END 2021-01-14 18:57 | DRG 64 ==
LOC: ERS 11:37 → 2SE 14:35
PROVIDERS: ADMIT Student in an Organized Health Care Education/Training Program; ATTEND Family Medicine
PROC: 5A1D70Z Performance of Urinary Filtration, Intermittent, Less than 6 Hours Per Day (ICD-10-PCS; principal; 2021-01-01)
DX: I63.512 Cerebral infarction due to unspecified occlusion or stenosis of left middle cerebral artery (principal); N18.6 End stage renal disease; I13.2 Hypertensive heart and chronic kidney disease with heart failure and with stage 5 chronic kidney disease, or end stage renal disease; I50.32 Chronic diastolic (congestive) heart failure; K57.92 Diverticulitis of intestine, part unspecified, without perforation or abscess without bleeding; N25.81 Secondary hyperparathyroidism of renal origin; I69.351 Hemiplegia and hemiparesis following cerebral infarction affecting right dominant side; E11.22 Type 2 diabetes mellitus with diabetic chronic kidney disease; E78.5 Hyperlipidemia, unspecified; Z88.8 Allergy status to other drugs, medicaments and biological substances; Z79.82 Long term (current) use of aspirin; Z79.4 Long term (current) use of insulin; Z89.022 Acquired absence of left finger(s); Z82.49 Family history of ischemic heart disease and other diseases of the circulatory system; Z99.2 Dependence on renal dialysis; M54.9 Dorsalgia, unspecified; E78.1 Pure hyperglyceridemia; D63.1 Anemia in chronic kidney disease; K59.00 Constipation, unspecified; I45.81 Long QT syndrome
CPT/HCPCS: 0042T; 36415; 36416; 70450; 70496; 70498; 70551; 72052; 72141; 80048; 80053; 80061; 80069; 83036; 84443; 84484; 85025; 85027; 85610; 85730; 87340; 87635; 90935; 93005; 95712; 95819; 95957; 96374; 96375; 96376; G0257; J1644; J1815; J2270; J2405; Q5106; Q9967; U0003; U0005

== ENCOUNTER 2021-02-05 07:53 | Emergency (ER) | payer MEDICARE ==
[2021-02-05] MEDS ORDERED: Morphine 4 MG/ML VIAL ONE (08:27)
[2021-02-05] MEDS ORDERED: Labetalol HCl 100 MG/20 ML VIAL ONE (08:27)
[2021-02-05 08:35] LABS: #Basophils 0.1 thou/uL (0.0-0.2); #Eosinphils 0.2 thou/uL (0.0-0.7); #Lymphocytes 1.8 thou/uL (1.20-3.40); #Monocytes 0.6 thou/uL (0.11-0.59); %Basophils 0.7 % (0.0-1.0); %Eosinophils 2.8 % (0.0-10.0); %Lymphocytes 20.2 % (21.0-51.0); %Monocytes 7.3 % (0.0-10.0); %Neutrophils 69.1 % (42.0-75.0); Hemoglobin 11.5 g/dL (14.0-18.0); Mean Corpuscular HGB CONC 33.6 g/dL (32.0-36.0); Mean Corpuscular Hemoglobin 32.3 pg (27.0-31.0); Mean Corpuscular Volume 96.1 fL (78.0-98.0); Mean Platelet Volume 7.9 fL (7.4-10.4); Platelet Count 239 thou/uL (130-400); Red Blood Cell (RBC) Count 3.57 mill/uL (4.70-6.10); White Blood Cell (WBC) Count 8.7 thou/uL (4.8-10.8)
[2021-02-05 08:56] LABS: Magnesium 2.7 mg/dL (1.6-2.6); Phosphorus 3.4 mg/dL (2.3-4.7)
[2021-02-05 09:05] LABS: Carbon Dioxide 19 mmol/L (22-29); Chloride 104 mmol/L (98-107); Potassium 4.2 mmol/L (3.5-5.1); Sodium 138 mmol/L (136-145)
[2021-02-05 09:06] LABS: ALT (SGPT) 16 U/L (8-55); AST (SGOT) 14 U/L (5-34); Albumin 3.6 g/dL (3.5-5.0); Alkaline Phosphatase 98 U/L (40-110); Anion Gap 19 mmol/L (10-20); BUN (Urea Nitrogen) 37 mg/dL (8.4-25.7); Bilirubin, Total 0.4 mg/dL (0.2-1.2); Calc. Creatinine Clearance 0 mL/min (70-130); Calcium 9.2 mg/dL (7.8-10.44); Glucose 155 mg/dL (70-105); Protein, Total 6.7 g/dL (6.0-8.3)
[2021-02-05 09:19] LABS: CKMB 2.1 ng/mL (0-6.6)
[2021-02-05] MEDS ORDERED: Dexamethasone 10 MG/ML VIAL ONE (09:53)
== END 2021-02-05 10:20 | disposition home or self-care (01) ==
LOC: ERS 07:53
DX: M51.36 Other intervertebral disc degeneration, lumbar region (principal); I11.0 Hypertensive heart disease with heart failure; I50.9 Heart failure, unspecified; E11.9 Type 2 diabetes mellitus without complications; J45.909 Unspecified asthma, uncomplicated; Z79.4 Long term (current) use of insulin; Z86.73 Personal history of transient ischemic attack (TIA), and cerebral infarction without residual deficits
CPT/HCPCS: 36415; 36416; 72128; 72131; 80053; 82553; 83735; 84100; 84484; 85025; 85652; 93005; 94760; 96374; 96375; J1100; J2270

== ENCOUNTER 2021-03-02 06:43 | Day surgery (SDC) | payer MEDICARE ==
[2021-02-27 13:56] VITALS: BMI 37.3
[2021-03-02 09:25] VITALS: BP 143/68; TEMP 98.2
[2021-03-02] MEDS ORDERED: Heparin 1,000 UNITS/ML VIAL ONE (11:49)
== END 2021-03-02 08:55 | disposition home or self-care (01) ==
LOC: SPEC 06:43
PROVIDERS: ATTEND Specialist
PROC: B51W1ZZ Fluoroscopy of Dialysis Shunt/Fistula using Low Osmolar Contrast (ICD-10-PCS; principal; 2021-03-02)
DX: T82.898A Other specified complication of vascular prosthetic devices, implants and grafts, initial encounter (principal); I13.2 Hypertensive heart and chronic kidney disease with heart failure and with stage 5 chronic kidney disease, or end stage renal disease; E11.22 Type 2 diabetes mellitus with diabetic chronic kidney disease; N18.6 End stage renal disease; I50.23 Acute on chronic systolic (congestive) heart failure; J45.909 Unspecified asthma, uncomplicated; G47.30 Sleep apnea, unspecified; Z86.73 Personal history of transient ischemic attack (TIA), and cerebral infarction without residual deficits; Z79.02 Long term (current) use of antithrombotics/antiplatelets; Z79.4 Long term (current) use of insulin; Z79.82 Long term (current) use of aspirin; Z79.899 Other long term (current) drug therapy; Z88.8 Allergy status to other drugs, medicaments and biological substances; Z99.2 Dependence on renal dialysis
CPT/HCPCS: 36901; 76942; J1644

== ENCOUNTER 2021-04-01 16:07 | Inpatient (IN) | payer MEDICARE ==
[2021-04-01 17:36] LABS: #Eosinphils 0.3 thou/uL (0.0-0.7); #Lymphocytes 1.6 thou/uL (1.20-3.40); #Monocytes 0.8 thou/uL (0.11-0.59); #Neutrophils 5.4 thou/uL (1.40-6.50); %Basophils 0.4 % (0.0-1.0); %Eosinophils 3.8 % (0.0-10.0); %Monocytes 9.5 % (0.0-10.0); %Neutrophils 66.3 % (42.0-75.0); Hemoglobin 10.8 g/dL (14.0-18.0); Mean Corpuscular HGB CONC 35.8 g/dL (32.0-36.0); Mean Corpuscular Hemoglobin 33.9 pg (27.0-31.0); Mean Corpuscular Volume 94.9 fL (78.0-98.0); Mean Platelet Volume 8.5 fL (7.4-10.4); Platelet Count 173 thou/uL (130-400); RBC Distribution Width 12.2 % (11.5-14.5); Red Blood Cell (RBC) Count 3.17 mill/uL (4.70-6.10); White Blood Cell (WBC) Count 8.2 thou/uL (4.8-10.8)
[2021-04-01 17:57] LABS: ALT (SGPT) 13 U/L (8-55); AST (SGOT) 11 U/L (5-34); Albumin 3.1 g/dL (3.5-5.0); Alkaline Phosphatase 88 U/L (40-110); Anion Gap 11 mmol/L (10-20); BUN (Urea Nitrogen) 21 mg/dL (8.4-25.7); Bilirubin, Total 0.5 mg/dL (0.2-1.2); Calc. Creatinine Clearance 0 mL/min (70-130); Calcium 8.7 mg/dL (7.8-10.44); Carbon Dioxide 29 mmol/L (22-29); Chloride 100 mmol/L (98-107); Globulin 2.9 g/dL (2.4-3.5); Glucose 180 mg/dL (70-105); Potassium 3.4 mmol/L (3.5-5.1); Sodium 137 mmol/L (136-145)
[2021-04-01 18:00] LABS: Troponin I 0.041 ng/mL (< 0.028)
[2021-04-01] MEDS ORDERED: Aspirin Chewable 81 MG TAB ONE ×2 (21:54)
[2021-04-01] MEDS ORDERED: Ondansetron ODT 4 MG TAB PO PRN (21:55)
[2021-04-01] MEDS ORDERED: Ondansetron PF 4 MG/2 ML Vial IVP PRN (21:55)
[2021-04-01] MEDS ORDERED: Acetaminophen 650 MG Suppository PR PRN (21:55)
[2021-04-01] MEDS ORDERED: Dextrose 5% in Water 1,000 ML IV PRN (21:55)
[2021-04-01] MEDS ORDERED: HumaLOG 300 UNITS/3 ML VIAL SC PRN (21:55)
[2021-04-01] MEDS ORDERED: Dextrose 50% Abboject 50 ML SYRINGE SLOW IVP PRN (21:55)
[2021-04-02 01:02] VITALS: BMI 33.1
[2021-04-02 02:08] LABS: Troponin I 0.041 ng/mL (< 0.028)
[2021-04-02 05:29] LABS: #Eosinphils 0.3 thou/uL (0.0-0.7); #Lymphocytes 1.8 thou/uL (1.20-3.40); #Monocytes 0.9 thou/uL (0.11-0.59); %Basophils 0.5 % (0.0-1.0); %Eosinophils 3.8 % (0.0-10.0); %Lymphocytes 22.8 % (21.0-51.0); %Monocytes 10.6 % (0.0-10.0); %Neutrophils 62.3 % (42.0-75.0); Hemoglobin 10.5 g/dL (14.0-18.0); Mean Corpuscular HGB CONC 34.7 g/dL (32.0-36.0); Mean Corpuscular Hemoglobin 32.9 pg (27.0-31.0); Mean Platelet Volume 8.5 fL (7.4-10.4); Platelet Count 165 thou/uL (130-400); RBC Distribution Width 12.2 % (11.5-14.5); Red Blood Cell (RBC) Count 3.19 mill/uL (4.70-6.10)
[2021-04-02 05:52] LABS: Anion Gap 13 mmol/L (10-20); BUN (Urea Nitrogen) 24 mg/dL (8.4-25.7); Calc. Creatinine Clearance 45 mL/min (70-130); Carbon Dioxide 29 mmol/L (22-29); Cardiac Risk 4.4 (Less than 4.5); Chloride 100 mmol/L (98-107); Cholesterol 114 mg/dl (< 200 Desired); Glucose 214 mg/dL (70-105); HDL Cholesterol 26 mg/dL (>60 Neg Risk); LDL Cholesterol, Calculated 37 mg/dL; Potassium 3.2 mmol/L (3.5-5.1); Sodium 139 mmol/L (136-145); Triglycerides 257 mg/dL (Less than 150)
[2021-04-02 06:59] LABS: Hemoglobin A1c 6.7 % (4.0-6.0)
[2021-04-02] MEDS ORDERED: Ergocalciferol 1.25 MG(50,000 UNITS) CAP PO SCH (09:00)
[2021-04-02] MEDS ORDERED: Potassium Chloride 20 MEQ TAB PO SCH (09:00)
[2021-04-02] MEDS ORDERED: Diazepam 5 MG TAB PO SCH (10:03)
[2021-04-02] MEDS: Ferrous Sulfate 325 MG TAB PO SCH ×2 (10:06→16:24)
[2021-04-02] MEDS: Aspirin 81 mg Enteric Coated Tablet PO SCH (10:06)
[2021-04-02] MEDS: Gabapentin 300 MG CAP PO SCH ×2 (10:06→21:55)
[2021-04-02] MEDS: Heparin 5,000 UNITS/ML VIAL SC SCH ×3 (10:08→21:55)
[2021-04-02] MEDS: HumaLOG 300 UNITS/3 ML VIAL SC PRN ×2 (11:51→17:45)
[2021-04-02 13:02] LABS: Troponin I 0.031 ng/mL (< 0.028)
[2021-04-02] MEDS ORDERED: Nitroglycerin 0.4 MG TAB (25 Tab Bottle) SL PRN (13:13)
[2021-04-02] MEDS: Acetaminophen 325 MG TAB PO PRN (13:55)
[2021-04-02] MEDS: hydrALAZINE 25 MG TAB PO SCH ×2 (15:00→21:54)
[2021-04-02 15:56] LABS: SARS-CoV-2 PCR by NAA Not Detected (NotDetected)
[2021-04-02] MEDS: Isosorbide Dinitrate 5 MG TAB PO SCH ×2 (16:24→21:55)
[2021-04-02] MEDS: Carvedilol 3.125 MG TAB PO SCH (16:24)
[2021-04-02 16:47] LABS: Troponin I 0.036 ng/mL (< 0.028)
[2021-04-02] MEDS: Atorvastatin Calcium 40 MG TAB PO SCH (21:55)
[2021-04-03 05:50] LABS: Anion Gap 14 mmol/L (10-20); BUN (Urea Nitrogen) 31 mg/dL (8.4-25.7); BUN/Creatinine Ratio 9.28; Calc. Creatinine Clearance 40 mL/min (70-130); Calcium 8.9 mg/dL (7.8-10.44); Carbon Dioxide 27 mmol/L (22-29); Chloride 103 mmol/L (98-107); Glucose 173 mg/dL (70-105); Potassium 3.5 mmol/L (3.5-5.1); Sodium 140 mmol/L (136-145)
[2021-04-03] MEDS: HumaLOG 300 UNITS/3 ML VIAL SC PRN (06:23)
[2021-04-03] MEDS: Isosorbide Dinitrate 5 MG TAB PO SCH ×3 (08:07→20:58)
[2021-04-03] MEDS: Gabapentin 300 MG CAP PO SCH ×2 (08:07→20:59)
[2021-04-03] MEDS: Aspirin 81 mg Enteric Coated Tablet PO SCH (08:07)
[2021-04-03] MEDS: hydrALAZINE 25 MG TAB PO SCH ×3 (08:08→21:00)
[2021-04-03] MEDS: Heparin 5,000 UNITS/ML VIAL SC SCH ×3 (08:09→20:58)
[2021-04-03] MEDS: Ferrous Sulfate 325 MG TAB PO SCH ×2 (08:09→17:38)
[2021-04-03] MEDS: Carvedilol 3.125 MG TAB PO SCH ×2 (08:09→17:37)
[2021-04-03] MEDS ORDERED: EPOETIN ALFA EPBX SC SCH (09:00)
[2021-04-03] MEDS ORDERED: Heparin 10,000 UNITS/ 10 ML VIAL ONE (09:05)
[2021-04-03] MEDS ORDERED: Amlodipine 5 MG TAB PO SCH (09:30)
[2021-04-03] MEDS: EPOETIN ALFA-EPBX (ESRD) 3,000 UNIT/ML VIAL SC SCH (15:51)
[2021-04-03] MEDS ORDERED: Ketorolac Tromethamine 30 MG/ML VIAL IM SCH (19:00)
[2021-04-03] MEDS: Atorvastatin Calcium 40 MG TAB PO SCH (20:59)
[2021-04-04] MEDS: hydrALAZINE 25 MG TAB PO SCH ×3 (08:49→20:57)
[2021-04-04] MEDS: Aspirin 81 mg Enteric Coated Tablet PO SCH (08:49)
[2021-04-04] MEDS: Gabapentin 300 MG CAP PO SCH ×2 (08:49→20:57)
[2021-04-04] MEDS: Carvedilol 3.125 MG TAB PO SCH ×2 (08:49→16:53)
[2021-04-04] MEDS: Ferrous Sulfate 325 MG TAB PO SCH ×2 (08:49→16:53)
[2021-04-04] MEDS: Heparin 5,000 UNITS/ML VIAL SC SCH ×3 (08:50→20:58)
[2021-04-04] MEDS: Isosorbide Dinitrate 5 MG TAB PO SCH ×3 (10:55→20:57)
[2021-04-04] MEDS: HumaLOG 300 UNITS/3 ML VIAL SC PRN (11:07)
[2021-04-04] MEDS: Atorvastatin Calcium 40 MG TAB PO SCH (20:57)
[2021-04-04] MEDS: hydrALAZINE 20 MG/ML VIAL SLOW IVP PRN (23:54)
[2021-04-05] MEDS: HumaLOG 300 UNITS/3 ML VIAL SC PRN ×2 (06:14→17:44)
[2021-04-05 07:23] LABS: Hemoglobin 10.6 g/dL (14.0-18.0); Mean Corpuscular HGB CONC 33.4 g/dL (32.0-36.0); Mean Corpuscular Hemoglobin 32.2 pg (27.0-31.0); Mean Corpuscular Volume 96.6 fL (78.0-98.0); Mean Platelet Volume 8.7 fL (7.4-10.4); Platelet Count 184 thou/uL (130-400); RBC Distribution Width 12.3 % (11.5-14.5); Red Blood Cell (RBC) Count 3.29 mill/uL (4.70-6.10); White Blood Cell (WBC) Count 8.1 thou/uL (4.8-10.8)
[2021-04-05 07:40] LABS: Albumin 3.2 g/dL (3.5-5.0); Anion Gap 12 mmol/L (10-20); BUN (Urea Nitrogen) 28 mg/dL (8.4-25.7); BUN/Creatinine Ratio 9.69; Calc. Creatinine Clearance 47 mL/min (70-130); Carbon Dioxide 27 mmol/L (22-29); Chloride 104 mmol/L (98-107); Glucose 143 mg/dL (70-105); Phosphorus 3.4 mg/dL (2.3-4.7); Potassium 4.1 mmol/L (3.5-5.1); Sodium 139 mmol/L (136-145)
[2021-04-05] MEDS ORDERED: Heparin 10,000 UNITS/ 10 ML VIAL ONE (08:55)
[2021-04-05] MEDS ORDERED: hydrALAZINE 25 MG TAB PO SCH ×3 (09:00→10:30)
[2021-04-05] MEDS: EPOETIN ALFA-EPBX (ESRD) 3,000 UNIT/ML VIAL SC SCH (11:04)
[2021-04-05] MEDS: Aspirin 81 mg Enteric Coated Tablet PO SCH (13:20)
[2021-04-05] MEDS: Ferrous Sulfate 325 MG TAB PO SCH ×2 (13:21→16:22)
[2021-04-05] MEDS: Isosorbide Dinitrate 5 MG TAB PO SCH ×3 (13:21→21:38)
[2021-04-05] MEDS: Heparin 5,000 UNITS/ML VIAL SC SCH ×3 (13:22→21:39)
[2021-04-05] MEDS: Carvedilol 3.125 MG TAB PO SCH ×2 (13:22→16:22)
[2021-04-05] MEDS: Gabapentin 300 MG CAP PO SCH ×2 (13:22→21:38)
[2021-04-05] MEDS: hydrALAZINE 25 MG TAB PO SCH ×2 (16:19→21:38)
[2021-04-05] MEDS ORDERED: Docusate 100 MG CAP PO PRN (17:13)
[2021-04-05] MEDS: Acetaminophen 325 MG TAB PO PRN (17:39)
[2021-04-05] MEDS: Atorvastatin Calcium 40 MG TAB PO SCH (21:38)
[2021-04-06] MEDS: hydrALAZINE 20 MG/ML VIAL SLOW IVP PRN (03:45)
[2021-04-06] MEDS: HumaLOG 300 UNITS/3 ML VIAL SC PRN ×2 (06:11→17:01)
[2021-04-06 08:09] LABS: Anion Gap 12 mmol/L (10-20); BUN (Urea Nitrogen) 26 mg/dL (8.4-25.7); Calc. Creatinine Clearance 53 mL/min (70-130); Calcium 8.8 mg/dL (7.8-10.44); Carbon Dioxide 28 mmol/L (22-29); Chloride 103 mmol/L (98-107); Glucose 147 mg/dL (70-105); Sodium 139 mmol/L (136-145)
[2021-04-06] MEDS ORDERED: Amlodipine 5 MG TAB PO SCH (09:00)
[2021-04-06] MEDS: Isosorbide Dinitrate 5 MG TAB PO SCH ×2 (10:08→14:43)
[2021-04-06] MEDS: Aspirin 81 mg Enteric Coated Tablet PO SCH (10:09)
[2021-04-06] MEDS: Carvedilol 3.125 MG TAB PO SCH ×2 (10:09→16:56)
[2021-04-06] MEDS: hydrALAZINE 25 MG TAB PO SCH ×2 (10:09→14:44)
[2021-04-06] MEDS: Gabapentin 300 MG CAP PO SCH (10:10)
[2021-04-06] MEDS: Heparin 5,000 UNITS/ML VIAL SC SCH ×2 (10:10→14:43)
[2021-04-06] MEDS: Ferrous Sulfate 325 MG TAB PO SCH ×2 (10:11→16:56)
[2021-04-06] MEDS ORDERED: Ketorolac Tromethamine 30 MG/ML VIAL IM SCH (15:15)
[2021-04-06 15:40] VITALS: BP 133/62; TEMP 98
== END 2021-04-06 19:43 | DRG 69 ==
LOC: ERS 16:07 → 2NO 21:42 → OBSVTOIN 04-03 11:25 → 2SE 04-03 15:59
PROVIDERS: ADMIT Family Medicine; ATTEND Hospitalist
PROC: 5A1D70Z Performance of Urinary Filtration, Intermittent, Less than 6 Hours Per Day (ICD-10-PCS; principal; 2021-04-03)
DX: G45.9 Transient cerebral ischemic attack, unspecified (principal); N18.6 End stage renal disease; I50.22 Chronic systolic (congestive) heart failure; Z20.822 Contact with and (suspected) exposure to COVID-19; I13.2 Hypertensive heart and chronic kidney disease with heart failure and with stage 5 chronic kidney disease, or end stage renal disease; N17.9 Acute kidney failure, unspecified; E86.1 Hypovolemia; R77.8 Other specified abnormalities of plasma proteins; R07.9 Chest pain, unspecified; D63.1 Anemia in chronic kidney disease; R63.4 Abnormal weight loss; E11.22 Type 2 diabetes mellitus with diabetic chronic kidney disease; E78.5 Hyperlipidemia, unspecified; G58.9 Mononeuropathy, unspecified; I69.951 Hemiplegia and hemiparesis following unspecified cerebrovascular disease affecting right dominant side; Z90.49 Acquired absence of other specified parts of digestive tract; Z89.022 Acquired absence of left finger(s); Z68.33 Body mass index [BMI] 33.0-33.9, adult; Z88.8 Allergy status to other drugs, medicaments and biological substances; Z79.01 Long term (current) use of anticoagulants; Z79.82 Long term (current) use of aspirin; Z79.4 Long term (current) use of insulin; Z79.899 Other long term (current) drug therapy; Z99.2 Dependence on renal dialysis
CPT/HCPCS: 36415; 36416; 70450; 70551; 80048; 80053; 80061; 80069; 82553; 83036; 84484; 85025; 85027; 90935; 93005; 93010; G0257; G0378; J0360; J1644; J1815; J1885; Q5105; U0003; U0005

== ENCOUNTER 2021-05-11 10:47 | Observation (INO) | payer MEDICARE ==
[2021-05-11 11:18] LABS: #Eosinphils 0.2 thou/uL (0.0-0.7); #Lymphocytes 1.1 thou/uL (1.20-3.40); #Monocytes 1.1 thou/uL (0.11-0.59); #Neutrophils 10.4 thou/uL (1.40-6.50); %Basophils 0.2 % (0.0-1.0); %Eosinophils 1.4 % (0.0-10.0); %Lymphocytes 8.7 % (21.0-51.0); %Monocytes 8.2 % (0.0-10.0); %Neutrophils 81.6 % (42.0-75.0); Hemoglobin 8.7 g/dL (14.0-18.0); Mean Corpuscular HGB CONC 33.5 g/dL (32.0-36.0); Mean Corpuscular Hemoglobin 33.9 pg (27.0-31.0); Mean Platelet Volume 8.6 fL (7.4-10.4); Platelet Count 230 thou/uL (130-400); RBC Distribution Width 13.9 % (11.5-14.5); Red Blood Cell (RBC) Count 2.58 mill/uL (4.70-6.10); White Blood Cell (WBC) Count 12.8 thou/uL (4.8-10.8)
[2021-05-11 11:40] LABS: ALT (SGPT) 26 U/L (8-55); AST (SGOT) 15 U/L (5-34); Albumin 3.6 g/dL (3.5-5.0); Alkaline Phosphatase 110 U/L (40-110); Anion Gap 12 mmol/L (10-20); BUN (Urea Nitrogen) 70 mg/dL (8.4-25.7); Bilirubin, Total 0.9 mg/dL (0.2-1.2); Calc. Creatinine Clearance 0 mL/min (70-130); Calcium 9.5 mg/dL (7.8-10.44); Carbon Dioxide 32 mmol/L (22-29); Chloride 98 mmol/L (98-107); Globulin 3.6 g/dL (2.4-3.5); Glucose 193 mg/dL (70-105); Potassium 4.9 mmol/L (3.5-5.1); Protein, Total 7.2 g/dL (6.0-8.3); Sodium 137 mmol/L (136-145)
[2021-05-11] MEDS ORDERED: Furosemide 40 MG/4 ML VIAL ONE ×2 (14:20→14:35)
[2021-05-11] MEDS ORDERED: Acetaminophen 500 MG TAB ONE (14:20)
[2021-05-11 17:29] LABS: Troponin I 0.024 ng/mL (< 0.028)
[2021-05-11] MEDS ORDERED: Ondansetron PF 4 MG/2 ML Vial IVP PRN ×2 (20:00→22:38)
[2021-05-11] MEDS ORDERED: Ondansetron ODT 4 MG TAB SL PRN (20:00)
[2021-05-11 20:53] VITALS: BMI 41.0
[2021-05-11 21:28] LABS: Troponin I 0.021 ng/mL (< 0.028)
[2021-05-11] MEDS ORDERED: HumaLOG 300 UNITS/3 ML VIAL SC PRN (22:35)
[2021-05-11] MEDS ORDERED: Dextrose 50% Abboject 50 ML SYRINGE SLOW IVP PRN (22:35)
[2021-05-11] MEDS ORDERED: Dextrose 5% in Water 1,000 ML IV PRN (22:35)
[2021-05-11] MEDS ORDERED: Acetaminophen 650 MG Suppository PR PRN (22:38)
[2021-05-11] MEDS ORDERED: Docusate 100 MG CAP PO PRN (22:38)
[2021-05-11] MEDS ORDERED: hydrALAZINE 10 MG TAB PO SCH (23:15)
[2021-05-12 07:09] LABS: Iron 30 ug/dL (65-175); Iron Binding Capacity, Total 255 mcg/dL (261-462)
[2021-05-12 07:45] LABS: Ferritin 1090.58 ng/mL (22-322)
[2021-05-12] MEDS ORDERED: Ferrous Sulfate 325 MG TAB PO SCH (08:00)
[2021-05-12] MEDS ORDERED: Carvedilol 3.125 MG TAB PO SCH (08:00)
[2021-05-12] MEDS: Isosorbide Dinitrate 5 MG TAB PO SCH ×2 (08:36→14:01)
[2021-05-12] MEDS: Furosemide 20 MG TAB PO SCH ×2 (08:37→14:01)
[2021-05-12] MEDS: hydrALAZINE 25 MG TAB PO SCH ×2 (08:38→14:01)
[2021-05-12] MEDS ORDERED: Gabapentin 300 MG CAP PO SCH (09:00)
[2021-05-12] MEDS ORDERED: Amlodipine 10 MG TAB PO SCH (09:00)
[2021-05-12] MEDS ORDERED: Magnesium Oxide 400 MG TAB PO SCH (09:00)
[2021-05-12] MEDS ORDERED: Enoxaparin Sodium 30 MG/0.3 ML SYRINGE SC SCH ×2 (09:00→17:00)
[2021-05-12] MEDS ORDERED: Aspirin 81 mg Enteric Coated Tablet PO SCH (09:00)
[2021-05-12] MEDS ORDERED: Clopidogrel Bisulfate 75 MG TAB PO SCH (09:00)
[2021-05-12] MEDS ORDERED: Amlodipine 5 MG TAB PO SCH (09:00)
[2021-05-12] MEDS ORDERED: Heparin 10,000 UNITS/ 10 ML VIAL ONE (09:20)
[2021-05-12] MEDS ORDERED: Isosorbide Dinitrate 20 MG TAB PO SCH (15:00)
[2021-05-12 15:14] LABS: Anion Gap 13 mmol/L (10-20); BUN (Urea Nitrogen) 71 mg/dL (8.4-25.7); Calc. Creatinine Clearance 47 mL/min (70-130); Calcium 9.1 mg/dL (7.8-10.44); Carbon Dioxide 29 mmol/L (22-29); Chloride 101 mmol/L (98-107); Glucose 167 mg/dL (70-105); Potassium 4.7 mmol/L (3.5-5.1); Sodium 138 mmol/L (136-145)
[2021-05-12 17:33] VITALS: BP 127/56; TEMP 98
[2021-05-12] MEDS ORDERED: Atorvastatin Calcium 40 MG TAB PO SCH (21:00)
[2021-05-12] MEDS ORDERED: Lantus 1000 UNITS/10 ML VIAL SC SCH (21:00)
[2021-05-13] MEDS ORDERED: Enoxaparin Sodium 30 MG/0.3 ML SYRINGE SC SCH (00:30)
[2021-05-13] MEDS ORDERED: Enoxaparin Sodium 60 MG/0.6 ML SYRINGE SC SCH (09:00)
[2021-05-13 16:13] LABS: Hematocrit 22.6 % (37.5-51.0); RBC Folate Test Component 1571 ng/mL (>498)
[2021-05-14] MEDS ORDERED: Ergocalciferol 1.25 MG(50,000 UNITS) CAP PO SCH (09:00)
== END 2021-05-12 20:30 ==
LOC: ERS 10:47 → INTOOBSV 16:18 → ERHOLD 16:18 → 2NO 20:16
PROVIDERS: ADMIT Internal Medicine; ATTEND Family Medicine
DX: E87.70 Fluid overload, unspecified (principal); J96.02 Acute respiratory failure with hypercapnia; N17.9 Acute kidney failure, unspecified; I13.2 Hypertensive heart and chronic kidney disease with heart failure and with stage 5 chronic kidney disease, or end stage renal disease; E11.22 Type 2 diabetes mellitus with diabetic chronic kidney disease; N18.6 End stage renal disease; I50.43 Acute on chronic combined systolic (congestive) and diastolic (congestive) heart failure; D63.1 Anemia in chronic kidney disease; E11.21 Type 2 diabetes mellitus with diabetic nephropathy; K59.00 Constipation, unspecified; F32.9 Major depressive disorder, single episode, unspecified; F41.9 Anxiety disorder, unspecified; I69.351 Hemiplegia and hemiparesis following cerebral infarction affecting right dominant side; E66.01 Morbid (severe) obesity due to excess calories; Z68.41 Body mass index [BMI] 40.0-44.9, adult; Z99.2 Dependence on renal dialysis; Z79.4 Long term (current) use of insulin; Z79.82 Long term (current) use of aspirin; Z79.01 Long term (current) use of anticoagulants; Z79.02 Long term (current) use of antithrombotics/antiplatelets; Z79.899 Other long term (current) drug therapy; Z91.15 Patient's noncompliance with renal dialysis; Z88.8 Allergy status to other drugs, medicaments and biological substances; Z91.14 Patient's other noncompliance with medication regimen
CPT/HCPCS: 36415; 36416; 71045; 80048; 80053; 82607; 82728; 82746; 82747; 83540; 83550; 83880; 84484; 85014; 85025; 90935; 93005; 96372; 96374; G0257; G0378; J1644; J1650; J1940

== ENCOUNTER 2021-10-06 16:29 | Inpatient (IN) | payer MEDICARE ==
[2021-10-06 17:02] LABS: #Eosinphils 0.1 thou/uL (0.0-0.7); #Monocytes 0.7 thou/uL (0.11-0.59); #Neutrophils 7.9 thou/uL (1.40-6.50); %Basophils 0.1 % (0.0-1.0); %Eosinophils 1.5 % (0.0-10.0); %Lymphocytes 10.1 % (21.0-51.0); %Neutrophils 81.2 % (42.0-75.0); Hemoglobin 9.2 g/dL (14.0-18.0); Mean Corpuscular HGB CONC 33.9 g/dL (32.0-36.0); Mean Corpuscular Hemoglobin 33.7 pg (27.0-31.0); Mean Corpuscular Volume 99.5 fL (78.0-98.0); Mean Platelet Volume 7.5 fL (7.4-10.4); Platelet Count 265 thou/uL (130-400); RBC Distribution Width 12.3 % (11.5-14.5); Red Blood Cell (RBC) Count 2.72 mill/uL (4.70-6.10); White Blood Cell (WBC) Count 9.7 thou/uL (4.8-10.8)
[2021-10-06 17:24] LABS: ALT (SGPT) 18 U/L (8-55); AST (SGOT) 11 U/L (5-34); Albumin 3.3 g/dL (3.5-5.0); Alkaline Phosphatase 111 U/L (40-110); Anion Gap 14 mmol/L (10-20); BUN (Urea Nitrogen) 59 mg/dL (8.4-25.7); Bilirubin, Total 0.6 mg/dL (0.2-1.2); Calc. Creatinine Clearance 0 mL/min (70-130); Calcium 8.7 mg/dL (7.8-10.44); Carbon Dioxide 23 mmol/L (22-29); Chloride 106 mmol/L (98-107); Globulin 3.2 g/dL (2.4-3.5); Glucose 190 mg/dL (70-105); Potassium 4.6 mmol/L (3.5-5.1); Protein, Total 6.5 g/dL (6.0-8.3); Sodium 138 mmol/L (136-145)
[2021-10-06] MEDS ORDERED: Furosemide 40 MG/4 ML VIAL ONE (17:45)
[2021-10-06] MEDS ORDERED: Ondansetron ODT 4 MG TAB PO PRN (19:48)
[2021-10-06] MEDS ORDERED: Ondansetron PF 4 MG/2 ML Vial IVP PRN (19:48)
[2021-10-06] MEDS ORDERED: Acetaminophen 325 MG TAB PO PRN (19:48)
[2021-10-06] MEDS ORDERED: Furosemide 40 MG/4 ML VIAL SLOW IVP SCH (20:00)
[2021-10-06] MEDS ORDERED: Dextrose 50% Abboject 50 ML SYRINGE SLOW IVP PRN (20:34)
[2021-10-06] MEDS ORDERED: HumaLOG 300 UNITS/3 ML VIAL SC PRN ×2 (20:34)
[2021-10-06] MEDS ORDERED: Dextrose 5% in Water 1,000 ML IV PRN (20:34)
[2021-10-06] MEDS ORDERED: Docusate 100 MG CAP PO PRN (20:35)
[2021-10-06 21:01] LABS: Troponin I 0.052 ng/mL (< 0.028)
[2021-10-06] MEDS: Atorvastatin Calcium 40 MG TAB PO SCH (22:09)
[2021-10-06] MEDS: Heparin 5,000 UNITS/ML VIAL SC SCH (22:09)
[2021-10-06] MEDS: hydrALAZINE 25 MG TAB PO SCH (22:10)
[2021-10-06] MEDS: Isosorbide Dinitrate 5 MG TAB PO SCH (22:11)
[2021-10-06] MEDS: Gabapentin 300 MG CAP PO SCH (22:12)
[2021-10-06] MEDS: Lantus 1000 UNITS/10 ML VIAL SC SCH (22:40)
[2021-10-07 00:10] VITALS: BMI 42.0
[2021-10-07 01:29] LABS: Troponin I 0.027 ng/mL (< 0.028)
[2021-10-07 01:47] LABS: SARS-CoV-2 PCR by NAA Not Detected (NotDetected)
[2021-10-07 05:10] LABS: Anion Gap 12 mmol/L (10-20); BUN (Urea Nitrogen) 60 mg/dL (8.4-25.7); Calc. Creatinine Clearance 43 mL/min (70-130); Calcium 9.2 mg/dL (7.8-10.44); Carbon Dioxide 23 mmol/L (22-29); Chloride 108 mmol/L (98-107); Glucose 136 mg/dL (70-105); Potassium 4.2 mmol/L (3.5-5.1); Sodium 139 mmol/L (136-145)
[2021-10-07] MEDS: Isosorbide Dinitrate 5 MG TAB PO SCH (08:54)
[2021-10-07] MEDS: Heparin 5,000 UNITS/ML VIAL SC SCH ×3 (08:54→21:23)
[2021-10-07] MEDS: Clopidogrel Bisulfate 75 MG TAB PO SCH (08:54)
[2021-10-07] MEDS: Aspirin 81 mg Enteric Coated Tablet PO SCH (08:54)
[2021-10-07] MEDS: Carvedilol 3.125 MG TAB PO SCH ×2 (08:55→17:26)
[2021-10-07] MEDS: Amlodipine 10 MG TAB PO SCH (08:55)
[2021-10-07] MEDS: Gabapentin 300 MG CAP PO SCH ×2 (08:55→21:22)
[2021-10-07] MEDS: hydrALAZINE 25 MG TAB PO SCH (08:55)
[2021-10-07] MEDS ORDERED: Furosemide 100 MG/10 ML VIAL SLOW IVP SCH (09:00)
[2021-10-07] MEDS ORDERED: Sacubitril 49 MG/Valsartan 51 MG TABLET PO SCH (09:00)
[2021-10-07] MEDS ORDERED: Metolazone 5 MG TAB PO SCH (09:00)
[2021-10-07] MEDS ORDERED: Furosemide 40 MG/4 ML VIAL SLOW IVP SCH (14:00)
[2021-10-07] MEDS: Furosemide 40 MG/4 ML VIAL SLOW IVP SCH ×2 (15:02→21:24)
[2021-10-07] MEDS: Sacubitril 49 MG/Valsartan 51 MG TABLET PO SCH (21:22)
[2021-10-07] MEDS: Atorvastatin Calcium 40 MG TAB PO SCH (21:22)
[2021-10-07] MEDS: Lantus 1000 UNITS/10 ML VIAL SC SCH (21:23)
[2021-10-08] MEDS: Furosemide 40 MG/4 ML VIAL SLOW IVP SCH ×3 (06:24→20:57)
[2021-10-08 08:31] LABS: Albumin 3.2 g/dL (3.5-5.0); Anion Gap 11 mmol/L (10-20); BUN (Urea Nitrogen) 63 mg/dL (8.4-25.7); BUN/Creatinine Ratio 16.84; Calc. Creatinine Clearance 41 mL/min (70-130); Calcium 9.4 mg/dL (7.8-10.44); Carbon Dioxide 26 mmol/L (22-29); Chloride 104 mmol/L (98-107); Glucose 105 mg/dL (70-105); Phosphorus 4.7 mg/dL (2.3-4.7); Potassium 4.3 mmol/L (3.5-5.1); Sodium 137 mmol/L (136-145)
[2021-10-08] MEDS ORDERED: Ergocalciferol 1.25 MG(50,000 UNITS) CAP PO SCH (09:00)
[2021-10-08] MEDS: Heparin 5,000 UNITS/ML VIAL SC SCH ×3 (09:01→20:56)
[2021-10-08] MEDS: Gabapentin 300 MG CAP PO SCH ×2 (09:01→20:56)
[2021-10-08] MEDS: Clopidogrel Bisulfate 75 MG TAB PO SCH (09:01)
[2021-10-08] MEDS: Carvedilol 3.125 MG TAB PO SCH ×2 (09:01→17:31)
[2021-10-08] MEDS: Amlodipine 10 MG TAB PO SCH (09:02)
[2021-10-08] MEDS: Sacubitril 49 MG/Valsartan 51 MG TABLET PO SCH ×2 (09:02→20:56)
[2021-10-08] MEDS: Aspirin 81 mg Enteric Coated Tablet PO SCH (09:02)
[2021-10-08] MEDS: Atorvastatin Calcium 40 MG TAB PO SCH (20:56)
[2021-10-08] MEDS: Lantus 1000 UNITS/10 ML VIAL SC SCH (20:56)
[2021-10-09 04:48] LABS: #Eosinphils 0.3 thou/uL (0.0-0.7); #Lymphocytes 1.3 thou/uL (1.20-3.40); #Monocytes 0.8 thou/uL (0.11-0.59); %Basophils 0.1 % (0.0-1.0); %Eosinophils 3.3 % (0.0-10.0); %Lymphocytes 15.2 % (21.0-51.0); %Monocytes 9.2 % (0.0-10.0); %Neutrophils 72.3 % (42.0-75.0); Hemoglobin 8.8 g/dL (14.0-18.0); Mean Corpuscular HGB CONC 33.6 g/dL (32.0-36.0); Mean Corpuscular Volume 98.3 fL (78.0-98.0); Mean Platelet Volume 7.7 fL (7.4-10.4); Platelet Count 287 thou/uL (130-400); RBC Distribution Width 12.4 % (11.5-14.5); Red Blood Cell (RBC) Count 2.67 mill/uL (4.70-6.10); White Blood Cell (WBC) Count 8.3 thou/uL (4.8-10.8)
[2021-10-09 05:14] LABS: Anion Gap 12 mmol/L (10-20); BUN (Urea Nitrogen) 69 mg/dL (8.4-25.7); Calc. Creatinine Clearance 41 mL/min (70-130); Calcium 9.2 mg/dL (7.8-10.44); Carbon Dioxide 25 mmol/L (22-29); Chloride 105 mmol/L (98-107); Glucose 122 mg/dL (70-105); Potassium 4.3 mmol/L (3.5-5.1); Sodium 138 mmol/L (136-145)
[2021-10-09] MEDS: Furosemide 40 MG/4 ML VIAL SLOW IVP SCH ×3 (05:51→20:39)
[2021-10-09] MEDS: Aspirin 81 mg Enteric Coated Tablet PO SCH (08:11)
[2021-10-09] MEDS: Amlodipine 10 MG TAB PO SCH (08:11)
[2021-10-09] MEDS: Heparin 5,000 UNITS/ML VIAL SC SCH ×3 (08:11→20:40)
[2021-10-09] MEDS: Carvedilol 3.125 MG TAB PO SCH ×2 (08:11→17:48)
[2021-10-09] MEDS: Gabapentin 300 MG CAP PO SCH ×2 (08:11→20:38)
[2021-10-09] MEDS: Clopidogrel Bisulfate 75 MG TAB PO SCH (08:11)
[2021-10-09] MEDS: Sacubitril 49 MG/Valsartan 51 MG TABLET PO SCH ×2 (08:11→20:38)
[2021-10-09] MEDS ORDERED: Calcium Carbonate 500 MG ChewTAB PO SCH (12:15)
[2021-10-09] MEDS: Atorvastatin Calcium 40 MG TAB PO SCH (20:38)
[2021-10-09] MEDS: Lantus 1000 UNITS/10 ML VIAL SC SCH (22:18)
[2021-10-10 05:15] LABS: #Basophils 0.1 thou/uL (0.0-0.2); #Eosinphils 0.3 thou/uL (0.0-0.7); #Lymphocytes 1.6 thou/uL (1.20-3.40); #Monocytes 0.8 thou/uL (0.11-0.59); #Neutrophils 6.1 thou/uL (1.40-6.50); %Basophils 0.7 % (0.0-1.0); %Eosinophils 3.1 % (0.0-10.0); %Lymphocytes 17.7 % (21.0-51.0); %Monocytes 8.9 % (0.0-10.0); %Neutrophils 69.6 % (42.0-75.0); Mean Corpuscular HGB CONC 33.5 g/dL (32.0-36.0); Mean Corpuscular Hemoglobin 33.1 pg (27.0-31.0); Mean Corpuscular Volume 98.7 fL (78.0-98.0); Mean Platelet Volume 7.6 fL (7.4-10.4); Platelet Count 309 thou/uL (130-400); RBC Distribution Width 12.4 % (11.5-14.5); Red Blood Cell (RBC) Count 2.73 mill/uL (4.70-6.10); White Blood Cell (WBC) Count 8.8 thou/uL (4.8-10.8)
[2021-10-10 05:40] LABS: Albumin 3.1 g/dL (3.5-5.0); Anion Gap 13 mmol/L (10-20); BUN (Urea Nitrogen) 69 mg/dL (8.4-25.7); BUN/Creatinine Ratio 18.06; Calc. Creatinine Clearance 39 mL/min (70-130); Calcium 9.2 mg/dL (7.8-10.44); Carbon Dioxide 26 mmol/L (22-29); Chloride 102 mmol/L (98-107); Glucose 103 mg/dL (70-105); Phosphorus 4.7 mg/dL (2.3-4.7); Potassium 4.3 mmol/L (3.5-5.1); Sodium 137 mmol/L (136-145)
[2021-10-10] MEDS: Furosemide 40 MG/4 ML VIAL SLOW IVP SCH (06:29)
[2021-10-10 06:48] LABS: Iron 57 ug/dL (65-175); Iron Binding Capacity, Total 220 mcg/dL (261-462)
[2021-10-10] MEDS: Heparin 5,000 UNITS/ML VIAL SC SCH ×3 (09:15→20:15)
[2021-10-10] MEDS: Carvedilol 3.125 MG TAB PO SCH ×2 (09:16→16:51)
[2021-10-10] MEDS: Clopidogrel Bisulfate 75 MG TAB PO SCH (09:16)
[2021-10-10] MEDS: Gabapentin 300 MG CAP PO SCH ×2 (09:16→20:17)
[2021-10-10] MEDS: Calcium Carbonate 500 MG ChewTAB PO SCH (09:16)
[2021-10-10] MEDS: Amlodipine 10 MG TAB PO SCH (09:16)
[2021-10-10] MEDS: Sacubitril 49 MG/Valsartan 51 MG TABLET PO SCH ×2 (09:16→20:19)
[2021-10-10] MEDS: Aspirin 81 mg Enteric Coated Tablet PO SCH (09:17)
[2021-10-10] MEDS ORDERED: Metolazone 2.5 MG TAB PO SCH (09:30)
[2021-10-10] MEDS ORDERED: Ferrous Sulfate 325 MG TAB PO SCH (11:45)
[2021-10-10] MEDS ORDERED: EPOETIN ALFA-EPBX (ESRD) 10,000 UNIT/ML VIAL SC SCH (12:00)
[2021-10-10] MEDS ORDERED: Torsemide 100 MG TAB PO SCH (14:00)
[2021-10-10] MEDS: Isosorbide Dinitrate 20 MG TAB PO SCH ×2 (15:07→20:18)
[2021-10-10] MEDS: Atorvastatin Calcium 40 MG TAB PO SCH (20:18)
[2021-10-10] MEDS: Lantus 1000 UNITS/10 ML VIAL SC SCH (20:30)
[2021-10-11 04:59] LABS: #Eosinphils 0.3 thou/uL (0.0-0.7); #Lymphocytes 1.7 thou/uL (1.20-3.40); #Monocytes 0.7 thou/uL (0.11-0.59); #Neutrophils 6.2 thou/uL (1.40-6.50); %Basophils 0.5 % (0.0-1.0); %Eosinophils 3.3 % (0.0-10.0); %Lymphocytes 18.5 % (21.0-51.0); %Monocytes 7.8 % (0.0-10.0); %Neutrophils 69.8 % (42.0-75.0); Hemoglobin 9.4 g/dL (14.0-18.0); Mean Corpuscular HGB CONC 33.8 g/dL (32.0-36.0); Mean Corpuscular Hemoglobin 33.2 pg (27.0-31.0); Mean Corpuscular Volume 98.1 fL (78.0-98.0); Mean Platelet Volume 7.7 fL (7.4-10.4); Platelet Count 360 thou/uL (130-400); RBC Distribution Width 12.3 % (11.5-14.5); Red Blood Cell (RBC) Count 2.82 mill/uL (4.70-6.10); White Blood Cell (WBC) Count 8.9 thou/uL (4.8-10.8)
[2021-10-11 05:22] LABS: Albumin 3.2 g/dL (3.5-5.0); Anion Gap 14 mmol/L (10-20); BUN (Urea Nitrogen) 80 mg/dL (8.4-25.7); BUN/Creatinine Ratio 20.46; Calc. Creatinine Clearance 38 mL/min (70-130); Calcium 9.4 mg/dL (7.8-10.44); Carbon Dioxide 29 mmol/L (22-29); Chloride 100 mmol/L (98-107); Glucose 113 mg/dL (70-105); Phosphorus 4.6 mg/dL (2.3-4.7); Potassium 4.3 mmol/L (3.5-5.1); Sodium 139 mmol/L (136-145)
[2021-10-11] MEDS: Aspirin 81 mg Enteric Coated Tablet PO SCH (08:36)
[2021-10-11] MEDS: Sacubitril 49 MG/Valsartan 51 MG TABLET PO SCH (08:36)
[2021-10-11] MEDS: Heparin 5,000 UNITS/ML VIAL SC SCH (08:36)
[2021-10-11] MEDS: Calcium Carbonate 500 MG ChewTAB PO SCH (08:36)
[2021-10-11] MEDS: Carvedilol 3.125 MG TAB PO SCH (08:37)
[2021-10-11] MEDS: Isosorbide Dinitrate 20 MG TAB PO SCH (08:37)
[2021-10-11] MEDS: Clopidogrel Bisulfate 75 MG TAB PO SCH (08:37)
[2021-10-11] MEDS: Gabapentin 300 MG CAP PO SCH (08:37)
[2021-10-11] MEDS: Amlodipine 10 MG TAB PO SCH (08:37)
[2021-10-11] MEDS ORDERED: Torsemide 100 MG TAB PO SCH (09:00)
[2021-10-11 11:50] VITALS: TEMP 98.2
[2021-10-11 12:38] VITALS: BP 110/52
== END 2021-10-11 14:23 | disposition home or self-care (01) | DRG 291 ==
LOC: ERS 16:29 → 2NO 18:33
PROVIDERS: ADMIT Emergency Medicine; ATTEND Emergency Medicine
DX: I13.2 Hypertensive heart and chronic kidney disease with heart failure and with stage 5 chronic kidney disease, or end stage renal disease (principal); N18.6 End stage renal disease; I50.43 Acute on chronic combined systolic (congestive) and diastolic (congestive) heart failure; J96.21 Acute and chronic respiratory failure with hypoxia; I69.951 Hemiplegia and hemiparesis following unspecified cerebrovascular disease affecting right dominant side; Z20.822 Contact with and (suspected) exposure to COVID-19; E11.22 Type 2 diabetes mellitus with diabetic chronic kidney disease; F32.A Depression, unspecified; E11.40 Type 2 diabetes mellitus with diabetic neuropathy, unspecified; E66.9 Obesity, unspecified; E78.5 Hyperlipidemia, unspecified; I42.9 Cardiomyopathy, unspecified; E11.69 Type 2 diabetes mellitus with other specified complication; D63.1 Anemia in chronic kidney disease; Z99.2 Dependence on renal dialysis; Z88.8 Allergy status to other drugs, medicaments and biological substances; Z79.4 Long term (current) use of insulin; Z79.899 Other long term (current) drug therapy; Z79.82 Long term (current) use of aspirin; Z68.39 Body mass index [BMI] 39.0-39.9, adult
CPT/HCPCS: 36415; 36416; 71045; 80048; 80053; 80069; 82728; 83540; 83550; 83880; 84484; 85025; 93005; 93306; 93798; 96374; J1644; J1815; J1940; J7620; Q5105; U0003; U0005

== ENCOUNTER 2022-05-28 01:26 | Inpatient (IN) | payer MEDICARE, OTHER ==
[2022-05-28] MEDS ORDERED: Furosemide 40 MG/4 ML VIAL ONE (02:15)
[2022-05-28] MEDS ORDERED: Nitroglycerin 2% Ointment 1 INCH/1 GM Packet ONE (02:15)
[2022-05-28 02:17] LABS: #Eosinphils 0.3 thou/uL (0.0-0.7); #Lymphocytes 1.4 thou/uL (1.20-3.40); #Monocytes 0.7 thou/uL (0.11-0.59); #Neutrophils 7.4 thou/uL (1.40-6.50); %Basophils 0.2 % (0.0-1.0); %Eosinophils 3.1 % (0.0-10.0); %Lymphocytes 14.4 % (21.0-51.0); %Neutrophils 75.3 % (42.0-75.0); Hemoglobin 10.3 g/dL (14.0-18.0); Mean Corpuscular Hemoglobin 32.3 pg (27.0-31.0); Mean Corpuscular Volume 95.1 fL (78.0-98.0); Mean Platelet Volume 8.4 fL (7.4-10.4); Platelet Count 241 thou/uL (130-400); RBC Distribution Width 13.5 % (11.5-14.5); Red Blood Cell (RBC) Count 3.19 mill/uL (4.70-6.10); White Blood Cell (WBC) Count 9.8 thou/uL (4.8-10.8)
[2022-05-28 02:37] LABS: ALT (SGPT) 8 U/L (8-55); AST (SGOT) 9 U/L (5-34); Albumin 3.4 g/dL (3.5-5.0); Alkaline Phosphatase 109 U/L (40-110); Anion Gap 17 mmol/L (10-20); BUN (Urea Nitrogen) 47 mg/dL (8.4-25.7); Bilirubin, Total 0.6 mg/dL (0.2-1.2); Calc. Creatinine Clearance 0 mL/min (70-130); Calcium 8.7 mg/dL (7.8-10.44); Carbon Dioxide 22 mmol/L (22-29); Chloride 106 mmol/L (98-107); Estimated GFR 15; Globulin 3.3 g/dL (2.4-3.5); Glucose 110 mg/dL (70-105); Potassium 3.7 mmol/L (3.5-5.1); Protein, Total 6.7 g/dL (6.0-8.3); Sodium 141 mmol/L (136-145)
[2022-05-28 03:21] LABS: CKMB 3.5 ng/mL (0-6.6)
[2022-05-28 03:23] LABS: SARS-CoV-2 NAA Rapid Test DETECTED (NotDetected)
[2022-05-28] MEDS ORDERED: hydrALAZINE 20 MG/ML VIAL SLOW IVP PRN (03:24)
[2022-05-28 04:46] VITALS: BMI 39.9
[2022-05-28 05:07] LABS: #Eosinphils 0.2 thou/uL (0.0-0.7); #Lymphocytes 1.3 thou/uL (1.20-3.40); #Monocytes 0.7 thou/uL (0.11-0.59); #Neutrophils 7.4 thou/uL (1.40-6.50); %Basophils 0.2 % (0.0-1.0); %Eosinophils 2.6 % (0.0-10.0); %Monocytes 7.5 % (0.0-10.0); %Neutrophils 76.8 % (42.0-75.0); Hemoglobin 9.9 g/dL (14.0-18.0); Mean Corpuscular HGB CONC 32.5 g/dL (32.0-36.0); Mean Corpuscular Hemoglobin 30.7 pg (27.0-31.0); Mean Corpuscular Volume 94.4 fL (78.0-98.0); Mean Platelet Volume 8.5 fL (7.4-10.4); Platelet Count 235 thou/uL (130-400); RBC Distribution Width 13.6 % (11.5-14.5); Red Blood Cell (RBC) Count 3.23 mill/uL (4.70-6.10); White Blood Cell (WBC) Count 9.6 thou/uL (4.8-10.8)
[2022-05-28 05:26] LABS: Anion Gap 15 mmol/L (10-20); BUN (Urea Nitrogen) 46 mg/dL (8.4-25.7); Calc. Creatinine Clearance 33 mL/min (70-130); Calcium 8.8 mg/dL (7.8-10.44); Carbon Dioxide 21 mmol/L (22-29); Chloride 107 mmol/L (98-107); Estimated GFR 15; Glucose 110 mg/dL (70-105); Potassium 3.4 mmol/L (3.5-5.1); Sodium 140 mmol/L (136-145)
[2022-05-28 05:27] LABS: Magnesium 1.9 mg/dL (1.6-2.6); Phosphorus 4.6 mg/dL (2.3-4.7)
[2022-05-28 05:32] LABS: Troponin I 0.032 ng/mL (< 0.028)
[2022-05-28] MEDS ORDERED: Potassium Chloride 20 MEQ TAB PO SCH (08:00)
[2022-05-28 08:31] LABS: Troponin I 0.029 ng/mL (< 0.028)
[2022-05-28] MEDS ORDERED: Furosemide 40 MG/4 ML VIAL SLOW IVP SCH (10:00)
[2022-05-28] MEDS ORDERED: Dextrose 50% Abboject 50 ML SYRINGE SLOW IVP PRN (10:04)
[2022-05-28] MEDS ORDERED: HumaLOG 300 UNITS/3 ML VIAL SC PRN ×2 (10:04)
[2022-05-28] MEDS ORDERED: Dextrose 5% in Water 1,000 ML IV PRN (10:04)
[2022-05-28] MEDS: Isosorbide Dinitrate 20 MG TAB PO SCH ×3 (10:10→18:20)
[2022-05-28] MEDS: Ferrous Sulfate 325 MG TAB PO SCH (10:10)
[2022-05-28] MEDS: Atorvastatin Calcium 40 MG TAB PO SCH (10:10)
[2022-05-28] MEDS: Aspirin 81 mg Enteric Coated Tablet PO SCH (10:11)
[2022-05-28] MEDS: Clopidogrel Bisulfate 75 MG TAB PO SCH (10:11)
[2022-05-28] MEDS: Amlodipine 10 MG TAB PO SCH (10:11)
[2022-05-28] MEDS: Heparin 5,000 UNITS/ML VIAL SC SCH ×3 (10:11→21:21)
[2022-05-28] MEDS: Gabapentin 300 MG CAP PO SCH (10:11)
[2022-05-28] MEDS: Carvedilol 3.125 MG TAB PO SCH ×2 (10:11→18:20)
[2022-05-28 10:31] LABS: Hemoglobin A1c 6.1 % (4.0-6.0)
[2022-05-28 12:34] LABS: Iron 32 ug/dL (65-175); Iron Binding Capacity, Total 190 mcg/dL (261-462)
[2022-05-28] MEDS: Furosemide 100 MG/10 ML VIAL SLOW IVP SCH (15:31)
[2022-05-28] MEDS: Insulin Glargine 30 UNITS/0.3 ML VIAL SC SCH (21:20)
[2022-05-29] MEDS: Furosemide 100 MG/10 ML VIAL SLOW IVP SCH ×2 (06:17→15:33)
[2022-05-29] MEDS ORDERED: Epoetin (ESRD) 10,000 UNITS/ML VIAL SC SCH (07:15)
[2022-05-29 07:52] LABS: Albumin 3.1 g/dL (3.5-5.0); Anion Gap 18 mmol/L (10-20); BUN (Urea Nitrogen) 49 mg/dL (8.4-25.7); BUN/Creatinine Ratio 10.56; Calc. Creatinine Clearance 33 mL/min (70-130); Calcium 8.7 mg/dL (7.8-10.44); Carbon Dioxide 17 mmol/L (22-29); Chloride 108 mmol/L (98-107); Estimated GFR 14; Glucose 129 mg/dL (70-105); Phosphorus 5.5 mg/dL (2.3-4.7); Potassium 4.4 mmol/L (3.5-5.1); Sodium 139 mmol/L (136-145)
[2022-05-29] MEDS: Iron, Sodium Ferric Gluconate 250 MG in Sodium Chloride 0.9% 250 ML 250 ML IVPB SCH (08:52)
[2022-05-29] MEDS: Atorvastatin Calcium 40 MG TAB PO SCH (08:53)
[2022-05-29] MEDS: Isosorbide Dinitrate 20 MG TAB PO SCH ×4 (08:53→21:06)
[2022-05-29] MEDS: Aspirin 81 mg Enteric Coated Tablet PO SCH (08:53)
[2022-05-29] MEDS: hydrALAZINE 25 MG TAB PO SCH ×3 (08:53→21:07)
[2022-05-29] MEDS: Amlodipine 10 MG TAB PO SCH (08:53)
[2022-05-29] MEDS: Clopidogrel Bisulfate 75 MG TAB PO SCH (08:53)
[2022-05-29] MEDS: Gabapentin 300 MG CAP PO SCH (08:53)
[2022-05-29] MEDS: Carvedilol 3.125 MG TAB PO SCH ×2 (08:54→18:01)
[2022-05-29] MEDS: Heparin 5,000 UNITS/ML VIAL SC SCH ×3 (08:54→21:07)
[2022-05-29] MEDS ORDERED: Torsemide 100 MG TAB PO SCH (09:00)
[2022-05-29] MEDS ORDERED: Sodium Bicarbonate Tab 325 MG TAB PO SCH (09:15)
[2022-05-29] MEDS ORDERED: Metolazone 5 MG TAB PO SCH (09:15)
[2022-05-29] MEDS: Sodium Bicarbonate Tab 325 MG TAB PO SCH (21:06)
[2022-05-29] MEDS: Insulin Glargine 30 UNITS/0.3 ML VIAL SC SCH ×2 (21:07→21:09)
[2022-05-30 05:09] LABS: Albumin 3.2 g/dL (3.5-5.0); Anion Gap 15 mmol/L (10-20); BUN (Urea Nitrogen) 56 mg/dL (8.4-25.7); BUN/Creatinine Ratio 11.11; Calc. Creatinine Clearance 30 mL/min (70-130); Calcium 8.7 mg/dL (7.8-10.44); Carbon Dioxide 24 mmol/L (22-29); Chloride 106 mmol/L (98-107); Estimated GFR 13; Glucose 102 mg/dL (70-105); Phosphorus 5.7 mg/dL (2.3-4.7); Potassium 3.9 mmol/L (3.5-5.1); Sodium 141 mmol/L (136-145)
[2022-05-30] MEDS: Furosemide 100 MG/10 ML VIAL SLOW IVP SCH ×2 (05:38→15:13)
[2022-05-30] MEDS ORDERED: Albuterol 200 PUFF (6.7GM INHALER) INH PRN (08:36)
[2022-05-30] MEDS ORDERED: Albuterol Sulfate 2.5 mg/3 ml Neb NEB PRN (08:56)
[2022-05-30 09:06] LABS: #Basophils 0.1 thou/uL (0.0-0.2); #Eosinphils 0.3 thou/uL (0.0-0.7); #Lymphocytes 1.2 thou/uL (1.20-3.40); #Monocytes 0.6 thou/uL (0.11-0.59); #Neutrophils 6.3 thou/uL (1.40-6.50); %Basophils 0.6 % (0.0-1.0); %Monocytes 7.1 % (0.0-10.0); %Neutrophils 75.3 % (42.0-75.0); Hemoglobin 9.1 g/dL (14.0-18.0); Mean Corpuscular HGB CONC 31.9 g/dL (32.0-36.0); Mean Corpuscular Hemoglobin 31.2 pg (27.0-31.0); Mean Corpuscular Volume 97.7 fL (78.0-98.0); Mean Platelet Volume 8.9 fL (7.4-10.4); Platelet Count 240 thou/uL (130-400); RBC Distribution Width 13.5 % (11.5-14.5); Red Blood Cell (RBC) Count 2.92 mill/uL (4.70-6.10); White Blood Cell (WBC) Count 8.4 thou/uL (4.8-10.8)
[2022-05-30] MEDS: Sodium Bicarbonate Tab 325 MG TAB PO SCH ×2 (09:55→20:12)
[2022-05-30] MEDS: Aspirin 81 mg Enteric Coated Tablet PO SCH (09:55)
[2022-05-30] MEDS: Gabapentin 300 MG CAP PO SCH (09:56)
[2022-05-30] MEDS: Clopidogrel Bisulfate 75 MG TAB PO SCH (09:56)
[2022-05-30] MEDS: Atorvastatin Calcium 40 MG TAB PO SCH (09:56)
[2022-05-30] MEDS: hydrALAZINE 25 MG TAB PO SCH ×3 (09:56→20:13)
[2022-05-30] MEDS: Amlodipine 10 MG TAB PO SCH (09:56)
[2022-05-30] MEDS: Isosorbide Dinitrate 20 MG TAB PO SCH ×3 (09:57→20:13)
[2022-05-30] MEDS: Heparin 5,000 UNITS/ML VIAL SC SCH ×3 (09:57→20:12)
[2022-05-30] MEDS: Carvedilol 3.125 MG TAB PO SCH ×2 (09:57→17:50)
[2022-05-30] MEDS ORDERED: Dexamethasone 4 MG TAB PO SCH (10:00)
[2022-05-30] MEDS: Ferrous Sulfate 325 MG TAB PO SCH (11:39)
[2022-05-30] MEDS: Iron, Sodium Ferric Gluconate 250 MG in Sodium Chloride 0.9% 250 ML 250 ML IVPB SCH (11:39)
[2022-05-30] MEDS: Albuterol 200 PUFF (6.7GM INHALER) INH PRN ×2 (11:40→17:50)
[2022-05-30] MEDS: Insulin Glargine 30 UNITS/0.3 ML VIAL SC SCH (20:12)
[2022-05-31 04:31] LABS: #Lymphocytes 0.5 thou/uL (1.20-3.40); #Monocytes 0.2 thou/uL (0.11-0.59); #Neutrophils 6.9 thou/uL (1.40-6.50); %Basophils 0.1 % (0.0-1.0); %Eosinophils 0.4 % (0.0-10.0); %Lymphocytes 6.8 % (21.0-51.0); %Monocytes 3.2 % (0.0-10.0); %Neutrophils 89.5 % (42.0-75.0); Hemoglobin 9.7 g/dL (14.0-18.0); Mean Corpuscular Hemoglobin 30.8 pg (27.0-31.0); Mean Corpuscular Volume 96.1 fL (78.0-98.0); Mean Platelet Volume 8.8 fL (7.4-10.4); Platelet Count 265 thou/uL (130-400); RBC Distribution Width 13.7 % (11.5-14.5); Red Blood Cell (RBC) Count 3.16 mill/uL (4.70-6.10); White Blood Cell (WBC) Count 7.7 thou/uL (4.8-10.8)
[2022-05-31 04:45] LABS: ALT (SGPT) 11 U/L (8-55); AST (SGOT) 9 U/L (5-34); Albumin 3.4 g/dL (3.5-5.0); Alkaline Phosphatase 114 U/L (40-110); Bilirubin, Direct 0.2 mg/dL (0.1-0.3); Bilirubin, Total 0.4 mg/dL (0.2-1.2); CRP (Inflammatory) 2.67 mg/dL (= or < 0.5); Protein, Total 7.3 g/dL (6.0-8.3)
[2022-05-31] MEDS: Furosemide 100 MG/10 ML VIAL SLOW IVP SCH (05:07)
[2022-05-31 05:37] LABS: Albumin 3.5 g/dL (3.5-5.0); Anion Gap 19 mmol/L (10-20); BUN (Urea Nitrogen) 57 mg/dL (8.4-25.7); BUN/Creatinine Ratio 11.38; Calc. Creatinine Clearance 30 mL/min (70-130); Calcium 9.3 mg/dL (7.8-10.44); Carbon Dioxide 20 mmol/L (22-29); Chloride 103 mmol/L (98-107); Estimated GFR 13; Glucose 177 mg/dL (70-105); Magnesium 2.1 mg/dL (1.6-2.6); Phosphorus 4.2 mg/dL (2.3-4.7); Potassium 4.5 mmol/L (3.5-5.1); Sodium 137 mmol/L (136-145)
[2022-05-31] MEDS ORDERED: Dexamethasone 4 MG TAB PO SCH (08:00)
[2022-05-31] MEDS ORDERED: Sodium Bicarbonate Tab 325 MG TAB PO SCH (09:00)
[2022-05-31] MEDS: Carvedilol 3.125 MG TAB PO SCH (09:45)
[2022-05-31] MEDS: Atorvastatin Calcium 40 MG TAB PO SCH (09:46)
[2022-05-31] MEDS: Aspirin 81 mg Enteric Coated Tablet PO SCH (09:46)
[2022-05-31] MEDS: Amlodipine 10 MG TAB PO SCH (09:46)
[2022-05-31] MEDS: Isosorbide Dinitrate 20 MG TAB PO SCH (09:47)
[2022-05-31] MEDS: hydrALAZINE 25 MG TAB PO SCH (09:47)
[2022-05-31] MEDS: Gabapentin 300 MG CAP PO SCH (09:47)
[2022-05-31] MEDS: Clopidogrel Bisulfate 75 MG TAB PO SCH (09:47)
[2022-05-31] MEDS: Heparin 5,000 UNITS/ML VIAL SC SCH (09:48)
[2022-05-31] MEDS: Iron, Sodium Ferric Gluconate 250 MG in Sodium Chloride 0.9% 250 ML 250 ML IVPB SCH (11:29)
[2022-05-31 12:50] VITALS: TEMP 97.4
[2022-05-31 13:14] VITALS: BP 156/70
== END 2022-05-31 14:30 | disposition home or self-care (01) | DRG 177 ==
LOC: ERS 01:26 → 2NO 03:03
PROVIDERS: ADMIT Student in an Organized Health Care Education/Training Program; ATTEND Student in an Organized Health Care Education/Training Program
PROC: 8E0ZXY6 Isolation (ICD-10-PCS; principal; 2022-05-28)
DX: U07.1 COVID-19 (principal); I50.43 Acute on chronic combined systolic (congestive) and diastolic (congestive) heart failure; J96.01 Acute respiratory failure with hypoxia; I13.0 Hypertensive heart and chronic kidney disease with heart failure and stage 1 through stage 4 chronic kidney disease, or unspecified chronic kidney disease; N18.4 Chronic kidney disease, stage 4 (severe); N17.9 Acute kidney failure, unspecified; E87.2 Acidosis; Z68.41 Body mass index [BMI] 40.0-44.9, adult; K21.9 Gastro-esophageal reflux disease without esophagitis; J45.909 Unspecified asthma, uncomplicated; E11.22 Type 2 diabetes mellitus with diabetic chronic kidney disease; R94.31 Abnormal electrocardiogram [ECG] [EKG]; E78.5 Hyperlipidemia, unspecified; D63.1 Anemia in chronic kidney disease; E66.9 Obesity, unspecified; F32.A Depression, unspecified; Z86.73 Personal history of transient ischemic attack (TIA), and cerebral infarction without residual deficits; Z98.890 Other specified postprocedural states; Z88.8 Allergy status to other drugs, medicaments and biological substances; Z79.01 Long term (current) use of anticoagulants; Z79.82 Long term (current) use of aspirin; Z79.899 Other long term (current) drug therapy
CPT/HCPCS: 36415; 36416; 71045; 80053; 80069; 82553; 82728; 83036; 83540; 83550; 83735; 83880; 84100; 84145; 84484; 85025; 86140; 93005; 93306; 93798; 96374; J0360; J1644; J1815; J1940; J2916; J7050; J8540; Q4081; U0002

== ENCOUNTER 2022-06-25 06:18 | Day surgery (SDC) | payer OTHER ==
[2022-06-22 09:59] VITALS: BMI 40.6
[2022-06-25] MEDS ORDERED: fentaNYL Citrate/PF 100 MCG/2 ML SYRINGE ONE (07:02)
[2022-06-25] MEDS ORDERED: PROPOFOL 200 MG/20 ML VIAL ONE (08:08)
== END 2022-06-25 09:15 | disposition home or self-care (01) ==
LOC: SDC 06:18
PROVIDERS: ATTEND Internal Medicine
PROC: 0DJD8ZZ Inspection of Lower Intestinal Tract, Via Natural or Artificial Opening Endoscopic (ICD-10-PCS; principal; 2022-06-25)
DX: Z12.11 Encounter for screening for malignant neoplasm of colon (principal); K64.8 Other hemorrhoids; I13.2 Hypertensive heart and chronic kidney disease with heart failure and with stage 5 chronic kidney disease, or end stage renal disease; E11.22 Type 2 diabetes mellitus with diabetic chronic kidney disease; N18.6 End stage renal disease; I50.9 Heart failure, unspecified; J45.909 Unspecified asthma, uncomplicated; Z86.73 Personal history of transient ischemic attack (TIA), and cerebral infarction without residual deficits; Z79.02 Long term (current) use of antithrombotics/antiplatelets; Z79.4 Long term (current) use of insulin; Z79.82 Long term (current) use of aspirin; Z79.84 Long term (current) use of oral hypoglycemic drugs; Z79.899 Other long term (current) drug therapy; Z88.8 Allergy status to other drugs, medicaments and biological substances; Z90.49 Acquired absence of other specified parts of digestive tract; Z99.2 Dependence on renal dialysis
CPT/HCPCS: 82962; G0121; 36416; J2704

== ENCOUNTER 2022-07-13 21:48 | Inpatient (IN) | payer OTHER ==
[2022-07-13 22:33] LABS: #Eosinphils 0.2 thou/uL (0.0-0.7); #Monocytes 0.7 thou/uL (0.11-0.59); #Neutrophils 11.5 thou/uL (1.40-6.50); %Eosinophils 1.2 % (0.0-10.0); %Lymphocytes 7.5 % (21.0-51.0); %Monocytes 5.5 % (0.0-10.0); %Neutrophils 85.8 % (42.0-75.0); Hemoglobin 9.7 g/dL (14.0-18.0); Mean Corpuscular HGB CONC 30.6 g/dL (32.0-36.0); Mean Corpuscular Volume 98.2 fL (78.0-98.0); Mean Platelet Volume 8.3 fL (7.4-10.4); Platelet Count 270 thou/uL (130-400); RBC Distribution Width 14.4 % (11.5-14.5); Red Blood Cell (RBC) Count 3.22 mill/uL (4.70-6.10); White Blood Cell (WBC) Count 13.5 thou/uL (4.8-10.8)
[2022-07-13] MEDS ORDERED: Albuterol Sulfate 2.5 mg/3 ml Neb ONE (22:50)
[2022-07-13 22:54] LABS: ALT (SGPT) 17 U/L (8-55); AST (SGOT) 10 U/L (5-34); Albumin 3.5 g/dL (3.5-5.0); Alkaline Phosphatase 123 U/L (40-110); Anion Gap 19 mmol/L (10-20); BUN (Urea Nitrogen) 48 mg/dL (8.4-25.7); Bilirubin, Total 0.6 mg/dL (0.2-1.2); Calc. Creatinine Clearance 0 mL/min (70-130); Calcium 9.2 mg/dL (7.8-10.44); Carbon Dioxide 20 mmol/L (22-29); Chloride 103 mmol/L (98-107); Estimated GFR 14; Glucose 187 mg/dL (70-105); Potassium 3.7 mmol/L (3.5-5.1); Protein, Total 7.5 g/dL (6.0-8.3); Sodium 138 mmol/L (136-145)
[2022-07-13] MEDS ORDERED: Cefepime 2 GM VIAL ONE (22:55)
[2022-07-13] MEDS ORDERED: Dexamethasone 10 MG/ML VIAL ONE (22:55)
[2022-07-13] MEDS ORDERED: Vancomycin 1 GM/200 ML BAG ONE (22:55)
[2022-07-13 22:57] LABS: INR-International Normal Ratio 1.1; PTT 31.9 sec (22.9-36.1); Prothrombin Time 14.3 sec (12.0-14.7)
[2022-07-13] MEDS ORDERED: Magnesium 2 GM/50 ML BAG (IN WATER) ONE (22:58)
[2022-07-13 23:08] LABS: CK (CPK) 50 U/L (30-200); Lipase 38 U/L (8-78)
[2022-07-13 23:29] LABS: CKMB 2.7 ng/mL (0-6.6)
[2022-07-13 23:54] LABS: Actual Bicarbonate (HCO3a) 25.7 mEq/L (22-28); Analyzer IN Cardio ER; Base Excess (BEa) -0.3 mEq/L (-2.0 to +3.0); CO2 Tension 48.6 mmHg (35.0-45.0); Calcium, Ionized (arterial) 1.17 mmol/L (1.12-1.30); Carboxyhemoglobin (COHb) 0.3 gm% (0.0-3.0); Hemoglobin (Hb) 9.7 g/dL (14.0-18.0); O2 Tension (PaO2), arterial 93.3 mmHg (80.0-100.0); Potassium - ABG Lab 3.41 mmol/L (3.70-5.30); pH, Arterial 7.34 (7.35-7.45)
[2022-07-14] MEDS ORDERED: Enoxaparin Sodium 60 MG/0.6 ML SYRINGE ONE (00:12)
[2022-07-14] MEDS ORDERED: Senokot S 8.6-50 MG TAB PO PRN (01:09)
[2022-07-14] MEDS ORDERED: Dextrose 50% Abboject 50 ML SYRINGE SLOW IVP PRN (01:22)
[2022-07-14] MEDS ORDERED: Insulin Regular 300 UNITS/3 ML VIAL SC PRN (01:22)
[2022-07-14] MEDS ORDERED: Dextrose 5% in Water 1,000 ML IV PRN (01:22)
[2022-07-14] MEDS ORDERED: HumaLOG 300 UNITS/3 ML VIAL SC PRN ×2 (01:28)
[2022-07-14 01:35] LABS: SARS-CoV-2 NAA Rapid Test Not Detected (NotDetected)
[2022-07-14 02:18] LABS: CKMB 2.3 ng/mL (0-6.6)
[2022-07-14 03:10] LABS: Bacteria/HPF None Seen HPF (None Seen); Bilirubin Negative (Negative); Blood, Urine Trace (Negative); Clarity Clear (Clear); Glucose, Urine (Dipstick) Greater than 1000 mg/dL (Negative); Ketone, Urine Negative (Negative); Leukocyte Negative Leu/uL (Negative); Nitrite Negative (Negative); Protein, Urine (Dipstick) 300 mg/dL (Neg-Trace); RBC/HPF 0-3 HPF (0-3); Specific Gravity, Urine 1.012 (1.002-1.036); Squamous Epithelial None Seen HPF (0-3); Urobilinogen Normal mg/dL (Less than 2); WBC/HPF 0-3 HPF (0-3)
[2022-07-14] MEDS: cefTRIAXone\\ROCEPHIN 1 GM in Sodium Chloride 0.9% 100 ML IVPB SCH (04:19)
[2022-07-14 04:20] LABS: #Lymphocytes 0.5 thou/uL (1.20-3.40); #Monocytes 0.2 thou/uL (0.11-0.59); #Neutrophils 11.4 thou/uL (1.40-6.50); %Basophils 0.1 % (0.0-1.0); %Eosinophils 0.4 % (0.0-10.0); %Lymphocytes 4.1 % (21.0-51.0); %Monocytes 1.6 % (0.0-10.0); %Neutrophils 93.8 % (42.0-75.0); Hemoglobin 9.2 g/dL (14.0-18.0); Mean Corpuscular HGB CONC 30.6 g/dL (32.0-36.0); Mean Corpuscular Hemoglobin 29.9 pg (27.0-31.0); Mean Corpuscular Volume 97.8 fL (78.0-98.0); Mean Platelet Volume 8.5 fL (7.4-10.4); Platelet Count 243 thou/uL (130-400); RBC Distribution Width 14.1 % (11.5-14.5); Red Blood Cell (RBC) Count 3.07 mill/uL (4.70-6.10); White Blood Cell (WBC) Count 12.2 thou/uL (4.8-10.8)
[2022-07-14 04:42] LABS: ALT (SGPT) 15 U/L (8-55); AST (SGOT) 8 U/L (5-34); Albumin 3.4 g/dL (3.5-5.0); Alkaline Phosphatase 116 U/L (40-110); Anion Gap 16 mmol/L (10-20); BUN (Urea Nitrogen) 48 mg/dL (8.4-25.7); Bilirubin, Total 0.5 mg/dL (0.2-1.2); Calc. Creatinine Clearance 30 mL/min (70-130); Calcium 8.7 mg/dL (7.8-10.44); Carbon Dioxide 23 mmol/L (22-29); Chloride 105 mmol/L (98-107); Estimated GFR 14; Globulin 3.3 g/dL (2.4-3.5); Glucose 219 mg/dL (70-105); Potassium 3.8 mmol/L (3.5-5.1); Protein, Total 6.7 g/dL (6.0-8.3); Sodium 140 mmol/L (136-145)
[2022-07-14 05:19] LABS: Digoxin Less than 0.15 ng/mL (0.8-2.0)
[2022-07-14] MEDS: Azithromycin 500 MG in Sodium Chloride 0.9% 250 ML 250 ML IVPB SCH (05:23)
[2022-07-14] MEDS: Heparin 5,000 UNITS/ML VIAL SC SCH ×3 (07:55→20:28)
[2022-07-14] MEDS: Polyethylene Glycol 3350 17 GM Packet PO SCH (07:56)
[2022-07-14] MEDS: Aspirin 81 mg Enteric Coated Tablet PO SCH (07:56)
[2022-07-14] MEDS: Senokot S 8.6-50 MG TAB PO SCH ×2 (07:56→20:21)
[2022-07-14] MEDS: Atorvastatin Calcium 40 MG TAB PO SCH (07:56)
[2022-07-14] MEDS: Empagliflozin 25 MG TAB PO SCH (07:57)
[2022-07-14] MEDS: Clopidogrel Bisulfate 75 MG TAB PO SCH (07:57)
[2022-07-14] MEDS: Sodium Bicarbonate Tab 325 MG TAB PO SCH ×3 (07:57→20:20)
[2022-07-14] MEDS: Isosorbide Dinitrate 20 MG TAB PO SCH ×3 (07:57→20:22)
[2022-07-14] MEDS: Gabapentin 300 MG CAP PO SCH (07:58)
[2022-07-14] MEDS: Carvedilol 3.125 MG TAB PO SCH ×2 (07:58→16:45)
[2022-07-14] MEDS: Amlodipine 10 MG TAB PO SCH (07:58)
[2022-07-14] MEDS: hydrALAZINE 25 MG TAB PO SCH ×3 (07:58→20:21)
[2022-07-14] MEDS ORDERED: Enoxaparin Sodium 30 MG/0.3 ML SYRINGE SC SCH ×2 (09:00)
[2022-07-14] MEDS: Torsemide 100 MG TAB PO SCH (09:58)
[2022-07-14] MEDS: Insulin Glargine 30 UNITS/0.3 ML VIAL SC SCH (20:23)
[2022-07-15] MEDS: Azithromycin 500 MG in Sodium Chloride 0.9% 250 ML 250 ML IVPB SCH (01:28)
[2022-07-15] MEDS: cefTRIAXone\\ROCEPHIN 1 GM in Sodium Chloride 0.9% 100 ML IVPB SCH (01:28)
[2022-07-15 02:07] LABS: Puncture Site LRA
[2022-07-15] MEDS ORDERED: Furosemide 40 MG/4 ML VIAL SLOW IVP SCH (03:45)
[2022-07-15 05:03] LABS: #Eosinphils 0.1 thou/uL (0.0-0.7); #Lymphocytes 1.2 thou/uL (1.20-3.40); #Neutrophils 10.3 thou/uL (1.40-6.50); %Basophils 0.3 % (0.0-1.0); %Eosinophils 0.4 % (0.0-10.0); %Lymphocytes 9.3 % (21.0-51.0); %Monocytes 8.1 % (0.0-10.0); %Neutrophils 81.9 % (42.0-75.0); Hemoglobin 8.7 g/dL (14.0-18.0); Mean Corpuscular HGB CONC 30.5 g/dL (32.0-36.0); Mean Corpuscular Hemoglobin 29.8 pg (27.0-31.0); Mean Corpuscular Volume 97.6 fL (78.0-98.0); Mean Platelet Volume 8.5 fL (7.4-10.4); Platelet Count 270 thou/uL (130-400); RBC Distribution Width 14.2 % (11.5-14.5); Red Blood Cell (RBC) Count 2.91 mill/uL (4.70-6.10); White Blood Cell (WBC) Count 12.5 thou/uL (4.8-10.8)
[2022-07-15 05:24] LABS: ALT (SGPT) 18 U/L (8-55); AST (SGOT) 9 U/L (5-34); Albumin 3.3 g/dL (3.5-5.0); Alkaline Phosphatase 100 U/L (40-110); Anion Gap 15 mmol/L (10-20); BUN (Urea Nitrogen) 57 mg/dL (8.4-25.7); Bilirubin, Total 0.3 mg/dL (0.2-1.2); Calc. Creatinine Clearance 30 mL/min (70-130); Carbon Dioxide 23 mmol/L (22-29); Chloride 103 mmol/L (98-107); Estimated GFR 13; Globulin 3.4 g/dL (2.4-3.5); Glucose 155 mg/dL (70-105); Potassium 3.8 mmol/L (3.5-5.1); Protein, Total 6.7 g/dL (6.0-8.3); Sodium 137 mmol/L (136-145)
[2022-07-15] MEDS: Amlodipine 10 MG TAB PO SCH (09:32)
[2022-07-15] MEDS: Carvedilol 3.125 MG TAB PO SCH ×2 (09:32→16:49)
[2022-07-15] MEDS: Aspirin 81 mg Enteric Coated Tablet PO SCH (09:33)
[2022-07-15] MEDS: Clopidogrel Bisulfate 75 MG TAB PO SCH (09:33)
[2022-07-15] MEDS: Atorvastatin Calcium 40 MG TAB PO SCH (09:33)
[2022-07-15] MEDS: Gabapentin 300 MG CAP PO SCH (09:34)
[2022-07-15] MEDS: Empagliflozin 25 MG TAB PO SCH (09:34)
[2022-07-15] MEDS: Heparin 5,000 UNITS/ML VIAL SC SCH ×3 (09:34→20:50)
[2022-07-15] MEDS: Isosorbide Dinitrate 20 MG TAB PO SCH ×3 (09:35→20:51)
[2022-07-15] MEDS: hydrALAZINE 25 MG TAB PO SCH ×3 (09:35→20:50)
[2022-07-15] MEDS: Polyethylene Glycol 3350 17 GM Packet PO SCH (09:35)
[2022-07-15] MEDS: Senokot S 8.6-50 MG TAB PO SCH ×2 (09:36→20:50)
[2022-07-15] MEDS: Sodium Bicarbonate Tab 325 MG TAB PO SCH ×3 (09:36→20:50)
[2022-07-15] MEDS ORDERED: Furosemide 100 MG/10 ML VIAL SLOW IVP SCH ×2 (09:45→18:30)
[2022-07-15] MEDS ORDERED: Mineral Oil ENEMA PR SCH (12:00)
[2022-07-15] MEDS: Torsemide 100 MG TAB PO SCH (12:05)
[2022-07-15] MEDS: Insulin Glargine 30 UNITS/0.3 ML VIAL SC SCH ×2 (20:51→20:53)
[2022-07-16] MEDS: cefTRIAXone\\ROCEPHIN 1 GM in Sodium Chloride 0.9% 100 ML IVPB SCH (01:30)
[2022-07-16] MEDS: Azithromycin 250 MG TAB PO SCH (01:30)
[2022-07-16] MEDS ORDERED: FLU VACC QS2022-23(6MOS UP)/PF 60 MCG/0.5 ML SYRINGE IM ONE (05:00)
[2022-07-16] MEDS: Furosemide 100 MG/10 ML VIAL SLOW IVP SCH ×2 (06:06→18:08)
[2022-07-16 06:44] LABS: #Eosinphils 0.3 thou/uL (0.0-0.7); #Lymphocytes 0.9 thou/uL (1.20-3.40); #Monocytes 1.1 thou/uL (0.11-0.59); #Neutrophils 10.9 thou/uL (1.40-6.50); %Basophils 0.1 % (0.0-1.0); %Lymphocytes 6.7 % (21.0-51.0); %Monocytes 8.6 % (0.0-10.0); %Neutrophils 82.6 % (42.0-75.0); Hemoglobin 9.2 g/dL (14.0-18.0); Mean Corpuscular HGB CONC 30.5 g/dL (32.0-36.0); Mean Corpuscular Hemoglobin 29.8 pg (27.0-31.0); Mean Corpuscular Volume 97.6 fL (78.0-98.0); Mean Platelet Volume 8.3 fL (7.4-10.4); Platelet Count 271 thou/uL (130-400); RBC Distribution Width 14.5 % (11.5-14.5); White Blood Cell (WBC) Count 13.2 thou/uL (4.8-10.8)
[2022-07-16 07:02] LABS: Albumin 3.5 g/dL (3.5-5.0)
[2022-07-16 07:03] LABS: Chloride 102 mmol/L (98-107); Potassium 3.9 mmol/L (3.5-5.1); Sodium 137 mmol/L (136-145)
[2022-07-16 07:04] LABS: Calcium 9.3 mg/dL (7.8-10.44); Glucose 113 mg/dL (70-105)
[2022-07-16 07:05] LABS: Globulin 3.5 g/dL (2.4-3.5)
[2022-07-16 07:06] LABS: Anion Gap 15 mmol/L (10-20); Bilirubin, Total 0.5 mg/dL (0.2-1.2); Carbon Dioxide 24 mmol/L (22-29)
[2022-07-16 07:07] LABS: Alkaline Phosphatase 98 U/L (40-110)
[2022-07-16 07:08] LABS: Calc. Creatinine Clearance 31 mL/min (70-130); Estimated GFR 14
[2022-07-16 07:09] LABS: BUN (Urea Nitrogen) 63 mg/dL (8.4-25.7)
[2022-07-16 07:10] LABS: ALT (SGPT) 18 U/L (8-55); AST (SGOT) 9 U/L (5-34)
[2022-07-16] MEDS ORDERED: Furosemide 80 MG TAB PO SCH (07:15)
[2022-07-16] MEDS ORDERED: Mineral Oil ENEMA PR SCH (08:12)
[2022-07-16] MEDS: Senokot S 8.6-50 MG TAB PO SCH ×2 (10:28→21:10)
[2022-07-16] MEDS: hydrALAZINE 25 MG TAB PO SCH ×3 (10:28→21:10)
[2022-07-16] MEDS: Sodium Bicarbonate Tab 325 MG TAB PO SCH ×3 (10:28→21:11)
[2022-07-16] MEDS: Clopidogrel Bisulfate 75 MG TAB PO SCH (10:29)
[2022-07-16] MEDS: Atorvastatin Calcium 40 MG TAB PO SCH (10:29)
[2022-07-16] MEDS: Gabapentin 300 MG CAP PO SCH (10:29)
[2022-07-16] MEDS: Isosorbide Dinitrate 20 MG TAB PO SCH ×3 (10:30→21:11)
[2022-07-16] MEDS: Carvedilol 3.125 MG TAB PO SCH ×2 (10:30→18:04)
[2022-07-16] MEDS: Amlodipine 10 MG TAB PO SCH (10:30)
[2022-07-16] MEDS: Aspirin 81 mg Enteric Coated Tablet PO SCH (10:30)
[2022-07-16] MEDS: Empagliflozin 25 MG TAB PO SCH (10:30)
[2022-07-16] MEDS: Heparin 5,000 UNITS/ML VIAL SC SCH ×3 (10:31→21:11)
[2022-07-16] MEDS: Polyethylene Glycol 3350 17 GM Packet PO SCH (10:36)
[2022-07-16] MEDS ORDERED: Furosemide 100 MG/10 ML VIAL SLOW IVP SCH (11:00)
[2022-07-16] MEDS ORDERED: Acetaminophen 325 MG TAB PO PRN (15:12)
[2022-07-16] MEDS: Insulin Glargine 30 UNITS/0.3 ML VIAL SC SCH (21:10)
[2022-07-17] MEDS: cefTRIAXone\\ROCEPHIN 1 GM in Sodium Chloride 0.9% 100 ML IVPB SCH (01:14)
[2022-07-17] MEDS: Azithromycin 250 MG TAB PO SCH (01:15)
[2022-07-17 04:57] LABS: #Basophils 0.1 thou/uL (0.0-0.2); #Eosinphils 0.3 thou/uL (0.0-0.7); #Lymphocytes 0.8 thou/uL (1.20-3.40); #Monocytes 1.1 thou/uL (0.11-0.59); #Neutrophils 9.2 thou/uL (1.40-6.50); %Basophils 0.5 % (0.0-1.0); %Eosinophils 2.8 % (0.0-10.0); %Lymphocytes 7.2 % (21.0-51.0); %Monocytes 9.4 % (0.0-10.0); Hemoglobin 8.4 g/dL (14.0-18.0); Mean Corpuscular HGB CONC 31.9 g/dL (32.0-36.0); Mean Corpuscular Hemoglobin 30.4 pg (27.0-31.0); Mean Corpuscular Volume 95.3 fL (78.0-98.0); Mean Platelet Volume 8.7 fL (7.4-10.4); Platelet Count 242 thou/uL (130-400); RBC Distribution Width 14.4 % (11.5-14.5); Red Blood Cell (RBC) Count 2.76 mill/uL (4.70-6.10); White Blood Cell (WBC) Count 11.5 thou/uL (4.8-10.8)
[2022-07-17 05:45] LABS: ALT (SGPT) 17 U/L (8-55); AST (SGOT) 9 U/L (5-34); Albumin 3.1 g/dL (3.5-5.0); Alkaline Phosphatase 87 U/L (40-110); Anion Gap 13 mmol/L (10-20); BUN (Urea Nitrogen) 68 mg/dL (8.4-25.7); Bilirubin, Total 0.4 mg/dL (0.2-1.2); Calc. Creatinine Clearance 31 mL/min (70-130); Calcium 8.9 mg/dL (7.8-10.44); Carbon Dioxide 26 mmol/L (22-29); Chloride 102 mmol/L (98-107); Estimated GFR 14; Globulin 3.5 g/dL (2.4-3.5); Glucose 125 mg/dL (70-105); Protein, Total 6.6 g/dL (6.0-8.3); Sodium 137 mmol/L (136-145)
[2022-07-17] MEDS: Furosemide 100 MG/10 ML VIAL SLOW IVP SCH ×2 (05:46→14:08)
[2022-07-17] MEDS ORDERED: Metolazone 5 MG TAB PO SCH (07:45)
[2022-07-17] MEDS: Isosorbide Dinitrate 20 MG TAB PO SCH ×3 (08:38→20:18)
[2022-07-17] MEDS: Amlodipine 10 MG TAB PO SCH (08:38)
[2022-07-17] MEDS: Senokot S 8.6-50 MG TAB PO SCH ×2 (08:38→20:18)
[2022-07-17] MEDS: Clopidogrel Bisulfate 75 MG TAB PO SCH (08:38)
[2022-07-17] MEDS: hydrALAZINE 25 MG TAB PO SCH ×3 (08:38→20:19)
[2022-07-17] MEDS: Atorvastatin Calcium 40 MG TAB PO SCH (08:38)
[2022-07-17] MEDS: Empagliflozin 25 MG TAB PO SCH (08:39)
[2022-07-17] MEDS: Polyethylene Glycol 3350 17 GM Packet PO SCH (08:39)
[2022-07-17] MEDS: Heparin 5,000 UNITS/ML VIAL SC SCH ×3 (08:39→20:17)
[2022-07-17] MEDS: Gabapentin 300 MG CAP PO SCH (08:39)
[2022-07-17] MEDS: Aspirin 81 mg Enteric Coated Tablet PO SCH (08:39)
[2022-07-17] MEDS: Carvedilol 3.125 MG TAB PO SCH (08:39)
[2022-07-17] MEDS: Sodium Bicarbonate Tab 325 MG TAB PO SCH ×3 (08:39→20:19)
[2022-07-17] MEDS ORDERED: Epoetin (ESRD) 20,000 UNITS/ML SC SCH (08:45)
[2022-07-17] MEDS ORDERED: Carvedilol 3.125 MG TAB PO SCH ×3 (08:56→19:00)
[2022-07-17] MEDS: Epoetin (ESRD) 10,000 UNITS/ML VIAL SC SCH (11:24)
[2022-07-17] MEDS ORDERED: Iron, Sodium Ferric Gluconate 250 MG in Sodium Chloride 0.9% 250 ML 250 ML IVPB SCH (12:00)
[2022-07-17] MEDS: Carvedilol 6.25 MG TAB PO SCH (16:25)
[2022-07-17] MEDS ORDERED: Ondansetron ODT 4 MG TAB PO SCH (20:15)
[2022-07-17] MEDS: Insulin Glargine 30 UNITS/0.3 ML VIAL SC SCH (20:19)
[2022-07-18] MEDS: cefTRIAXone\\ROCEPHIN 1 GM in Sodium Chloride 0.9% 100 ML IVPB SCH (02:44)
[2022-07-18] MEDS: Azithromycin 250 MG TAB PO SCH (02:45)
[2022-07-18] MEDS: Furosemide 100 MG/10 ML VIAL SLOW IVP SCH ×2 (06:10→14:39)
[2022-07-18 08:36] LABS: #Eosinphils 0.3 thou/uL (0.0-0.7); #Lymphocytes 1.1 thou/uL (1.20-3.40); #Monocytes 0.9 thou/uL (0.11-0.59); #Neutrophils 7.3 thou/uL (1.40-6.50); %Basophils 0.2 % (0.0-1.0); %Eosinophils 3.3 % (0.0-10.0); %Lymphocytes 11.6 % (21.0-51.0); %Monocytes 9.1 % (0.0-10.0); %Neutrophils 75.8 % (42.0-75.0); Hemoglobin 8.2 g/dL (14.0-18.0); Mean Corpuscular HGB CONC 31.8 g/dL (32.0-36.0); Mean Corpuscular Hemoglobin 30.6 pg (27.0-31.0); Mean Corpuscular Volume 96.2 fL (78.0-98.0); Mean Platelet Volume 8.1 fL (7.4-10.4); Platelet Count 228 thou/uL (130-400); RBC Distribution Width 14.4 % (11.5-14.5); Red Blood Cell (RBC) Count 2.68 mill/uL (4.70-6.10); White Blood Cell (WBC) Count 9.6 thou/uL (4.8-10.8)
[2022-07-18] MEDS: Sodium Bicarbonate Tab 325 MG TAB PO SCH ×3 (08:54→21:31)
[2022-07-18] MEDS: Polyethylene Glycol 3350 17 GM Packet PO SCH (08:54)
[2022-07-18] MEDS: Amlodipine 10 MG TAB PO SCH (08:55)
[2022-07-18] MEDS: Carvedilol 6.25 MG TAB PO SCH ×2 (08:55→17:24)
[2022-07-18] MEDS: Senokot S 8.6-50 MG TAB PO SCH ×2 (08:55→21:51)
[2022-07-18] MEDS: Isosorbide Dinitrate 20 MG TAB PO SCH ×3 (08:55→21:31)
[2022-07-18] MEDS: hydrALAZINE 25 MG TAB PO SCH ×3 (08:55→21:29)
[2022-07-18] MEDS: Atorvastatin Calcium 40 MG TAB PO SCH (08:55)
[2022-07-18] MEDS: Clopidogrel Bisulfate 75 MG TAB PO SCH (08:56)
[2022-07-18] MEDS: Gabapentin 300 MG CAP PO SCH (08:56)
[2022-07-18] MEDS: Empagliflozin 25 MG TAB PO SCH (08:56)
[2022-07-18] MEDS: Heparin 5,000 UNITS/ML VIAL SC SCH ×3 (08:56→21:35)
[2022-07-18] MEDS: Aspirin 81 mg Enteric Coated Tablet PO SCH (08:56)
[2022-07-18 09:01] LABS: Anion Gap 14 mmol/L (10-20); BUN (Urea Nitrogen) 65 mg/dL (8.4-25.7); Calc. Creatinine Clearance 30 mL/min (70-130); Calcium 9.1 mg/dL (7.8-10.44); Carbon Dioxide 26 mmol/L (22-29); Chloride 100 mmol/L (98-107); Estimated GFR 13; Glucose 102 mg/dL (70-105); Potassium 4.1 mmol/L (3.5-5.1); Sodium 136 mmol/L (136-145)
[2022-07-18] MEDS: Insulin Glargine 30 UNITS/0.3 ML VIAL SC SCH (21:30)
[2022-07-19] MEDS: Azithromycin 250 MG TAB PO SCH (02:07)
[2022-07-19 05:08] LABS: #Eosinphils 0.4 thou/uL (0.0-0.7); %Basophils 0.1 % (0.0-1.0); %Eosinophils 3.6 % (0.0-10.0); %Lymphocytes 9.1 % (21.0-51.0); %Monocytes 8.6 % (0.0-10.0); %Neutrophils 78.6 % (42.0-75.0); Hemoglobin 8.5 g/dL (14.0-18.0); Mean Corpuscular HGB CONC 30.8 g/dL (32.0-36.0); Mean Corpuscular Hemoglobin 29.6 pg (27.0-31.0); Mean Corpuscular Volume 96.3 fL (78.0-98.0); Mean Platelet Volume 8.5 fL (7.4-10.4); Platelet Count 222 thou/uL (130-400); RBC Distribution Width 14.4 % (11.5-14.5); Red Blood Cell (RBC) Count 2.88 mill/uL (4.70-6.10); White Blood Cell (WBC) Count 11.4 thou/uL (4.8-10.8)
[2022-07-19] MEDS: Furosemide 100 MG/10 ML VIAL SLOW IVP SCH ×3 (05:23→20:22)
[2022-07-19] MEDS ORDERED: Metolazone 5 MG TAB PO SCH (08:45)
[2022-07-19] MEDS: Gabapentin 300 MG CAP PO SCH (09:01)
[2022-07-19] MEDS: Atorvastatin Calcium 40 MG TAB PO SCH (09:01)
[2022-07-19] MEDS: hydrALAZINE 25 MG TAB PO SCH ×3 (09:01→20:05)
[2022-07-19] MEDS: Sodium Bicarbonate Tab 325 MG TAB PO SCH ×3 (09:01→20:05)
[2022-07-19] MEDS: Empagliflozin 25 MG TAB PO SCH (09:01)
[2022-07-19] MEDS: Isosorbide Dinitrate 20 MG TAB PO SCH ×3 (09:03→20:05)
[2022-07-19] MEDS: Clopidogrel Bisulfate 75 MG TAB PO SCH (09:03)
[2022-07-19] MEDS: Heparin 5,000 UNITS/ML VIAL SC SCH ×3 (09:03→20:06)
[2022-07-19] MEDS: Amlodipine 10 MG TAB PO SCH (09:03)
[2022-07-19] MEDS: Carvedilol 6.25 MG TAB PO SCH ×2 (09:03→17:07)
[2022-07-19] MEDS: Senokot S 8.6-50 MG TAB PO SCH ×2 (09:03→20:22)
[2022-07-19] MEDS: Polyethylene Glycol 3350 17 GM Packet PO SCH (09:03)
[2022-07-19] MEDS: Aspirin 81 mg Enteric Coated Tablet PO SCH (09:03)
[2022-07-19 09:32] LABS: Anion Gap 16 mmol/L (10-20); BUN (Urea Nitrogen) 66 mg/dL (8.4-25.7); Calc. Creatinine Clearance 28 mL/min (70-130); Calcium 9.2 mg/dL (7.8-10.44); Carbon Dioxide 25 mmol/L (22-29); Chloride 98 mmol/L (98-107); Estimated GFR 13; Glucose 129 mg/dL (70-105); Potassium 4.1 mmol/L (3.5-5.1); Sodium 135 mmol/L (136-145)
[2022-07-19] MEDS ORDERED: Furosemide 100 MG/10 ML VIAL SLOW IVP SCH (11:00)
[2022-07-19] MEDS: Epoetin (ESRD) 10,000 UNITS/ML VIAL SC SCH (11:57)
[2022-07-19 12:26] LABS: ALV-art Gradient 604.075 mmHg (0-20); Actual Bicarbonate (HCO3a) 29.6 mEq/L (22-28); Analyzer IN Cardio OR; Base Excess (BEa) 3.4 mEq/L (-2.0 to +3.0); CO2 Tension 54.5 mmHg (35.0-45.0); Calcium, Ionized (arterial) 1.18 mmol/L (1.12-1.30); Carboxyhemoglobin (COHb) 0.9 gm% (0.0-3.0); Hemoglobin (Hb) 8.9 g/dL (14.0-18.0); O2 Tension (PaO2), arterial 40.8 mmHg (80.0-100.0); Potassium - ABG Lab 4.21 mmol/L (3.70-5.30); Puncture Site LRA; pH, Arterial 7.35 (7.35-7.45)
[2022-07-19] MEDS ORDERED: Lorazepam 2 MG/ML VIAL SLOW IVP SCH (13:00)
[2022-07-19 13:01] LABS: #Eosinphils 0.3 thou/uL (0.0-0.7); #Lymphocytes 0.7 thou/uL (1.20-3.40); #Monocytes 0.9 thou/uL (0.11-0.59); #Neutrophils 9.5 thou/uL (1.40-6.50); %Basophils 0.3 % (0.0-1.0); %Eosinophils 2.9 % (0.0-10.0); %Lymphocytes 6.5 % (21.0-51.0); %Neutrophils 82.3 % (42.0-75.0); Hemoglobin 8.2 g/dL (14.0-18.0); Mean Corpuscular HGB CONC 31.1 g/dL (32.0-36.0); Mean Corpuscular Volume 96.3 fL (78.0-98.0); Mean Platelet Volume 8.6 fL (7.4-10.4); Platelet Count 233 thou/uL (130-400); RBC Distribution Width 14.5 % (11.5-14.5); Red Blood Cell (RBC) Count 2.75 mill/uL (4.70-6.10); White Blood Cell (WBC) Count 11.5 thou/uL (4.8-10.8)
[2022-07-19 13:31] LABS: Troponin I 0.045 ng/mL (< 0.028)
[2022-07-19 13:33] LABS: ALT (SGPT) 17 U/L (8-55); AST (SGOT) 9 U/L (5-34); Albumin 3.2 g/dL (3.5-5.0); Alkaline Phosphatase 89 U/L (40-110); Anion Gap 19 mmol/L (10-20); BUN (Urea Nitrogen) 68 mg/dL (8.4-25.7); Bilirubin, Total 0.5 mg/dL (0.2-1.2); Calc. Creatinine Clearance 28 mL/min (70-130); Calcium 8.9 mg/dL (7.8-10.44); Carbon Dioxide 25 mmol/L (22-29); Chloride 98 mmol/L (98-107); Estimated GFR 12; Glucose 123 mg/dL (70-105); Potassium 4.5 mmol/L (3.5-5.1); Protein, Total 6.2 g/dL (6.0-8.3); Sodium 137 mmol/L (136-145)
[2022-07-19 14:30] LABS: Actual Bicarbonate (HCO3v) 29 mEq/L (22-28); Base Excess 2.9 mEq/L (-2.0 to +3.0); Calcium, Ionized (venous) 1.16 mmol/L (1.16-1.32); Chloride (VBG) 97 mmol/L (98-106); Hemoglobin (Hb) 12.1 g/dL (13.1-17.2); Potassium (VBG) 4.33 mmol/L (3.70-5.30); Sodium 135.4 mmol/L (133-146); pH (venous) 7.36 (7.32-7.43)
[2022-07-19] MEDS ORDERED: Carvedilol 3.125 MG TAB PO SCH (20:00)
[2022-07-19] MEDS: Insulin Glargine 30 UNITS/0.3 ML VIAL SC SCH (20:05)
[2022-07-20] MEDS: Azithromycin 250 MG TAB PO SCH (02:27)
[2022-07-20 05:17] LABS: #Eosinphils 0.3 thou/uL (0.0-0.7); #Lymphocytes 0.9 thou/uL (1.20-3.40); #Monocytes 0.9 thou/uL (0.11-0.59); #Neutrophils 8.5 thou/uL (1.40-6.50); %Basophils 0.2 % (0.0-1.0); %Lymphocytes 8.4 % (21.0-51.0); %Monocytes 8.2 % (0.0-10.0); %Neutrophils 80.1 % (42.0-75.0); Mean Corpuscular HGB CONC 31.2 g/dL (32.0-36.0); Mean Corpuscular Hemoglobin 29.8 pg (27.0-31.0); Mean Corpuscular Volume 95.5 fL (78.0-98.0); Mean Platelet Volume 8.8 fL (7.4-10.4); Platelet Count 229 thou/uL (130-400); RBC Distribution Width 14.4 % (11.5-14.5); Red Blood Cell (RBC) Count 2.69 mill/uL (4.70-6.10); White Blood Cell (WBC) Count 10.6 thou/uL (4.8-10.8)
[2022-07-20 06:05] LABS: Albumin 3.1 g/dL (3.5-5.0); Anion Gap 14 mmol/L (10-20); BUN (Urea Nitrogen) 72 mg/dL (8.4-25.7); BUN/Creatinine Ratio 14.29; Calc. Creatinine Clearance 29 mL/min (70-130); Calcium 9.2 mg/dL (7.8-10.44); Carbon Dioxide 30 mmol/L (22-29); Chloride 97 mmol/L (98-107); Estimated GFR 13; Glucose 72 mg/dL (70-105); Phosphorus 6.5 mg/dL (2.3-4.7); Potassium 4.1 mmol/L (3.5-5.1); Sodium 137 mmol/L (136-145)
[2022-07-20] MEDS: Furosemide 100 MG/10 ML VIAL SLOW IVP SCH ×3 (06:08→22:43)
[2022-07-20] MEDS: Carvedilol 3.125 MG TAB PO SCH ×2 (07:37→18:16)
[2022-07-20] MEDS: Senokot S 8.6-50 MG TAB PO SCH ×2 (07:37→20:53)
[2022-07-20] MEDS: Atorvastatin Calcium 40 MG TAB PO SCH (07:38)
[2022-07-20] MEDS: Clopidogrel Bisulfate 75 MG TAB PO SCH (07:38)
[2022-07-20] MEDS: Gabapentin 300 MG CAP PO SCH (07:38)
[2022-07-20] MEDS: Amlodipine 5 MG TAB PO SCH (07:39)
[2022-07-20] MEDS: Isosorbide Dinitrate 20 MG TAB PO SCH ×3 (07:39→20:56)
[2022-07-20] MEDS: hydrALAZINE 25 MG TAB PO SCH ×3 (07:39→20:53)
[2022-07-20] MEDS: Empagliflozin 25 MG TAB PO SCH (07:39)
[2022-07-20] MEDS: Aspirin 81 mg Enteric Coated Tablet PO SCH (07:39)
[2022-07-20] MEDS: Sodium Bicarbonate Tab 325 MG TAB PO SCH (07:39)
[2022-07-20] MEDS: Polyethylene Glycol 3350 17 GM Packet PO SCH (07:40)
[2022-07-20] MEDS: Heparin 5,000 UNITS/ML VIAL SC SCH ×3 (07:40→20:54)
[2022-07-20] MEDS ORDERED: Carvedilol 6.25 MG TAB PO SCH (08:00)
[2022-07-20] MEDS ORDERED: Metolazone 5 MG TAB PO SCH (08:45)
[2022-07-20 09:40] LABS: Iron 27 ug/dL (65-175); Iron Binding Capacity, Total 206 mcg/dL (261-462)
[2022-07-20] MEDS: AcetaZOLAMIDE 250 MG TAB PO SCH ×2 (10:37→15:00)
[2022-07-20] MEDS: Sevelamer Carbonate 800 MG TAB PO SCH (18:16)
[2022-07-20] MEDS: Insulin Glargine 30 UNITS/0.3 ML VIAL SC SCH (20:53)
[2022-07-21] MEDS: Furosemide 100 MG/10 ML VIAL SLOW IVP SCH ×3 (05:58→22:03)
[2022-07-21 06:21] LABS: Base Excess 6.2 mEq/L (-2.0 to +3.0); Calcium, Ionized (venous) 1.14 mmol/L (1.16-1.32); Chloride (VBG) 96 mmol/L (98-106); Hemoglobin (Hb) 9.7 g/dL (13.1-17.2); Potassium (VBG) 4.09 mmol/L (3.70-5.30); Sodium 135.7 mmol/L (133-146); pH (venous) 7.39 (7.32-7.43)
[2022-07-21 06:24] LABS: Actual Bicarbonate (HCO3v) 32 mEq/L (22-28)
[2022-07-21 06:31] LABS: #Eosinphils 0.3 thou/uL (0.0-0.7); #Monocytes 0.8 thou/uL (0.11-0.59); #Neutrophils 8.6 thou/uL (1.40-6.50); %Basophils 0.4 % (0.0-1.0); %Eosinophils 3.1 % (0.0-10.0); %Lymphocytes 9.4 % (21.0-51.0); %Monocytes 7.3 % (0.0-10.0); %Neutrophils 79.9 % (42.0-75.0); Mean Corpuscular HGB CONC 31.3 g/dL (32.0-36.0); Mean Corpuscular Hemoglobin 30.1 pg (27.0-31.0); Mean Corpuscular Volume 96.2 fL (78.0-98.0); Mean Platelet Volume 8.4 fL (7.4-10.4); Platelet Count 255 thou/uL (130-400); RBC Distribution Width 14.5 % (11.5-14.5); Red Blood Cell (RBC) Count 2.97 mill/uL (4.70-6.10); White Blood Cell (WBC) Count 10.7 thou/uL (4.8-10.8)
[2022-07-21 06:45] LABS: Albumin 3.2 g/dL (3.5-5.0); Anion Gap 14 mmol/L (10-20); BUN (Urea Nitrogen) 76 mg/dL (8.4-25.7); BUN/Creatinine Ratio 15.05; Calc. Creatinine Clearance 28 mL/min (70-130); Calcium 9.5 mg/dL (7.8-10.44); Carbon Dioxide 31 mmol/L (22-29); Chloride 96 mmol/L (98-107); Estimated GFR 13; Glucose 118 mg/dL (70-105); Phosphorus 6.7 mg/dL (2.3-4.7); Potassium 4.2 mmol/L (3.5-5.1); Sodium 137 mmol/L (136-145)
[2022-07-21] MEDS ORDERED: Iron, Sodium Ferric Gluconate 250 MG in Sodium Chloride 0.9% 250 ML 250 ML IVPB SCH (07:45)
[2022-07-21] MEDS: hydrALAZINE 25 MG TAB PO SCH ×3 (10:00→22:02)
[2022-07-21] MEDS: Senokot S 8.6-50 MG TAB PO SCH ×2 (10:00→22:03)
[2022-07-21] MEDS: Heparin 5,000 UNITS/ML VIAL SC SCH ×3 (10:00→22:02)
[2022-07-21] MEDS: Polyethylene Glycol 3350 17 GM Packet PO SCH ×2 (10:00→12:14)
[2022-07-21] MEDS: Gabapentin 300 MG CAP PO SCH (10:01)
[2022-07-21] MEDS: Atorvastatin Calcium 40 MG TAB PO SCH (10:01)
[2022-07-21] MEDS: Sevelamer Carbonate 800 MG TAB PO SCH ×3 (10:01→18:26)
[2022-07-21] MEDS: Carvedilol 3.125 MG TAB PO SCH ×2 (10:01→18:26)
[2022-07-21] MEDS: Clopidogrel Bisulfate 75 MG TAB PO SCH (10:02)
[2022-07-21] MEDS: Isosorbide Dinitrate 20 MG TAB PO SCH ×3 (10:02→22:03)
[2022-07-21] MEDS: Aspirin 81 mg Enteric Coated Tablet PO SCH (10:02)
[2022-07-21] MEDS: Empagliflozin 25 MG TAB PO SCH (10:02)
[2022-07-21] MEDS: Amlodipine 5 MG TAB PO SCH (10:02)
[2022-07-21] MEDS: AcetaZOLAMIDE 250 MG TAB PO SCH ×3 (10:03→22:04)
[2022-07-21] MEDS: Epoetin (ESRD) 10,000 UNITS/ML VIAL SC SCH (13:55)
[2022-07-21] MEDS: Insulin Glargine 30 UNITS/0.3 ML VIAL SC SCH (22:02)
[2022-07-22 05:50] LABS: #Basophils 0.1 thou/uL (0.0-0.2); #Eosinphils 0.4 thou/uL (0.0-0.7); #Lymphocytes 1.2 thou/uL (1.20-3.40); #Monocytes 0.9 thou/uL (0.11-0.59); #Neutrophils 7.5 thou/uL (1.40-6.50); %Basophils 0.6 % (0.0-1.0); %Eosinophils 4.1 % (0.0-10.0); %Lymphocytes 11.5 % (21.0-51.0); %Monocytes 8.7 % (0.0-10.0); %Neutrophils 75.1 % (42.0-75.0); Hemoglobin 7.9 g/dL (14.0-18.0); Mean Corpuscular HGB CONC 30.8 g/dL (32.0-36.0); Mean Corpuscular Hemoglobin 29.8 pg (27.0-31.0); Mean Corpuscular Volume 96.9 fL (78.0-98.0); Mean Platelet Volume 8.7 fL (7.4-10.4); Platelet Count 260 thou/uL (130-400); RBC Distribution Width 14.7 % (11.5-14.5); Red Blood Cell (RBC) Count 2.64 mill/uL (4.70-6.10)
[2022-07-22 06:00] LABS: Albumin 3.1 g/dL (3.5-5.0); Anion Gap 15 mmol/L (10-20); BUN (Urea Nitrogen) 79 mg/dL (8.4-25.7); BUN/Creatinine Ratio 15.11; Calc. Creatinine Clearance 27 mL/min (70-130); Calcium 9.1 mg/dL (7.8-10.44); Carbon Dioxide 31 mmol/L (22-29); Chloride 96 mmol/L (98-107); Estimated GFR 12; Glucose 95 mg/dL (70-105); Potassium 3.9 mmol/L (3.5-5.1); Sodium 138 mmol/L (136-145)
[2022-07-22] MEDS: Furosemide 100 MG/10 ML VIAL SLOW IVP SCH (06:31)
[2022-07-22] MEDS: Sevelamer Carbonate 800 MG TAB PO SCH ×3 (07:40→16:18)
[2022-07-22] MEDS: Gabapentin 300 MG CAP PO SCH (07:40)
[2022-07-22] MEDS: Amlodipine 5 MG TAB PO SCH (07:40)
[2022-07-22] MEDS: Atorvastatin Calcium 40 MG TAB PO SCH (07:40)
[2022-07-22] MEDS: Heparin 5,000 UNITS/ML VIAL SC SCH ×3 (07:40→21:31)
[2022-07-22] MEDS: Carvedilol 3.125 MG TAB PO SCH ×2 (07:40→16:17)
[2022-07-22] MEDS: Aspirin 81 mg Enteric Coated Tablet PO SCH (07:41)
[2022-07-22] MEDS: Empagliflozin 25 MG TAB PO SCH (07:41)
[2022-07-22] MEDS: hydrALAZINE 25 MG TAB PO SCH ×3 (07:41→21:31)
[2022-07-22] MEDS: Senokot S 8.6-50 MG TAB PO SCH ×2 (07:41→22:07)
[2022-07-22] MEDS: Isosorbide Dinitrate 20 MG TAB PO SCH ×3 (07:41→21:31)
[2022-07-22] MEDS: Clopidogrel Bisulfate 75 MG TAB PO SCH (07:41)
[2022-07-22] MEDS: Polyethylene Glycol 3350 17 GM Packet PO SCH (07:42)
[2022-07-22] MEDS: Insulin Glargine 30 UNITS/0.3 ML VIAL SC SCH (21:33)
[2022-07-23 05:02] LABS: #Basophils 0.1 thou/uL (0.0-0.2); #Eosinphils 0.3 thou/uL (0.0-0.7); #Lymphocytes 1.2 thou/uL (1.20-3.40); #Monocytes 0.8 thou/uL (0.11-0.59); #Neutrophils 6.9 thou/uL (1.40-6.50); %Basophils 0.6 % (0.0-1.0); %Eosinophils 3.7 % (0.0-10.0); %Lymphocytes 13.2 % (21.0-51.0); %Monocytes 8.7 % (0.0-10.0); %Neutrophils 73.8 % (42.0-75.0); Hemoglobin 8.2 g/dL (14.0-18.0); Mean Corpuscular HGB CONC 30.7 g/dL (32.0-36.0); Mean Corpuscular Volume 97.7 fL (78.0-98.0); Mean Platelet Volume 8.3 fL (7.4-10.4); Platelet Count 259 thou/uL (130-400); RBC Distribution Width 14.7 % (11.5-14.5); Red Blood Cell (RBC) Count 2.72 mill/uL (4.70-6.10); White Blood Cell (WBC) Count 9.4 thou/uL (4.8-10.8)
[2022-07-23 05:18] LABS: Anion Gap 18 mmol/L (10-20); BUN (Urea Nitrogen) 81 mg/dL (8.4-25.7); Calc. Creatinine Clearance 26 mL/min (70-130); Calcium 9.2 mg/dL (7.8-10.44); Carbon Dioxide 27 mmol/L (22-29); Chloride 96 mmol/L (98-107); Estimated GFR 12; Glucose 128 mg/dL (70-105); Potassium 3.8 mmol/L (3.5-5.1); Sodium 137 mmol/L (136-145)
[2022-07-23] MEDS: Carvedilol 3.125 MG TAB PO SCH ×2 (08:57→17:47)
[2022-07-23] MEDS: Sevelamer Carbonate 800 MG TAB PO SCH ×3 (08:58→17:47)
[2022-07-23] MEDS: Amlodipine 5 MG TAB PO SCH (08:59)
[2022-07-23] MEDS: Aspirin 81 mg Enteric Coated Tablet PO SCH (09:00)
[2022-07-23] MEDS: Atorvastatin Calcium 40 MG TAB PO SCH (09:00)
[2022-07-23] MEDS: Clopidogrel Bisulfate 75 MG TAB PO SCH (09:01)
[2022-07-23] MEDS: Gabapentin 300 MG CAP PO SCH (09:01)
[2022-07-23] MEDS: Heparin 5,000 UNITS/ML VIAL SC SCH ×3 (09:02→20:56)
[2022-07-23] MEDS: Isosorbide Dinitrate 20 MG TAB PO SCH ×3 (09:03→20:57)
[2022-07-23] MEDS: hydrALAZINE 25 MG TAB PO SCH ×3 (09:03→20:57)
[2022-07-23] MEDS: Senokot S 8.6-50 MG TAB PO SCH ×2 (09:04→20:57)
[2022-07-23] MEDS: Polyethylene Glycol 3350 17 GM Packet PO SCH (09:08)
[2022-07-23] MEDS: Torsemide 100 MG TAB PO SCH (10:05)
[2022-07-23] MEDS: Insulin Glargine 30 UNITS/0.3 ML VIAL SC SCH (20:56)
[2022-07-24 05:16] LABS: #Eosinphils 0.4 thou/uL (0.0-0.7); #Lymphocytes 1.3 thou/uL (1.20-3.40); #Monocytes 0.7 thou/uL (0.11-0.59); #Neutrophils 6.8 thou/uL (1.40-6.50); %Basophils 0.1 % (0.0-1.0); %Eosinophils 4.2 % (0.0-10.0); %Lymphocytes 13.7 % (21.0-51.0); %Monocytes 7.5 % (0.0-10.0); %Neutrophils 74.5 % (42.0-75.0); Hemoglobin 8.5 g/dL (14.0-18.0); Mean Corpuscular Hemoglobin 30.1 pg (27.0-31.0); Mean Corpuscular Volume 97.1 fL (78.0-98.0); Mean Platelet Volume 8.1 fL (7.4-10.4); Platelet Count 286 thou/uL (130-400); RBC Distribution Width 14.6 % (11.5-14.5); Red Blood Cell (RBC) Count 2.84 mill/uL (4.70-6.10); White Blood Cell (WBC) Count 9.1 thou/uL (4.8-10.8)
[2022-07-24 05:27] LABS: Anion Gap 15 mmol/L (10-20); BUN (Urea Nitrogen) 79 mg/dL (8.4-25.7); Calc. Creatinine Clearance 26 mL/min (70-130); Calcium 9.5 mg/dL (7.8-10.44); Carbon Dioxide 30 mmol/L (22-29); Chloride 98 mmol/L (98-107); Estimated GFR 12; Glucose 93 mg/dL (70-105); Phosphorus 7.1 mg/dL (2.3-4.7); Potassium 3.9 mmol/L (3.5-5.1); Sodium 139 mmol/L (136-145)
[2022-07-24] MEDS: Polyethylene Glycol 3350 17 GM Packet PO SCH (08:47)
[2022-07-24] MEDS: Sevelamer Carbonate 800 MG TAB PO SCH ×3 (08:47→16:01)
[2022-07-24] MEDS: Carvedilol 3.125 MG TAB PO SCH ×2 (08:48→16:02)
[2022-07-24] MEDS: Atorvastatin Calcium 40 MG TAB PO SCH (08:48)
[2022-07-24] MEDS: Senokot S 8.6-50 MG TAB PO SCH ×2 (08:48→22:18)
[2022-07-24] MEDS: Isosorbide Dinitrate 20 MG TAB PO SCH ×3 (08:48→22:28)
[2022-07-24] MEDS: Clopidogrel Bisulfate 75 MG TAB PO SCH (08:48)
[2022-07-24] MEDS: hydrALAZINE 25 MG TAB PO SCH ×3 (08:49→22:28)
[2022-07-24] MEDS: Aspirin 81 mg Enteric Coated Tablet PO SCH (08:49)
[2022-07-24] MEDS: Heparin 5,000 UNITS/ML VIAL SC SCH ×3 (08:50→22:17)
[2022-07-24] MEDS: Gabapentin 300 MG CAP PO SCH (08:50)
[2022-07-24] MEDS: Amlodipine 5 MG TAB PO SCH (08:50)
[2022-07-24] MEDS: Torsemide 100 MG TAB PO SCH (09:55)
[2022-07-24] MEDS: Epoetin (ESRD) 10,000 UNITS/ML VIAL SC SCH (13:34)
[2022-07-24 15:43] LABS: Actual Bicarbonate (HCO3v) 26 mEq/L (22-28); Base Excess 4.7 mEq/L (-2.0 to +3.0); Calcium, Ionized (venous) 0.94 mmol/L (1.16-1.32); Chloride (VBG) 97 mmol/L (98-106); Hemoglobin (Hb) 9.6 g/dL (13.1-17.2); Potassium (VBG) 4.68 mmol/L (3.70-5.30); Sodium 133.6 mmol/L (133-146); pH (venous) 7.59 (7.32-7.43)
[2022-07-24] MEDS: Insulin Glargine 30 UNITS/0.3 ML VIAL SC SCH (22:17)
[2022-07-25 05:48] LABS: Anion Gap 19 mmol/L (10-20); BUN (Urea Nitrogen) 82 mg/dL (8.4-25.7); Calc. Creatinine Clearance 26 mL/min (70-130); Calcium 9.5 mg/dL (7.8-10.44); Carbon Dioxide 26 mmol/L (22-29); Chloride 97 mmol/L (98-107); Estimated GFR 12; Glucose 112 mg/dL (70-105); Phosphorus 7.3 mg/dL (2.3-4.7); Sodium 138 mmol/L (136-145)
[2022-07-25] MEDS: Amlodipine 5 MG TAB PO SCH (08:28)
[2022-07-25] MEDS: Carvedilol 3.125 MG TAB PO SCH ×2 (08:28→16:39)
[2022-07-25] MEDS: Aspirin 81 mg Enteric Coated Tablet PO SCH (08:28)
[2022-07-25] MEDS: Sevelamer Carbonate 800 MG TAB PO SCH ×3 (08:28→16:38)
[2022-07-25] MEDS: Polyethylene Glycol 3350 17 GM Packet PO SCH (08:29)
[2022-07-25] MEDS: Isosorbide Dinitrate 20 MG TAB PO SCH ×3 (08:29→21:31)
[2022-07-25] MEDS: hydrALAZINE 25 MG TAB PO SCH ×3 (08:29→21:31)
[2022-07-25] MEDS: Atorvastatin Calcium 40 MG TAB PO SCH (08:29)
[2022-07-25] MEDS: Clopidogrel Bisulfate 75 MG TAB PO SCH (08:29)
[2022-07-25] MEDS: Torsemide 100 MG TAB PO SCH (08:29)
[2022-07-25] MEDS: Gabapentin 300 MG CAP PO SCH (08:29)
[2022-07-25] MEDS: Heparin 5,000 UNITS/ML VIAL SC SCH ×3 (08:29→21:31)
[2022-07-25] MEDS: Senokot S 8.6-50 MG TAB PO SCH ×2 (08:29→21:30)
[2022-07-25 14:42] LABS: Analyzer IN Cardio OR; Base Excess 7.5 mEq/L (-2.0 to +3.0); Calcium, Ionized (venous) 1.11 mmol/L (1.16-1.32); Chloride (VBG) 96 mmol/L (98-106); Potassium (VBG) 4.26 mmol/L (3.70-5.30); pH (venous) 7.41 (7.32-7.43)
[2022-07-25 14:49] LABS: Actual Bicarbonate (HCO3v) 33 mEq/L (22-28)
[2022-07-25 16:42] VITALS: BMI 36.6
[2022-07-25] MEDS: Insulin Glargine 30 UNITS/0.3 ML VIAL SC SCH (21:30)
[2022-07-26 05:38] LABS: Anion Gap 16 mmol/L (10-20); BUN (Urea Nitrogen) 85 mg/dL (8.4-25.7); Calc. Creatinine Clearance 26 mL/min (70-130); Calcium 9.4 mg/dL (7.8-10.44); Carbon Dioxide 28 mmol/L (22-29); Chloride 98 mmol/L (98-107); Estimated GFR 12; Glucose 65 mg/dL (70-105); Phosphorus 7.2 mg/dL (2.3-4.7); Potassium 4.3 mmol/L (3.5-5.1); Sodium 138 mmol/L (136-145)
[2022-07-26] MEDS: hydrALAZINE 25 MG TAB PO SCH ×2 (09:42→15:42)
[2022-07-26] MEDS: Gabapentin 300 MG CAP PO SCH (09:42)
[2022-07-26] MEDS: Torsemide 100 MG TAB PO SCH (09:42)
[2022-07-26] MEDS: Isosorbide Dinitrate 20 MG TAB PO SCH ×2 (09:43→15:42)
[2022-07-26] MEDS: Atorvastatin Calcium 40 MG TAB PO SCH (09:43)
[2022-07-26] MEDS: Aspirin 81 mg Enteric Coated Tablet PO SCH (09:44)
[2022-07-26] MEDS: Clopidogrel Bisulfate 75 MG TAB PO SCH (09:44)
[2022-07-26] MEDS: Amlodipine 5 MG TAB PO SCH (09:44)
[2022-07-26] MEDS: Sevelamer Carbonate 800 MG TAB PO SCH ×2 (09:44→13:20)
[2022-07-26] MEDS: Carvedilol 3.125 MG TAB PO SCH (09:44)
[2022-07-26] MEDS: Heparin 5,000 UNITS/ML VIAL SC SCH ×2 (09:44→15:42)
[2022-07-26] MEDS: Senokot S 8.6-50 MG TAB PO SCH (10:19)
[2022-07-26] MEDS: Polyethylene Glycol 3350 17 GM Packet PO SCH (10:19)
[2022-07-26 11:45] VITALS: TEMP 98.1
[2022-07-26] MEDS: Epoetin (ESRD) 10,000 UNITS/ML VIAL SC SCH (13:20)
[2022-07-26 15:27] VITALS: BP 139/63
== END 2022-07-26 16:10 | disposition home or self-care (01) | DRG 291 ==
LOC: ERS 21:48 → 2NO 07-14 00:01 → CCU 07-19 12:16 → IMCU/EMU 07-19 17:02 → 2SW 07-22 18:06
PROVIDERS: ADMIT Student in an Organized Health Care Education/Training Program; ATTEND Student in an Organized Health Care Education/Training Program
PROC: 06HY33Z Insertion of Infusion Device into Lower Vein, Percutaneous Approach (ICD-10-PCS; 2022-07-16)
PROC: 5A09457 Assistance with Respiratory Ventilation, 24-96 Consecutive Hours, Continuous Positive Airway Pressure (ICD-10-PCS; principal; 2022-07-19)
DX: I13.2 Hypertensive heart and chronic kidney disease with heart failure and with stage 5 chronic kidney disease, or end stage renal disease (principal); G93.41 Metabolic encephalopathy; J96.01 Acute respiratory failure with hypoxia; I50.43 Acute on chronic combined systolic (congestive) and diastolic (congestive) heart failure; J96.02 Acute respiratory failure with hypercapnia; N18.5 Chronic kidney disease, stage 5; E66.2 Morbid (severe) obesity with alveolar hypoventilation; I69.351 Hemiplegia and hemiparesis following cerebral infarction affecting right dominant side; N17.9 Acute kidney failure, unspecified; E87.20 Acidosis, unspecified; I42.9 Cardiomyopathy, unspecified; Z20.822 Contact with and (suspected) exposure to COVID-19; E78.00 Pure hypercholesterolemia, unspecified; D63.1 Anemia in chronic kidney disease; E11.22 Type 2 diabetes mellitus with diabetic chronic kidney disease; K59.00 Constipation, unspecified; Z88.8 Allergy status to other drugs, medicaments and biological substances; Z79.899 Other long term (current) drug therapy; Z79.02 Long term (current) use of antithrombotics/antiplatelets; Z79.82 Long term (current) use of aspirin; Z79.4 Long term (current) use of insulin; Z86.16 Personal history of COVID-19; Z82.3 Family history of stroke; Z80.8 Family history of malignant neoplasm of other organs or systems; Z68.36 Body mass index [BMI] 36.0-36.9, adult; Z90.49 Acquired absence of other specified parts of digestive tract; Z89.022 Acquired absence of left finger(s)
CPT/HCPCS: 36415; 36416; 36600; 71045; 74230; 80048; 80053; 80069; 80162; 81003; 81015; 82550; 82553; 82728; 82805; 83540; 83550; 83605; 83690; 83880; 84100; 84145; 84484; 85025; 85379; 85610; 85730; 87040; 87811; 93005; 93010; 93306; 94640; 94644; 94660; 96372; 96374; 96375; J0456; J0692; J0696; J1100; J1644; J1650; J1815; J1940; J2060; J2916; J3370; J3475; J3490; J7050; J7611; J7620; Q0162; Q4081; U0002

== ENCOUNTER 2022-08-31 00:25 | Inpatient (IN) | payer MEDICARE, OTHER ==
[2022-08-31 01:21] LABS: #Eosinphils 0.2 thou/uL (0.0-0.7); #Lymphocytes 1.1 thou/uL (1.20-3.40); #Monocytes 0.8 thou/uL (0.11-0.59); #Neutrophils 7.9 thou/uL (1.40-6.50); %Basophils 0.2 % (0.0-1.0); %Eosinophils 1.7 % (0.0-10.0); %Lymphocytes 10.5 % (21.0-51.0); %Monocytes 8.1 % (0.0-10.0); %Neutrophils 79.5 % (42.0-75.0); Hemoglobin 10.4 g/dL (14.0-18.0); Mean Corpuscular HGB CONC 32.6 g/dL (32.0-36.0); Mean Corpuscular Hemoglobin 31.9 pg (27.0-31.0); Mean Platelet Volume 8.5 fL (7.4-10.4); Platelet Count 202 10x3/uL (130-400); RBC Distribution Width 14.8 % (11.5-14.5); Red Blood Cell (RBC) Count 3.25 mill/uL (4.70-6.10); White Blood Cell (WBC) Count 9.9 10x3/uL (4.8-10.8)
[2022-08-31] MEDS ORDERED: Albuterol Sulfate 2.5 mg/0.5 ml Neb ONE (01:35)
[2022-08-31] MEDS ORDERED: Albuterol Sulfate 2.5 mg/3 ml Neb ONE (01:35)
[2022-08-31 01:46] LABS: ALT (SGPT) 13 U/L (8-55); AST (SGOT) 12 U/L (5-34); Albumin 3.4 g/dL (3.5-5.0); Alkaline Phosphatase 98 U/L (40-110); Anion Gap 18 mmol/L (10-20); BUN (Urea Nitrogen) 66 mg/dL (8.4-25.7); Bilirubin, Total 0.6 mg/dL (0.2-1.2); Calc. Creatinine Clearance 0 mL/min (70-130); Calcium 8.6 mg/dL (7.8-10.44); Carbon Dioxide 20 mmol/L (22-29); Chloride 107 mmol/L (98-107); Estimated GFR 13; Globulin 3.1 g/dL (2.4-3.5); Glucose 126 mg/dL (70-105); Protein, Total 6.5 g/dL (6.0-8.3); Sodium 141 mmol/L (136-145)
[2022-08-31 02:12] LABS: CKMB 4.1 ng/mL (0-6.6)
[2022-08-31] MEDS ORDERED: Furosemide 40 MG/4 ML VIAL ONE (02:32)
[2022-08-31] MEDS ORDERED: Nitroglycerin 0.4 MG TAB 1 EACH ONE (02:32)
[2022-08-31] MEDS ORDERED: Ondansetron ODT 4 MG TAB PO PRN (02:50)
[2022-08-31] MEDS ORDERED: Dextrose 50% Abboject 50 ML SYRINGE SLOW IVP PRN (02:54)
[2022-08-31] MEDS ORDERED: Dextrose 5% in Water 1,000 ML IV PRN (02:54)
[2022-08-31] MEDS ORDERED: Furosemide 40 MG/4 ML VIAL SLOW IVP SCH (03:00)
[2022-08-31] MEDS ORDERED: Nitroglycerin 2% Ointment 1 INCH/1 GM Packet ONE (03:08)
[2022-08-31 04:00] LABS: SARS-CoV-2 NAA Rapid Test Not Detected (NotDetected)
[2022-08-31 05:27] LABS: #Lymphocytes 0.2 thou/uL (1.20-3.40); #Monocytes 0.1 thou/uL (0.11-0.59); #Neutrophils 11.2 thou/uL (1.40-6.50); %Eosinophils 0.1 % (0.0-10.0); %Lymphocytes 1.7 % (21.0-51.0); %Monocytes 0.8 % (0.0-10.0); %Neutrophils 97.3 % (42.0-75.0); Hemoglobin 9.2 g/dL (14.0-18.0); Mean Corpuscular HGB CONC 31.1 g/dL (32.0-36.0); Mean Corpuscular Hemoglobin 30.5 pg (27.0-31.0); Mean Corpuscular Volume 98.2 fl (78.0-98.0); Mean Platelet Volume 8.9 fL (7.4-10.4); Platelet Count 195 10x3/uL (130-400); RBC Distribution Width 14.8 % (11.5-14.5); Red Blood Cell (RBC) Count 3.02 mill/uL (4.70-6.10); White Blood Cell (WBC) Count 11.5 10x3/uL (4.8-10.8)
[2022-08-31 05:53] LABS: ALT (SGPT) 14 U/L (8-55); AST (SGOT) 9 U/L (5-34); Albumin 3.4 g/dL (3.5-5.0); Alkaline Phosphatase 93 U/L (40-110); Anion Gap 15 mmol/L (10-20); BUN (Urea Nitrogen) 63 mg/dL (8.4-25.7); Bilirubin, Total 0.5 mg/dL (0.2-1.2); Calc. Creatinine Clearance 0 mL/min (70-130); Calcium 8.9 mg/dL (7.8-10.44); Carbon Dioxide 23 mmol/L (22-29); Chloride 106 mmol/L (98-107); Estimated GFR 13; Globulin 3.4 g/dL (2.4-3.5); Glucose 191 mg/dL (70-105); Potassium 3.4 mmol/L (3.5-5.1); Protein, Total 6.8 g/dL (6.0-8.3); Sodium 141 mmol/L (136-145)
[2022-08-31 05:57] LABS: Troponin I 0.046 ng/mL (< 0.028)
[2022-08-31 06:21] VITALS: BMI 39.0
[2022-08-31] MEDS ORDERED: FLU VACC QS2022-23(6MOS UP)/PF 60 MCG/0.5 ML SYRINGE IM ONE (09:00)
[2022-08-31] MEDS ORDERED: Potassium Chloride 20 MEQ TAB PO SCH (09:00)
[2022-08-31] MEDS: Carvedilol 3.125 MG TAB PO SCH ×2 (10:30→16:06)
[2022-08-31] MEDS: Ferrous Sulfate 325 MG TAB PO SCH ×2 (10:31→16:06)
[2022-08-31] MEDS: Amlodipine 10 MG TAB PO SCH (10:31)
[2022-08-31] MEDS: Atorvastatin Calcium 40 MG TAB PO SCH (10:31)
[2022-08-31] MEDS: Aspirin 81 mg Enteric Coated Tablet PO SCH (10:31)
[2022-08-31] MEDS: Clopidogrel Bisulfate 75 MG TAB PO SCH (10:32)
[2022-08-31] MEDS: Heparin 5,000 UNITS/ML VIAL SC SCH ×3 (10:32→20:30)
[2022-08-31] MEDS: Famotidine 20 MG TAB PO SCH (10:32)
[2022-08-31] MEDS: Empagliflozin 25 MG TAB PO SCH (10:32)
[2022-08-31] MEDS: Sertraline 100 MG TAB PO SCH (10:33)
[2022-08-31] MEDS: Sodium Bicarbonate Tab 325 MG TAB PO SCH ×3 (10:33→20:28)
[2022-08-31] MEDS: hydrALAZINE 25 MG TAB PO SCH ×3 (10:33→20:28)
[2022-08-31] MEDS: Isosorbide Dinitrate 20 MG TAB PO SCH ×3 (10:33→20:28)
[2022-08-31] MEDS ORDERED: Furosemide 20 MG/2 ML VIAL IVP SCH (14:00)
[2022-08-31] MEDS: Insulin Glargine 30 UNITS/0.3 ML VIAL SC SCH (20:29)
[2022-08-31] MEDS ORDERED: Insulin Glargine 30 UNITS/0.3 ML VIAL SC SCH (21:00)
[2022-09-01 08:07] LABS: Anion Gap 15 mmol/L (10-20); BUN (Urea Nitrogen) 75 mg/dL (8.4-25.7); Calc. Creatinine Clearance 28 mL/min (70-130); Calcium 9.4 mg/dL (7.8-10.44); Carbon Dioxide 27 mmol/L (22-29); Chloride 103 mmol/L (98-107); Estimated GFR 12; Glucose 118 mg/dL (70-105); Potassium 4.7 mmol/L (3.5-5.1); Sodium 140 mmol/L (136-145)
[2022-09-01] MEDS: Amlodipine 10 MG TAB PO SCH (09:25)
[2022-09-01] MEDS: Carvedilol 3.125 MG TAB PO SCH ×2 (09:25→15:56)
[2022-09-01] MEDS: Atorvastatin Calcium 40 MG TAB PO SCH (09:25)
[2022-09-01] MEDS: Aspirin 81 mg Enteric Coated Tablet PO SCH (09:25)
[2022-09-01] MEDS: Ferrous Sulfate 325 MG TAB PO SCH ×2 (09:25→15:56)
[2022-09-01] MEDS: Famotidine 20 MG TAB PO SCH (09:26)
[2022-09-01] MEDS: Gabapentin 300 MG CAP PO SCH (09:26)
[2022-09-01] MEDS: Furosemide 40 MG/4 ML VIAL SLOW IVP SCH (09:26)
[2022-09-01] MEDS: Empagliflozin 25 MG TAB PO SCH (09:26)
[2022-09-01] MEDS: Clopidogrel Bisulfate 75 MG TAB PO SCH (09:26)
[2022-09-01] MEDS: Sodium Bicarbonate Tab 325 MG TAB PO SCH ×3 (09:27→21:22)
[2022-09-01] MEDS: Sertraline 100 MG TAB PO SCH (09:27)
[2022-09-01] MEDS: hydrALAZINE 25 MG TAB PO SCH ×3 (09:27→21:22)
[2022-09-01] MEDS: Heparin 5,000 UNITS/ML VIAL SC SCH ×3 (09:27→21:22)
[2022-09-01] MEDS: Isosorbide Dinitrate 20 MG TAB PO SCH ×3 (09:27→21:22)
[2022-09-01] MEDS: Insulin Glargine 30 UNITS/0.3 ML VIAL SC SCH (21:22)
[2022-09-02] MEDS: Albuterol 200 PUFF (6.7GM INHALER) INH PRN ×3 (00:43→10:08)
[2022-09-02] MEDS: Acetaminophen 325 MG TAB PO PRN ×2 (01:07→10:47)
[2022-09-02 07:04] LABS: Anion Gap 14 mmol/L (10-20); BUN (Urea Nitrogen) 82 mg/dL (8.4-25.7); Calc. Creatinine Clearance 27 mL/min (70-130); Calcium 8.8 mg/dL (7.8-10.44); Carbon Dioxide 26 mmol/L (22-29); Chloride 104 mmol/L (98-107); Estimated GFR 12; Glucose 116 mg/dL (70-105); Potassium 4.5 mmol/L (3.5-5.1); Sodium 139 mmol/L (136-145)
[2022-09-02] MEDS: Famotidine 20 MG TAB PO SCH (08:13)
[2022-09-02] MEDS: Atorvastatin Calcium 40 MG TAB PO SCH (08:13)
[2022-09-02] MEDS: Aspirin 81 mg Enteric Coated Tablet PO SCH (08:13)
[2022-09-02] MEDS: Carvedilol 3.125 MG TAB PO SCH ×2 (08:13→17:34)
[2022-09-02] MEDS: Ferrous Sulfate 325 MG TAB PO SCH ×2 (08:13→17:34)
[2022-09-02] MEDS: Clopidogrel Bisulfate 75 MG TAB PO SCH (08:13)
[2022-09-02] MEDS: Amlodipine 10 MG TAB PO SCH (08:13)
[2022-09-02] MEDS: hydrALAZINE 25 MG TAB PO SCH ×3 (08:14→20:24)
[2022-09-02] MEDS: Isosorbide Dinitrate 20 MG TAB PO SCH ×3 (08:14→20:25)
[2022-09-02] MEDS: Heparin 5,000 UNITS/ML VIAL SC SCH ×3 (08:14→20:25)
[2022-09-02] MEDS: Sodium Bicarbonate Tab 325 MG TAB PO SCH ×3 (08:14→20:24)
[2022-09-02] MEDS: Sertraline 100 MG TAB PO SCH (08:14)
[2022-09-02] MEDS: Gabapentin 300 MG CAP PO SCH (08:14)
[2022-09-02] MEDS: Furosemide 40 MG/4 ML VIAL SLOW IVP SCH ×3 (08:15→20:25)
[2022-09-02] MEDS: Empagliflozin 25 MG TAB PO SCH (08:29)
[2022-09-02 11:19] LABS: Actual Bicarbonate (HCO3a) 25.8 mEq/L (22-28); Base Excess (BEa) -0.1 mEq/L (-2.0 to +3.0); Calcium, Ionized (arterial) 1.15 mmol/L (1.12-1.30); Carboxyhemoglobin (COHb) 0.5 gm% (0.0-3.0); Hemoglobin (Hb) 10.1 g/dL (14.0-18.0); Potassium - ABG Lab 4.57 mmol/L (3.70-5.30); pH, Arterial 7.35 (7.35-7.45)
[2022-09-02 11:23] LABS: O2 Tension (PaO2), arterial 50.9 mmHg (80.0-100.0); Puncture Site LBA
[2022-09-02] MEDS ORDERED: Metolazone 5 MG TAB PO SCH (13:00)
[2022-09-02] MEDS: Sevelamer Carbonate 800 MG TAB PO SCH (17:33)
[2022-09-02] MEDS: Insulin Glargine 30 UNITS/0.3 ML VIAL SC SCH (20:26)
[2022-09-03] MEDS: Albuterol 200 PUFF (6.7GM INHALER) INH PRN (01:01)
[2022-09-03 04:39] LABS: Albumin 3.3 g/dL (3.5-5.0); Anion Gap 13 mmol/L (10-20); BUN (Urea Nitrogen) 83 mg/dL (8.4-25.7); BUN/Creatinine Ratio 15.46; Calc. Creatinine Clearance 28 mL/min (70-130); Calcium 9.3 mg/dL (7.8-10.44); Carbon Dioxide 28 mmol/L (22-29); Chloride 102 mmol/L (98-107); Estimated GFR 12; Glucose 92 mg/dL (70-105); Iron 22 ug/dL (65-175); Iron Binding Capacity, Total 239 mcg/dL (261-462); Phosphorus 5.6 mg/dL (2.3-4.7); Potassium 4.5 mmol/L (3.5-5.1); Sodium 138 mmol/L (136-145)
[2022-09-03] MEDS: Furosemide 40 MG/4 ML VIAL SLOW IVP SCH ×2 (05:48→14:18)
[2022-09-03] MEDS: Iron, Sodium Ferric Gluconate 250 MG in Sodium Chloride 0.9% 250 ML 250 ML IVPB SCH (09:13)
[2022-09-03] MEDS: Empagliflozin 25 MG TAB PO SCH (09:14)
[2022-09-03] MEDS: EPOETIN ALFA-EPBX (ESRD) 10,000 UNIT/ML VIAL SC SCH (09:14)
[2022-09-03] MEDS: Sodium Bicarbonate Tab 325 MG TAB PO SCH ×3 (09:15→20:44)
[2022-09-03] MEDS: Carvedilol 3.125 MG TAB PO SCH ×2 (09:16→17:28)
[2022-09-03] MEDS: Sacubitril 49 MG/Valsartan 51 MG TABLET PO SCH ×2 (09:16→20:44)
[2022-09-03] MEDS: Heparin 5,000 UNITS/ML VIAL SC SCH ×3 (09:16→20:42)
[2022-09-03] MEDS: Atorvastatin Calcium 40 MG TAB PO SCH (09:16)
[2022-09-03] MEDS: Aspirin 81 mg Enteric Coated Tablet PO SCH (09:16)
[2022-09-03] MEDS: Clopidogrel Bisulfate 75 MG TAB PO SCH (09:16)
[2022-09-03] MEDS: Gabapentin 300 MG CAP PO SCH (09:18)
[2022-09-03] MEDS: Sertraline 100 MG TAB PO SCH (09:18)
[2022-09-03] MEDS: Amlodipine 10 MG TAB PO SCH (09:18)
[2022-09-03] MEDS: Sevelamer Carbonate 800 MG TAB PO SCH ×3 (09:18→17:28)
[2022-09-03] MEDS: hydrALAZINE 25 MG TAB PO SCH ×3 (09:19→20:44)
[2022-09-03] MEDS: Metolazone 5 MG TAB PO SCH (09:22)
[2022-09-03] MEDS: Isosorbide Dinitrate 20 MG TAB PO SCH ×3 (09:22→20:45)
[2022-09-03] MEDS: Famotidine 20 MG TAB PO SCH (09:22)
[2022-09-03] MEDS: Ferrous Sulfate 325 MG TAB PO SCH ×2 (09:22→17:28)
[2022-09-03 10:16] LABS: #Eosinphils 0.2 thou/uL (0.0-0.7); #Lymphocytes 0.6 thou/uL (1.20-3.40); #Monocytes 0.9 thou/uL (0.11-0.59); #Neutrophils 9.2 thou/uL (1.40-6.50); %Basophils 0.1 % (0.0-1.0); %Eosinophils 1.5 % (0.0-10.0); %Lymphocytes 5.7 % (21.0-51.0); %Monocytes 7.8 % (0.0-10.0); %Neutrophils 84.9 % (42.0-75.0); Hemoglobin 8.9 g/dL (14.0-18.0); Mean Corpuscular Hemoglobin 30.8 pg (27.0-31.0); Mean Corpuscular Volume 99.3 fl (78.0-98.0); Mean Platelet Volume 8.6 fL (7.4-10.4); Platelet Count 238 10x3/uL (130-400); Red Blood Cell (RBC) Count 2.87 mill/uL (4.70-6.10); White Blood Cell (WBC) Count 10.9 10x3/uL (4.8-10.8)
[2022-09-03] MEDS: Insulin Glargine 30 UNITS/0.3 ML VIAL SC SCH (20:43)
[2022-09-04] MEDS: Furosemide 40 MG/4 ML VIAL SLOW IVP SCH ×4 (00:54→20:59)
[2022-09-04 06:46] LABS: #Eosinphils 0.3 thou/uL (0.0-0.7); #Lymphocytes 1.1 thou/uL (1.20-3.40); #Monocytes 0.8 thou/uL (0.11-0.59); #Neutrophils 7.2 thou/uL (1.40-6.50); %Basophils 0.2 % (0.0-1.0); %Eosinophils 3.2 % (0.0-10.0); %Lymphocytes 11.4 % (21.0-51.0); %Monocytes 8.8 % (0.0-10.0); %Neutrophils 76.5 % (42.0-75.0); Hemoglobin 8.6 g/dL (14.0-18.0); Mean Corpuscular HGB CONC 30.6 g/dL (32.0-36.0); Mean Corpuscular Volume 97.9 fl (78.0-98.0); Mean Platelet Volume 9.1 fL (7.4-10.4); Platelet Count 236 10x3/uL (130-400); RBC Distribution Width 14.8 % (11.5-14.5); Red Blood Cell (RBC) Count 2.87 mill/uL (4.70-6.10); White Blood Cell (WBC) Count 9.3 10x3/uL (4.8-10.8)
[2022-09-04 06:58] LABS: Anion Gap 14 mmol/L (10-20); BUN (Urea Nitrogen) 83 mg/dL (8.4-25.7); Calc. Creatinine Clearance 26 mL/min (70-130); Calcium 8.9 mg/dL (7.8-10.44); Carbon Dioxide 26 mmol/L (22-29); Chloride 102 mmol/L (98-107); Estimated GFR 11; Glucose 93 mg/dL (70-105); Potassium 4.4 mmol/L (3.5-5.1); Sodium 138 mmol/L (136-145)
[2022-09-04] MEDS: Metolazone 5 MG TAB PO SCH (09:28)
[2022-09-04] MEDS: Atorvastatin Calcium 40 MG TAB PO SCH (09:28)
[2022-09-04] MEDS: Famotidine 20 MG TAB PO SCH (09:28)
[2022-09-04] MEDS: Ferrous Sulfate 325 MG TAB PO SCH ×2 (09:28→15:54)
[2022-09-04] MEDS: Empagliflozin 25 MG TAB PO SCH (09:28)
[2022-09-04] MEDS: Sacubitril 49 MG/Valsartan 51 MG TABLET PO SCH ×2 (09:28→20:58)
[2022-09-04] MEDS: Sodium Bicarbonate Tab 325 MG TAB PO SCH ×3 (09:28→20:58)
[2022-09-04] MEDS: Sertraline 100 MG TAB PO SCH (09:28)
[2022-09-04] MEDS: Aspirin 81 mg Enteric Coated Tablet PO SCH (09:28)
[2022-09-04] MEDS: Sevelamer Carbonate 800 MG TAB PO SCH ×3 (09:28→15:54)
[2022-09-04] MEDS: Heparin 5,000 UNITS/ML VIAL SC SCH ×3 (09:29→20:59)
[2022-09-04] MEDS: hydrALAZINE 25 MG TAB PO SCH ×3 (09:29→20:58)
[2022-09-04] MEDS: Isosorbide Dinitrate 20 MG TAB PO SCH ×3 (09:29→20:58)
[2022-09-04] MEDS: Clopidogrel Bisulfate 75 MG TAB PO SCH (09:29)
[2022-09-04] MEDS: Gabapentin 300 MG CAP PO SCH (09:29)
[2022-09-04] MEDS: Carvedilol 3.125 MG TAB PO SCH ×2 (09:29→15:56)
[2022-09-04] MEDS: Amlodipine 10 MG TAB PO SCH (09:29)
[2022-09-04] MEDS: Iron, Sodium Ferric Gluconate 250 MG in Sodium Chloride 0.9% 250 ML 250 ML IVPB SCH (09:30)
[2022-09-04] MEDS: Insulin Glargine 30 UNITS/0.3 ML VIAL SC SCH (20:59)
[2022-09-05 05:04] LABS: Anion Gap 16 mmol/L (10-20); BUN (Urea Nitrogen) 87 mg/dL (8.4-25.7); Calc. Creatinine Clearance 24 mL/min (70-130); Calcium 9.3 mg/dL (7.8-10.44); Carbon Dioxide 28 mmol/L (22-29); Chloride 100 mmol/L (98-107); Estimated GFR 11; Glucose 75 mg/dL (70-105); Potassium 4.3 mmol/L (3.5-5.1); Sodium 140 mmol/L (136-145)
[2022-09-05] MEDS: Furosemide 40 MG/4 ML VIAL SLOW IVP SCH (05:53)
[2022-09-05] MEDS: Aspirin 81 mg Enteric Coated Tablet PO SCH (08:54)
[2022-09-05] MEDS: Sacubitril 49 MG/Valsartan 51 MG TABLET PO SCH (08:54)
[2022-09-05] MEDS: hydrALAZINE 25 MG TAB PO SCH (08:54)
[2022-09-05] MEDS: Atorvastatin Calcium 40 MG TAB PO SCH (08:55)
[2022-09-05] MEDS: Sevelamer Carbonate 800 MG TAB PO SCH ×2 (08:55→11:32)
[2022-09-05] MEDS: Famotidine 20 MG TAB PO SCH (08:55)
[2022-09-05] MEDS: Sodium Bicarbonate Tab 325 MG TAB PO SCH (08:55)
[2022-09-05] MEDS: Isosorbide Dinitrate 20 MG TAB PO SCH (08:55)
[2022-09-05] MEDS: Clopidogrel Bisulfate 75 MG TAB PO SCH (08:55)
[2022-09-05] MEDS: Gabapentin 300 MG CAP PO SCH (08:56)
[2022-09-05] MEDS: Carvedilol 3.125 MG TAB PO SCH (08:56)
[2022-09-05] MEDS: Amlodipine 10 MG TAB PO SCH (08:56)
[2022-09-05] MEDS: Ferrous Sulfate 325 MG TAB PO SCH (08:56)
[2022-09-05] MEDS: Metolazone 5 MG TAB PO SCH (08:56)
[2022-09-05] MEDS: Empagliflozin 25 MG TAB PO SCH (08:56)
[2022-09-05] MEDS: Sertraline 100 MG TAB PO SCH (08:56)
[2022-09-05] MEDS: Heparin 5,000 UNITS/ML VIAL SC SCH (08:57)
[2022-09-05 09:02] VITALS: BP 159/70
[2022-09-05] MEDS ORDERED: Torsemide 100 MG TAB PO SCH (09:30)
[2022-09-05] MEDS: Iron, Sodium Ferric Gluconate 250 MG in Sodium Chloride 0.9% 250 ML 250 ML IVPB SCH (09:58)
[2022-09-05] MEDS: EPOETIN ALFA-EPBX (ESRD) 10,000 UNIT/ML VIAL SC SCH (09:58)
[2022-09-05 10:41] VITALS: TEMP 97.6
[2022-09-06] MEDS ORDERED: Torsemide 100 MG TAB PO SCH ×2 (09:00)
== END 2022-09-05 13:44 | disposition home or self-care (01) | DRG 291 ==
LOC: ERS 00:25 → IMCU/EMU 02:22 → MSONC 09-01 11:15 → IMCU/EMU 09-02 15:52 → 2NO 09-04 18:25
PROVIDERS: ADMIT Family Medicine; ATTEND Family Medicine
PROC: 5A09357 Assistance with Respiratory Ventilation, Less than 24 Consecutive Hours, Continuous Positive Airway Pressure (ICD-10-PCS; principal; 2022-08-31)
DX: I13.2 Hypertensive heart and chronic kidney disease with heart failure and with stage 5 chronic kidney disease, or end stage renal disease (principal); I50.43 Acute on chronic combined systolic (congestive) and diastolic (congestive) heart failure; J96.01 Acute respiratory failure with hypoxia; J96.02 Acute respiratory failure with hypercapnia; I24.8 Other forms of acute ischemic heart disease; N17.9 Acute kidney failure, unspecified; N18.5 Chronic kidney disease, stage 5; E11.22 Type 2 diabetes mellitus with diabetic chronic kidney disease; J44.9 Chronic obstructive pulmonary disease, unspecified; E66.01 Morbid (severe) obesity due to excess calories; E83.39 Other disorders of phosphorus metabolism; D63.1 Anemia in chronic kidney disease; Z20.822 Contact with and (suspected) exposure to COVID-19; Z88.8 Allergy status to other drugs, medicaments and biological substances; Z79.899 Other long term (current) drug therapy; Z79.82 Long term (current) use of aspirin; Z79.51 Long term (current) use of inhaled steroids; Z79.4 Long term (current) use of insulin; Z86.73 Personal history of transient ischemic attack (TIA), and cerebral infarction without residual deficits; Z98.890 Other specified postprocedural states; Z99.81 Dependence on supplemental oxygen; Z68.38 Body mass index [BMI] 38.0-38.9, adult
CPT/HCPCS: 36415; 36416; 36600; 71045; 80048; 80053; 80069; 82553; 82728; 82805; 83540; 83550; 83880; 84145; 84484; 85025; 87633; 93005; 94644; 94660; 96374; J1644; J1815; J1940; J2916; J7050; J7611; J7620; Q5105; U0002

== ENCOUNTER 2022-10-10 19:30 | Outpatient (CLI) | payer OTHER | END 2022-10-10 19:31 | disposition home or self-care (01) | LOC: SLEEPLAB 19:30 | PROVIDERS: ATTEND Student in an Organized Health Care Education/Training Program | DX: G47.33 Obstructive sleep apnea (adult) (pediatric) (principal); E66.9 Obesity, unspecified; F32.A Depression, unspecified; I11.0 Hypertensive heart disease with heart failure; I50.9 Heart failure, unspecified; E11.9 Type 2 diabetes mellitus without complications; G47.61 Periodic limb movement disorder | CPT/HCPCS: 95810 ==

== ENCOUNTER 2022-12-12 19:00 | Outpatient (CLI) | payer OTHER | END 2022-12-12 19:01 | disposition home or self-care (01) | LOC: SLEEPLAB 19:00 | PROVIDERS: ATTEND Student in an Organized Health Care Education/Training Program | DX: G47.33 Obstructive sleep apnea (adult) (pediatric) (principal); F32.A Depression, unspecified; E66.9 Obesity, unspecified; E11.9 Type 2 diabetes mellitus without complications; I11.0 Hypertensive heart disease with heart failure; I50.9 Heart failure, unspecified; Z68.35 Body mass index [BMI] 35.0-35.9, adult; G47.61 Periodic limb movement disorder | CPT/HCPCS: 95811 ==